=== PATIENT | female | born 1940 | race Caucasian/White ===

== ENCOUNTER → 2019-07-26 11:15 | Outpatient (BNVA) | payer MEDICARE, MEDICAID, SELFPAY | PROVIDERS: Family Provider Family Medicine; PCP Family Medicine; Visit Provider Nurse Practitioner Family | DX: N30.00 Acute cystitis without hematuria (principal); R39.9 Unspecified symptoms and signs involving the genitourinary system; R82.998 Other abnormal findings in urine; N81.4 Uterovaginal prolapse, unspecified | CPT/HCPCS: 81003; 87077; 87086; 87186 ==

== ENCOUNTER → 2019-08-07 14:39 | Outpatient (BNVA) | payer MEDICARE, MEDICAID, SELFPAY | PROVIDERS: Family Provider Family Medicine; PCP Family Medicine; Visit Provider Nurse Practitioner Family | DX: N30.00 Acute cystitis without hematuria | CPT/HCPCS: 81003 ==

== ENCOUNTER 2019-11-14 10:43 | Outpatient (CLI) | payer MEDICARE, SELFPAY ==
--- NOTE | 2019-11-14 11:00 | USCV_ITS ---
Wendy Covarrubias Age: 79 Gender: F : 1940 Exam Date: 11/14/2019 11:00 Ordering Phys: Mic Meeks MD (Andy) ([email or web address] [place]) Technologist: Staci Jones Exam [place] [facility] [place]ication: STENOSIS Risk Factors: Previous Vascular Surgery: Right Brachial BP: / Left Brachial BP: / Right Left Velocity (cm/s) Spectral Plaque Velocity (cm/s) Spectral Plaque Syst/Diast Broadening Syst/Diast Broadening 62.80/ 13.20 Prox CCA 36.90 / 8.60 57.30/ 11.00 Mid CCA 53.50 / 13.90 40.40/ 10.10 Distal CCA 33.00 / 8.80 61.60/ 20.50 Prox ICA 77.00 / 16.60 61.80/ 11.10 Mid ICA 89.50 / 21.80 55.70/ 14.60 Distal ICA 82.20 / 21.80 105.10 ECA 122.80 1.08 ICA/CCA 1.67 Antegrade Vertebral Antegrade 61.80/ 12.90 cm/s 36.90/ 7.10 cm/s Bi Subclavian Bi 94.30 121.9 0 FINDINGS Moderate heterogeneous irregular plaque to the left bifurcation and internal carotid artery Mild to moderate heterogeneous plaques of the right bifurcation and internal carotid artery Intimal thickening and minimal plaques in the common carotid arteries bilaterally Antegrade flow in the vertebral arteries bilaterally Normal Doppler flow velocities in the subclavian arteries bilaterally CONCLUSIONS Moderate heterogeneous irregular plaque at the left bifurcation and internal carotid artery with velocity elevation consistent with 16-49% stenosis. Mild to moderate heterogeneous plaques of the right bifurcation and internal carotid artery Intimal thickening and minimal plaques in the common carotid arteries bilaterally Compared to the study from 11/23/2017, there may not be a significant change . Dr Mo Cortez MD [facility] (Electronically Signed) Final Date: 15 November 2019 17:18 S
== END 2019-11-14 10:44 | disposition home or self-care (01) ==
LOC: RAD 10:48
PROVIDERS: Family Provider Family Medicine; PCP Family Medicine; Visit Provider Thoracic Surgery (Cardiothoracic Vascular Surgery)
DX: I65.23 Occlusion and stenosis of bilateral carotid arteries (principal)
CPT/HCPCS: 93880

== ENCOUNTER → 2019-12-17 15:20 | Outpatient (BNVA) | payer MEDICARE, SELFPAY | PROVIDERS: Family Provider Family Medicine; PCP Family Medicine; Visit Provider Specialist | DX: G40.909 Epilepsy, unspecified, not intractable, without status epilepticus (principal); G40.219 Localization-related (focal) (partial) symptomatic epilepsy and epileptic syndromes with complex partial seizures, intractable, without status epilepticus | CPT/HCPCS: 99214 ==

== ENCOUNTER 2020-05-13 09:58 | Outpatient (CLI) | payer MEDICARE, SELFPAY ==
--- NOTE | 2020-05-13 10:15 | USCV_ITS ---
CovarrubiasWendy lundberg Age: 80 Gender: F : 1940 Exam Date: 05/13/2020 10:07 Ordering Phys: Mic Meeks MD (Andy) [email or web address] [place] Technologist: Nneka Peres Exam Location: [facility] [place] Indication: h/o bilat CEA Risk Factors: Previous Vascular Surgery: Right Brachial BP: / Left Brachial BP: / Right Left Velocity (cm/s) Spectral Plaque Velocity (cm/s) Spectral Plaque Syst/Diast Broadening Syst/Diast Broadening 90.40/ 7.70 Prox CCA 90.40 / 7.70 66.70/ 7.70 Mid CCA 62.80 / 11.00 63.30/ 8.90 Distal CCA 61.80 / 13.40 47.70/ 6.70 Prox ICA 81.60 / 11.00 82.50/ 12.20 Mid ICA 82.20 / 13.65 63.90/ 11.70 Distal ICA 85.70 / 14.30 118.10 ECA 93.70 1.24 ICA/CCA 1.61 Antegrade Vertebral Antegrade 66.20/ 13.20 cm/s 27.70/ 9.20 cm/s Tri Subclavian Bi 107.4 210.1 0 0 FINDINGS Comparison:. 11/14/19. No significant elevation of systolic or diastolic velocities. Diffuse bilateral scattered calcified plaque and intimal thickening throughout the common carotid arteries and extending through the bifurcation. Surface of the plaque is irregular in the left CCA. Bilateral antegrade vertebral arteries. CONCLUSIONS Bilateral ICA stenosis less than 50%. No interval change in stenosis since prior exam. Bilateral diffuse atherosclerotic plaque. Dr. Candy Gomes DO (Electronically Signed) Final Date: 13 May 2020 12:17 S
== END 2020-05-13 09:59 | disposition home or self-care (01) ==
PROVIDERS: PCP Family Medicine; Visit Provider Thoracic Surgery (Cardiothoracic Vascular Surgery)
DX: I65.23 Occlusion and stenosis of bilateral carotid arteries (principal)
CPT/HCPCS: 93880

== ENCOUNTER → 2020-11-02 14:54 | Outpatient (BNVA) | payer MEDICARE, SELFPAY | PROVIDERS: PCP Family Medicine; Visit Provider Nurse Practitioner Family | DX: N39.0 Urinary tract infection, site not specified (principal) | CPT/HCPCS: 81000 ==

== ENCOUNTER 2020-11-19 13:59 | Inpatient (IN) | payer MEDICARE, SELFPAY ==
[2020-11-19 14:09] VITALS: BP 185/72; PULSE 91; RESP 18; TEMP 37; O2SAT 97; BMI 26.4
--- NOTE | 2020-11-19 14:11 | ECG_ITS ---
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 Measurements Intervals [place] Rate: 94 P: 54 WA: 160 QRS: -28 QRSD: 88 T: 71 QT: 336 QTc: 422 Interpretive Statements SINUS RHYTHM BORDERLINE LEFT AXIS DEVIATION [QRS AXIS < -20] LOW QRS VOLTAGE IN PRECORDIAL LEADS [QRS DEFLECTION < 1.0 mV IN CHEST LEADS] LEFT VENTRICULAR HYPERTROPHY AND ST-T CHANGE [VOLTAGE CRITERIA PLUS ST/T ABNORMALITY] Compared to ECG 04/01/2017 01:34:33 Low QRS voltage now present Left ventricular hypertrophy now present ST (T wave) deviation now present T-wave abnormality no longer present Electronically Signed On 11-19-2020 18:22:08 CDT by Pawan Tse M.D. [id number]
--- NOTE | 2020-11-19 14:25 | XR_ITS ---
WS: [id number] Exam: XR chest 1V portable [id number] Date/Time of Exam: 11/19/2020 2:25 PM Reason For Exam: dyspnea/cough Comparison 03/31/2017. The lungs are fully expanded and clear. Unremarkable cardiomediastinal structures. Old bilateral prox imal humeral fractures are noted. Surgical clips in the right and left neck. Bilateral apical pleural thickening and calcification. XR/XR chest 1V portable [id number] IMPRESSION: 1. No acute cardiopulmonary finding. No change.
--- NOTE | 2020-11-19 14:26 | ED_ITS ---
HPI - Weakness General: Chief complaint: Weakness Stated complaint: GENERALIZED WEAKNESS Time Seen by Provider: 11/19/20 14:00 History of Present Illness: HPI Narrative: 80 yo female presents to the emergency room with complaints of weakness and cough for the last 3 days. Her son-in-law who lives with her tested positive for Covid 3 days ago. She has had some loose stools but no diarrhea denies anosmia. On arrival here she is mildly hypoxic which cc corrected by 2 L nasal cannula on room air she was in the mid to upper 80s. MD Complaint: generalized weakness Onset (ago): day(s) Duration: constant Location: generalized Relieving factors: none Exacerbating factors: none Associated symptoms: Denies chest pain, chills, confusion, melena, decreased appetite, diaphoresis, dysuria, easy bruising, fever(s), headache(s), myalgias, nausea, rash, short of breath, syncope or vomiting Review of Systems Const: Denies: fever(s), chills or diaphoresis ENMT: Denies: throat pain, ear or mastoid pain, nasal discharge or nasal congestion Card: Denies: chest pain or syncope Resp: Reports: dyspnea; Denies: productive cough GI: Denies: nausea, vomiting or melena : Denies: dysuria Skin/Breast: Denies: rash or pruritus Neuro: Denies: headache(s) or confusion Kash/Lymph: Denies: easy bruising [facility] ED PFSH: Medical History (Updated 11/20/20 @ 06:34 by Lee Trent DO) Arteriosclerotic heart disease Carotid disease, bilateral CKD (chronic kidney disease) stage 2, GFR 60-89 ml/min Cystocele with small rectocele and uterine descent Dementia in Alzheimer's disease Dyslipidemia Essential hypertension GERD (gastroesophageal reflux disease) Surgical History H/O removal of cyst History of cholecystectomy Status post carotid surgery Family History Mother CAD (coronary artery disease) Hypertension Social History Smoking and tobacco status: former smoker Second hand smoke exposure: No Alcohol intake: never Desire information about alcohol rehabilitation?: No Desire information about substance/drug rehabilitation?: No Adopted: No Lives independently: Yes Household members: family Housing: House Marital status: / History of recent travel: No Physical Exam Const: COMMON NORMALS: no acute distress GENERAL APPEARANCE: cooperative and comfortable ORIENTATION/CONSCIOUSNESS: Yes awake HENMT: COMMON NORMALS: normocephalic, atraumatic, hearing grossly normal bilaterally and external ears normal HEAD & SCALP: normocephalic and atraumatic EXTERNAL EAR: Yes external ears normal Neck/C-Spine: COMMON NORMALS: no JVD Resp: AUSCULTATION: rhonchi and wheezes Cardio: COMMON NORMALS: no JVD, regular rate, regular rhythm and No murmurs present (Cardio) RATE: regular rate RHYTHM: regular rhythm GI: COMMON NORMALS: Soft to palpation and No hepatosplenomegaly present AUSCULTATION: Yes normoactive bowel sounds PALPATION: Yes Soft to palpation, No Tenderness to palpation present (GI), No Guarding due to palpation present (GI) and Yes No hepatosplenomegaly present Extremity: COMMON NORMALS: normal to inspection, capillary refill normal, no clubbing, cyanosis or edema, no calf tenderness and no pedal edema Skin: COMMON NORMALS: no rashes or lesions noted GENERAL SKIN EXAM: no rashes or lesions noted Course Vital Signs: Vital signs: Vital Signs Temperature 100.1 F H 11/20/20 04:46 Pulse Rate 76 11/20/20 04:46 Respiratory Rate 19 H 11/20/20 04:46 Blood Pressure 115/62 11/20/20 04:46 Pulse Oximetry 93 11/20/20 04:46 MDM - Weakness MDM Narrative: Medical decision making narrative: Positive Covid with hypoxia. We will go ahead and admit she is only on day 3 of symptoms concerned she may progressively worsen started on remdesivir and dexamethasone IL-6 ordered. Lab Data: Labs: Lab Results 11/19/20 11/19/20 11/19/20 Range/Units 15:00 15:15 15:15 WBC 4.8 (4.0-10.0) 10^3/ uL RBC 5.24 (4.1-5.3) 10^6/u L Hgb 16.4 H (11.5-15.3) g/dL Hct 49.3 H (37.0-47.0) % MCV 94.1 (81-99) fL MCH 31.3 (28.0-34.0) pg MCHC 33.3 (30.0-36.0) g/dL RDW 12.5 (12.1-15.1) % Plt Count 173 (130-400) 10^3/c mm MPV 10.8 H (7.4-10.4) fL Neut % (Auto) 71.6 % Lymph % (Auto) 14.0 % [place] % (Auto) 14.2 % Eos % (Auto) 0.0 % Baso % (Auto) 0.0 % Neut # (Auto) 3.42 (1.8-7.7) 10^3/u L Lymph # (Auto) 0.7 L (0.8-4.8) 10^3/u L [place] # (Auto) 0.7 (0.2-0.9) 10^3/u L Eos # (Auto) 0.0 (0.0-0.8) 10^3/u L Baso # (Auto) 0.0 (0.0-0.1) 10^3/u L Nucleated RBC % (a uto) 0 % Nucleated RBCs # 0.0 /100WBC D-Dimer (0-0.59) ug/mIFE U Sodium 132 L (136-145) mmol/L Potassium 4.1 (3.5-5.1) mmol/L Chloride 94 L (98-107) mmol/L Carbon Dioxide 22 (22-29) mmol/L Anion Gap 20.1 H (5-19) BUN 23 (8-23) mg/dL Creatinine 0.9 (0.5-0.9) mg/dL GFR Calculation Not Reportable Glucose 76 (65-115) mg/dL Calculated Osmolal ity 276 L (285-295) mOsm/k g Calcium 8.7 (8.5-10.5) mg/dL Total Bilirubin 0.4 (0.15-1.2) mg/dL AST 37 H (0-32) U/L ALT 34 H (0-33) U/L Alkaline Phosphata se 107 H (35-105) IU/L Creatine Kinase 34 (26-192) U/L Total Protein 6.7 (6.6-8.7) g/dL Albumin 4.0 (3.5-5.2) g/dL Globulin 2.7 (1.3-4.6) g/dL Lipase 61 H (13-60) U/L SARS-CoV-2 Ag (Rap id) Positive H (Negative) 11/19/20 Range/Units 15:15 WBC (4.0-10.0) 10^3/ uL RBC (4.1-5.3) 10^6/u L Hgb (11.5-15.3) g/dL Hct (37.0-47.0) % MCV (81-99) fL MCH (28.0-34.0) pg MCHC (30.0-36.0) g/dL RDW (12.1-15.1) % Plt Count (130-400) 10^3/c mm MPV (7.4-10.4) fL Neut % (Auto) % Lymph % (Auto) % [place] % (Auto) % Eos % (Auto) % Baso % (Auto) % Neut # (Auto) (1.8-7.7) 10^3/u L Lymph # (Auto) (0.8-4.8) 10^3/u L [place] # (Auto) (0.2-0.9) 10^3/u L Eos # (Auto) (0.0-0.8) 10^3/u L Baso # (Auto) (0.0-0.1) 10^3/u L Nucleated RBC % (a uto) % Nucleated RBCs # /100WBC D-Dimer 1.16 H (0-0.59) ug/mIFE U Sodium (136-145) mmol/L Potassium (3.5-5.1) mmol/L Chloride (98-107) mmol/L Carbon Dioxide (22-29) mmol/L Anion Gap (5-19) BUN (8-23) mg/dL Creatinine (0.5-0.9) mg/dL GFR Calculation Glucose (65-115) mg/dL Calculated Osmolal ity (285-295) mOsm/k g Calcium (8.5-10.5) mg/dL Total Bilirubin (0.15-1.2) mg/dL AST (0-32) U/L ALT (0-33) U/L Alkaline Phosphata se (35-105) IU/L Creatine Kinase (26-192) U/L Total Protein (6.6-8.7) g/dL Albumin (3.5-5.2) g/dL Globulin (1.3-4.6) g/dL Lipase (13-60) U/L SARS-CoV-2 Ag (Rap id) (Negative) Discharge Plan Discharge Patient Disposition: Admitted As Inpatient Admit Provider: Alexi Hilario Clinical Impression: COVID-19, Hypertension, CKD (chronic kidney disease) stage 2, GFR 60-89 ml/min, Arteriosclerotic heart disease Condition: Stable Coding Level of Care Code ED Machine Load Clerk for g Fwd Exam Comprehensive
[2020-11-19 15:07] VITALS: RESP 17; O2SAT 98
[2020-11-19 15:45] LABS: Hematocrit 49.3 % (37.0-47.0); Hemoglobin 16.4 g/dL (11.5-15.3); Lymphocytes # 0.7 10^3/uL (0.8-4.8); Mean Corpuscular HGB Conc 33.3 g/dL (30.0-36.0); Mean Corpuscular Hemoglobin 31.3 pg (28.0-34.0); Mean Corpuscular Volume 94.1 fL (81-99); Mean Platelet Volume 10.8 fL (7.4-10.4); Monocytes # 0.7 10^3/uL (0.2-0.9); Monocytes % 14.2 %; Neutrophils # 3.42 10^3/uL (1.8-7.7); Neutrophils % 71.6 %; Nucleated Red Blood Cells % 0 %; Platelet Count 173 10^3/cmm (130-400); Red Blood Count 5.24 10^6/uL (4.1-5.3); Red Cell Distribution Width 12.5 % (12.1-15.1); White Blood Count 4.8 10^3/uL (4.0-10.0)
[2020-11-19 15:50] LABS: SARS Covid-2 Antigen Positive (Negative)
[2020-11-19 15:52] LABS: D Dimer 1.16 ug/mIFEU (0-0.59)
[2020-11-19 16:03] LABS: Alanine Aminotransferase 34 U/L (0-33); Alkaline Phosphatase 107 IU/L (35-105); Anion Gap 20.1 (5-19); Aspartate Amino Transferase 37 U/L (0-32); Blood Urea Nitrogen 23 mg/dL (8-23); Calcium 8.7 mg/dL (8.5-10.5); Carbon Dioxide 22 mmol/L (22-29); Chloride 94 mmol/L (98-107); Creatine Phosphokinase 34 U/L (26-192); Globulin 2.7 g/dL (1.3-4.6); Glucose 76 mg/dL (65-115); Lipase 61 U/L (13-60); Osmolality Calculated 276 mOsm/kg (285-295); Potassium 4.1 mmol/L (3.5-5.1); Sodium 132 mmol/L (136-145); Total Bilirubin 0.4 mg/dL (0.15-1.2); Total Protein 6.7 g/dL (6.6-8.7)
[2020-11-19] MEDS: remdesivir 200 MG in sodium chloride 0.9% (100 ml) 100 ML 100 MG IV (17:48)
[2020-11-19 17:49] VITALS: BP 211/86; PULSE 114; RESP 17; O2SAT 98
[2020-11-19 18:40] VITALS: BP 175/83; PULSE 109; RESP 20; TEMP 37.3; O2SAT 95
--- NOTE | 2020-11-19 19:00 | PC.NURSE ---
Dr. Hilario at bedside talking with patient. Dr. Hilario asked patient about her resuscitation wishes Patient states, If it is my time to go let me go. I am ready for GOD to take me home. Patient is A&Ox3. Respirations even and non-labored on 2 liters of oxygen.
--- NOTE | 2020-11-19 19:08 | P.HP_ITS ---
Providers/Chief Complaint Admitting Physician: Alexi Hilario DO Primary Care Provider: Honorio Ren Chief Complaint: GENERALIZED WEAKNESS History of Present Illness Wendy Covarrubias is a 80 year old female with past medical history of seizure disorder hypertension Presents with 3 days of symptoms that she calls like a flu. She did not have a cough or shortness of breath or chest pain she just felt weak. She said her daughter called the ambulance for her and her son-in-law. Review of Systems Const: Denies: fever(s) or chills Eyes: Denies: change in vision ENMT: Denies: throat pain or nasal congestion Card: Denies: chest pain or palpitations Resp: Denies: dyspnea or productive cough GI: Denies: abdominal pain, nausea, vomiting or change in stool character : Denies: dysuria Musc: Denies: back pain or extremity pain Skin/Breast: Denies: rash or lesions Neuro: Denies: headache(s) or dizziness Psych: Denies: anxiety or depression Kash/Lymph: Denies: easy bruising or easy bleeding Medications/Allergies Home Medications Medication Instructions Recorded Confirmed Last Taken Type alendronate 70 mg tablet 70 mg PO Q7D tab 07/26/19 11/19/20 11/12/20 History aspirin 81 mg tablet,delayed 81 mg PO DAILY 07/26/19 11/19/20 11/18/20 History release atorvastatin 80 mg tablet 80 mg PO DAILY 07/26/19 11/19/20 11/18/20 History dexlansoprazole 60 mg 60 mg PO DAILY 07/26/19 11/19/20 11/18/20 History capsule,biphase delayed release metoprolol tartrate 25 mg tablet 12.5 mg PO BID 07/26/19 11/19/20 11/18/20 History multivitamin-iron (hematinic) 1 tab PO DAILY 07/26/19 11/19/20 11/18/20 History nifedipine 90 mg tablet,extended 90 mg PO DAILY 07/26/19 11/19/20 11/18/20 Histo ry release spironolactone 25 mg tablet 25 mg PO DAILY 07/26/19 11/19/20 11/18/20 History vitamin d 1 tab PO DAILY 07/26/19 11/19/20 11/18/20 History levetiracetam 750 mg tablet 750 mg PO BID #60 tab 12/18/19 11/19/20 11/18/20 Rx Allergies Allergy/AdvReac Type Severity Reaction Status Date / Time morphine Allergy ADR-Vomitin Verified 11/17/20 08:26 g Penicillins Allergy ALGY-Hives Verified 11/17/20 08:26 PFSH Acute PFSH: Medical History (Updated 11/19/20 @ 19:16 by Alexi Hilario DO) Arteriosclerotic heart disease Carotid disease, bilateral CKD (chronic kidney disease) stage 2, GFR 60-89 ml/min Cystocele with small rectocele and uterine descent Dementia in Alzheimer's disease Dyslipidemia Essential hypertension GERD (gastroesophageal reflux disease) Surgical History H/O removal of cyst History of cholecystectomy Status post carotid surgery Family History Mother CAD (coronary artery disease) Hypertension Social History Smoking and tobacco status: former smoker Second hand smoke exposure: No Alcohol intake: never Desire information about alcohol rehabilitation?: No Desire information about substance/drug rehabilitation?: No Adopted: No Lives independently: Yes Household members: family Housing: House Marital status: / History of recent travel: No Vitals/I&O/Wt Last Vital Signs Temp 98.6 F 11/19/20 14:09 Pulse 114 H 11/19/20 17:49 Resp 17 11/19/20 17:49 BP 211/86 11/19/20 17:49 Pulse Ox 98 11/19/20 17:49 Weight last 48 hrs Weight 61.235 kg Physical Exam Narrative: EXAM NARRATIVE: General: Patient appears her stated age of 80. She is in mild distress while talking. I am unclear if she is feeling a little dips neck or anxiety. Her pulse ox was checked while I was in the room and it was 94% on 2 L. Head normocephalic atraumatic pupils equal reactive to light and accommodation extraocular muscles are intact there is no scleral icterus neck is supple no JVD carotid bruits or lymphadenopathy thyroid is not palpable heart regular normal S1-S2 without murmurs clips gallops or rubs lungs good aeration 1 or 2 scattered wheezes auscultated but clears with cough. Abdomen soft nontender nondistended positive bowel sounds no hepatosplenomegaly extremities no clubbing clubbing cyanosis or edema skin warm and dry scattered moles versus seboric keratosis Neuro patient is alert and oriented to person place time and situation psychiatric mood and affect appropriate for condition Data : 11/19/20 15:15 11/19/20 15:15 A&P Assessment and plan (1) COVID-19: Admit patient to floor no need for treatment telemetry. 2 L nasal cannula RT to evaluate and treat and titrate oxygen as needed Remdesivir and Decadron as per protocol Discussed CODE STATUS with patient she says her daughter knows what she wants. And she wants to go to the [facility] when her time is ready. Thus she will be ordered a DO NOT RESUSCITATE status. Status: Acute (2) Hypertension: Continue home medications Status: Acute (3) Epilepsy: Continue home dose of Keppra 750 mg twice daily Status: Acute (4) CKD (chronic kidney disease) stage 2, GFR 60-89 ml/min: Will monitor. Status: Acute (5) Arteriosclerotic heart disease: Continue aspirin Status: Acute (6) Dyslipidemia: For 80 mg at night Status: Acute (7) GERD (gastroesophageal reflux disease): Continue home medication. Status: Acute Attestations Medical Necessity Statement*: Pt has COVID and high risk for deterioation. Keep hospitalized for a few MN and treat aggressively Coding Level of Care Code Acute Case Manager Specialist for Chg Fwd Diagnoses COVID-19 U07.1 Hypertension I10 Epilepsy G40.909 CKD (chronic kidney disease) stage 2, GFR 60-89 ml/min N18.2 Arteriosclerotic heart disease I25.10 Dyslipidemia E78.5 GERD (gastroesophageal reflux disease) K21.9
[2020-11-19] MEDS: D5-NS 0.45% + KCL 20 mEq 20 MEQ/1,000 ML BAG 75 MEQ IV (19:09)
[2020-11-19] MEDS: metoprolol tartrate 25 mg Tablet 12.5 MG PO (19:09)
[2020-11-19] MEDS: docusate sodium 100 mg Capsule PO (19:09)
[2020-11-19] MEDS: enoxaparin 40 mg/0.4 mL Syringe SUBCUT (19:10)
[2020-11-19 20:00] VITALS: BP 178/80; PULSE 85; RESP 20; TEMP 37.6; O2SAT 98
[2020-11-19] MEDS: atorvastatin 40 mg Tablet 80 MG PO (21:23)
[2020-11-19 21:36] VITALS: O2SAT 98
[2020-11-20] VITALS (7 sets, daily range): BP systolic 95–126; BP diastolic 53–73; PULSE 62–77; RESP 16–19; TEMP 36.3–38.1; O2SAT 93–98
[2020-11-20 05:35] LABS: Basophils % 0.2 %; Hematocrit 43.3 % (37.0-47.0); Hemoglobin 14.4 g/dL (11.5-15.3); Lymphocytes # 0.7 10^3/uL (0.8-4.8); Lymphocytes % 14.9 %; Mean Corpuscular HGB Conc 33.3 g/dL (30.0-36.0); Mean Corpuscular Volume 93.1 fL (81-99); Mean Platelet Volume 10.9 fL (7.4-10.4); Monocytes # 0.8 10^3/uL (0.2-0.9); Monocytes % 16.1 %; Neutrophils # 3.28 10^3/uL (1.8-7.7); Neutrophils % 68.6 %; Nucleated Red Blood Cells % 0 %; Platelet Count 149 10^3/cmm (130-400); Red Blood Count 4.65 10^6/uL (4.1-5.3); Red Cell Distribution Width 12.3 % (12.1-15.1); White Blood Count 4.8 10^3/uL (4.0-10.0)
[2020-11-20 05:53] LABS: Alanine Aminotransferase 30 U/L (0-33); Albumin Level 3.3 g/dL (3.5-5.2); Alkaline Phosphatase 84 IU/L (35-105); Aspartate Amino Transferase 42 U/L (0-32); Blood Urea Nitrogen 21 mg/dL (8-23); Calcium 7.7 mg/dL (8.5-10.5); Carbon Dioxide 24 mmol/L (22-29); Chloride 98 mmol/L (98-107); Globulin 2.4 g/dL (1.3-4.6); Glucose 121 mg/dL (65-115); Osmolality Calculated 276 mOsm/kg (285-295); Sodium 131 mmol/L (136-145); Total Bilirubin 0.3 mg/dL (0.15-1.2); Total Protein 5.7 g/dL (6.6-8.7)
[2020-11-20 05:57] LABS: Anion Gap 13.6 (5-19); Potassium 4.6 mmol/L (3.5-5.1)
--- NOTE | 2020-11-20 06:05 | PM.PN ---
Subjective Subjective: Interval history: hypoxia overnight Vitals/I&O/Wt Last Vital Signs Temp 100.1 F H 11/20/20 04:46 Pulse 76 11/20/20 04:46 Resp 19 H 11/20/20 04:46 BP 115/62 11/20/20 04:46 Pulse Ox 93 11/20/20 04:46 11/19/20 11/19/20 11/20/20 14:59 22:59 06:59 Intake Total 100 / 100 240 / 340 Output Total 300 / 300 Balance -200 / -200 240 / 40 Weight last 48 hrs Weight 61.235 kg Physical Exam Narrative: EXAM NARRATIVE: General: Patient appears her stated age of 80. She is in mild distress while talking. I am unclear if she is feeling a little dips neck or anxiety. Her pulse ox was checked while I was in the room and it was 94% on 2 L. Head normocephalic atraumatic pupils equal reactive to light and accommodation extraocular muscles are intact there is no scleral icterus neck is supple no JVD carotid bruits or lymphadenopathy thyroid is not palpable heart regular normal S1-S2 without murmurs clips gallops or rubs lungs good aeration 1 or 2 scattered wheezes auscultated but clears with cough. Abdomen soft nontender nondistended positive bowel sounds no hepatosplenomegaly extremities no clubbing clubbing cyanosis or edema skin warm and dry scattered moles versus seboric keratosis Neuro patient is alert and oriented to person place time and situation psychiatric mood and affect appropriate for condition Data : 11/20/20 05:17 11/20/20 05:17 A&P Assessment and plan (1) COVID-19: Admit patient to floor no need for treatment telemetry. 2 L nasal cannula RT to evaluate and treat and titrate oxygen as needed Remdesivir and Decadron as per protocol elevated d-dimer - cta chest Discussed CODE STATUS with patient she says her daughter knows what she wants. And [facility]. Thus she will be ordered a DO NOT RESUSCITATE status. Status: Acute (2) Hypertension: Continue home medications Status: Acute (3) Epilepsy: Continue home dose of Keppra 750 mg twice daily Status: Acute (4) CKD (chronic kidney disease) stage 2, GFR 60-89 ml/min: Will monitor. d/c ivf Status: Acute (5) Arteriosclerotic heart disease: Continue aspirin Status: Acute (6) Dyslipidemia: For 80 mg at night Status: Acute (7) GERD (gastroesophageal reflux disease): Continue home medication. Status: Acute Attestations Medical Necessity Statement*: continue hosptalization for management of hypxic resp failure Time Spent in Patient Care: Greater than 35 minutes (>than 50% of time spent in counselling and/or direct pt care on unit). Coding Level of Care Code Acute Supervisor Reclamation for Chg Fwd Diagnoses COVID-19 U07.1 Hypertension I10 Epilepsy G40.909 CKD (chronic kidney disease) stage 2, GFR 60-89 ml/min N18.2 Arteriosclerotic heart disease I25.10 Dyslipidemia E78.5 GERD (gastroesophageal reflux disease) K21.9
--- NOTE | 2020-11-20 07:54 | CTR_ITS ---
PROCEDURE INFORMATION: Exam: CTA Chest Without And With Contrast Exam date and time: 11/20/2020 7:54 AM Age: 80 years old Clinical indication: Dyspnea; Additional info: Hypoxia, covid-19 infection TECHNIQUE: Imaging protocol: Computed tomographic angiography of the chest without and with contrast. 3D rendering (Not supervised by radiologist): MIP and/or 3D reconstructed images were created by the technologist. Radiation optimization: All CT scans at this facility use at least one of these dose optimization techniques: automated exposure control; mA and/or kV adjustment per patient size (includes targeted exams where dose is matched to clinical indication); or iterative reconstruction. Contrast material: VISI; Contrast volume: 66 ml; Contrast route: INTRAVENOUS (IV); COMPARISON: 1. CR XR chest 1V portable [id number] 11/19/2020 2:27 PM 2. CR Shoulder 2+ views RIGHT* [id number] 07/17/2017 11:10:31 AM 3. CR Chest 1 [place] [id number] 03/31/2017 5:37:58 PM RADIATION DOSE METRICS: Total DLP (mGy-cm): 495.04 FINDINGS: Pulmonary arteries: No filling defects in the pulmonary arteries to suggest pulmonary embolism. Aorta: Moderate atherosclerotic changes in the visualized arteries. No evidence for aortic aneurysm. Evaluation for aortic dissection is limited due to the phase of contrast-enhancement. Lungs: Tracheobronchial structures are patent. Dependent atelectasis in the lungs bilaterally. No pulmonary parenchymal nodules or masses. Focal ground-glass opacification in the anterior left upper lobe. Pleural spaces: No pneumothorax. No pleural effusion. Heart: Stable moderate enlargement of the heart. Calcification of the aortic valve. Moderate atherosclerotic calcification in the coronary arteries. Mediastinal space: The esophagus is unremarkable. No mediastinal hematoma. No pneumomediastinum. Lymph nodes: No lymphadenopathy. Liver: The visualized liver is unremarkable. Gallbladder and bile ducts: Patient has had a previous cholecystectomy. No dilatation of the visualized bile ducts. Pancreas: The visualized pancreas is unremarkable. No pancreatic ductal dilatation. Spleen: The spleen is unremarkable. Adrenal glands: The right and left adrenal glands are unremarkable. Kidneys and ureters: The visualized right kidney is unremarkable. Mild atrophy of the visualized left kidney. Multiple cysts in the visualized left kidney. Bones/joints: Mild degenerative changes in the visualized spine. Old, moderate compression deformity of T8. Stable deformities of the proximal right and left humeri consistent with old, healed fractures. Soft tissues: No acute abnormality in the extrathoracic soft tissues. CT/CT angio chest PE protcl [id number] IMPRESSION: 1. Focal ground-glass opacification in the anterior left upper lobe. Findings are nonspecific, but can be seen with COVID-19 pneumonia. Recommend clinical correlation. Recommend followup chest imaging to insure resolution of these findings. 2. No evidence for pulmonary embolism. 3. Dependent atelectasis in the lungs bilaterally. 4. Incidental/nonacute findings are listed in the report. COMMENTS: Consistent with the [employer]'s Incidental Findings Committee white paper (J Am Sidney Radiol 2018): Any incidental renal lesion less than 1 cm or classified as too small to characterize, or any incidental cystic renal lesion characterized as simple-appearing, is likely benign. No follow-up imaging is recommended for these lesions per consensus recommendations based on imaging criteria. Radiation Dose CTDIVOL = (mGy): DLP = 495.04 (mGy-cm)
[2020-11-20] MEDS: dexamethasone 4 mg/mL INJ 6 MG IVP (08:41)
[2020-11-20] MEDS: pantoprazole DR 40 mg Tablet PO (08:41)
[2020-11-20] MEDS: levETIRAcetam 500 mg Tablet 750 MG PO ×2 (08:41→17:20)
[2020-11-20] MEDS: docusate sodium 100 mg Capsule PO ×2 (08:41→17:20)
[2020-11-20] MEDS: aspirin 81 mg EC Tablet PO (08:41)
--- NOTE | 2020-11-20 10:40 | PC.NURSE ---
Attempted x2 to establish a 20 gauge IV for patent's CT scan. This nurse was unsuccessful. Charge nurse Robyn CANALES notified.
[2020-11-20 14:19] LABS: Urine Appearance Cloudy (CLEAR); Urine Color Yellow (Yellow)
[2020-11-20 14:20] LABS: Add Urine Culture? No; Add Urine Microscopic? YES; Bacteria Urine 4+ /hpf; Bilirubin Urine Neg (Negative); Blood Urine Neg (Negative); Glucose Urine UA Norm (Normal); Ketones Urine 1+ (Negative); Leukocyte Esterase Urine Negative (Negative); Mucus Urine TRACE /hpf; Nitrate Urine Negative (Negative); Protein Urine 3+ (Negative); RBC Urine 0-4 /hpf (0-2); Squamous Epithelial Cell Urine 15-25 /hpf (0-5); Urobilinogen Urine Norm (Negative); WBC Urine 0-4 /hpf (0-5); pH Urine 5 (5-7)
--- NOTE | 2020-11-20 17:05 | PC.NURSE ---
Patient to CT at this time.
[2020-11-20] MEDS: iodixanol 320 mg/mL 100mL Btl IV (17:17)
[2020-11-20] MEDS: metoprolol tartrate 25 mg Tablet 12.5 MG PO (17:20)
[2020-11-20] MEDS: enoxaparin 40 mg/0.4 mL Syringe SUBCUT (17:20)
[2020-11-20] MEDS: remdesivir 100 MG in sodium chloride 0.9% (100 ml) 100 ML IV (17:22)
[2020-11-20] MEDS: atorvastatin 40 mg Tablet 80 MG PO (21:49)
[2020-11-21] VITALS: BP 120/74; PULSE 71; RESP 16; TEMP 36.7; O2SAT 97
[2020-11-21 04:00] VITALS: BP 126/74; PULSE 60; RESP 16; TEMP 36.7; O2SAT 95
[2020-11-21 05:45] LABS: Hematocrit 44.8 % (37.0-47.0); Hemoglobin 14.6 g/dL (11.5-15.3); Lymphocytes # 0.8 10^3/uL (0.8-4.8); Lymphocytes % 30.7 %; Mean Corpuscular HGB Conc 32.6 g/dL (30.0-36.0); Mean Corpuscular Hemoglobin 30.9 pg (28.0-34.0); Mean Corpuscular Volume 94.9 fL (81-99); Monocytes # 0.5 10^3/uL (0.2-0.9); Monocytes % 21.5 %; Neutrophils # 1.19 10^3/uL (1.8-7.7); Neutrophils % 47.4 %; Nucleated Red Blood Cells % 0 %; Platelet Count 147 10^3/cmm (130-400); Red Blood Count 4.72 10^6/uL (4.1-5.3); White Blood Count 2.5 10^3/uL (4.0-10.0)
[2020-11-21 05:59] LABS: D Dimer 1.26 ug/mIFEU (0-0.59)
[2020-11-21 06:02] LABS: Lactate (Lactic Acid level) 1.4 mmol/L (0.5-2.2)
[2020-11-21 06:12] LABS: Procalcitonin 0.12 ng/mL (0-0.5)
[2020-11-21 06:24] LABS: Alanine Aminotransferase 31 U/L (0-33); Albumin Level 3.1 g/dL (3.5-5.2); Alkaline Phosphatase 85 IU/L (35-105); Blood Urea Nitrogen 25 mg/dL (8-23); Calcium 7.6 mg/dL (8.5-10.5); Carbon Dioxide 22 mmol/L (22-29); Chloride 100 mmol/L (98-107); Globulin 2.5 g/dL (1.3-4.6); Glucose 95 mg/dL (65-115); Magnesium 2.1 mg/dL (1.7-2.3); Osmolality Calculated 282 mOsm/kg (285-295); Sodium 134 mmol/L (136-145); Total Bilirubin 0.4 mg/dL (0.15-1.2); Total Protein 5.6 g/dL (6.6-8.7)
[2020-11-21 06:37] LABS: Anion Gap 16.4 (5-19)
[2020-11-21 06:38] LABS: Aspartate Amino Transferase 43 U/L (0-32); Potassium 4.4 mmol/L (3.5-5.1)
[2020-11-21 07:22] LABS: Ferritin 775 ng/mL (15-150)
[2020-11-21 08:00] VITALS: BP 150/69; PULSE 65; RESP 17; TEMP 36.8; O2SAT 96
[2020-11-21 08:30] VITALS: PULSE 72; O2SAT 95
[2020-11-21] MEDS: metoprolol tartrate 25 mg Tablet 12.5 MG PO ×2 (09:27→17:24)
[2020-11-21] MEDS: aspirin 81 mg EC Tablet PO (09:27)
[2020-11-21] MEDS: levETIRAcetam 500 mg Tablet 750 MG PO ×2 (09:27→17:25)
[2020-11-21] MEDS: dexamethasone 4 mg/mL INJ 6 MG IVP (09:28)
[2020-11-21] MEDS: docusate sodium 100 mg Capsule PO ×2 (09:28→17:25)
[2020-11-21] MEDS: NIFEdipine ER (24 hr) 30 mg Tablet 90 MG PO (09:28)
[2020-11-21] MEDS: pantoprazole DR 40 mg Tablet PO (09:28)
[2020-11-21 11:55] VITALS: BP 132/73; PULSE 61; RESP 17; TEMP 36.6; O2SAT 95
[2020-11-21 15:10] VITALS: BP 117/65; PULSE 63; RESP 17; TEMP 36.7; O2SAT 93
--- NOTE | 2020-11-21 15:14 | P.PN_ITS ---
Subjective Subjective: Interval history: Continues to feel short of breat. Medications: Reviewed: Yes Vitals/I&O/Wt Last Vital Signs Temp 98.1 F 11/21/20 15:10 Pulse 63 11/21/20 15:10 Resp 17 11/21/20 15:10 BP 117/65 11/21/20 15:10 Pulse Ox 93 11/21/20 15:10 11/21/20 11/21/20 11/22/20 14:59 22:59 06:59 Intake Total 960 / 960 100 / 1060 Output Total 400 / 400 300 / 700 Balance 560 / 560 -200 / 360 Physical Exam Narrative: EXAM NARRATIVE: General _ impring. Head normocephalic atraumatic pupils equal reactive to light and accommodation extraocular muscles are intact there is no scleral icterus neck is supple no JVD carotid bruits or lymphadenopathy thyroid is not palpable heart regular normal S1-S2 without murmurs clips gallops or rubs lungs good aeration 1 or 2 scattered wheezes auscultated but clears with cough. Abdomen soft nontender nondistended positive bowel sounds no hepatosplenomegaly extremities no clubbing clubbing cyanosis or edema skin warm and dry scattered moles versus seboric keratosis Neuro patient is alert and oriented to person place time and situation psychiatric mood and affect appropriate for condition Data : 11/21/20 05:28 11/21/20 05:28 A&P Assessment and plan (1) COVID-19: Admit patient to floor no need for treatment telemetry. 2 L nasal cannula RT to evaluate and treat and titrate oxygen as needed Remdesivir and Decadron as per protocol elevated d-dimer - cta chest - ground glass opacities Home o2 eval prior to dc Discussed CODE STATUS with patient she says her daughter knows what she wants. And she wants to go to the [facility] when her time is ready. Thus she will be ordered a DO NOT RESUSCITATE status. Status: Acute (2) Hypertension: Continue home medications Status: Acute (3) Epilepsy: Continue home dose of Keppra 750 mg twice daily Status: Acute (4) CKD (chronic kidney disease) stage 2, GFR 60-89 ml/min: Will monitor. d/c ivf Status: Acute (5) Arteriosclerotic heart disease: Continue aspirin Status: Acute (6) Dyslipidemia: For 80 mg at night Status: Acute (7) GERD (gastroesophageal reflux disease): Continue home medication. Status: Acute Attestations Medical Necessity Statement*: Will require further hospitaliztion for management of covid-19 pneumonia Time Spent in Patient Care: Greater than 35 minutes (>than 50% of time spent in counselling and/or direct pt care on unit) . Coding Level of Care Code Acute Public Relations Professional for Chg Fwd Diagnoses COVID-19 U07.1 Hypertension I10 Epilepsy G40.909 CKD (chronic kidney disease) stage 2, GFR 60-89 ml/min N18.2 Arteriosclerotic heart disease I25.10 Dyslipidemia E78.5 GERD (gastroesophageal reflux disease) K21.9
[2020-11-21] MEDS: remdesivir 100 MG in sodium chloride 0.9% (100 ml) 100 ML IV (17:25)
[2020-11-21] MEDS: enoxaparin 40 mg/0.4 mL Syringe SUBCUT (17:25)
[2020-11-21] MEDS: atorvastatin 40 mg Tablet 80 MG PO (20:01)
[2020-11-22] VITALS (8 sets, daily range): BP systolic 117–178; BP diastolic 61–66; PULSE 60–76; RESP 18–20; TEMP 36.6–37.1; O2SAT 91–97
--- NOTE | 2020-11-22 02:27 | PC.NURSE ---
INCREASE CONFUSION IN THE PATIENT: THE PATIENT MADE A PHONE CALL TO THE SWITCH BOARD STATING SHE WAS IN A SMALL HOSPITAL [place]HIND THE HOSPITAL IN A SMALL HOUSE AND SHE WAS TRYING TO CALL HER DAUGHTER TO TAKE HER HOME. THIS NURSE WENT TO SPEAK WITH THE PATIENT AND EXPLAINED TO HER SHE IS IN THE HOSPITAL, JUST IN A DIFFERENT ROOM BECAUSE SHE IS COVID POSITIVE. AFTER ANSWERING A FEW QUESTIONS THE PATIENT SEEMED TO UNDERSTAND. THIS NURSE LEFT THE ROOM TO RETURN TO THE NURSE'S STATION. WHILE SITTING AT THE DESK THE PATIENT CAME OUT OF HER ROOM AND WAS ASKING WHERE SHE WAS AGAIN. THIS NURSE ASSISTED THE PATIENT BACK TO HER BED, APPLIED HER OXYGEN BACK TO HER NOSE AND APPLIED THE PULSE OX BACK TO HER FINGER. THE PATIENT ADMITTED SHE KNEW SHE WAS CONFUSED, BUT DIDN'T UNDERSTAND WHY. SHE STATED SHE FEELS LIKE SHE HAS BEEN SLEEPING TOO MUCH. IT WAS EXPLAINED TO HER THAT SHE WAS MUCH MORE ILL THAN SHE IS NOW AND SHE STATED SHE UNDERSTOOD.
[2020-11-22] MEDS: dexamethasone 4 mg/mL INJ 6 MG IVP (09:51)
[2020-11-22] MEDS: aspirin 81 mg EC Tablet PO (10:37)
[2020-11-22] MEDS: metoprolol tartrate 25 mg Tablet 12.5 MG PO ×2 (10:37→18:02)
[2020-11-22] MEDS: levETIRAcetam 500 mg Tablet 750 MG PO ×2 (10:38→18:04)
[2020-11-22] MEDS: NIFEdipine ER (24 hr) 30 mg Tablet 90 MG PO (10:38)
[2020-11-22] MEDS: docusate sodium 100 mg Capsule PO ×2 (10:38→18:03)
[2020-11-22] MEDS: pantoprazole DR 40 mg Tablet PO (10:38)
--- NOTE | 2020-11-22 14:11 | PC.SOCIAL ---
*IMM UPDATE* Gave verbal IMM update to pt's daughter. Verbalized understanding. 11/22/20 @ 0952 Initialed, dated, timed and placed in chart.
--- NOTE | 2020-11-22 17:03 | PM.PN ---
Subjective Subjective: Interval history: Noting improvement in respiratory status. was off o2 in room whoever this was replaced. no fever or chills, no nausea or vomiting Medications: Reviewed: Yes Vitals/I&O/Wt Last Vital Signs Temp 97.8 F 11/22/20 15:50 Pulse 60 11/22/20 15:50 Resp 18 11/22/20 15:50 BP 137/63 11/22/20 15:50 Pulse Ox 96 11/22/20 15:50 11/22/20 11/22/20 11/22/20 06:59 14:59 22:59 Intake Total 360 / 1420 Output Total 500 / 1200 Balance -140 / 220 Physical Exam Narrative: EXAM NARRATIVE: General : Alert, awake, oriented x 3 HEENT: Eomi CVS; RRR Chest : non-labored respiration Abd: soft NT,ND Ext : NO edema Data : 11/21/20 05:28 11/21/20 05:28 A&P Assessment and plan (1) COVID-19: Admit patient to floor no need for treatment telemetry. 2 L nasal cannula RT to evaluate and treat and titrate oxygen as needed Remdesivir and Decadron as per protocol To complete remdesivir on . elevated d-dimer - cta chest - ground glass opacities Home o2 eval in am Status: Acute (2) Hypertension: Continue home medications Status: Acute (3) Epilepsy: Continue home dose of Keppra 750 mg twice daily Status: Acute (4) CKD (chronic kidney disease) stage 2, GFR 60-89 ml/min: Will monitor. d/c ivf Status: Acute (5) Arteriosclerotic heart disease: Continue aspirin Status: Acute (6) Dyslipidemia: For 80 mg at night Status: Acute (7) GERD (gastroesophageal reflux disease): Continue home medication. Status: Acute Attestations Medical Necessity Statement*: Will require further hospitalization to complete full course of remdesivir. Time Spent in Patient Care: Greater than 35 minutes (>than 50% of time spent in counselling and/or direct pt care on unit). Coding Level of Care Code Acute Adhesive Bandage Making Operator for Chg Fwd Diagnoses COVID-19 U07.1 Hypertension I10 Epilepsy G40.909 CKD (chronic kidney disease) stage 2, GFR 60-89 ml/min N18.2 Arteriosclerotic heart disease I25.10 Dyslipidemia E78.5 GERD (gastroesophageal reflux disease) K21.9
[2020-11-22] MEDS: enoxaparin 40 mg/0.4 mL Syringe SUBCUT (18:01)
[2020-11-22] MEDS: remdesivir 100 MG in sodium chloride 0.9% (100 ml) 100 ML IV (18:05)
[2020-11-22 18:55] LABS: Alanine Aminotransferase 28 U/L (0-33); Albumin Level 2.9 g/dL (3.5-5.2); Alkaline Phosphatase 78 IU/L (35-105); Anion Gap 14.1 (5-19); Aspartate Amino Transferase 41 U/L (0-32); Blood Urea Nitrogen 23 mg/dL (8-23); Calcium 7.5 mg/dL (8.5-10.5); Carbon Dioxide 21 mmol/L (22-29); Chloride 103 mmol/L (98-107); Globulin 2.2 g/dL (1.3-4.6); Glucose 131 mg/dL (65-115); Osmolality Calculated 283 mOsm/kg (285-295); Potassium 4.1 mmol/L (3.5-5.1); Sodium 134 mmol/L (136-145); Total Bilirubin 0.3 mg/dL (0.15-1.2); Total Protein 5.1 g/dL (6.6-8.7)
[2020-11-22] MEDS: atorvastatin 40 mg Tablet 80 MG PO (20:57)
[2020-11-23] VITALS (9 sets, daily range): BP systolic 121–147; BP diastolic 67–73; PULSE 53–69; RESP 16–24; TEMP 36.6–37.7; O2SAT 92–97
[2020-11-23] MEDS: ondansetron 2 mg/ML SDV 2 mL 4 MG IVP (00:41)
[2020-11-23] MEDS: dexamethasone 4 mg/mL INJ 6 MG IVP (09:26)
[2020-11-23] MEDS: FUROsemide 10 mg/mL SDV 2mL 20 MG IVP (10:49)
[2020-11-23] MEDS: NIFEdipine ER (24 hr) 30 mg Tablet 90 MG PO (11:13)
[2020-11-23] MEDS: levETIRAcetam 500 mg Tablet 750 MG PO ×2 (11:13→18:52)
[2020-11-23] MEDS: metoprolol tartrate 25 mg Tablet 12.5 MG PO ×2 (11:14→18:52)
[2020-11-23] MEDS: docusate sodium 100 mg Capsule PO ×2 (11:14→18:52)
[2020-11-23] MEDS: aspirin 81 mg EC Tablet PO (11:15)
[2020-11-23] MEDS: pantoprazole DR 40 mg Tablet PO (11:15)
[2020-11-23] MEDS: enoxaparin 40 mg/0.4 mL Syringe SUBCUT (18:53)
[2020-11-23] MEDS: remdesivir 100 MG in sodium chloride 0.9% (100 ml) 100 ML IV (18:53)
--- NOTE | 2020-11-23 20:29 | PM.PN ---
Subjective Subjective: Interval history: Patient was slightly short of breath today. no fever, chills, nausea or vomiting. Medications: Reviewed: Yes Vitals/I&O/Wt Last Vital Signs Temp 98.1 F 11/23/20 20:00 Pulse 60 11/23/20 20:00 Resp 20 H 11/23/20 20:00 BP 147/70 11/23/20 20:00 Pulse Ox 93 11/23/20 20:00 11/23/20 11/23/20 11/23/20 06:59 14:59 22:59 Intake Total 240 / 240 100 / 340 Output Total 300 / 300 1000 / 1000 Balance -300 / -80 -760 / -760 100 / -660 Physical Exam Narrative: EXAM NARRATIVE: General : Alert, awake, oriented x 3 HEENT: Eomi CVS; RRR Chest : non-labored respiration Abd: soft NT,ND Ext : NO edema Data : 11/21/20 05:28 11/22/20 18:30 A&P Assessment and plan (1) COVID-19: Admit patient to floor no need for treatment telemetry. 2 L nasal cannula RT to evaluate and treat and titrate oxygen as needed Remdesivir and Decadron as per protocol Completed remdesivir today elevated d-dimer - cta chest - ground glass opacities Home o2 eval ordered Lasix 20 mg IV x 1 today Status: Acute (2) Hypertension: Continue home medications Status: Acute (3) Epilepsy: Continue home dose of Keppra 750 mg twice daily Status: Acute (4) CKD (chronic kidney disease) stage 2, GFR 60-89 ml/min: Will monitor. d/c ivf Status: Acute (5) Arteriosclerotic heart disease: Continue aspirin Status: Acute (6) Dyslipidemia: For 80 mg at night Status: Acute (7) GERD (gastroesophageal reflux disease): Continue home medication. Status: Acute Attestations Medical Necessity Statement*: Will require further hospitalization for management of respiratory failure Time Spent in Patient Care: Greater than 35 minutes (>than 50% of time spent in counselling and/or direct pt care on unit). Coding Level of Care Code Acute Sterile Processing Technologist for Chg Fwd Diagnoses COVID-19 U07.1 Hypertension I10 Epilepsy G40.909 CKD (chronic kidney disease) stage 2, GFR 60-89 ml/min N18.2 Arteriosclerotic heart disease I25.10 Dyslipidemia E78.5 GERD (gastroesophageal reflux disease) K21.9
[2020-11-23] MEDS: atorvastatin 40 mg Tablet 80 MG PO (21:12)
[2020-11-24] VITALS (10 sets, daily range): BP systolic 126–156; BP diastolic 62–71; PULSE 56–65; RESP 16–96; TEMP 36.5–37.1; O2SAT 88–96
[2020-11-24] MEDS: ondansetron 2 mg/ML SDV 2 mL 4 MG IVP (01:50)
[2020-11-24] MEDS: alum-mag-hydroxide-sime 30 mL UDC 15 ML PO (01:50)
[2020-11-24 06:10] LABS: Basophils % 0.2 %; Hematocrit 42.4 % (37.0-47.0); Hemoglobin 14.4 g/dL (11.5-15.3); Lymphocytes % 22.8 %; Mean Corpuscular Hemoglobin 30.8 pg (28.0-34.0); Mean Corpuscular Volume 90.8 fL (81-99); Mean Platelet Volume 11.1 fL (7.4-10.4); Monocytes # 0.7 10^3/uL (0.2-0.9); Monocytes % 15.4 %; Neutrophils # 2.67 10^3/uL (1.8-7.7); Neutrophils % 61.4 %; Nucleated Red Blood Cells % 0 %; Platelet Count 190 10^3/cmm (130-400); Red Blood Count 4.67 10^6/uL (4.1-5.3); Red Cell Distribution Width 12.3 % (12.1-15.1); White Blood Count 4.4 10^3/uL (4.0-10.0)
[2020-11-24 06:29] LABS: Anion Gap 11.4 (5-19); Blood Urea Nitrogen 27 mg/dL (8-23); Calcium 7.7 mg/dL (8.5-10.5); Carbon Dioxide 28 mmol/L (22-29); Chloride 102 mmol/L (98-107); Glucose 83 mg/dL (65-115); Osmolality Calculated 290 mOsm/kg (285-295); Potassium 3.4 mmol/L (3.5-5.1); Sodium 138 mmol/L (136-145)
[2020-11-24 06:41] LABS: Ferritin 1772 ng/mL (15-150)
--- NOTE | 2020-11-24 07:00 | XRR_ITS ---
PROCEDURE INFORMATION: Exam: XR Chest Exam date and time: 11/24/2020 7:00 AM Age: 80 years old Clinical indication: Condition or disease; Lung condition and disease; Respiratory failure; Status not specified TECHNIQUE: Imaging protocol: XR of the chest. Views: 1 view. COMPARISON: CR XR chest 1V portable [id number] 11/19/2020 2:27 PM FINDINGS: Lungs: The lungs are somewhat hyperinflated with increased interstitial markings, likely representing COPD. There is new hazy bilateral airspace opacities, most prominently in the lateral upper lungs, concerning for superimposed pneumonia. Pleural spaces: Unremarkable. No pleural effusion. No pneumothorax. Heart/Mediastinum: Stable cardiomediastinal silhouette. Vasculature: Aortic arch atherosclerotic calcifications seen. Bones/joints: Loss of height in a midthoracic vertebral bodies is re-identified.. Degenerative changes of the spine and shoulder joints noted. XR/XR chest 1V portable [id number] IMPRESSION: 1. Hazy bilateral airspace opacities, concerning for pneumonia. 2. COPD changes.
[2020-11-24] MEDS: aspirin 81 mg EC Tablet PO (09:09)
[2020-11-24] MEDS: NIFEdipine ER (24 hr) 30 mg Tablet 90 MG PO (09:09)
[2020-11-24] MEDS: docusate sodium 100 mg Capsule PO ×2 (09:09→17:35)
[2020-11-24] MEDS: metoprolol tartrate 25 mg Tablet 12.5 MG PO ×2 (09:09→17:35)
[2020-11-24] MEDS: levETIRAcetam 500 mg Tablet 750 MG PO ×2 (09:09→17:35)
[2020-11-24] MEDS: pantoprazole DR 40 mg Tablet PO (09:10)
[2020-11-24] MEDS: dexamethasone 4 mg/mL INJ 6 MG IVP (09:10)
--- NOTE | 2020-11-24 11:34 | PC.NUTR ---
Nutrition assessment: Assessed for LOS, noted poor po intakes, averaging 18% X 10 recorded meals. Recommend vanilla Ensure TID, Ensure Plus when available (Plus currently not available in vanilla flavor, which pt prefers.) Recommend to provide supplement TID between meals, rather than with meals, in order to promote higher overall daily calorie intake. Spoke with pt's nurse Malia, who states will inform nursing staff of this. See RD assessment for further details.
--- NOTE | 2020-11-24 13:47 | PM.PN ---
Subjective Subjective: Interval history: No new clinical events overnight. Patient was requiring 2 L O2 via nasal cannula. No fever chills. No nausea vomiting. Medications: Reviewed: Yes Vitals/I&O/Wt Last Vital Signs Temp 98.5 F 11/25/20 12:00 Pulse 69 11/25/20 12:00 Resp 18 11/25/20 12:00 BP 162/72 11/25/20 12:00 Pulse Ox 96 11/25/20 12:00 11/24/20 11/25/20 11/25/20 22:59 06:59 14:59 Intake Total 460 / 580 240 / 820 1360 / 1360 Output Total 300 / 300 200 / 500 Balance 160 / 280 40 / 320 1360 / 1360 Physical Exam Narrative: EXAM NARRATIVE: General : Alert, awake, oriented x 3 HEENT: Eomi CVS; RRR Chest : non-labored respiration , 2 L of O2 via nasal cannula Abd: soft NT,ND Ext : NO edema Data : 11/24/20 05:51 11/25/20 05:10 A&P Assessment and plan (1) COVID-19: Admit patient to floor no need for treatment telemetry. 2 L nasal cannula RT to evaluate and treat and titrate oxygen as needed Remdesivir and Decadron as per protocol Completed remdesivir course Plan for 10 day total of decadron elevated d-dimer - cta chest - ground glass opacities Home o2 eval noted Status: Acute (2) Hypertension: Continue home medications Status: Acute (3) Epilepsy: Continue home dose of Keppra 750 mg twice daily Status: Acute (4) CKD (chronic kidney disease) stage 2, GFR 60-89 ml/min: Will monitor. d/c ivf Status: Acute (5) Arteriosclerotic heart disease: Continue aspirin Status: Acute (6) Dyslipidemia: For 80 mg at night Status: Acute (7) GERD (gastroesophageal reflux disease): Continue home medication. Status: Acute Attestations Medical Necessity Statement*: will require further hospitalization for discharge planning Time Spent in Patient Care: Greater than 35 minutes (>than 50% of time spent in counselling and/or direct pt care on unit). Coding Level of Care Code Acute High School Art Teacher for [facility] Fwd Diagnoses COVID-19 U07.1 Hypertension I10 Epilepsy G40.909 CKD (chronic kidney disease) stage 2, GFR 60-89 ml/min N18.2 Arteriosclerotic heart disease I25.10 Dyslipidemia E78.5 GERD (gastroesophageal reflux disease) K21.9
--- NOTE | 2020-11-24 16:05 | PC.OT ---
OT tx attempted. Pt reports too tired to participate in OT tx at this time. Will attempt to resume services tomorrow.
--- NOTE | 2020-11-24 16:53 | PC.SOCIAL ---
*IMM UPDATE* Gave verbal IMM update to patient. Verbalized understanding. 11/24/20 @ 0959 Initialed, dated, timed and placed in chart.
[2020-11-24] MEDS: enoxaparin 40 mg/0.4 mL Syringe SUBCUT (17:36)
[2020-11-24] MEDS: atorvastatin 40 mg Tablet 80 MG PO (20:09)
[2020-11-25] VITALS (8 sets, daily range): BP systolic 122–174; BP diastolic 63–77; PULSE 55–72; RESP 16–18; TEMP 36.7–36.9; O2SAT 93–96
[2020-11-25 06:13] LABS: Anion Gap 12.4 (5-19); Blood Urea Nitrogen 27 mg/dL (8-23); Calcium 8.1 mg/dL (8.5-10.5); Carbon Dioxide 27 mmol/L (22-29); Chloride 102 mmol/L (98-107); Glucose 106 mg/dL (65-115); Osmolality Calculated 292 mOsm/kg (285-295); Potassium 3.4 mmol/L (3.5-5.1); Sodium 138 mmol/L (136-145)
[2020-11-25] MEDS: metoprolol tartrate 25 mg Tablet 12.5 MG PO (08:24)
[2020-11-25] MEDS: docusate sodium 100 mg Capsule PO (08:24)
[2020-11-25] MEDS: levETIRAcetam 500 mg Tablet 750 MG PO (08:24)
[2020-11-25] MEDS: aspirin 81 mg EC Tablet PO (08:24)
[2020-11-25] MEDS: NIFEdipine ER (24 hr) 30 mg Tablet 90 MG PO (08:25)
[2020-11-25] MEDS: pantoprazole DR 40 mg Tablet PO (08:25)
[2020-11-25] MEDS: dexamethasone 4 mg/mL INJ 6 MG IVP (08:29)
--- NOTE | 2020-11-25 13:49 | PM.DCS ---
Discharge Providers Date of Admission: 11/19/20 17:06 Date of Discharge: November 25, 2020 Attending Provider at Admission: Alexi Hilario DO Attending Provider at Discharge: Ovidio Savage Primary Care Provider: Honorio Ren Diagnoses at Discharge Discharge Diagnosis (1) COVID-19: Status: Acute (2) Hypertension: Status: Acute (3) Epilepsy: Status: Acute (4) CKD (chronic kidney disease) stage 2, GFR 60-89 ml/min: Status: Acute (5) Arteriosclerotic heart disease: Status: Acute (6) Dyslipidemia: Status: Acute (7) GERD (gastroesophageal reflux disease): Status: Acute Reason for Visit Reason for Visit: GENERALIZED WEAKNESS Hospital Course Hospital Course 80-year-old female with past medical history significant for hypertension, dyslipidemia, vitamin-D deficiency, and seizure disorder who presented to the hospital with respiratory distress.Patient was started on supplemental oxygen. Was requiring 2 L of O2 on arrival.Initial laboratory workup but showed a WBC of 4.8, hemoglobin 16.4, hematocrit of 49.3 and platelet count of 173. Sodium 132, potassium 4.1, chloride 94, bicarb 22, BUN 23 and creatinine of 0.9. Glucose of 76. D-dimer was also elevated. Patient was started on remdesivir and decadron. Initial chest x-ray had not shown any evidence of acute cardiopulmonary abnormality. A repeat CT angio chestShowed focal ground-glass opacifications in the anterior left upper lobe without any evidence of acute pulmonary embolism. Dependent atelectasis was seen in lungs bilaterally. Patient did complete course of remdesivir which she tolerated. Home O2 eval was obtained.Patient was stable discharge on 11/25/2020.Of note patient was prescribed an additional 3 days of Decadron to completed total 10 day course. Physical Exam Narrative: EXAM NARRATIVE: General : Alert, awake, oriented x 3 HEENT: Eomi CVS; RRR Chest : non-labored respiration , 2 L of O2 via nasal cannula Abd: soft NT,ND Ext : NO edema Discharge Data Data Completed and Pending: Completed Studies During Hospitalization Category Date Time Status CT angio chest PE protcl [id number] Rout ine Cat Scan 11/20/20 07:54 Completed XR chest 1V miguel ble [id number] Routine Exams 11/24/20 07:00 Completed XR chest 1V miguel ble [id number] Stat Exams 11/19/20 14:25 Completed Pending at discharge Category Date Time Status Basic Metabolic P estrada AM LABS Lab 11/26/20 04:00 Ordered Labs from last 24 hours 11/25/20 11/19/20 05:10 17:18 Sodium 138 Potassium 3.4 L Chloride 102 Carbon Dioxide 27 Anion Gap 12.4 BUN 27 H Creatinine 0.6 GFR Calculation Not Reportable Glucose 106 Calculated Osmolal ity 292 Calcium 8.1 L Interleukin 6 61.80 H Vitals: Last Vital Signs Temp 98.5 F 11/25/20 12:00 Pulse 69 11/25/20 12:00 Resp 18 11/25/20 12:00 BP 162/72 11/25/20 12:00 Pulse Ox 96 11/25/20 12:00 Discharge Plan Discharge Patient Disposition: Home Condition: Stable Prescriptions: New Decadron 6 mg tablet 6 mg PO Q24H Qty: 3 RF: 0 Continued nifedipine 90 mg tablet extended release 90 mg PO DAILY RF: 0 atorvastatin 80 mg tablet 80 mg PO DAILY RF: 0 spironolactone 25 mg tablet 25 mg PO DAILY RF: 0 metoprolol tartrate 25 mg tablet 12.5 mg PO BID RF: 0 Dexilant 60 mg capsule,biphase delayed releas 60 mg PO DAILY RF: 0 alendronate 70 mg tablet 70 mg PO Q7D RF: 0 aspirin [Adult Low Dose Aspirin] 81 mg tablet,delayed release (DR/EC) 81 mg PO DAILY RF: 0 vitamin d 1 tab PO DAILY RF: 0 multivitamin-iron (hematinic) 1 tab PO DAILY RF: 0 levetiracetam [Keppra] 750 mg tablet 750 mg PO BID Qty: 60 RF: 11 Discharge Orders: Discharge Order (Routine); Ordered 11/25/20 Ordered By: Ovidio Savage Other Ambulatory Orders: DME: Oxygen (Order) Location: None Selected Ordered By: Ovidio Savage Referrals: [facility] [Outside] Honorio Ren [Primary Care Provider] - 11/26/20 9:40 am Discharge Diet: Advance as tolerated Discharge Activity: Increase activity as tolerated Patient Instructions: Using Oxygen at Home (GEN), Hypertension (GEN), Opioid Safety Discharge Attestations Time Spent in Discharge Care*: greater than 30 min Specific Discharge Activities: educating patient, discussing with case packer and sealer/social workers/dc planners, documenting/other paperwork and evaluating patient/reviewing data Status at Discharge: Cognitive status at discharge: cognitively intact, Behavioral status at discharge: cooperative, Functional status at discharge: other assisted ambulation Overall status at discharge: patient is progressing back to baseline Quality Metrics Clinical Quality Measures During this hospital stay, did patient experience: None Coding Level of Care Code Acute Chg FW DC note Diagnoses COVID-19 U07.1 Hypertension I10 Epilepsy G40.909 CKD (chronic kidney disease) stage 2, GFR 60-89 ml/min N18.2 Arteriosclerotic heart disease I25.10 Dyslipidemia E78.5 GERD (gastroesophageal reflux disease) K21.9
== END 2020-11-25 15:14 | disposition home health service (06) | DRG 177 ==
LOC: ER 16:48 → MEDSURG 17:40
PROVIDERS: Admitting Provider Internal Medicine; Emergency Provider Family Medicine; PCP Family Medicine; Visit Provider Hospitalist
DX: U07.1 COVID-19 (principal); J12.82 Pneumonia due to coronavirus disease 2019; J96.91 Respiratory failure, unspecified with hypoxia; I12.9 Hypertensive chronic kidney disease with stage 1 through stage 4 chronic kidney disease, or unspecified chronic kidney disease; N18.2 Chronic kidney disease, stage 2 (mild); I25.10 Atherosclerotic heart disease of native coronary artery without angina pectoris; G40.909 Epilepsy, unspecified, not intractable, without status epilepticus; G30.9 Alzheimer's disease, unspecified; F02.80 Dementia in other diseases classified elsewhere, unspecified severity, without behavioral disturbance, psychotic disturbance, mood disturbance, and anxiety; K21.9 Gastro-esophageal reflux disease without esophagitis; E78.5 Hyperlipidemia, unspecified; Z66 Do not resuscitate; Z79.82 Long term (current) use of aspirin; Z87.891 Personal history of nicotine dependence
CPT/HCPCS: 36415; 71045; 71275; 80048; 80053; 81001; 82550; 82728; 83520; 83605; 83690; 83735; 84145; 85025; 85378; 87426; 93005; 94664; 94760; 94762; 96365; 96372; 97110; 97116; 97162; 97166; 97530; 97535; 99285; J1100; J1650; J1940; J2405; Q9967

== ENCOUNTER 2020-11-27 01:56 | Inpatient (IN) | payer MEDICARE, SELFPAY ==
[2020-11-27] VITALS (15 sets, daily range): BP systolic 111–149; BP diastolic 51–74; PULSE 72–103; RESP 16–32; TEMP 36.5–37.9; O2SAT 91–96; BMI 28.3
--- NOTE | 2020-11-27 02:03 | XRR_ITS ---
PROCEDURE INFORMATION: Exam: XR Chest Exam date and time: 11/27/2020 2:03 AM Age: 80 years old Clinical indication: Fever and shortness of breath; Patient HX: Worsening SOB and fever. Covid + TECHNIQUE: Imaging protocol: XR of the chest. Views: 1 view. COMPARISON: CR XR chest 1V portable [id number] 11/24/2020 6:38 AM FINDINGS: Lungs: There is a background of centrilobular emphysema and pulmonary fibrosis. Stable hazy opacities are seen in the upper hemithoraces bilaterally compared with 11/24/2020. There are new strandy opacities seen in the left lung base compatible with atelectasis although left basilar pneumonia cannot be excluded. Pleural spaces: Unremarkable. No pleural effusion. No pneumothorax. Heart/Mediastinum: Unremarkable. No cardiomegaly. Bones/joints: There is evidence of healed fractures of the proximal humerus bilaterally. XR/XR chest 1V portable [id number] IMPRESSION: There are hazy opacity seen in the upper hemithoraces bilaterally similar to those present on 11/24/2020. New strandy opacities are seen in the left lung base. These findings are compatible with worsening bilateral COVID-19 pneumonia.
[2020-11-27] MEDS: acetaminophen 325 mg Tablet 650 MG PO (02:24)
--- NOTE | 2020-11-27 03:00 | P.HP_ITS ---
Providers/Chief Complaint Primary Care Provider: Honorio Ren Chief Complaint: RESP. DESTRESS/ ABD PAIN History of Present Illness Wendy Covarrubias is a 80 year old female who was discharged on 11/25 after management of COVID-19 pneumonia with remdesivir, she was prescribed Decadron 3- day supply at the time of discharge presenting today with chief complaint of fever and lethargy. Patient is stating that at home she has been feeling e xtremely tired and lethargic. She was not able to do any kind of activity without assistance. She was spiking temperature as well. She is denying chest pain, diarrhea, dysuria. Because of worsening of her symptoms her daughter sent her to the hospital. Diagnostics in the ER revealed normal CBC however she was febrile 100.2, D-dimer 1.7, ABG revealed hypoxia, will request CTA chest, worsening transaminases noted BNP 3700 There are hazy opacity seen in the upper hemithoraces bilaterally similar to those present on 11/24/2020. New strandy opacities are seen in the left lung base. These findings are compatible with worsening bilateral COVID-19 pneumonia. Requested procalcitonin level She has finished remdesivir regimen, I will continue her Decadron for now Review of Systems Const: Reports: fever(s), chills, body aches, change in weight and fatigue Eyes: Denies: change in vision ENMT: Denies: throat pain Card: Denies: chest pain Resp: Reports: dyspnea and non-productive cough GI: Denies: abdominal pain : Denies: flank pain Musc: Reports: muscle cramps Skin/Breast: Denies: rash Neuro: Denies: headache(s) Psych: Reports: depression, change in appetite and memory loss Endo: Denies: polyuria Kash/Lymph: Denies: easy bruising All/Imm: Denies: urticaria Medications/Allergies Home Medications Medication Instructions Recorded Confirmed Last Taken Type alendronate 70 mg tablet 70 mg PO Q7D tab 07/26/19 11/19/20 11/12/20 History aspirin 81 mg tablet,delayed 81 mg PO DAILY 07/26/19 11/19/20 11/18/20 History release atorvastatin 80 mg tablet 80 mg PO DAILY 07/26/19 11/19/20 11/18/20 History dexlansoprazole 60 mg 60 mg PO DAILY 07/26/19 11/19/20 11/18/20 History capsule,biphase delayed release metoprolol tartrate 25 mg tablet 12.5 mg PO BID 07/26/19 11/19/20 11/18/20 History multivitamin-iron (hematinic) 1 tab PO DAILY 07/26/19 11/19/20 11/18/20 History nifedipine 90 mg tablet,extended 90 mg PO DAILY 07/26/19 11/19/20 11/18/20 History release spironolactone 25 mg tablet 25 mg PO DAILY 07/26/19 11/19/20 11/18/20 History vitamin d 1 tab PO DAILY 07/26/19 11/19/20 11/18/20 History levetiracetam 750 mg tablet 750 mg PO BID #60 tab 12/18/19 11/19/20 11/18/20 Rx dexamethasone [Decadron] 6 mg PO Q24H #3 tab 11/25/20 Unknown Rx Allergies Allergy/AdvReac Type Severity Reaction Status Date / Time morphine Allergy ADR-Vomitin Verified 11/17/20 08:26 g Penicillins Allergy ALGY-Hives Verified 11/17/20 08:26 PFSH Acute PFSH: Medical History Arteriosclerotic heart disease Carotid disease, bilateral CKD (chronic kidney disease) stage 2, GFR 60-89 ml/min Cystocele with small rectocele and uterine descent Dementia in Alzheimer's disease Dyslipidemia Essential hypertension GERD (gastroesophageal reflux disease) Surgical History H/O removal of cyst History of cholecystectomy Status post carotid surgery Family History Mother CAD (coronary artery disease) Hypertension Social History Smoking and tobacco status: former smoker Second hand smoke exposure: No Alcohol intake: never Desire information about alcohol rehabilitation?: No Desire information about substance/drug rehabilitation?: No Adopted: No Lives independently: Yes Household members: family Housing: House Marital status: / History of recent travel: No Vitals/I&O/Wt Last Vital Signs Temp 100.2 F H 11/27/20 02:05 Pulse 103 H 11/27/20 02:05 Resp 32 H 11/27/20 02:05 BP 149/74 11/27/20 02:05 Pulse Ox 93 11/27/20 02:05 Weight last 48 hrs Weight 70.307 kg Physical Exam Narrative: EXAM NARRATIVE: Very pleasant and cooperative elderly female She was saturating well on 5 L nasal cannula No active chest pain or abdominal pain S1, S2 sinus rhythm no signs of heart failure Abdomen soft nontender bowel sound present Low symmetry no edema gangrene ulcer EOMI, PERRLA no neurological deficit Very pleasant and cooperative during my evaluation No cellulitis or joint swelling Bilateral breath sounds, diminished, she has inspiratory crackles Data : 11/27/20 02:35 11/27/20 02:35 A&P Assessment and plan (1) COVID-19: Status: Acute (2) Weakness: Status: Acute (3) Acute and chronic respiratory failure with hypoxia: Status: Acute Additional A&P Information Acute on chronic hypoxia with worsening COVID-19 infection Chest x-ray consistent with worsening viral pneumonia, worsening CRP, transaminases, patient is extremely lethargic and fatigued not able to carry daily activities without assistance, Her O2 requirement has increased to 5 L Continue high D-dimer I would like to rule out PE requested CTA chest If her procalcitonin is high would add antibiotics Admit to [facility], Patient is stating that she would like to go to fdc as she is too weak and does not want to burden her daughter We will get PT evaluation and social service consult Ventolin every 4 as needed Continue Decadron Normotensive, hold nifedipine and spironolactone, continue metoprolol for now Cardiac diet DNR/DNI DVT prophylaxis Lovenox Attestations Medical Necessity Statement*: Anticipating stay in the hospital greater than 2 midnights, will need PT evaluation and probably fdc placement, her clinical course is dependent on her daily progress however showing worsening COVID-19 infection Time Spent in Patient Care: (>than 50% of time spent in counselling and/or direct pt care on unit) . 30mins Coding Level of Care Code Acute [employer] Supervisor for [facility] Diagnoses COVID-19 U07.1 Weakness R53.1 Acute and chronic respiratory failure with hypoxia J96.21
--- NOTE | 2020-11-27 03:01 | ED_ITS ---
HPI - Weakness General: Chief complaint: Weakness Stated complaint: RESP. DESTRESS/ ABD PAIN Time Seen by Provider: 11/27/20 02:02 Source: patient and EMS Mode of arrival: EMS Limitations: no limitations History of Present Illness: HPI Narrative: 80-year-old female who was recently discharged here yesterday with Covid. Called ambulance tonight she is having increasing dyspnea along with increasing weakness with a fever of 101. Patient is quite weak urine does not able to transfer from bed to bed. She was discharged home on 3 L and is requiring 4 L here. She had a slight cough. Denies any vomiting or diarrhea. Has had some slight abdominal cramping Associated symptoms: Reports fever(s); Denies chest pain, dysuria, easy bruising, nausea or vomiting Review of Systems Const: Reports: fever(s) Eyes: Denies: blurry vision or eye discomfort ENMT: Denies: throat pain or dental pain Card: Denies: chest pain Resp: Reports: dyspnea and non-productive cough GI: Denies: abdominal pain, nausea, vomiting or diarrhea : Denies: dysuria Musc: Denies: neck pain or back pain Skin/Breast: Denies: rash Neuro: Reports: weakness in extremities Psych: Denies: depression Kash/Lymph: Denies: easy bruising All/Imm: Denies: urticaria PFSH ED PFSH: Medical History Arteriosclerotic heart disease Carotid disease, bilateral CKD (chronic kidney disease) stage 2, GFR 60-89 ml/min Cystocele with small rectocele and uterine descent Dementia in Alzheimer's disease Dyslipidemia Essential hypertension GERD (gastroesophageal reflux disease) Surgical History H/O removal of cyst History of cholecystectomy Status post carotid surgery Family History Mother CAD (coronary artery disease) Hypertension Social History Smoking and tobacco status: former smoker Second hand smoke exposure: No Alcohol intake: never Desire information about alcohol rehabilitation?: No Desire information about substance/drug rehabilitation?: No Adopted: No Lives independently: Yes Household members: family Housing: House Marital status: / History of recent travel: No Course Vital Signs: Vital signs: Vital Signs Temperature 98.4 F 11/27/20 03:12 Pulse Rate 89 11/27/20 03:12 Respiratory Rate 21 H 11/27/20 03:12 Blood Pressure 128/53 11/27/20 03:12 Pulse Oximetry 93 11/27/20 03:12 MDM - Weakness 2 MDM Narrative: Medical decision making narrative: Wendy presents for generalized weakness and fever. She has Covid and recently discharged. Spoke to hospitalist and will readmit his she is very weak. Her fever is improved here. Lab Data: Labs: Lab Results 11/27/20 11/27/20 11/27/20 Range/Units 02:35 02:35 02:35 WBC 6.7 (4.0-10.0) 10^3/ uL RBC 4.65 (4.1-5.3) 10^6/u L Hgb 14.2 (11.5-15.3) g/dL Hct 41.4 (37.0-47.0) % MCV 89.0 (81-99) fL MCH 30.5 (28.0-34.0) pg MCHC 34.3 (30.0-36.0) g/dL RDW 12.3 (12.1-15.1) % Plt Count 259 (130-400) 10^3/c mm MPV 11.3 H (7.4-10.4) fL Neut % (Auto) 80.3 % Lymph % (Auto) 7.4 % [place] % (Auto) 11.0 % Eos % (Auto) 0.0 % Baso % (Auto) 0.2 % Neut # (Auto) 5.35 (1.8-7.7) 10^3/u L Lymph # (Auto) 0.5 L (0.8-4.8) 10^3/u L [place] # (Auto) 0.7 (0.2-0.9) 10^3/u L Eos # (Auto) 0.0 (0.0-0.8) 10^3/u L Baso # (Auto) 0.0 (0.0-0.1) 10^3/u L Nucleated RBC % (a uto) 0 % Nucleated RBCs # 0.0 /100WBC Sodium 136 (136-145) mmol/L Potassium 3.5 (3.5-5.1) mmol/L Chloride 96 L (98-107) mmol/L Carbon Dioxide 25 (22-29) mmol/L Anion Gap 18.5 (5-19) BUN 17 (8-23) mg/dL Creatinine 0.7 (0.5-0.9) mg/dL GFR Calculation Not Reportable Glucose 105 (65-115) mg/dL Calculated Osmolal ity 284 L (285-295) mOsm/k g Lactate 1.4 (0.5-2.2) mmol/L Calcium 8.7 (8.5-10.5) mg/dL Total Bilirubin 0.7 (0.15-1.2) mg/dL AST 114 H (0-32) U/L ALT 83 H (0-33) U/L Alkaline Phosphata se 112 H (35-105) IU/L C-Reactive Protein (0.0-4.9) mg/L NT-Pro-B Natriuret Pep 3703 H (0-450) pg/mL Total Protein 5.6 L (6.6-8.7) g/dL Albumin 3.0 L (3.5-5.2) g/dL Globulin 2.6 (1.3-4.6) g/dL 11/27/20 Range/Units 02:35 WBC (4.0-10.0) 10^3/ uL RBC (4.1-5.3) 10^6/u L Hgb (11.5-15.3) g/dL Hct (37.0-47.0) % MCV (81-99) fL MCH (28.0-34.0) pg MCHC (30.0-36.0) g/dL RDW (12.1-15.1) % Plt Count (130-400) 10^3/c mm MPV (7.4-10.4) fL Neut % (Auto) % Lymph % (Auto) % [place] % (Auto) % Eos % (Auto) % Baso % (Auto) % Neut # (Auto) (1.8-7.7) 10^3/u L Lymph # (Auto) (0.8-4.8) 10^3/u L [place] # (Auto) (0.2-0.9) 10^3/u L Eos # (Auto) (0.0-0.8) 10^3/u L Baso # (Auto) (0.0-0.1) 10^3/u L Nucleated RBC % (a uto) % Nucleated RBCs # /100WBC Sodium (136-145) mmol/L Potassium (3.5-5.1) mmol/L Chloride (98-107) mmol/L Carbon Dioxide (22-29) mmol/L Anion Gap (5-19) BUN (8-23) mg/dL Creatinine (0.5-0.9) mg/dL GFR Calculation Glucose (65-115) mg/dL Calculated Osmolal ity (285-295) mOsm/k g Lactate (0.5-2.2) mmol/L Calcium (8.5-10.5) mg/dL Total Bilirubin (0.15-1.2) mg/dL AST (0-32) U/L ALT (0-33) U/L Alkaline Phosphata se (35-105) IU/L C-Reactive Protein 140.0 H (0.0-4.9) mg/L NT-Pro-B Natriuret Pep (0-450) pg/mL Total Protein (6.6-8.7) g/dL Albumin (3.5-5.2) g/dL Globulin (1.3-4.6) g/dL Imaging Data^: CXR: Attestation: I personally reviewed and interpreted this imaging study as follows: Radiologist's impression: [address] [address] XRay Report Signed Patient: Wendy Covarrubias Unit #: [id number] : 1940 Age/Sex: 80 / F ADM Date: 11/27/20 Loc: [facility] Room/Bed: [facility] Attending Dr: Oliver Bro MD Ordering Provider/Ordering MD: Aris Ruelas MD Date of Service: 11/27/20 Procedure(s): XR chest 1V portable [id number] Accession Number(s): [id number] Report Number: [id number] PROCEDURE INFORMATION: Exam: XR Chest Exam date and time: 11/27/2020 2:03 AM Age: 80 years old Clinical indication: Fever and shortness of breath; Patient HX: Worsening SOB and fever. Covid + TECHNIQUE: Imaging protocol: XR of the chest. Views: 1 view. COMPARISON: CR XR chest 1V portable [id number] 11/24/2020 6:38 AM FINDINGS: Lungs: There is a background of centrilobular emphysema and pulmonary fibrosis. Stable hazy opacities are seen in the upper hemithoraces bilaterally compared with 11/24/2020. There are new strandy opacities seen in the left lung base compatible with atelectasis although left basilar pneumonia cannot be excluded. Pleural spaces: Unremarkable. No pleural effusion. No pneumothorax. Heart/Mediastinum: Unremarkable. No cardiomegaly. Bones/joints: There is evidence of healed fractures of the proximal humerus bilaterally. XR/XR chest 1V portable [id number] IMPRESSION: There are hazy opacity seen in the upper hemithoraces bilaterally similar to those present on 11/24/2020. New strandy opacities are seen in the left lung base. These findings are compatible with worsening bilateral COVID-19 pneumonia. EKG Data^: EKG 1: Attestation: I personally reviewed and interpreted this EKG as follows: EKG interpretation date: 11/27/20 EKG interpretation time: 02:58 Interpretation: nsr hr [address] or t wave abonrmalities qrs 98 qtc 401 Discharge Plan Discharge Patient Disposition: Admitted As Inpatient Admit Provider: Oliver Bro Clinical Impression: COVID-19, Weakness Condition: Stable Coding Level of Care Code ED [employer] for [facility]
[2020-11-27 03:07] LABS: Basophils % 0.2 %; Hematocrit 41.4 % (37.0-47.0); Hemoglobin 14.2 g/dL (11.5-15.3); Lymphocytes # 0.5 10^3/uL (0.8-4.8); Lymphocytes % 7.4 %; Mean Corpuscular HGB Conc 34.3 g/dL (30.0-36.0); Mean Corpuscular Hemoglobin 30.5 pg (28.0-34.0); Mean Platelet Volume 11.3 fL (7.4-10.4); Monocytes # 0.7 10^3/uL (0.2-0.9); Neutrophils # 5.35 10^3/uL (1.8-7.7); Neutrophils % 80.3 %; Nucleated Red Blood Cells % 0 %; Platelet Count 259 10^3/cmm (130-400); Red Blood Count 4.65 10^6/uL (4.1-5.3); Red Cell Distribution Width 12.3 % (12.1-15.1); White Blood Count 6.7 10^3/uL (4.0-10.0)
[2020-11-27 03:23] LABS: Lactate (Lactic Acid level) 1.4 mmol/L (0.5-2.2)
[2020-11-27 03:33] LABS: Alanine Aminotransferase 83 U/L (0-33); Alkaline Phosphatase 112 IU/L (35-105); Blood Urea Nitrogen 17 mg/dL (8-23); Calcium 8.7 mg/dL (8.5-10.5); Carbon Dioxide 25 mmol/L (22-29); Chloride 96 mmol/L (98-107); Globulin 2.6 g/dL (1.3-4.6); Glucose 105 mg/dL (65-115); NT Pro B Type Natriuretic Pept 3703 pg/mL (0-450); Osmolality Calculated 284 mOsm/kg (285-295); Sodium 136 mmol/L (136-145); Total Bilirubin 0.7 mg/dL (0.15-1.2); Total Protein 5.6 g/dL (6.6-8.7)
[2020-11-27 03:34] LABS: Anion Gap 18.5 (5-19); Aspartate Amino Transferase 114 U/L (0-32); Potassium 3.5 mmol/L (3.5-5.1)
[2020-11-27 03:39] LABS: ABG PCO2 27.2 mmHg (35-45); Base Excess ABG 7.5 mmol/L (-2.0-2.0); Blood Gas Allen Test Pos; Blood Gas Operator Identificat HARKR; Blood Gas Sample Site Radial, right; Blood Gas Sample Type Arterial; Oxygen Device NC; PO2 ABG 50.4 mmHg (80.0-100.0)
[2020-11-27 03:40] LABS: ABG PH Result 7.62 (7.35-7.45)
[2020-11-27 04:20] LABS: D Dimer 1.75 ug/mIFEU (0-0.59)
--- NOTE | 2020-11-27 04:44 | CTR_ITS ---
PROCEDURE INFORMATION: Exam: CTA Chest With Contrast Exam date and time: 11/27/2020 4:44 AM Age: 80 years old Clinical indication: Fever and shortness of breath; Prior surgery; Surgery type: Cardiac stents. ; Patient HX: Worsening SOB. Fever. Elevated d dimer. Covid +. ; Additional info: Hypoxia worsening covid TECHNIQUE: Imaging protocol: Computed tomographic angiography of the chest with contrast. 3D rendering (Not supervised by radiologist): MIP and/or 3D reconstructed images were created by the technologist. Radiation optimization: All CT scans at this facility use at least one of these dose optimization techniques: automated exposure control; mA and/or kV adjustment per patient size (includes targeted exams where dose is matched to clinical indication); or iterative reconstruction. Contrast material: OMNI 350; Contrast volume: 52 ml; Contrast route: INTRAVENOUS (IV); COMPARISON: CT angio chest PE protcl [id number] 11/20/2020 5:03 PM RADIATION DOSE METRICS: Total DLP (mGy-cm): 528.51 FINDINGS: Pulmonary arteries: Normal. No pulmonary emboli. Aorta: Unremarkable. No aortic aneurysm. No aortic dissection. Great vessels off aortic arch: Calcifications are seen within the great vessels and thoracic aorta. Other arteries: Calcifications are seen in branches of the celiac trunk. Lungs: There is a background of centrilobular emphysema and parenchymal scarring. There are patchy peripheral opacities present, both ground-glass and honeycombing compatible with COVID-19 pneumonia and associated fibrosis. Consolidation is also seen within the left lower lobe. Pleural spaces: Unremarkable. No pneumothorax. No pleural effusion. Heart: Unremarkable. No cardiomegaly. No pericardial effusion. Lymph nodes: Unremarkable. No enlarged lymph nodes. Bones/joints: There is moderate compression of the superior endplate T8 vertebral body. Soft tissues: Unremarkable. CT/CT angio chest PE protcl [id number] IMPRESSION: There are increasing patchy peripheral opacities seen within the hemithoraces, some ground-glass and somewhat honeycombing compatible with COVID-19 pneumonia and associated fibrosis. Additionally, there is consolidation of seen in the left lower lobe. Radiation Dose CTDIVOL = (mGy): DLP = 528.51 (mGy-cm)
[2020-11-27 05:12] LABS: Procalcitonin 0.21 ng/mL (0-0.5)
[2020-11-27] MEDS: iohexol 350 mg/mL 100 mL Btl IV (05:26)
[2020-11-27] MEDS: enoxaparin 40 mg/0.4 mL Syringe SUBCUT (05:26)
[2020-11-27] MEDS: dexamethasone 4 mg Tablet 6 MG PO (05:26)
[2020-11-27 06:19] LABS: Glucose Point of Care 103 mg/dL (70-110)
[2020-11-27] MEDS: albuterol 8 gm MDI 2 PUFF INHALATION ×4 (06:31→20:30)
[2020-11-27] MEDS: levofloxacin-dextrose 5 % 750 MG/150 ML PREMIX 100 MG IV (08:42)
[2020-11-27] MEDS: levETIRAcetam 500 mg Tablet 750 MG PO ×2 (08:42→17:40)
[2020-11-27] MEDS: pantoprazole DR 40 mg Tablet PO (08:42)
[2020-11-27] MEDS: metoprolol tartrate 25 mg Tablet 12.5 MG PO ×2 (08:42→17:40)
[2020-11-27] MEDS: vancomycin 1,000 MG in sodium chloride 0.9% 250 ML 250 MG IV (10:26)
[2020-11-27 10:36] LABS: Glucose Point of Care 160 mg/dL (70-110)
--- NOTE | 2020-11-27 12:52 | PM.PN ---
Subjective Subjective: Interval history: She is feeling weak/tired, lack of energy, asks do have any you could give me ? Denies headache, no chest pain. No nausea vomiting or diarrhea. Says she still coughing somewhat, but not as badly as she was previously. Asks if she can use the bedpan instead of the commode. I just hope it's not the metal kind . Vitals/I&O/Wt Last Vital Signs Temp 98.2 F 11/27/20 11:00 Pulse 73 11/27/20 11:00 Resp 18 11/27/20 11:00 BP 111/52 11/27/20 11:00 Pulse Ox 96 11/27/20 11:00 11/26/20 11/27/20 11/27/20 22:59 06:59 14:59 Intake Total 100 / 100 630 / 630 Balance 100 / 100 630 / 630 Weight last 48 hrs Weight 70.307 kg Physical Exam Const: COMMON NORMALS: no acute distress and patient oriented x3 GENERAL APPEARANCE: frail appearing OTHER: Generally weak HENMT: COMMON NORMALS: oropharynx normal Neck/C-Spine: COMMON NORMALS: no JVD Resp: COMMON NORMALS: normal respiratory effort AUSCULTATION: rhonchi, wheezes and diminished lung sounds Cardio: COMMON NORMALS: no JVD, regular rhythm, S1 normal heart sound present, S2 normal heart sound present and No murmurs present (Cardio) RHYTHM: regular rhythm HEART SOUNDS: S1 normal heart sound present and S2 normal heart sound present GI: COMMON NORMALS: Normal to inspection, nondistended, normoactive bowel sounds present, Soft to palpation and non-tender PALPATION: Yes Soft to palpation Extremity: COMMON NORMALS: no joint enlargement and no pedal edema Neuro: COMMON NORMALS: patient oriented x3 and moves all extremities Skin: COMMON NORMALS: no rashes or lesions noted GENERAL SKIN EXAM: no rashes or lesions noted Data : 11/27/20 02:35 11/27/20 02:35 Micro: Microbiology 11/27/20 02:56 Blood Culture - Preliminary Blood SPECIMEN COLLECTED 11/27/20 02:35 Blood Culture - Preliminary Blood SPECIMEN COLLECTED A&P Assessment and plan (1) COVID-19: Worsened hypoxia/oxygen requirement, up to 5 L, discharged on 2 L last admission. She is feeling very weak, lacking energy. Cough is better than before. No chest pain or pressure. CT chest without PE. Consolidation noted in left lower lobe. Discussed with her regarding superimposed bacterial pneumonia on top of her recent viral pneumonia. Discussed with her also some worsening of patchy opacifications bilaterally, with appearance of scarring/fibrotic disease, likely related to the recent COVID-19 infection. Her symptoms started it appears 3 days prior to previous hospitalization, so probably around 11/16. At this time started on antibiotics with Levaquin, vancomycin, sputum culture requested, MRSA PCR for superimposed bacterial pneumonia. Suspect this is with her generalized weakness, lethargy is related to. Continue Decadron for viral pneumonia/severe pneumonia. Oxygen support as tolerating, nasal cannula 5 L currently. In case of progressive worsening of oxygenation to high flow oxygen, worsening inflammatory markers, consider addition of Tocilizumab. Lovenox VTE prophylaxis. Reassess CRP, D-dimer. Status: Acute (2) Weakness: Treat bacterial pneumonia as above. Check UA. Status: Acute (3) Acute and chronic respiratory failure with hypoxia: Status: Acute Additional A&P Information PT evaluation and social service consult Ventolin every 4 as needed Normotensive, hold nifedipine and spironolactone, continue metoprolol for now Cardiac diet DNR/DNI DVT prophylaxis Lovenox Attestations Medical Necessity Statement*: Continue admission for management of worsened respiratory failure, pneumonia with COVID19. Coding Level of Care Code Acute Departmental Shipping Clerk for [facility] Fwd Diagnoses COVID-19 U07.1 Weakness R53.1 Acute and chronic respiratory failure with hypoxia J96.21
[2020-11-27 13:05] LABS: Add Urine Microscopic? YES; Bilirubin Urine Neg (Negative); Blood Urine Neg (Negative); Glucose Urine UA Norm (Normal); Ketones Urine 1+ (Negative); Leukocyte Esterase Urine Negative (Negative); Nitrate Urine Negative (Negative); Protein Urine 1+ (Negative); Urine Appearance Clear (CLEAR); Urine Color Yellow (Yellow); Urobilinogen Urine Norm (Negative); pH Urine 5 (5-7)
[2020-11-27 13:06] LABS: Add Urine Culture? No; Bacteria Urine TRACE /hpf; Squamous Epithelial Cell Urine 0-4 /hpf (0-5)
[2020-11-27 14:48] LABS: Creatine Phosphokinase 64 U/L (26-192)
[2020-11-27 16:35] LABS: Glucose Point of Care 137 mg/dL (70-110)
--- NOTE | 2020-11-27 16:36 | PC.NURSE ---
Patient is up to chair at this time.
--- NOTE | 2020-11-27 19:29 | PC.NURSE ---
Report to Diane ALBERTO at bedside at this time.
[2020-11-27 20:30] LABS: Glucose Point of Care 175 mg/dL (70-110)
[2020-11-28] VITALS (16 sets, daily range): BP systolic 116–159; BP diastolic 66–82; PULSE 66–107; RESP 14–24; TEMP 36.4–38.7; O2SAT 90–94
[2020-11-28] MEDS: albuterol 8 gm MDI 2 PUFF INHALATION ×3 (00:10→08:27)
[2020-11-28] MEDS: dexamethasone 4 mg Tablet 6 MG PO (05:45)
[2020-11-28] MEDS: enoxaparin 40 mg/0.4 mL Syringe SUBCUT (05:45)
[2020-11-28] MEDS: acetaminophen 500 mg Tablet PO (05:56)
[2020-11-28 06:03] LABS: Glucose Point of Care 101 mg/dL (70-110)
[2020-11-28 06:35] LABS: Basophils % 0.1 %; Hematocrit 38.7 % (37.0-47.0); Lymphocytes # 0.4 10^3/uL (0.8-4.8); Mean Corpuscular HGB Conc 33.6 g/dL (30.0-36.0); Mean Corpuscular Volume 92.1 fL (81-99); Mean Platelet Volume 10.6 fL (7.4-10.4); Monocytes # 0.6 10^3/uL (0.2-0.9); Monocytes % 7.4 %; Neutrophils # 7.44 10^3/uL (1.8-7.7); Neutrophils % 86.6 %; Nucleated Red Blood Cells % 0 %; Platelet Count 223 10^3/cmm (130-400); Red Cell Distribution Width 12.3 % (12.1-15.1); White Blood Count 8.6 10^3/uL (4.0-10.0)
[2020-11-28 07:05] LABS: Alanine Aminotransferase 58 U/L (0-33); Albumin Level 2.4 g/dL (3.5-5.2); Alkaline Phosphatase 95 IU/L (35-105); Anion Gap 16.3 (5-19); Aspartate Amino Transferase 64 U/L (0-32); Blood Urea Nitrogen 14 mg/dL (8-23); C Reactive Protein 115.6 mg/L (0.0-4.9); Calcium 8.3 mg/dL (8.5-10.5); Carbon Dioxide 22 mmol/L (22-29); Chloride 98 mmol/L (98-107); Globulin 2.8 g/dL (1.3-4.6); Glucose 88 mg/dL (65-115); Osmolality Calculated 276 mOsm/kg (285-295); Potassium 3.3 mmol/L (3.5-5.1); Sodium 133 mmol/L (136-145); Total Bilirubin 0.5 mg/dL (0.15-1.2); Total Protein 5.2 g/dL (6.6-8.7)
[2020-11-28] MEDS: metoprolol tartrate 25 mg Tablet 12.5 MG PO ×2 (08:45→17:21)
[2020-11-28] MEDS: levETIRAcetam 500 mg Tablet 750 MG PO ×2 (08:45→17:20)
[2020-11-28] MEDS: pantoprazole DR 40 mg Tablet PO (08:46)
[2020-11-28] MEDS: levofloxacin-dextrose 5 % 750 MG/150 ML PREMIX 100 MG IV (08:46)
[2020-11-28] MEDS: vancomycin 1,000 MG in sodium chloride 0.9% 250 ML 250 MG IV (10:56)
[2020-11-28 11:01] LABS: Glucose Point of Care 166 mg/dL (70-110)
[2020-11-28] MEDS: potassium chloride ER 20 mEq Tablet PO (12:47)
[2020-11-28] MEDS: remdesivir 100 MG in sodium chloride 0.9% (100 ml) 100 ML IV (12:47)
--- NOTE | 2020-11-28 13:21 | P.PN_ITS ---
Subjective Subjective: Interval history: She is feeling weak. Oxygenation has worsened overnight/this morning. States feeling quite miserable. States cure me or kill me . She denies headache, no nausea, vomiting, diarrhea. No chest pain. Coughing. Discussed with her worsening hypoxia. Discussed resumption of redness or, continuation of steroids. Discussed tocilizumab risks and benefits. She is agreeable to proceed. Vitals/I&O/Wt Last Vital Signs Temp 97.8 F 11/28/20 11:58 Pulse 70 11/28/20 11:58 Resp 14 11/28/20 11:58 BP 116/75 11/28/20 11:58 Pulse Ox 92 11/28/20 11:58 11/27/20 11/28/20 11/28/20 22:59 06:59 14:59 Intake Total 240 / 1120 400 / 400 Output Total 200 / 500 Balance 240 / 820 -200 / 620 400 / 400 Weight last 48 hrs Weight 70.307 kg Physical Exam Const: COMMON NORMALS: no acute distress and patient oriented x3 GENERAL APPEARANCE: frail appearing OTHER: Generally weak HENMT: COMMON NORMALS: oropharynx normal Neck/C-Spine: COMMON NORMALS: no JVD Resp: COMMON NORMALS: normal respiratory effort AUSCULTATION: no rhonchi, wheezes (Mild) and diminished lung sounds Cardio: COMMON NORMALS: no JVD, regular rhythm, S1 normal heart sound present, S2 normal heart sound present and No murmurs present (Cardio) RHYTHM: regular rhythm HEART SOUNDS: S1 normal heart sound present and S2 normal heart sound present GI: COMMON NORMALS: Normal to inspection, nondistended, normoactive bowel sounds present, Soft to palpation and non-tender PALPATION: Yes Soft to p alpation Extremity: COMMON NORMALS: no joint enlargement and no pedal edema Neuro: COMMON NORMALS: patient oriented x3 and moves all extremities Skin: COMMON NORMALS: no rashes or lesions noted GENERAL SKIN EXAM: no rashes or lesions noted Data : 11/28/20 06:17 11/28/20 06:17 Micro: Microbiology 11/28/20 01:55 Gram Stain - Final Sputum - Expectorated Sputum 11/27/20 02:56 Blood Culture - Preliminary Blood NEGATIVE TO DATE 11/27/20 02:35 Blood Culture - Preliminary Blood NEGATIVE TO DATE A&P Assessment and plan (1) COVID-19: Worsening hypoxia, quite high inflammatory markers. Currently requiring high flow oxygen, 8 L. Weak/very fatigued. Discussed with her resuming remdesivir. Discussed also risks and benefits of tocilizumab. She is agreeable to proceed. Requested. Continue Decadron. Continue albuterol inhaler. Continue antibiotics for superimposed bacterial infection. Continue Lovenox for VT prophylaxis. Recheck D-dimer. Recheck CRP. Discussed w daughter Ileana. Status: Acute (2) Weakness: Severe COVID-19, worsening hypoxia, superimposed bacterial pneumonia also as above. Treat bacterial pneumonia as above. Unremarkable UA. Keppra level pending. Status: Acute (3) Acute and chronic respiratory failure with hypoxia: Status: Acute Additional A&P Information Mild hypokalemia: Replace. Check magnesium. PT evaluation and social service consult Ventolin every 4 as needed Normotensive, hold nifedipine and spironolactone, continue metoprolol for now Attestations Medical Necessity Statement*: Continue admission for assessment of management of severe COVID-19, superimposed bacterial pneumonia, progressive hypoxic respiratory failure. Coding Level of Care Code Acute Clay Machine Operator for [facility] Fwd Diagnoses COVID-19 U07.1 Weakness R53.1 Acute and chronic respiratory failure with hypoxia J96.21
[2020-11-28 16:54] LABS: Glucose Point of Care 121 mg/dL (70-110)
[2020-11-28 21:02] LABS: Glucose Point of Care 121 mg/dL (70-110)
[2020-11-29] VITALS (10 sets, daily range): BP systolic 118–136; BP diastolic 60–68; PULSE 62–93; RESP 14–21; TEMP 36.4–37; O2SAT 90–94
[2020-11-29] MEDS: dexamethasone 4 mg Tablet 6 MG PO (05:47)
[2020-11-29] MEDS: enoxaparin 40 mg/0.4 mL Syringe SUBCUT (05:47)
[2020-11-29 06:13] LABS: Hematocrit 37.2 % (37.0-47.0); Hemoglobin 12.2 g/dL (11.5-15.3); Lymphocytes # 0.4 10^3/uL (0.8-4.8); Lymphocytes % 9.2 %; Mean Corpuscular HGB Conc 32.8 g/dL (30.0-36.0); Mean Corpuscular Hemoglobin 30.7 pg (28.0-34.0); Mean Corpuscular Volume 93.7 fL (81-99); Mean Platelet Volume 10.9 fL (7.4-10.4); Monocytes # 0.3 10^3/uL (0.2-0.9); Monocytes % 6.5 %; Neutrophils # 4.01 10^3/uL (1.8-7.7); Neutrophils % 83.7 %; Nucleated Red Blood Cells % 0 %; Platelet Count 207 10^3/cmm (130-400); Red Blood Count 3.97 10^6/uL (4.1-5.3); Red Cell Distribution Width 12.4 % (12.1-15.1); White Blood Count 4.8 10^3/uL (4.0-10.0)
[2020-11-29 06:30] LABS: D Dimer 1.02 ug/mIFEU (0-0.59)
[2020-11-29 06:46] LABS: Glucose Point of Care 99 mg/dL (70-110)
[2020-11-29 06:52] LABS: Alanine Aminotransferase 46 U/L (0-33); Albumin Level 2.2 g/dL (3.5-5.2); Alkaline Phosphatase 77 IU/L (35-105); Anion Gap 17.7 (5-19); Aspartate Amino Transferase 49 U/L (0-32); Blood Urea Nitrogen 17 mg/dL (8-23); Calcium 8.2 mg/dL (8.5-10.5); Carbon Dioxide 22 mmol/L (22-29); Chloride 103 mmol/L (98-107); Globulin 2.8 g/dL (1.3-4.6); Glucose 79 mg/dL (65-115); Magnesium 1.8 mg/dL (1.7-2.3); Osmolality Calculated 288 mOsm/kg (285-295); Potassium 3.7 mmol/L (3.5-5.1); Sodium 139 mmol/L (136-145); Total Bilirubin 0.4 mg/dL (0.15-1.2)
[2020-11-29] MEDS: albuterol 8 gm MDI 2 PUFF INHALATION (08:09)
[2020-11-29] MEDS: levofloxacin-dextrose 5 % 750 MG/150 ML PREMIX 100 MG IV (08:53)
[2020-11-29] MEDS: pantoprazole DR 40 mg Tablet PO (08:54)
[2020-11-29] MEDS: metoprolol tartrate 25 mg Tablet 12.5 MG PO ×2 (08:54→17:38)
[2020-11-29] MEDS: levETIRAcetam 500 mg Tablet 750 MG PO ×2 (08:54→17:38)
--- NOTE | 2020-11-29 10:48 | PC.NURSE ---
Returned call to patient's family Ileana [phone], gave update.
[2020-11-29] MEDS: vancomycin 1,000 MG in sodium chloride 0.9% 250 ML 250 MG IV (10:54)
[2020-11-29 11:11] LABS: Glucose Point of Care 146 mg/dL (70-110)
[2020-11-29] MEDS: remdesivir 100 MG in sodium chloride 0.9% (100 ml) 100 ML IV (12:59)
--- NOTE | 2020-11-29 16:17 | P.PN_ITS ---
Subjective Subjective: Interval history: She is doing tiny bit better today. Denies headache, no nausea vomiting or diarrhea. No chest pain or pressure. Gets winded/more hypoxic with exertion. Vitals/I&O/Wt Last Vital Signs Temp 97.7 F 11/29/20 12:00 Pulse 70 11/29/20 15:28 Resp 18 11/29/20 15:28 BP 127/65 11/29/20 12:00 Pulse Ox 94 11/29/20 15:28 11/29/20 11/29/20 11/29/20 06:59 14:59 22:59 Intake Total 620 / 620 Output Total 700 / 900 350 / 350 Balance -700 / -180 620 / 620 -350 / 270 Physical Exam Const: COMMON NORMALS: no acute distress and patient oriented x3 GENERAL APPEARANCE: frail appearing OTHER: Generally weak HENMT: COMMON NORMALS: oropharynx normal Neck/C-Spine: COMMON NORMALS: no JVD Resp: COMMON NORMALS: normal respiratory effort AUSCULTATION: no rhonchi, wheezes (Minimal congestion/wheeze with cough) and diminished lung sounds Cardio: COMMON NORMALS: no JVD, regular rhythm, S1 normal heart sound present, S2 normal heart sound present and No murmurs present (Cardio) RHYTHM: regular rhythm HEART SOUNDS: S1 normal heart sound present and S2 normal heart sound present GI: COMMON NORMALS: Normal to inspection, nondistended, normoactive bowel sounds present, Soft to palpation and non-tender PALPATION: Yes Soft to palpation Extremity: COMMON NORMALS: no joint enlargement and no pedal edema Neuro: COMMON NORMALS: patient oriented x3 and moves all extremities Skin: COMMON NORMALS: no rashes or lesions noted GENERAL SKIN EXAM: no rashes or lesions noted Data : 11/29/20 05:23 11/29/20 05:23 Micro: Microbiology 11/28/20 01:55 Gram Stain - Final Sputum - Expectorated Sputum Sputum Culture - Preliminary A&P Assessment and plan (1) COVID-19: Continue Decadron. Restarted on remdesivir yesterday, received tocilizumab. Today in the morning appears to have plateaued around 9-10 l of oxygen, but this afternoon appears to actually show some improvement down to 5 L high flow cannula. Subjectively perhaps tiny bit better. Discussed with her D- dimer improvement today. CRP still elevated, 137. AST, ALT actually better 49, 46 respectively. Continue Decadron, remdesivir, oxygen support, wean off as tolerating. Lovenox prophylaxis. Continue albuterol inhaler. Continue antibiotics for superimposed bacterial infection. Recheck CRP, D-dimer, follow liver parameters. Status: Acute (2) Weakness: Severe COVID-19, worsening hypoxia, superimposed bacterial pneumonia also as above. Treat bacterial pneumonia as above. Unremarkable UA. Keppra level pending. Status: Acute (3) Acute and chronic respiratory failure with hypoxia: Status: Acute Additional A&P Information Mild hypokalemia: Replace. Borderline magnesium, recheck tomorrow. PT evaluation and social service consult Normotensive, hold nifedipine and spironolactone, continue metoprolol for now Attestations Medical Necessity Statement*: Continue admission for cyst management of hypoxic respiratory failure, severe COVID-19 with superimposed bacterial pulmonary infection/focal pneumonia. Coding Level of Care Code Acute Flanging Operator for [facility] Diagnoses COVID-19 U07.1 Weakness R53.1 Acute and chronic respiratory failure with hypoxia J96.21
[2020-11-29 17:33] LABS: Glucose Point of Care 127 mg/dL (70-110)
[2020-11-29 21:34] LABS: Glucose Point of Care 141 mg/dL (70-110)
[2020-11-30] VITALS (12 sets, daily range): BP systolic 126–177; BP diastolic 54–79; PULSE 54–79; RESP 14–22; TEMP 36.4–36.7; O2SAT 89–95
[2020-11-30] MEDS: dexamethasone 4 mg Tablet 6 MG PO (04:23)
[2020-11-30] MEDS: enoxaparin 40 mg/0.4 mL Syringe SUBCUT (04:23)
[2020-11-30 07:21] LABS: Glucose Point of Care 89 mg/dL (70-110)
[2020-11-30] MEDS: levofloxacin-dextrose 5 % 750 MG/150 ML PREMIX 100 MG IV (08:41)
[2020-11-30] MEDS: metoprolol tartrate 25 mg Tablet 12.5 MG PO ×2 (08:42→17:08)
[2020-11-30] MEDS: levETIRAcetam 500 mg Tablet 750 MG PO ×2 (08:42→17:08)
[2020-11-30] MEDS: pantoprazole DR 40 mg Tablet PO (08:42)
[2020-11-30] MEDS: vancomycin 1,000 MG in sodium chloride 0.9% 250 ML 250 MG IV (10:28)
[2020-11-30 10:51] LABS: Glucose Point of Care 124 mg/dL (70-110)
--- NOTE | 2020-11-30 10:53 | PC.SOCIAL ---
IMM update Verbalized IMM up date with patient over the phone. Patient verbalized understanding. Placed in chart. Initialed, dated and timed.
--- NOTE | 2020-11-30 12:57 | PC.SOCIAL ---
IMM Update Pg. 2 of IMM updated and reviewed with patient. Verbalized understanding. Copy provided. Initialed, dated, and timed in chart.
[2020-11-30] MEDS: remdesivir 100 MG in sodium chloride 0.9% (100 ml) 100 ML IV (12:59)
--- NOTE | 2020-11-30 13:16 | PC.NUTR ---
Nutrition assessment completed for MST score of 2, d/t wt loss and decreased appetite. Recommend vanilla Ensure TID between meals, rather than with meals, to encourage increased po intake throughout the day. Recommend obtaining current weight when possible, as pt triggered for wt loss, but current wt appears 20 lbs higher than 11/19/20. Question accuracy. Also requesting clarification regarding rationale for GI soft diet, as this is not clear per chart review. Notified nursing of recommendations for reweight and diet clarification. See RD assessment for further details.
--- NOTE | 2020-11-30 14:40 | PM.PN ---
Subjective Subjective: Interval history: 02 requirements appear to be improving today Vitals/I&O/Wt Last Vital Signs Temp 97.3 F L 12/01/20 04:00 Pulse 60 12/01/20 04:00 Resp 16 12/01/20 04:00 BP 165/73 12/01/20 04:00 Pulse Ox 90 12/01/20 04:00 11/30/20 11/30/20 12/01/20 14:59 22:59 06:59 Intake Total 620 / 620 240 / 860 Output Total Balance 620 / 620 239 / 859 Weight last 48 hrs Weight 56.019 kg Data : 11/29/20 05:23 11/29/20 05:23 Micro: Microbiology 11/28/20 01:55 Gram Stain - Final Sputum - Expectorated Sputum Sputum Culture - Final A&P Assessment and plan (1) COVID-19: Continue Decadron, remdesivir, tocilizumab x1. 02 requirement improvig to 5-6L nasal canula. Subjectively perhaps tiny bit better. Recheck CRP, D-dimer, follow liver parameters with am labs CTA without PE . Status: Acute (2) Weakness: Severe COVID-19, worsening hypoxia, superimposed bacterial pneumonia also as above. Treat bacterial pneumonia as above. Unremarkable UA. Status: Acute (3) Acute and chronic respiratory failure with hypoxia: Status: Acute Additional A&P Information Mild hypokalemia: Replace. PT evaluation and social service consult Normotensive, hold nifedipine and spironolactone, continue metoprolol for now Attestations Medical Necessity Statement*: Covid 19 pneumonia on treatment Coding Level of Care Code Acute Database Development Project Manager for [facility] Fwd Diagnoses COVID-19 U07.1 Weakness R53.1 Acute and chronic respiratory failure with hypoxia J96.21
[2020-11-30 17:05] LABS: Glucose Point of Care 104 mg/dL (70-110)
[2020-11-30] MEDS: albuterol 8 gm MDI 2 PUFF INHALATION (20:10)
[2020-11-30 21:08] LABS: Glucose Point of Care 108 mg/dL (70-110)
[2020-12-01] VITALS (12 sets, daily range): BP systolic 125–165; BP diastolic 69–75; PULSE 60–111; RESP 14–26; TEMP 36.3–36.9; O2SAT 89–97
--- NOTE | 2020-12-01 03:54 | PC.NURSE ---
Patient got up to use the restroom and her O2 dropped to 84% on 7L high flow. This nurse slowly raised her O2 till she reached 90% Patient is now on 12L high flow. Respiratory, Brenden, was notified. He said to just monitor patient till O2 raises to 96-97% and then can change her oxygen back to 7L.
[2020-12-01] MEDS: enoxaparin 40 mg/0.4 mL Syringe SUBCUT (04:12)
[2020-12-01] MEDS: dexamethasone 4 mg Tablet 6 MG PO (04:12)
--- NOTE | 2020-12-01 06:11 | PC.NURSE ---
Patient is now requiring 13L of high flow canula. Her 02 is at 91-93%
[2020-12-01 06:14] LABS: Eosinophils % 0.7 %; Hemoglobin 13.6 g/dL (11.5-15.3); Lymphocytes # 0.8 10^3/uL (0.8-4.8); Lymphocytes % 27.8 %; Mean Corpuscular HGB Conc 32.4 g/dL (30.0-36.0); Mean Corpuscular Hemoglobin 30.8 pg (28.0-34.0); Mean Corpuscular Volume 95.2 fL (81-99); Monocytes # 0.3 10^3/uL (0.2-0.9); Monocytes % 10.8 %; Neutrophils # 1.75 10^3/uL (1.8-7.7); Neutrophils % 59.3 %; Nucleated Red Blood Cells % 0 %; Platelet Count 205 10^3/cmm (130-400); Red Blood Count 4.41 10^6/uL (4.1-5.3); Red Cell Distribution Width 12.5 % (12.1-15.1)
[2020-12-01 06:21] LABS: D Dimer 2.35 ug/mIFEU (0-0.59)
[2020-12-01 06:27] LABS: Slide Review Slide Review Perform
[2020-12-01 06:29] LABS: Alanine Aminotransferase 53 U/L (0-33); Albumin Level 2.2 g/dL (3.5-5.2); Alkaline Phosphatase 70 IU/L (35-105); Blood Urea Nitrogen 25 mg/dL (8-23); C Reactive Protein 31.9 mg/L (0.0-4.9); Calcium 8.2 mg/dL (8.5-10.5); Carbon Dioxide 22 mmol/L (22-29); Chloride 105 mmol/L (98-107); Globulin 2.4 g/dL (1.3-4.6); Glucose 66 mg/dL (65-115); Osmolality Calculated 285 mOsm/kg (285-295); Sodium 136 mmol/L (136-145); Total Bilirubin 0.3 mg/dL (0.15-1.2); Total Protein 4.6 g/dL (6.6-8.7)
[2020-12-01 06:32] LABS: Anion Gap 12.9 (5-19); Aspartate Amino Transferase 56 U/L (0-32); Potassium 3.9 mmol/L (3.5-5.1)
[2020-12-01 06:42] LABS: Ferritin 1410 ng/mL (15-150)
[2020-12-01 06:54] LABS: Glucose Point of Care 80 mg/dL (70-110)
[2020-12-01] MEDS: levETIRAcetam 500 mg Tablet 750 MG PO ×2 (08:34→18:09)
[2020-12-01] MEDS: pantoprazole DR 40 mg Tablet PO (08:34)
[2020-12-01] MEDS: metoprolol tartrate 25 mg Tablet 12.5 MG PO ×2 (08:34→18:09)
[2020-12-01] MEDS: levofloxacin-dextrose 5 % 750 MG/150 ML PREMIX 100 MG IV (08:35)
[2020-12-01] MEDS: albuterol 8 gm MDI 2 PUFF INHALATION ×2 (09:03→20:51)
[2020-12-01 09:32] LABS: Levetiracetam Keppra 22.3 mcg/mL
[2020-12-01 09:38] LABS: Vancomycin Trough 12.2 ug/mL (10-15)
[2020-12-01] MEDS: vancomycin 1,000 MG in sodium chloride 0.9% 250 ML 250 MG IV (11:33)
[2020-12-01 11:36] LABS: Glucose Point of Care 229 mg/dL (70-110)
[2020-12-01] MEDS: remdesivir 100 MG in sodium chloride 0.9% (100 ml) 100 ML IV (15:02)
[2020-12-01 17:17] LABS: Glucose Point of Care 158 mg/dL (70-110)
[2020-12-01 20:50] LABS: Glucose Point of Care 78 mg/dL (70-110)
[2020-12-01 21:19] LABS: Glucose Point of Care 102 mg/dL (70-110)
--- NOTE | 2020-12-01 22:46 | PM.PN ---
Subjective Subjective: Interval history: stable 02 requirements, CRP trending down to 38 today, feels improved Vitals/I&O/Wt Last Vital Signs Temp 98.5 F 12/01/20 20:00 Pulse 66 12/01/20 20:52 Resp 18 12/01/20 20:52 BP 151/70 12/01/20 16:00 Pulse Ox 93 12/01/20 20:52 12/01/20 12/01/20 12/01/20 06:59 14:59 22:59 Intake Total 1120 / 1120 340 / 1460 Balance 1120 / 1120 340 / 1460 Weight last 48 hrs Weight 56.019 kg Data : 12/01/20 05:20 12/01/20 05:20 A&P Assessment and plan (1) COVID-19: Continue Decadron, remdesivir, tocilizumab x1. 02 requirement improvig to 5-6L nasal canula. Subjectively perhaps tiny bit better. Recheck CRP, D-dimer, follow liver parameters with am labs CTA without PE . Status: Acute (2) Weakness: Severe COVID-19, worsening hypoxia, superimposed bacterial pneumonia also as above. Treat bacterial pneumonia as above. Unremarkable UA. Status: Acute (3) Acute and chronic respiratory failure with hypoxia: Status: Acute Additional A&P Information Mild hypokalemia: Replace. PT evaluation and social service consult Normotensive, hold nifedipine and spironolactone, continue metoprolol for now Attestations Medical Necessity Statement*: trend inflammatory markers, rpt imaging in am Coding Level of Care Code Acute Strategic Planning Consultant for [facility] Fwd Diagnoses COVID-19 U07.1 Weakness R53.1 Acute and chronic respiratory failure with hypoxia J96.21
[2020-12-02] VITALS (7 sets, daily range): BP systolic 126–154; BP diastolic 59–73; PULSE 71–78; RESP 17–22; TEMP 35.8–36.9; O2SAT 82–92
[2020-12-02] MEDS: enoxaparin 40 mg/0.4 mL Syringe SUBCUT (04:57)
[2020-12-02] MEDS: dexamethasone 4 mg Tablet 6 MG PO (04:58)
--- NOTE | 2020-12-02 06:00 | XR_ITS ---
WS: [id number] Portable AP upright chest, 12/02/2020 Clinical Data: follow up PNeumonia Comparison: Portable chest, 11/27/2020. Findings: The bilateral patchy opacities have not changed. There is diffuse interstitial fibrosis. Th e patchy opacities are best seen in the right upper lobe, left upper lobe and left lower lobe. There is a small left pleural effusion and right pleural reaction. The heart is normal. The aortic arch and descending aorta show calcification and tortuosity. There are old fractures of both humeral necks. XR/XR chest 1V portable 22415 Impression: 1. No change in bilateral patchy opacities and interstitial fibrosis. 2. Left pleural effusion. 3. Atherosclerosis.
[2020-12-02 06:32] LABS: Basophils % 0.3 %; Eosinophils # 0.1 10^3/uL (0.0-0.8); Eosinophils % 1.4 %; Hematocrit 40.4 % (37.0-47.0); Hemoglobin 13.5 g/dL (11.5-15.3); Lymphocytes # 1.1 10^3/uL (0.8-4.8); Mean Corpuscular HGB Conc 33.4 g/dL (30.0-36.0); Mean Corpuscular Hemoglobin 30.9 pg (28.0-34.0); Mean Corpuscular Volume 92.4 fL (81-99); Monocytes # 0.3 10^3/uL (0.2-0.9); Monocytes % 9.2 %; Neutrophils # 2.15 10^3/uL (1.8-7.7); Nucleated Red Blood Cells % 0 %; Platelet Count 209 10^3/cmm (130-400); Red Blood Count 4.37 10^6/uL (4.1-5.3); Red Cell Distribution Width 12.5 % (12.1-15.1); White Blood Count 3.7 10^3/uL (4.0-10.0)
[2020-12-02 06:48] LABS: Alanine Aminotransferase 63 U/L (0-33); Albumin Level 2.4 g/dL (3.5-5.2); Alkaline Phosphatase 77 IU/L (35-105); Aspartate Amino Transferase 59 U/L (0-32); Blood Urea Nitrogen 24 mg/dL (8-23); C Reactive Protein 18.1 mg/L (0.0-4.9); Calcium 8.2 mg/dL (8.5-10.5); Carbon Dioxide 24 mmol/L (22-29); Chloride 104 mmol/L (98-107); Globulin 2.2 g/dL (1.3-4.6); Glucose 72 mg/dL (65-115); Osmolality Calculated 289 mOsm/kg (285-295); Sodium 138 mmol/L (136-145); Total Bilirubin 0.3 mg/dL (0.15-1.2); Total Protein 4.6 g/dL (6.6-8.7)
[2020-12-02 06:49] LABS: Anion Gap 13.4 (5-19); Potassium 3.4 mmol/L (3.5-5.1)
[2020-12-02 07:07] LABS: Glucose Point of Care 77 mg/dL (70-110)
[2020-12-02 07:07] LABS: Slide Review Slide Review Perform
[2020-12-02] MEDS: albuterol 8 gm MDI 2 PUFF INHALATION (08:21)
[2020-12-02] MEDS: metoprolol tartrate 25 mg Tablet 12.5 MG PO (08:48)
[2020-12-02] MEDS: levETIRAcetam 500 mg Tablet 750 MG PO (08:48)
[2020-12-02] MEDS: levofloxacin-dextrose 5 % 750 MG/150 ML PREMIX 100 MG IV (08:48)
[2020-12-02] MEDS: pantoprazole DR 40 mg Tablet PO (08:49)
[2020-12-02] MEDS: vancomycin 1,000 MG in sodium chloride 0.9% 250 ML 250 MG IV (10:49)
[2020-12-02] MEDS: potassium chloride ER 20 mEq Tablet 40 MEQ PO (10:50)
--- NOTE | 2020-12-02 10:57 | PC.NURSE ---
Assisted patient with talking to daughter Ileana on phone. Patient able to talk easily without coughing but does get short of breath, oxygen saturation 91% while talking on the phone at 4L NC.
[2020-12-02] MEDS: remdesivir 100 MG in sodium chloride 0.9% (100 ml) 100 ML IV (13:05)
[2020-12-02 13:12] LABS: Glucose Point of Care 152 mg/dL (70-110)
--- NOTE | 2020-12-02 14:04 | PC.SOCIAL ---
IMM UPDATE Gave patient IMM update. She verbalized understanding 12/02/20 @ 6117 Initialed, dated, timed and placed in chart.
--- NOTE | 2020-12-02 14:37 | PC.NURSE ---
Patient discharge instructions provided to patient and patients daughter, verbalized understanding denies further questions or concerns, portable oxygen with patient on discharge via wheelchair.
--- NOTE | 2020-12-02 22:35 | PM.DCS ---
Discharge Providers Date of Admission: 11/27/20 03:12 Date of Discharge: 12/02/20 Attending Provider at Admission: Oliver Bro MD Attending Provider at Discharge: Isa Andersen MD Primary Care Provider: Honorio Ren Diagnoses at Discharge Discharge Diagnosis (1) COVID-19: Status: Resolved (2) Weakness: Status: Resolved (3) Acute and chronic respiratory failure with hypoxia: Status: Acute Reason for Visit Reason for Visit: RESP. DESTRESS/ ABD PAIN Hospital Course Hospital Course Wendy Covarrubias is a 80 year old female who was discharged on 11/25 after management of COVID-19 pneumonia with remdesivir, she was prescribed Decadron 3-day supply at the time of discharge presented again with chief complaint of fever and lethargy. Diagnostics in the ER revealed normal CBC however she was febrile 100.2, D-dimer 1.7, ABG revealed hypoxia, CTA was without PE, worsening transaminases noted BNP 3700 , CXR showed worsening bilateral COVID-19 pneumonia. She was admitted and received another 5 day course of remdisivir, continued on decadron and receievd tocilizumab x 1. This improved her symptoms. She was gradually weaned down to 5-6lpm on NC. Additionally she received abx for possibility of superimposed bacterial pneumonia. Patient was in improving condition at discharge. CRP trended down to 38. She was discharged with home health services. Inhalers were added. Physical Exam Narrative: EXAM NARRATIVE: GEN: Awake, alert and oriented, no acute distress CVS: S1S2 N RS: CTA B/L Abd: Soft, nt/nd , bs+ VP SALES: no focal neuro deficits Discharge Data Data Completed and Pending: Completed Studies During Hospitalization Category Date Time Status CT angio chest PE protcl 29892 Stat Cat Scan 11/27/20 04:44 Completed XR chest 1V miguel ble 85195 AM LABS Exams 12/02/20 06:00 Completed XR chest 1V miguel ble 15048 Urgent Exams 11/27/20 02:03 Completed Vitals: Last Vital Signs Temp 96.5 F L 12/02/20 14:38 Pulse 75 12/02/20 14:38 Resp 17 12/02/20 14:38 BP 126/59 12/02/20 14:38 Pulse Ox 92 12/02/20 14:38 Discharge Plan Discharge Patient Disposition: Home Health Service Condition: Stable Prescriptions: New Advair Diskus 250-50 mcg/dose Blister With Device 1 puff inhalation BID.RESPIRATORY 30 Days Qty: 1 RF: 0 Ventolin HFA 90 mcg/actuation Hfa Aerosol Inhaler 2 puff inhalation Q4H.RESPIRATORY PRN (Reason: Shortness Of Breath) 30 Days Qty: 1 RF: 0 Spiriva with HandiHaler 18 mcg Capsule, W/Inhalation Device 18 mcg inhalation DAILY.RESPIRATORY 30 Days Qty: 1 RF: 0 Continued nifedipine 90 mg tablet extended release 90 mg PO DAILY RF: 0 atorvastatin 80 mg tablet 80 mg PO DAILY RF: 0 metoprolol tartrate 25 mg tablet 12.5 mg PO BID RF: 0 Dexilant 60 mg capsule,biphase delayed releas 60 mg PO DAILY RF: 0 alendronate 70 mg tablet 70 mg PO Q7D RF: 0 aspirin [Adult Low Dose Aspirin] 81 mg tablet,delayed release (DR/EC) 81 mg PO DAILY RF: 0 vitamin d 1 tab PO DAILY RF: 0 multivitamin-iron (hematinic) 1 tab PO DAILY RF: 0 dexamethasone [Decadron] 6 mg tablet 6 mg PO Q24H Qty: 3 RF: 0 Held spironolactone 25 mg tablet 25 mg PO DAILY RF: 0 Hold Instructions: Resume on 12/08/20. No Action levetiracetam 750 mg tablet See Rx Instructions .ROUTE .COMPLEX Qty: 60 RF: 0 Discharge Orders: Discharge Order (Routine); Ordered 12/02/20 Ordered By: Isa Andersen Other Ambulatory Orders: DME: Oxygen (Order) Location: None Selected Ordered By: Isa Andersen Referrals: [facility] [Outside] Honorio Ren [Primary Care Provider] - 12/09/20 10:00 am (follow up hospital discharge for COVID pneumonia, spirinolactone on hold, recheck LFT) Discharge Diet: Usual diet Discharge Activity: As per PT/OT instructions Patient Instructions: Albuterol (By breathing), Fluticasone/Salmeterol (By breathing), Tiotropium (By breathing), Pneumonia (GEN), Opioid Safety, Pneumonia - Viral, Using Oxygen at Home Discharge Attestations Time Spent in Discharge Care*: greater than 30 min Status at Discharge: Cognitive status at discharge: cognitively intact, Behavioral status at discharge: cooperative, Quality Metrics Clinical Quality Measures During this hospital stay, did patient experience: None Coding Level of Care Code Acute Chg FW DC note Diagnoses COVID-19 U07.1 Weakness R53.1 Acute and chronic respiratory failure with hypoxia J96.21
== END 2020-12-02 14:39 | disposition home health service (06) | DRG 177 ==
LOC: ER 02:06 → MEDSURG 04:04
PROVIDERS: Internal Medicine; Admitting Provider Internal Medicine; Emergency Provider Emergency Medicine; PCP Family Medicine; Visit Provider Student in an Organized Health Care Education/Training Program
DX: U07.1 COVID-19 (principal); J12.82 Pneumonia due to coronavirus disease 2019; J15.9 Unspecified bacterial pneumonia; J96.21 Acute and chronic respiratory failure with hypoxia; I25.10 Atherosclerotic heart disease of native coronary artery without angina pectoris; N18.2 Chronic kidney disease, stage 2 (mild); I12.9 Hypertensive chronic kidney disease with stage 1 through stage 4 chronic kidney disease, or unspecified chronic kidney disease; N81.10 Cystocele, unspecified; G30.9 Alzheimer's disease, unspecified; F02.80 Dementia in other diseases classified elsewhere, unspecified severity, without behavioral disturbance, psychotic disturbance, mood disturbance, and anxiety; E78.5 Hyperlipidemia, unspecified; K21.9 Gastro-esophageal reflux disease without esophagitis; Z87.891 Personal history of nicotine dependence; Z79.82 Long term (current) use of aspirin
CPT/HCPCS: 36415; 36416; 36600; 71045; 71275; 80053; 80177; 80202; 81001; 82550; 82728; 82803; 82962; 83605; 83735; 83880; 84145; 85025; 85378; 86140; 87040; 87070; 87205; 94640; 94762; 96372; 97110; 97116; 97162; 97166; 97530; 97535; 99285; J1650; J1815; J1956; J3262; J3370; J3535; J7050; J8540; Q9967

== ENCOUNTER → 2021-01-11 09:48 | Outpatient (BNVA) | payer MEDICARE, SELFPAY | PROVIDERS: PCP Family Medicine; Visit Provider Nurse Practitioner Family | DX: R30.0 Dysuria (principal); N39.0 Urinary tract infection, site not specified | CPT/HCPCS: 81000; 87077; 87086; 87184 ==

== ENCOUNTER → 2021-01-21 12:14 | Outpatient (BNVA) | payer MEDICARE, SELFPAY | PROVIDERS: PCP Family Medicine; Visit Provider Nurse Practitioner Family | DX: N39.0 Urinary tract infection, site not specified (principal) | CPT/HCPCS: 81000 ==

== ENCOUNTER 2021-02-22 23:42 | Emergency (ER) | payer MEDICARE, SELFPAY ==
[2021-02-22 23:51] VITALS: TEMP 36.1; BMI 29.2
[2021-02-22 23:56] VITALS: BP 155/98; PULSE 92; RESP 18; O2SAT 100
--- NOTE | 2021-02-23 00:04 | ECG_ITS ---
[facility] Test Date: 2021-02-23 Pat Name: Wendy Covarrubias Department: Room: Gender: Female Racing Manager: : 1940 Requested By: Aris Ruelas Order Number: [id number] Reading MD: Measurements Intervals [place] Rate: 81 P: 41 [place]: 166 QRS: -17 QRSD: 95 T: 33 QT: 366 QTc: 427 Interpretive Statements SINUS RHYTHM LEFT VENTRICULAR HYPERTROPHY AND ST-T CHANGE [VOLTAGE CRITERIA PLUS ST/T ABNORMALITY] No previous ECG available for comparison [id number] f
--- NOTE | 2021-02-23 00:16 | W.ED.ANXIETY ---
HPI - Anxiety General: Chief Complaint: Anxiety Stated Complaint: TREMERS Time Seen by Provider: 02/22/21 23:49 Source: patient Mode of arrival: ambulatory Limitations: no limitations History of Present Illness: HPI narrative: 80-year-old female states that starting earlier tonight she started having a tremor. She states that she was just started having shaking her arms and legs and was feeling anxious and could not stop. She denies any pain anywhere. Denies any fever. Denies any vomiting or diarrhea. Denies any worsening improving factors. She states she has had this happen in the past. Associated symptoms: Deny chest pain, chills, fever(s), nausea or vomiting Review of Systems Const: Denies: fever(s), chills, body aches or change in appetite Eyes: Denies: blurry vision or eye discomfort ENMT: Denies: throat pain or dental pain Card: Denies: chest pain Resp: Denies: dyspnea GI: Denies: abdominal pain, nausea, vomiting or diarrhea : Denies: dysuria Musc: Denies: neck pain or back pain Skin/Breast: Denies: rash Neuro: Reports: restless legs Psych: Denies: depression Kash/Lymph: Denies: easy bruising All/Imm: Denies: urticaria PFSH ED PFSH: Medical History Arteriosclerotic heart disease Carotid disease, bilateral CKD (chronic kidney disease) stage 2, GFR 60-89 ml/min Cystocele with small rectocele and uterine descent Dementia in Alzheimer's disease Dyslipidemia Essential hypertension GERD (gastroesophageal reflux disease) Surgical History H/O removal of cyst History of cholecystectomy Status post carotid surgery Family History Mother CAD (coronary artery disease) Hypertension Social History Smoking and tobacco status: former smoker Second hand smoke exposure: No Alcohol intake: never Desire information about alcohol rehabilitation?: No Desire information about substance/drug rehabilitation?: No Adopted: No Lives independently: Yes Household members: family Housing: House Marital status: / History of recent travel: No Physical Exam Const: COMMON NORMALS: no acute distress, patient oriented x3 and healthy appearing HENMT: COMMON NORMALS: normocephalic and atraumatic HEAD & SCALP: normocephalic and atraumatic Eye: COMMON NORMALS: Equal, round and reactive pupils present and EOMs intact bilaterally PUPIL: Yes Equal, round and reactive pupils present Neck/C-Spine: COMMON NORMALS: full ROM and supple Chest: COMMONS NORMALS: normal inspection of the chest and normal palpation of entire chest wall Resp: COMMON NORMALS: normal respiratory effort, No retractions, No use of accessory muscles and clear to auscultation bilaterally AUSCULTATION: clear to auscultation bilaterally Cardio: COMMON NORMALS: regular rate, regular rhythm and No murmurs present (Cardio) RATE: regular rate RHYTHM: regular rhythm GI: COMMON NORMALS: Normal to inspection, nondistended, normoactive bowel sounds present, Soft to palpation, non-tender and no masses PALPATION: Yes Soft to palpation Extremity: COMMON NORMALS: normal to inspection and full ROM Neuro: COMMON NORMALS: patient oriented x3, moves all extremities and no focal motor deficits Psych: COMMON NORMALS: mental status grossly normal, Normal thought process present and cooperative THOUGHT PROCESS: Normal thought process present OTHER: anxious Skin: COMMON NORMALS: no rashes or lesions noted and no wounds GENERAL SKIN EXAM: no rashes or lesions noted Course Vital Signs: Vital signs: Vital Signs Temperature 96.9 F L 02/22/21 23:51 Pulse Rate 92 02/22/21 23:56 Respiratory Rate 18 02/22/21 23:56 Blood Pressure 155/98 02/22/21 23:56 Pulse Oximetry 100 02/22/21 23:56 MDM - Anxiety MDM Narrative: Medical decision making narrative: Patient presents here with a tremor likely an anxiety reaction. She is well-appearing here much improved currently. Blood work is normal. KG is normal as well. She feels improved after Ativan is stable for discharge. She is to follow-up with PCP in 2 to 4 days return if worsening. EKG Data^: EKG 1: Attestation: I personally reviewed and interpreted this EKG as follows: EKG interpretation date: 02/23/21 EKG interpretation time: 00:53 Interpretation: nsr hr [address] or t wave abonrmalities qrs 95 qtc 404 Lab Data: Labs: Lab Results 02/23/21 02/23/21 00:23 00:23 WBC 9.0 10^3/uL 10^3/ uL (4.0-10.0) RBC 4.31 10^6/uL 10^6 /uL (4.1-5.3) Hgb 13.6 g/dL g/dL (11.5-15.3) Hct 41.1 % % (37.0-47.0) MCV 95.4 fl fl (81-99) MCH 31.6 pg pg (28.0-34.0) MCHC 33.1 g/dL g/dL (30.0-36.0) RDW 12.2 % % (12.1-15.1) Plt Count 290 10^3/cmm 10^3 /cmm (130-400) MPV 10.5 fL H fL (7.4-10.4) Neut % (Auto) 76.6 % % Lymph % (Auto) 14.4 % % [place] % (Auto) 7.3 % % Eos % (Auto) 1.0 % % Baso % (Auto) 0.4 % % Neut # (Auto) 6.89 10^3/uL 10^3 /uL (1.8-7.7) Lymph # (Auto) 1.3 10^3/uL 10^3/ uL (0.8-4.8) [place] # (Auto) 0.7 10^3/uL 10^3/ uL (0.2-0.9) Eos # (Auto) 0.1 10^3/uL 10^3/ uL (0.0-0.8) Baso # (Auto) 0.0 10^3/uL 10^3/ uL (0.0-0.1) Nucleated RBC % (a uto) 0 % % Nucleated RBCs # 0.0 /100WBC /100W BC Sodium 142 mmol/L mmol/L (136-145) Potassium 3.7 mmol/L mmol/L (3.5-5.1) Chloride 109 mmol/L H mmol /L (98-107) Carbon Dioxide 16 mmol/L L mmol/ L (22-29) Anion Gap 20.7 H (5-19) BUN 8 mg/dL mg/dL (8-23) Creatinine 0.7 mg/dL mg/dL (0.5-0.9) GFR Calculation Not Reportable Glucose 117 mg/dL H mg/dL (65-115) Calculated Osmolal ity 293 mOsm/kg mOsm/ kg (285-295) Calcium 9.2 mg/dL mg/dL (8.5-10.5) Total Bilirubin 0.3 mg/dL mg/dL (0.15-1.2) AST 19 U/L U/L (0-32) ALT 16 U/L U/L (0-33) Alkaline Phosphata se 124 IU/L H IU/L (35-105) Total Protein 6.4 g/dL L g/dL (6.6-8.7) Albumin 3.9 g/dL g/dL (3.5-5.2) Globulin 2.5 g/dL g/dL (1.3-4.6) Discharge Plan Discharge Patient Disposition: Home Clinical Impression: Tremor Condition: Stable Prescriptions: No Action nifedipine 90 mg tablet extended release 90 mg PO DAILY RF: 0 atorvastatin 80 mg tablet 80 mg PO DAILY RF: 0 spironolactone 25 mg tablet 25 mg PO DAILY RF: 0 Hold Instructions: Resume on 12/08/20. metoprolol tartrate 25 mg tablet 12.5 mg PO BID RF: 0 Dexilant 60 mg capsule,biphase delayed releas 60 mg PO DAILY RF: 0 alendronate 70 mg tablet 70 mg PO Q7D RF: 0 aspirin [Adult Low Dose Aspirin] 81 mg tablet,delayed release (DR/EC) 81 mg PO DAILY RF: 0 vitamin d 1 tab PO DAILY RF: 0 multivitamin-iron (hematinic) 1 tab PO DAILY RF: 0 ciprofloxacin HCl [Cipro] 500 mg tablet 500 mg PO BID 10 Days Qty: 20 RF: 0 levetiracetam 750 mg tablet See Rx Instructions .ROUTE .COMPLEX Qty: 60 RF: 0 dexamethasone [Decadron] 6 mg tablet 6 mg PO Q24H Qty: 3 RF: 0 Discharge Orders: Discharge ED (Routine); Ordered 02/23/21 Ordered By: Aris Ruelas Referrals: Honorio Ren [Primary Care Provider] - 1-3 days Discharge Diet: Advance as tolerated Discharge Activity: Resume usual activity Patient Instructions: Anxiety (ED) Coding Level of Care Code ED Medical Records Clerk for Chg Fwd Exam Comprehensive
[2021-02-23] MEDS: LORazepam 2 mg/mL INJ 1 mL 0.5 MG IVP (00:27)
[2021-02-23 00:32] LABS: Basophils % 0.4 %; Eosinophils # 0.1 10^3/uL (0.0-0.8); Hematocrit 41.1 % (37.0-47.0); Hemoglobin 13.6 g/dL (11.5-15.3); Lymphocytes # 1.3 10^3/uL (0.8-4.8); Lymphocytes % 14.4 %; Mean Corpuscular HGB Conc 33.1 g/dL (30.0-36.0); Mean Corpuscular Hemoglobin 31.6 pg (28.0-34.0); Mean Corpuscular Volume 95.4 fl (81-99); Mean Platelet Volume 10.5 fL (7.4-10.4); Monocytes # 0.7 10^3/uL (0.2-0.9); Monocytes % 7.3 %; Neutrophils # 6.89 10^3/uL (1.8-7.7); Neutrophils % 76.6 %; Nucleated Red Blood Cells % 0 %; Platelet Count 290 10^3/cmm (130-400); Red Blood Count 4.31 10^6/uL (4.1-5.3); Red Cell Distribution Width 12.2 % (12.1-15.1)
[2021-02-23 00:49] LABS: Alanine Aminotransferase 16 U/L (0-33); Albumin Level 3.9 g/dL (3.5-5.2); Alkaline Phosphatase 124 IU/L (35-105); Anion Gap 20.7 (5-19); Aspartate Amino Transferase 19 U/L (0-32); Blood Urea Nitrogen 8 mg/dL (8-23); Calcium 9.2 mg/dL (8.5-10.5); Carbon Dioxide 16 mmol/L (22-29); Chloride 109 mmol/L (98-107); Globulin 2.5 g/dL (1.3-4.6); Glucose 117 mg/dL (65-115); Osmolality Calculated 293 mOsm/kg (285-295); Potassium 3.7 mmol/L (3.5-5.1); Sodium 142 mmol/L (136-145); Total Bilirubin 0.3 mg/dL (0.15-1.2); Total Protein 6.4 g/dL (6.6-8.7)
[2021-02-23 00:55] VITALS: BP 155/98; PULSE 88; RESP 20; O2SAT 99
[2021-02-23] MEDS: sodium chloride 0.9% 1,000 ML 999 ML IV (01:01)
[2021-02-23 02:01] VITALS: BP 162/72; PULSE 88; RESP 18; O2SAT 97
== END 2021-02-23 02:13 | disposition home or self-care (01) ==
PROVIDERS: Emergency Provider Emergency Medicine; PCP Family Medicine
DX: R25.1 Tremor, unspecified (principal); Z79.82 Long term (current) use of aspirin; I12.9 Hypertensive chronic kidney disease with stage 1 through stage 4 chronic kidney disease, or unspecified chronic kidney disease; N18.2 Chronic kidney disease, stage 2 (mild); G30.9 Alzheimer's disease, unspecified; F02.80 Dementia in other diseases classified elsewhere, unspecified severity, without behavioral disturbance, psychotic disturbance, mood disturbance, and anxiety; E78.5 Hyperlipidemia, unspecified; Z87.891 Personal history of nicotine dependence
CPT/HCPCS: 80053; 85025; 93005; 96361; 96374; 99283; J2060; J7030

== ENCOUNTER 2021-06-08 16:37 | Emergency (ER) | payer MEDICARE, SELFPAY ==
[2021-06-08 17:00] VITALS: BP 115/73; PULSE 72; RESP 18; TEMP 36.4; O2SAT 97; BMI 23.6
[2021-06-08 17:07] VITALS: BP 115/73; PULSE 72; RESP 18; TEMP 36.4; O2SAT 97
--- NOTE | 2021-06-08 17:17 | ECG_ITS ---
[facility] Test Date: 2021-06-08 Pat Name: Wendy Covarrubias Department: Room: Gender: Female Telecommunication Operator: : 1940 Requested By: Lee Wolfe Order Number: [id number] Wily MD: Evy Marshall M.D. Measurements Intervals [place] Rate: 69 P: 51 [place]: 172 QRS: 19 QRSD: 106 T: 8 QT: 401 QTc: 430 Interpretive Statements SINUS RHYTHM LEFT VENTRICULAR HYPERTROPHY AND ST-T CHANGE [VOLTAGE CRITERIA PLUS ST/T ABNORMALITY] Compared to ECG 02/23/2021 00:53:43 No significant changes Electronically Signed On 06-09-2021 5:29:24 ADOBE BALL MIXER by Evy Marshall M.D. [id number]
--- NOTE | 2021-06-08 17:17 | XRR_ITS ---
PROCEDURE INFORMATION: Exam: XR Chest Exam date and time: 06/08/2021 5:17 PM Age: 81 years old Clinical indication: Cough; Additional info: Dyspnea/cough TECHNIQUE: Imaging protocol: XR of the chest. Views: 1 view. COMPARISON: CR XR chest 1V portable [id number] 12/02/2020 6:16 AM FINDINGS: Lungs: Hyperinflated lungs. Scattered linear scarring. Prior linear opacities within both lungs have intervally resolved. No consolidation. Pleural spaces: Unremarkable. No pleural effusion. No pneumothorax. Heart/Mediastinum: Top-normal heart size for AP technique. Bones/joints: Chronic fracture deformities of the proximal humeri. Visualized osseous structures are intact. XR/XR chest 1V portable [id number] IMPRESSION: No acute findings.
--- NOTE | 2021-06-08 17:17 | ED_ITS ---
HPI - SOB/Dyspnea General: Chief Complaint: Shortness of Breath/Dyspnea Stated Complaint: SOB Time Seen by Provider: 06/08/21 16:51 History of Present Illness: HPI Narrative: 81-year-old female who presents to the emergency room with complaints of shortness of breath. She is brought in by EMS. She is not having any symptoms upon arrival here she is describes having symptoms earlier today. She usually uses oxygen at night she became short of breath while she was getting her hair done and not resolved. She relates it to using 2 different inhaler medications. Sounds like one of them is a ProAir. She had COVID in November 2020. Is not having any fever sweats chills she denies any chest pain she does relate at times she will get short of breath with activities. She has a known history of heart disease and previously had bilateral carotid endarterectomies. She repeatedly refers to the most limiting symptom with activity being cramping in her legs which resolves when she rests. She takes aspirin daily but no other anticoagulants no history of DVT. Denies a ny recent episodes of angina or chest pain. MD elicited complaint: shortness of breath and cough Pertinent past history: COPD and other (Coronary artery disease) Onset (ago): minute(s) Timing: intermittent Severity: mild Exacerbating factors: nothing Relieving factors: nothing Known history of: COPD and other (Coronary disease) Associated symptoms: Deny abdominal pain, chest congestion, chest pain, cough, diaphoresis, dizziness, extremity pain, fever(s), hemoptysis, lightheadedness, myalgias, nausea, orthopnea, palpitations, paresthesias, polydipsia, polyuria, rash, sense of impending doom, syncope or vomiting Treatment prior to arrival: bronchodilator Review of Systems Const: Denies: fever(s) or diaphoresis ENMT: Denies: throat pain, ear or mastoid pain, nasal discharge or nasal congestion Card: Denies: chest pain, palpitations, lightheadedness, syncope or orthopnea Resp: Denies: hemoptysis or chest congestion GI: Denies: abdominal pain, nausea or vomiting : Denies: flank pain, difficulty voiding, dysuria, urinary frequency or urinary urgency Musc: Denies: extremity pain Skin/Breast: Denies: rash or pruritus Neuro: Denies: dizziness Endo: Denies: polyuria or polydipsia PFSH ED PFSH: Medical History Arteriosclerotic heart disease Carotid disease, bilateral CKD (chronic kidney disease) stage 2, GFR 60-89 ml/min Cystocele with small rectocele and uterine descent Dementia in Alzheimer's disease Dyslipidemia Essential hypertension GERD (gastroesophageal reflux disease) Surgical History H/O removal of cyst History of cholecystectomy Status post carotid surgery Family History Mother CAD (coronary artery disease) Hypertension Social History Smoking and tobacco status: former smoker Second hand smoke exposure: No Alcohol intake: never Desire information about alcohol rehabilitation?: No Desire information about substance/drug rehabilitation?: No Adopted: No Lives independently: Yes Household members: family Housing: House Marital status: / History of recent travel: No Physical Exam Const: COMMON NORMALS: no acute distress GENERAL APPEARANCE: cooperative and comfortable ORIENTATION/CONSCIOUSNESS: Yes awake, Yes oriented to person, Yes oriented to place and Yes oriented to time HENMT: COMMON NORMALS: normocephalic, atraumatic and hearing grossly normal bilaterally HEAD & SCALP: normocephalic and atraumatic Neck/C-Spine: COMMON NORMALS: no JVD Resp: COMMON NORMALS: normal respiratory effort, No retractions, No use of accessory muscles and clear to auscultation bilaterally AUSCULTATION: clear to auscultation bilaterally Cardio: COMMON NORMALS: no JVD, regular rate, regular rhythm and No murmurs present (Cardio) RATE: regular rate RHYTHM: regular rhythm GI: COMMON NORMALS: Soft to palpation and No hepatosplenomegaly present AUSCULTATION: Yes normoactive bowel sounds PALPATION: Yes Soft to palpation, No Tenderness to palpation present (GI), No Guarding due to palpation present (GI) and Yes No hepatosplenomegaly present Extremity: COMMON NORMALS: normal to inspection, capillary refill normal, no clubbing, cyanosis or edema, no calf tenderness and no pedal edema Neuro: SENSORIUM/ORIENTATION: Yes oriented to person, Yes oriented to place and Yes oriented to time Skin: COMMON NORMALS: no rashes or lesions noted GENERAL SKIN EXAM: no rashes or lesions noted Course Vital Signs: Vital signs: Vital Signs Temperature 97.6 F 06/08/21 17:07 Pulse Rate 75 06/08/21 20:40 Respiratory Rate 18 06/08/21 20:40 Blood Pressure 168/58 06/08/21 20:40 Pulse Oximetry 98 06/08/21 20:40 MDM - SOB/Dyspnea MDM Narrative: Medical decision making narrative: Labs imaging and EKG reviewed. Patient is feeling much better sats are maintaining normally on room air. Not changing any medications at this point we will discharge her home continue her current medications and recheck if she is not improving.Note patient did have COVID tested positive in November of this year. Lab Data: Labs: Lab Results 06/08/21 06/08/21 17:50 17:50 WBC 8.0 10^3/uL 10^3/ uL (4.0-10.0) RBC 4.89 10^6/uL 10^6 /uL (4.1-5.3) Hgb 14.7 g/dL g/dL (11.5-15.3) Hct 44.6 % % (37.0-47.0) MCV 91.2 fl fl (81-99) MCH 30.1 pg pg (28.0-34.0) MCHC 33.0 g/dL g/dL (30.0-36.0) RDW 12.1 % % (12.1-15.1) Plt Count 219 10^3/cmm 10^3 /cmm (130-400) MPV 11.0 fL H fL (7.4-10.4) Neut % (Auto) 69.6 % % Lymph % (Auto) 21.1 % % [place] % (Auto) 6.8 % % Eos % (Auto) 1.6 % % Baso % (Auto) 0.8 % % Neut # (Auto) 5.54 10^3/uL 10^3 /uL (1.8-7.7) Lymph # (Auto) 1.7 10^3/uL 10^3/ uL (0.8-4.8) [place] # (Auto) 0.5 10^3/uL 10^3/ uL (0.2-0.9) Eos # (Auto) 0.1 10^3/uL 10^3/ uL (0.0-0.8) Baso # (Auto) 0.1 10^3/uL 10^3/ uL (0.0-0.1) Nucleated RBC % (a uto) 0 % % Nucleated RBCs # 0.0 /100WBC /100W BC Sodium 143 mmol/L mmol/L (136-145) Potassium 4.2 mmol/L mmol/L (3.5-5.1) Chloride 108 mmol/L H mmol /L (98-107) Carbon Dioxide 20 mmol/L L mmol/ L (22-29) Anion Gap 19.2 H (5-19) BUN 14 mg/dL mg/dL (8-23) Creatinine 0.7 mg/dL mg/dL (0.5-0.9) GFR Calculation Not Reportable Glucose 80 mg/dL mg/dL (65-115) Calculated Osmolal ity 295 mOsm/kg mOsm/ kg (285-295) Calcium 9.8 mg/dL mg/dL (8.5-10.5) Total Bilirubin 0.6 mg/dL mg/dL (0.15-1.2) AST 25 U/L U/L (0-32) ALT 21 U/L U/L (0-33) Alkaline Phosphata se 109 IU/L H IU/L (35-105) Total Protein 6.6 g/dL g/dL (6.6-8.7) Albumin 4.0 g/dL g/dL (3.5-5.2) Globulin 2.6 g/dL g/dL (1.3-4.6) Discharge Plan Discharge Patient Disposition: Home Clinical Impression: Hypertension, Dyspnea Condition: Stable Prescriptions: No Action nifedipine 90 mg tablet extended release 90 mg PO DAILY RF: 0 atorvastatin 80 mg tablet 80 mg PO DAILY RF: 0 spironolactone 25 mg tablet 25 mg PO DAILY RF: 0 Hold Instructions: Resume on 12/08/20. metoprolol tartrate 25 mg tablet 12.5 mg PO BID RF: 0 Dexilant 60 mg capsule,biphase delayed releas 60 mg PO DAILY RF: 0 alendronate 70 mg tablet 70 mg PO Q7D RF: 0 aspirin [Adult Low Dose Aspirin] 81 mg tablet,delayed release (DR/EC) 81 mg PO DAILY RF: 0 vitamin d 1 tab PO DAILY RF: 0 multivitamin-iron (hematinic) 1 tab PO DAILY RF: 0 ciprofloxacin HCl [Cipro] 500 mg tablet 500 mg PO BID 10 Days Qty: 20 RF: 0 levetiracetam 750 mg tablet See Rx Instructions .ROUTE .COMPLEX Qty: 60 RF: 0 dexamethasone [Decadron] 6 mg tablet 6 mg PO Q24H Qty: 3 RF: 0 Discharge Orders: Discharge ED (Routine); Ordered 06/08/21 Ordered By: Lee Trent Referrals: Honorio Ren [Primary Care Provider] - Discharge Diet: Usual diet Discharge Activity: Increase activity as tolerated Patient Instructions: Opioid Safety Coding Level of Care Code ED Behavioral Health Therapist for Lu Fwd Exam Comprehensive
[2021-06-08 17:59] LABS: Basophils # 0.1 10^3/uL (0.0-0.1); Basophils % 0.8 %; Eosinophils # 0.1 10^3/uL (0.0-0.8); Eosinophils % 1.6 %; Hematocrit 44.6 % (37.0-47.0); Hemoglobin 14.7 g/dL (11.5-15.3); Lymphocytes # 1.7 10^3/uL (0.8-4.8); Lymphocytes % 21.1 %; Mean Corpuscular Hemoglobin 30.1 pg (28.0-34.0); Mean Corpuscular Volume 91.2 fl (81-99); Monocytes # 0.5 10^3/uL (0.2-0.9); Monocytes % 6.8 %; Neutrophils # 5.54 10^3/uL (1.8-7.7); Neutrophils % 69.6 %; Nucleated Red Blood Cells % 0 %; Platelet Count 219 10^3/cmm (130-400); Red Blood Count 4.89 10^6/uL (4.1-5.3); Red Cell Distribution Width 12.1 % (12.1-15.1)
[2021-06-08 18:27] LABS: Alanine Aminotransferase 21 U/L (0-33); Alkaline Phosphatase 109 IU/L (35-105); Anion Gap 19.2 (5-19); Aspartate Amino Transferase 25 U/L (0-32); Blood Urea Nitrogen 14 mg/dL (8-23); Calcium 9.8 mg/dL (8.5-10.5); Carbon Dioxide 20 mmol/L (22-29); Chloride 108 mmol/L (98-107); Globulin 2.6 g/dL (1.3-4.6); Glucose 80 mg/dL (65-115); Osmolality Calculated 295 mOsm/kg (285-295); Potassium 4.2 mmol/L (3.5-5.1); Sodium 143 mmol/L (136-145); Total Bilirubin 0.6 mg/dL (0.15-1.2); Total Protein 6.6 g/dL (6.6-8.7)
[2021-06-08 19:08] VITALS: BP 190/80; PULSE 70; RESP 17; O2SAT 97
[2021-06-08] MEDS: hyDRALAzine 20 mg/mL INJ 1 mL 10 MG IM (19:15)
--- NOTE | 2021-06-08 19:57 | PC.NURSE ---
patient here for sob. episode while getting hair done. states she is on O2 at night only. daughter states patient had similar episode at home in the morning, used her O2 and symptoms resolved. Her O2 sat on room air now is 97% on RA. she denies sob. She is hypertensive 200's systolic. states she normally takes her BP med at 1800 but missed her dose since she is here. she has been given hydralazine IM and can be d/c home after bp is 170 systolic or below. last check at 1944 was 190 systolic.
[2021-06-08 20:10] VITALS: BP 180/64; PULSE 84; RESP 16; O2SAT 98
[2021-06-08 20:40] VITALS: BP 168/58; PULSE 75; RESP 18; O2SAT 98
== END 2021-06-08 20:41 | disposition home or self-care (01) ==
PROVIDERS: Emergency Provider Family Medicine; PCP Family Medicine
DX: R06.00 Dyspnea, unspecified (principal); Z79.82 Long term (current) use of aspirin; I12.9 Hypertensive chronic kidney disease with stage 1 through stage 4 chronic kidney disease, or unspecified chronic kidney disease; N18.2 Chronic kidney disease, stage 2 (mild); G30.9 Alzheimer's disease, unspecified; F02.80 Dementia in other diseases classified elsewhere, unspecified severity, without behavioral disturbance, psychotic disturbance, mood disturbance, and anxiety; E78.5 Hyperlipidemia, unspecified; Z87.891 Personal history of nicotine dependence
CPT/HCPCS: 71045; 80053; 85025; 93005; 96372; 99283; J0360

== ENCOUNTER → 2021-06-28 10:37 | Outpatient (BNVA) | payer MEDICARE, SELFPAY | PROVIDERS: PCP Family Medicine; Visit Provider Specialist | DX: G40.219 Localization-related (focal) (partial) symptomatic epilepsy and epileptic syndromes with complex partial seizures, intractable, without status epilepticus (principal); G40.419 Other generalized epilepsy and epileptic syndromes, intractable, without status epilepticus; F03.91 Unspecified dementia, unspecified severity, with behavioral disturbance; Z86.16 Personal history of COVID-19; Z71.85 Encounter for immunization safety counseling | CPT/HCPCS: 96116; 99214; 99215 ==

== ENCOUNTER → 2021-08-05 13:16 | Outpatient (BNVA) | payer MEDICARE, SELFPAY | PROVIDERS: PCP Family Medicine; Visit Provider Nurse Practitioner Family | DX: R35.0 Frequency of micturition (principal); N39.0 Urinary tract infection, site not specified | CPT/HCPCS: 81000; 87077; 87086; 87184 ==

== ENCOUNTER → 2022-01-26 09:28 | Outpatient (BNVA) | payer MEDICARE, SELFPAY | PROVIDERS: PCP Family Medicine; Visit Provider Specialist | DX: G30.9 Alzheimer's disease, unspecified (principal); F02.80 Dementia in other diseases classified elsewhere, unspecified severity, without behavioral disturbance, psychotic disturbance, mood disturbance, and anxiety; R56.9 Unspecified convulsions | CPT/HCPCS: 96116; 99214 ==

== ENCOUNTER → 2022-02-23 12:01 | Outpatient (BNVA) | payer MEDICARE, SELFPAY | PROVIDERS: PCP Family Medicine; Visit Provider Nurse Practitioner Family | DX: M54.50 Low back pain, unspecified (principal); M25.512 Pain in left shoulder; R29.6 Repeated falls; M51.36 Other intervertebral disc degeneration, lumbar region; Z87.81 Personal history of (healed) traumatic fracture | CPT/HCPCS: 72100; 73030 ==

== ENCOUNTER 2022-03-16 06:00 | Outpatient (RCR) | payer MEDICARE, SELFPAY | END 2022-04-04 23:59 | disposition home or self-care (01) | LOC: APT 06:00 | PROVIDERS: PCP Family Medicine; Visit Provider Nurse Practitioner Family | DX: R29.6 Repeated falls (principal); R53.1 Weakness; M25.512 Pain in left shoulder; M54.50 Low back pain, unspecified | CPT/HCPCS: 97110; 97163; 97530 ==

== ENCOUNTER 2022-03-24 13:09 | Outpatient (CLI) | payer MEDICARE, SELFPAY ==
--- NOTE | 2022-03-24 | USCV_ITS ---
CovarrubiasWendy lundberg Age: 82 Gender: F : 1940 Exam Date: 03/24/2022 14:11 Ordering Phys: Honorio Ren XX Technologist: MANISHA [place]am [place] [facility] [place]ication: EVAL FOR CAROTID STENOSIS Risk Factors: Previous Vascular Surgery: Right Brachial BP: / Left Brachial BP: / Right Left Velocity (cm/s) Spectral Plaque Velocity (cm/s) Spectral Plaque Syst/Diast Broadening Syst/Diast Broadening 103.60/16.50 Prox CCA 60.60 / 8.50 64.10/ 8.50 Mid CCA 71.50 / 10.90 57.30/ 6.80 Distal CCA 102.80/ 9.60 79.30/ 17.20 Prox ICA 146.00/ 17.00 59.70/ 12.60 Mid ICA 131.50/ 8.70 66.40/ 13.40 Distal ICA 87.40 / 9.80 137.40 ECA 495.20 0.77 ICA/CCA 1.42 Antegrade Vertebral Antegrade 122.4/ 17.60 cm/s 30.80/ 17.10 cm/s 0 Tri Subclavian Tri 115.5 333.9 0 0 FINDINGS comp 05/13/20 CONCLUSIONS Right ICA stenosis <50%. Moderate calcified atheromatous plaque right carotid bulb/ICA. Left ICA stenosis 50-69% progressed since 2019. . Moderate calcified atheromatous plaque left carotid bulb/ICA. Normal antegrade Doppler flow noted in the right vertebral artery. Normal antegrade Doppler flow noted in the left vertebral artery. Errol Lopez MD (Electronically Signed) Final Date: 24 March 2022 17:52 S
== END 2022-03-24 13:10 | disposition home or self-care (01) ==
LOC: RAD 13:10
PROVIDERS: PCP Family Medicine; Visit Provider Family Medicine
DX: I65.23 Occlusion and stenosis of bilateral carotid arteries (principal)
CPT/HCPCS: 93880

== ENCOUNTER → 2022-03-25 09:12 | Outpatient (BNVA) | payer MEDICARE, SELFPAY | PROVIDERS: PCP Family Medicine; Visit Provider Nurse Practitioner Family | DX: R30.0 Dysuria (principal); B37.31 Acute candidiasis of vulva and vagina | CPT/HCPCS: 81000 ==

== ENCOUNTER 2022-04-05 06:00 | Outpatient (RCR) | payer MEDICARE, SELFPAY | END 2022-05-04 23:59 | disposition home or self-care (01) | LOC: APT 06:00 | PROVIDERS: PCP Family Medicine; Visit Provider Nurse Practitioner Family | DX: R29.6 Repeated falls (principal); R53.1 Weakness; M25.512 Pain in left shoulder; M54.50 Low back pain, unspecified | CPT/HCPCS: 97110 ==

== ENCOUNTER 2022-05-11 00:27 | Emergency (ER) | payer MEDICARE, SELFPAY ==
[2022-05-11 00:37] VITALS: BP 124/67; PULSE 92; RESP 28; TEMP 36.8; O2SAT 98; BMI 21.7
--- NOTE | 2022-05-11 01:07 | ECG_ITS ---
[facility] Test Date: 2022-05-11 Pat Name: Wendy Covarrubias Department: Room: Gender: Female Impregnator: : 1940 Requested By: Aris Ruelas Order Number: [id number] Wily MD: Keegan Pyle M.D. Measurements Intervals [place] Rate: 85 P: 65 [place]: 161 QRS: 7 QRSD: 95 T: 31 QT: 377 QTc: 450 Interpretive Statements SINUS RHYTHM ST DEVIATION AND MODERATE T-WAVE ABNORMALITY, CONSIDER INFERIOR ISCHEMIA [-0.1+ mV T-WAVE IN II/aVF] Compared to ECG 06/08/2021 17:27:41 T-wave abnormality now present Possible ischemia now present Left ventricular hypertrophy no longer present ST (T wave) deviation no longer present Electronically Signed On 05-11-2022 16:14:12 OIL HEATER INSTALLER by Keegan Pyle M.D. [id number]
--- NOTE | 2022-05-11 01:08 | XRR_ITS ---
PROCEDURE INFORMATION: Exam: XR Chest Exam date and time: 05/11/2022 1:28 AM Age: 82 years old Clinical indication: Shortness of breath; Patient HX: C/O SOB TECHNIQUE: Imaging protocol: Radiologic exam of the chest. Views: 1 view. COMPARISON: CR XR chest 1V portable [id number] 06/08/2021 5:34 PM FINDINGS: Lungs: Stable COPD . Pleural spaces: Unremarkable. No pleural effusion. No pneumothorax. Heart/Mediastinum: Unremarkable. No cardiomegaly. Vasculature: Calcification of the thoracic aorta and/or great vessels consistent with atherosclerotic vessel disease. Bones/joints: Stable healed left humeral head and neck fracture. Stable healed right humeral neck fracture. XR/XR chest 1V portable [id number] IMPRESSION: Stable COPD .
--- NOTE | 2022-05-11 01:22 | W.ED.SOB ---
HPI - SOB/Dyspnea General: Chief Complaint: Shortness of Breath/Dyspnea Stated Complaint: Tingling in Feet & Hands\Neck Pain Time Seen by Provider: 05/11/22 00:54 Source: patient Mode of arrival: ambulatory Limitations: no limitations History of Present Illness: HPI Narrative: 82-year-old female states that she has been having slight body aches today along with some malaise states that this evening started feeling short of breath she states she does have a history anxiety she feels like she is having anxiety attack she states states she feels like she cannot get a breath she is tachypneic here and very anxious she denies any chest pain denies any headache denies any worsening proving factors. She is on Celexa for her anxiety. Associated symptoms: Deny abdominal pain, chest pain, fever(s), nausea or vomiting Review of Systems Const: Denies: fever(s), chills, body aches or change in appetite Eyes: Denies: blurry vision or eye discomfort ENMT: Denies: throat pain or dental pain Card: Denies: chest pain Resp: Reports: dyspnea GI: Denies: abdominal pain, nausea, vomiting or diarrhea : Denies: dysuria Musc: Denies: neck pain or back pain Skin/Breast: Denies: rash Neuro: Denies: headache(s) Psych: Reports: anxiety Kash/Lymph: Denies: easy bruising All/Imm: Denies: urticaria PFSH ED PFSH: Medical History Arteriosclerotic heart disease Carotid disease, bilateral CKD (chronic kidney disease) stage 2, GFR 60-89 ml/min Cystocele with small rectocele and uterine descent Dementia in Alzheimer's disease Dyslipidemia Essential hypertension GERD (gastroesophageal reflux disease) Surgical History H/O removal of cyst History of cholecystectomy Status post carotid surgery Family History Mother CAD (coronary artery disease) Hypertension Social History Smoking and tobacco status: former smoker Second hand smoke exposure: No Alcohol intake: never Desire information about alcohol rehabilitation?: No Desire information about substance/drug rehabilitation?: No Adopted: No Lives independently: Yes Household members: family Housing: House Marital status: / History of recent travel: No Physical Exam Const: COMMON NORMALS: patient oriented x3 and healthy appearing GENERAL APPEARANCE: anxious HENMT: COMMON NORMALS: normocephalic and atraumatic HEAD & SCALP: normocephalic and atraumatic Eye: COMMON NORMALS: Equal, round and reactive pupils present and EOMs intact bilaterally PUPIL: Yes Equal, round and reactive pupils present Neck/C-Spine: COMMON NORMALS: full ROM and supple Chest: COMMONS NORMALS: normal inspection of the chest and normal palpation of entire chest wall Resp: COMMON NORMALS: normal respiratory effort, No retractions, No use of accessory muscles and clear to auscultation bilaterally EFFORT & INSPECTION: Yes tachypneic AUSCULTATION: clear to auscultation bilaterally Cardio: COMMON NORMALS: regular rate, regular rhythm and No murmurs present (Cardio) RATE: regular rate RHYTHM: regular rhythm GI: COMMON NORMALS: Normal to inspection, nondistended, normoactive bowel sounds present, Soft to palpation, non-tender and no masses PALPATION: Yes Soft to palpation Extremity: COMMON NORMALS: normal to inspection and full ROM Neuro: COMMON NORMALS: patient oriented x3, moves all extremities and no focal motor deficits Psych: COMMON NORMALS: mental status grossly normal, Normal thought process present and cooperative THOUGHT PROCESS: Normal thought process present Skin: COMMON NORMALS: no rashes or lesions noted and no wounds GENERAL SKIN EXAM: no rashes or lesions noted Course Vital Signs: Vital signs: Vital Signs Temperature 98.2 F 05/11/22 00:37 Pulse Rate 85 05/11/22 03:07 Respiratory Rate 16 05/11/22 03:07 Blood Pressure 125/75 05/11/22 03:07 Pulse Oximetry 100 05/11/22 03:07 Oxygen Delivery Me thod 05/11/22 00:37 MDM - SOB/Dyspnea Medical Decision Making Patient presents here with dyspnea likely an anxiety attack she is well-appearing here her pulse ox 9% blood work is normal chest x-ray shows no acute abnormality she feels much improved here after Ativan she is stable for discharge she is to follow-up PCP and return if worsening. Lab Data 05/11/22 01:35 05/11/22 01:35 Labs/Radiology: Radiology Impressions Chest X-Ray 05/11/22 01:08 IMPRESSION: Stable COPD . Laboratory Results WBC 8.0 10^3/uL (4.0-10.0) 05/11/22 01:35 RBC 4.33 10^6/uL (4.1-5.3) 05/11/22 01:35 Hgb 13.6 g/dL (11.5-15.3) 05/11/22 01:35 Hct 40.3 % (37.0-47.0) 05/11/22 01:35 MCV 93.1 fl (81-99) 05/11/22 01:35 MCH 31.4 pg (28.0-34.0) 05/11/22 01:35 MCHC 33.7 g/dL (30.0-36.0) 05/11/22 01:35 RDW 12.1 % (12.1-15.1) 05/11/22 01:35 Plt Count 237 10^3/cmm (130-400) 05/11/22 01:35 MPV 11.2 fL (7.4-10.4) H 05/11/22 01:35 Neut % (Auto) 69.1 % 05/11/22 01:35 Lymph % (Auto) 20.2 % 05/11/22 01:35 [place] % (Auto) 9.0 % 05/11/22 01:35 Eos % (Auto) 0.9 % 05/11/22 01:35 Baso % (Auto) 0.6 % 05/11/22 01:35 Neut # (Auto) 5.54 10^3/uL (1.8-7.7) 05/11/22 01:35 Lymph # (Auto) 1.6 10^3/uL (0.8-4.8) 05/11/22 01:35 [place] # (Auto) 0.7 10^3/uL (0.2-0.9) 05/11/22 01:35 Eos # (Auto) 0.1 10^3/uL (0.0-0.8) 05/11/22 01:35 Baso # (Auto) 0.1 10^3/uL (0.0-0.1) 05/11/22 01:35 Nucleated RBC % (auto) 0 % 05/11/22 01:35 Nucleated RBCs # 0.0 /100WBC 05/11/22 01:35 Sodium 141 mmol/L (136-145) 05/11/22 01:35 Potassium 3.8 mmol/L (3.5-5.1) 05/11/22 01:35 Chloride 105 mmol/L (98-107) 05/11/22 01:35 Carbon Dioxide 20 mmol/L (22-29) L 05/11/22 01:35 Anion Gap 19.8 (5-19) H 05/11/22 01:35 BUN 12 mg/dL (8-23) 05/11/22 01:35 Creatinine 0.8 mg/dL (0.5-0.9) 05/11/22 01:35 GFR Calculation Not Reportable 05/11/22 01:35 Glucose 106 mg/dL (65-115) 05/11/22 01:35 Calculated Osmolality 292 mOsm/kg (285-295) 05/11/22 01:35 Calcium 9.5 mg/dL (8.5-10.5) 05/11/22 01:35 Total Bilirubin 0.3 mg/dL (0.15-1.2) 05/11/22 01:35 AST 26 U/L (0-32) 05/11/22 01:35 ALT 20 U/L (0-33) 05/11/22 01:35 Alkaline Phosphatase 128 U/L (35-105) H 05/11/22 01:35 NT-Pro-B Natriuret Pep 3635 pg/mL (0-450) H 05/11/22 01:35 Total Protein 6.5 g/dL (6.6-8.7) L 05/11/22 01:35 Albumin 3.9 g/dL (3.5-5.2) 05/11/22 01:35 Globulin 2.6 g/dL (1.3-4.6) 05/11/22 01:35 Influenza Type A Ag negative (Negative) 05/11/22 02:01 Influenza Type B Ag negative (Negative) 05/11/22 02:01 Discharge Plan Discharge Patient Disposition: Home Clinical Impression: Breath shortness Condition: Stable Prescriptions: No Action nifedipine 90 mg tablet extended release 90 mg PO DAILY atorvastatin 80 mg tablet 80 mg PO DAILY metoprolol tartrate 25 mg tablet .5 mg PO BID Dexilant 60 mg capsule,biphase delayed releas 60 mg PO DAILY alendronate 70 mg tablet 70 mg PO Q7D Rx Instructions: Take one tab on once weekly aspirin [Adult Low Dose Aspirin] 81 mg tablet,delayed release (DR/EC) 81 mg PO DAILY vitamin d 1 tab PO DAILY multivitamin-iron (hematinic) 1 tab PO DAILY galantamine 4 mg tablet 4 mg PO BID Qty: 180 3RF Rx Instructions: administer with AM and PM meals ciprofloxacin HCl [Cipro] 500 mg tablet 500 mg PO BID 10 Days Qty: 20 0RF fluconazole [Diflucan] 150 mg tablet 150 mg PO Q3D Qty: 2 0RF Rx Instructions: may repeat second dose 72 hrs after first dose if symptoms persist [id number]-[id number]-[place] 3.5-10,000-1 mg/mL-unit/mL-% drops,suspension 4 drp otic (ear) Q8H 10 Days Qty: 10 0RF cefdinir 300 mg capsule 300 mg PO BID Qty: 20 0RF citalopram 10 mg tablet See Rx Instructions .ROUTE .COMPLEX Qty: 30 5RF Dose Instruction: TAKE ONE TABLET BY MOUTH DAILY Rx Instructions: TAKE ONE TABLET BY MOUTH DAILY levetiracetam 500 mg tablet 750 mg PO BID 30 Days Qty: 180 3RF dexamethasone [Decadron] 6 mg tablet 6 mg PO Q24H Qty: 3 0RF Rx Instructions: for up to 10 days Discharge Orders: Discharge ED (Routine); Ordered 05/11/22 Ordered By: Aris Ruelas Referrals: Honorio Ren [Primary Care Provider] - Discharge Diet: Advance as tolerated Discharge Activity: Resume usual activity Patient Instructions: Dyspnea (ED) Coding Level of Care Code ED Hot Plate Press Operator for Shakeelg Fwd Exam Comprehensive
[2022-05-11] MEDS: LORazepam 1 mg Tablet PO (01:44)
[2022-05-11 01:46] VITALS: BP 126/89; PULSE 85; RESP 15; O2SAT 95
[2022-05-11] MEDS: acetaminophen 500 mg Tablet 1000 MG PO (01:56)
[2022-05-11 01:58] LABS: Basophils # 0.1 10^3/uL (0.0-0.1); Basophils % 0.6 %; Eosinophils # 0.1 10^3/uL (0.0-0.8); Eosinophils % 0.9 %; Hematocrit 40.3 % (37.0-47.0); Hemoglobin 13.6 g/dL (11.5-15.3); Lymphocytes # 1.6 10^3/uL (0.8-4.8); Lymphocytes % 20.2 %; Mean Corpuscular HGB Conc 33.7 g/dL (30.0-36.0); Mean Corpuscular Hemoglobin 31.4 pg (28.0-34.0); Mean Corpuscular Volume 93.1 fl (81-99); Mean Platelet Volume 11.2 fL (7.4-10.4); Monocytes # 0.7 10^3/uL (0.2-0.9); Neutrophils # 5.54 10^3/uL (1.8-7.7); Neutrophils % 69.1 %; Nucleated Red Blood Cells % 0 %; Platelet Count 237 10^3/cmm (130-400); Red Blood Count 4.33 10^6/uL (4.1-5.3); Red Cell Distribution Width 12.1 % (12.1-15.1)
[2022-05-11 02:10] LABS: Alanine Aminotransferase 20 U/L (0-33); Albumin Level 3.9 g/dL (3.5-5.2); Chloride 105 mmol/L (98-107); Potassium 3.8 mmol/L (3.5-5.1); Sodium 141 mmol/L (136-145)
[2022-05-11 02:43] LABS: Alkaline Phosphatase 128 U/L (35-105); Anion Gap 19.8 (5-19); Aspartate Amino Transferase 26 U/L (0-32); Blood Urea Nitrogen 12 mg/dL (8-23); Calcium 9.5 mg/dL (8.5-10.5); Carbon Dioxide 20 mmol/L (22-29); Creatinine Clr Calc Pharmacy 40.9436; Globulin 2.6 g/dL (1.3-4.6); Glucose 106 mg/dL (65-115); Osmolality Calculated 292 mOsm/kg (285-295); Total Bilirubin 0.3 mg/dL (0.15-1.2); Total Protein 6.5 g/dL (6.6-8.7)
[2022-05-11 02:47] LABS: Influenza A by IFA negative (Negative); Influenza B by IFA negative (Negative)
[2022-05-11 03:07] VITALS: BP 125/75; PULSE 85; RESP 16; O2SAT 100
[2022-05-11 03:10] LABS: NT Pro B Type Natriuretic Pept 3635 pg/mL (0-450)
== END 2022-05-11 03:08 | disposition home or self-care (01) ==
PROVIDERS: Emergency Provider Emergency Medicine; PCP Family Medicine
DX: R06.02 Shortness of breath (principal); Z79.82 Long term (current) use of aspirin; I12.9 Hypertensive chronic kidney disease with stage 1 through stage 4 chronic kidney disease, or unspecified chronic kidney disease; N18.2 Chronic kidney disease, stage 2 (mild); G30.9 Alzheimer's disease, unspecified; F02.80 Dementia in other diseases classified elsewhere, unspecified severity, without behavioral disturbance, psychotic disturbance, mood disturbance, and anxiety; E78.5 Hyperlipidemia, unspecified; Z87.891 Personal history of nicotine dependence
CPT/HCPCS: 71045; 80053; 83880; 85025; 87804; 93005; 99285

== ENCOUNTER → 2022-08-22 10:18 | Outpatient (BNVA) | payer MEDICARE, SELFPAY | PROVIDERS: PCP Family Medicine; Visit Provider Specialist | DX: G30.9 Alzheimer's disease, unspecified (principal); F02.80 Dementia in other diseases classified elsewhere, unspecified severity, without behavioral disturbance, psychotic disturbance, mood disturbance, and anxiety; R56.9 Unspecified convulsions | CPT/HCPCS: 99214 ==

== ENCOUNTER 2022-09-09 21:23 | Emergency (ER) | payer MEDICARE, SELFPAY ==
[2022-09-09 21:32] VITALS: BP 122/63; PULSE 63; RESP 18; TEMP 36.8; O2SAT 100; BMI 28.3
--- NOTE | 2022-09-09 21:42 | XRR_ITS ---
PROCEDURE INFORMATION: Exam: XR Chest Exam date and time: 09/09/2022 9:48 PM Age: 82 years old Clinical indication: Dyspnea TECHNIQUE: Imaging protocol: Radiologic exam of the chest. Views: 1 view. COMPARISON: CR XR chest 1V portable [id number] 05/11/2022 1:28 AM FINDINGS: Lungs: Emphysematous changes. Right lower lobe atelectasis versus minimal infiltrate. Pleural spaces: Unremarkable. No pleural effusion. No pneumothorax. Heart/Mediastinum: Cardiomegaly. Bones/joints: Unremarkable. XR/XR chest 1V portable [id number] IMPRESSION: 1. Emphysematous changes. 2. Cardiomegaly. 3. Right lower lobe atelectasis versus minimal infiltrate.
--- NOTE | 2022-09-09 21:42 | W.ED.ANXIETY ---
HPI - Anxiety General: Chief Complaint: Anxiety Stated Complaint: WEAKNESS Time Seen by Provider: 09/09/22 21:42 History of Present Illness: 82-year-old female comes in today for complaints of shortness of breath. Patient is able to redirect to control her shortness of breath. Patient's oxygen saturation was 100%. Patient's daughter with her thinks that she might have some anxiety which they have just recently increased her medication, citalopram,. Patient also has dementia. Review of medical history also no hypertension, CKD, atherosclerosis, GERD, seizures. Patient denies any pain. Patient is talking in full sentences and reports that she does not know what is going on. Associated symptoms: Deny chest pain, fever(s), nausea or vomiting Review of Systems General: Reports: 10 or more systems reviewed and unremarkable except in HPI and below Const: Denies: fever(s) ENMT: Denies: throat pain Card: Denies: chest pain Resp: Reports: dyspnea GI: Denies: nausea or vomiting Musc: Reports: neck pain Skin/Breast: Denies: rash PFSH ED PFSH: Medical History Arteriosclerotic heart disease Carotid disease, bilateral CKD (chronic kidney disease) stage 2, GFR 60-89 ml/min Cystocele with small rectocele and uterine descent Dementia in Alzheimer's disease Dyslipidemia Essential hypertension GERD (gastroesophageal reflux disease) Surgical History H/O removal of cyst History of cholecystectomy Status post carotid surgery Family History Mother CAD (coronary artery disease) Hypertension Social History Smoking and tobacco status: former smoker Second hand smoke exposure: No Alcohol intake: never Desire information about alcohol rehabilitation?: No Desire information about substance/drug rehabilitation?: No Adopted: No Lives independently: Yes Household members: family Housing: House Marital status: / Physical Exam Const: COMMON NORMALS: alert HENMT: COMMON NORMALS: normocephalic HEAD & SCALP: normocephalic MOUTH: Normal oral and palatal mucosa present Neck/C-Spine: COMMON NORMALS: full ROM CERVICAL SPINE: No Cervical spine tenderness and Yes Paracervical muscle tenderness Resp: COMMON NORMALS: normal respiratory effort and clear to auscultation bilaterally EFFORT & INSPECTION: Yes able to speak in complete sentences and Yes tachypneic AUSCULTATION: clear to auscultation bilaterally GI: COMMON NORMALS: Soft to palpation PALPATION: Yes Soft to palpation Back/Pelvis: COMMON NORMALS: thoracic and lumbar spine normal to inspection Extremity: COMMON NORMALS: normal to inspection Neuro: SENSORIUM/ORIENTATION: Yes alert Skin: COMMON NORMALS: turgor normal GENERAL SKIN EXAM: turgor normal Course Vital Signs: Vital signs: Vital Signs Temperature 98.3 F 09/09/22 21:32 Pulse Rate 62 09/09/22 21:54 Respiratory Rate 16 09/09/22 21:54 Blood Pressure 126/55 09/09/22 21:54 Pulse Oximetry 98 09/09/22 21:54 Oxygen Delivery Me thod 09/09/22 21:54 MDM - Anxiety Medical Decision Making Patient was brought in by EMS for concerns of shortness of breath that was able to be redirected. On arrival patient is alert and talkative. Patient speaks in full sentences. Patient reports he does not know what is actually going on. Patient denies any pain or discomfort at this time. Lungs were clear to auscultation. Heart rate was regular. Skin was warm and dry. No edema was noted in the extremities. Differential diagnosis includes but not limited to CHF, anxiety, pneumonia, ACS. EKG showed no changes from prior exams in May 2022. Troponin was 11. Chest x-ray showed some atelectasis in the right lower lobe. CBC and urinalysis was unremarkable. Patient was given 0.5 of alprazolam which improved her dyspnea. Reviewed exam with daughter and patient with recommendations for follow-up or return to the ER for worsening symptoms. Lorazepam 0.5 mg was prescribed for daily doses as needed for severe anxiety. Daughter reported understanding and agreed to plan. Lab Data 09/09/22 21:50 09/09/22 21:50 Radiology Impressions Chest X-Ray 09/09/22 21:42 IMPRESSION: 1. Emphysematous changes. 2. Cardiomegaly. 3. Right lower lobe atelectasis versus minimal infiltrate. Laboratory Results WBC 8.1 10^3/uL (4.0-10.0) 09/09/22 21:50 RBC 4.49 10^6/uL (4.1-5.3) 09/09/22 21:50 Hgb 14.0 g/dL (11.5-15.3) 09/09/22 21:50 Hct 42.1 % (37.0-47.0) 09/09/22 21:50 MCV 93.8 fl (81-99) 09/09/22 21:50 MCH 31.2 pg (28.0-34.0) 09/09/22 21:50 MCHC 33.3 g/dL (30.0-36.0) 09/09/22 21:50 RDW 12.2 % (12.1-15.1) 09/09/22 21:50 Plt Count 263 10^3/cmm (130-400) 09/09/22 21:50 MPV 10.8 fL (7.4-10.4) H 09/09/22 21:50 Neut % (Auto) 61.2 % 09/09/22 21:50 Lymph % (Auto) 24.6 % 09/09/22 21:50 [place] % (Auto) 9.1 % 09/09/22 21:50 Eos % (Auto) 4.0 % 09/09/22 21:50 Baso % (Auto) 0.9 % 09/09/22 21:50 Neut # (Auto) 4.95 10^3/uL (1.8-7.7) 09/09/22 21:50 Lymph # (Auto) 2.0 10^3/uL (0.8-4.8) 09/09/22 21:50 [place] # (Auto) 0.7 10^3/uL (0.2-0.9) 09/09/22 21:50 Eos # (Auto) 0.3 10^3/uL (0.0-0.8) 09/09/22 21:50 Baso # (Auto) 0.1 10^3/uL (0.0-0.1) 09/09/22 21:50 Nucleated RBC % (auto) 0 % 09/09/22 21:50 Nucleated RBCs # 0.0 /100WBC 09/09/22 21:50 Troponin T Baseline 11 ng/L (0-10) H 09/09/22 21:50 Urine Color Yellow (Yellow) 09/09/22 20:10 Urine Appearance Clear (CLEAR) 09/09/22 20:10 Urine pH 9 (5-7) H 09/09/22 20:10 Ur Specific [place] 1.010 (1.005-1.030) 09/09/22 20:10 Urine Protein Neg (Negative) 09/09/22 20:10 Urine Glucose (UA) Norm (Normal) 09/09/22 20:10 Urine Ketones Negative (Negative) 09/09/22 20:10 Urine Blood Neg (Negative) 09/09/22 20:10 Urine Nitrate Negative (Negative) 09/09/22 20:10 Urine Bilirubin Neg (Negative) 09/09/22 20:10 Prot Sulfosalicylic Acd Negative (Negative) 09/09/22 20:10 Urine Urobilinogen Norm mg/dL (Negative) 09/09/22 20:10 Ur Leukocyte Esterase Trace (Negative) H 09/09/22 20:10 Urine RBC None /hpf (0-2) 09/09/22 20:10 Urine WBC 0-4 /hpf (0-5) H 09/09/22 20:10 Ur Squamous Epith Cells 5-10 /hpf (0-5) H 09/09/22 20:10 Amorphous Sediment Not Reportable 09/09/22 20:10 Urine Bacteria Trace /hpf (NONE) 09/09/22 20:10 Imaging Data CXR: My impression: Chest x-ray noted no significant abnormality. EKG Data EKG 1: EKG interpretation date: 09/09/22 EKG interpretation time: 22:00 Prior EKG tracings: available for review (May 11, 2022) Interpretation: Chest X-Ray 09/09/22 21:42 IMPRESSION: 1. Emphysematous changes. 2. Cardiomegaly. 3. Right lower lobe atelectasis versus minimal infiltrate. EKG shows a sinus bradycardia with a regular rate of 59 bpm. There is some nonspecific ST and T wave abnormality. When compared to prior exam no significant changes were noted. No other signs of ectopy is noted. Other EKG comments: Chest X-Ray 09/09/22 21:42 IMPRESSION: 1. Emphysematous changes. 2. Cardiomegaly. 3. Right lower lobe atelectasis versus minimal infiltrate. Discharge Plan Discharge Patient Disposition: Home Clinical Impression: Acute anxiety Condition: Stable Prescriptions: New lorazepam 0.5 mg tablet 0.5 mg PO DAILY PRN (Reason: anxiety) Qty: 10 0RF No Action nifedipine 90 mg tablet extended release 90 mg PO DAILY atorvastatin 80 mg tablet 80 mg PO DAILY metoprolol tartrate 25 mg tablet 12.5 mg PO BID Dexilant 60 mg capsule,biphase delayed releas 60 mg PO DAILY alendronate 70 mg tablet 70 mg PO Q7D Rx Instructions: Take one tab on once weekly vitamin d 1 tab PO DAILY multivitamin-iron (hematinic) 1 tab PO DAILY citalopram 20 mg tablet 20 mg PO DAILY 90 Days Qty: 90 2RF Rx Instructions: TAKE ONE TABLET BY MOUTH DAILY galantamine 4 mg tablet 4 mg PO BID Qty: 180 3RF Rx Instructions: administer with AM and PM meals levetiracetam 500 mg tablet 750 mg PO BID 30 Days Qty: 180 3RF Discharge Orders: Discharge ED (Routine); Ordered 09/09/22 Ordered By: Mic Shell Referrals: Honorio Ren [Primary Care Provider] - Discharge Diet: Usual diet Discharge Activity: Increase activity as tolerated Patient Instructions: Anxiety (ED) Activity Restrictions/Additional Instructions: Home and rest. Activity as tolerated. Follow-up with primary care in 3 to 5 days for recheck. Return to ED for worsening symptoms such as increased shortness of breath, high fever greater than 100.4, severe chest pain, or new concerns. Coding Level of Care Code ED Code Enforcement Officer for Lu Ridley
[2022-09-09 21:54] VITALS: BP 126/55; PULSE 62; RESP 16; O2SAT 98
--- NOTE | 2022-09-09 21:55 | ECG_ITS ---
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 Measurements Intervals [place] Rate: 59 P: 52 NE: 158 QRS: -1 QRSD: 97 T: -24 QT: 429 QTc: 428 Interpretive Statements SINUS BRADYCARDIA NONSPECIFIC ST & T-WAVE ABNORMALITY Compared to ECG 05/11/2022 01:41:26 Sinus rhythm no longer present Possible ischemia no longer present T-wave abnormality still present Electronically Signed On 09-10-2022 21:40:33 CDT by Mo Cortez M.D. [id number]
[2022-09-09] MEDS: LORazepam 0.5 mg Tablet PO (22:02)
[2022-09-09 22:17] LABS: Basophils # 0.1 10^3/uL (0.0-0.1); Basophils % 0.9 %; Eosinophils # 0.3 10^3/uL (0.0-0.8); Hematocrit 42.1 % (37.0-47.0); Lymphocytes % 24.6 %; Mean Corpuscular HGB Conc 33.3 g/dL (30.0-36.0); Mean Corpuscular Hemoglobin 31.2 pg (28.0-34.0); Mean Corpuscular Volume 93.8 fl (81-99); Mean Platelet Volume 10.8 fL (7.4-10.4); Monocytes # 0.7 10^3/uL (0.2-0.9); Monocytes % 9.1 %; Neutrophils # 4.95 10^3/uL (1.8-7.7); Neutrophils % 61.2 %; Nucleated Red Blood Cells % 0 %; Platelet Count 263 10^3/cmm (130-400); Red Blood Count 4.49 10^6/uL (4.1-5.3); Red Cell Distribution Width 12.2 % (12.1-15.1); White Blood Count 8.1 10^3/uL (4.0-10.0)
[2022-09-09 22:32] LABS: Bilirubin Urine Neg (Negative); Blood Urine Neg (Negative); Glucose Urine UA Norm (Normal); Ketones Urine Negative (Negative); Leukocyte Esterase Urine Trace (Negative); Nitrate Urine Negative (Negative); Protein Urine Neg (Negative); Urine Appearance Clear (CLEAR); Urine Color Yellow (Yellow); Urobilinogen Urine Norm (Negative); pH Urine 9 (5-7)
[2022-09-09 22:35] LABS: Add Urine Microscopic? YES; Sulfosalicylic Acid Urine Negative (Negative)
[2022-09-09 22:37] LABS: Bacteria Urine TRACE /hpf; WBC Urine 0-4 /hpf (0-5)
[2022-09-09 22:41] LABS: Troponin(5th) Baseline 11 ng/L (0-10)
[2022-09-09 23:04] LABS: Alanine Aminotransferase 16 U/L (0-33); Albumin Level 3.7 g/dL (3.5-5.2); Alkaline Phosphatase 87 U/L (35-105); Aspartate Amino Transferase 22 U/L (0-32); Blood Urea Nitrogen 14 mg/dL (8-23); Carbon Dioxide 18 mmol/L (22-29); Chloride 104 mmol/L (98-107); Globulin 2.7 g/dL (1.3-4.6); Glucose 93 mg/dL (65-115); Osmolality Calculated 288 mOsm/kg (285-295); Sodium 139 mmol/L (136-145); Total Bilirubin 0.3 mg/dL (0.15-1.2); Total Protein 6.4 g/dL (6.6-8.7)
[2022-09-09 23:06] LABS: Anion Gap 20.7 (5-19); Potassium 3.7 mmol/L (3.5-5.1)
== END 2022-09-09 23:27 | disposition home or self-care (01) ==
PROVIDERS: Emergency Provider Nurse Practitioner Family; PCP Family Medicine
DX: F41.9 Anxiety disorder, unspecified (principal); I12.9 Hypertensive chronic kidney disease with stage 1 through stage 4 chronic kidney disease, or unspecified chronic kidney disease; N18.2 Chronic kidney disease, stage 2 (mild); G30.9 Alzheimer's disease, unspecified; F02.80 Dementia in other diseases classified elsewhere, unspecified severity, without behavioral disturbance, psychotic disturbance, mood disturbance, and anxiety; E78.5 Hyperlipidemia, unspecified; Z87.891 Personal history of nicotine dependence
CPT/HCPCS: 71045; 80053; 81001; 84484; 85025; 93005; 99285

== ENCOUNTER 2022-10-06 02:31 | Inpatient (IN) | payer MEDICARE, SELFPAY ==
[2022-10-06] VITALS (20 sets, daily range): BP systolic 95–204; BP diastolic 45–106; PULSE 62–109; RESP 16–23; TEMP 35.9–37; O2SAT 90–97; BMI 25.7
--- NOTE | 2022-10-06 02:35 | CTR_ITS ---
PROCEDURE INFORMATION: Exam: CT Head Without Contrast Exam date and time: 10/06/2022 3:07 AM Age: 82 years old Clinical indication: Altered mental status/memory loss; Confusion or disorientation; Patient HX: Severe lethargy with n/v; Additional info: AMS TECHNIQUE: Imaging protocol: Computed tomography of the head without contrast. Radiation optimization: All CT scans at this facility use at least one of these dose optimization techniques: automated exposure control; mA and/or kV adjustment per patient size (includes targeted exams where dose is matched to clinical indication); or iterative reconstruction. REPORTING DATA: Count of CT and Cardiac NM exams in prior 12 months: This patient has received 0 known CTs and 0 known cardiac nuclear medicine studies in the 12 months prior to the current study. COMPARISON: 1. MR head wo/w con [id number] 04/04/2017 9:[address] head wo con* [id number] 03/31/2017 4:18 PM RADIATION DOSE METRICS: Total DLP (mGy-cm): 865.89 FINDINGS: Brain: Encephalomalacia in the right frontal lobe, similar to prior exam. No acute large territorial ischemic infarct. No acute intracranial hemorrhage. Cerebral ventricles: The ventricles are within normal limits. Paranasal sinuses: The visualized sinuses are unremarkable. Mastoid air cells: The visualized mastoid air cells are well aerated. Bones/joints: The osseous structures are intact. Soft tissues: Unremarkable. CT/CT head wo con* [id number] IMPRESSION: 1. No acute intracranial abnormality. 2. Right frontal lobe encephalomalacia similar to prior exam.
--- NOTE | 2022-10-06 02:37 | XRR_ITS ---
PROCEDURE INFORMATION: Exam: XR Chest Exam date and time: 10/06/2022 3:01 AM Age: 82 years old Clinical indication: Shortness of breath; Prior surgery; Surgery type: Gb; Patient HX: SOB with hypoxia; Additional info: AMS TECHNIQUE: Imaging protocol: Radiologic exam of the chest. Views: 1 view. COMPARISON: CR (CHEST, ) 09/09/2022 9:48 PM FINDINGS: Lungs: Emphysematous changes. Patchy ground-glass opacities in the lungs, concerning for pneumonia. Pleural spaces: bilateral pleural effusions. Heart/Mediastinum: Heart is enlarged for size. Bones/joints: Old fractures in the bilateral proximal humerus. XR/XR chest 1V portable [id number] IMPRESSION: 1. Bilateral pleural effusions. 2. Emphysematous changes. 3. Patchy ground-glass opacities in the lungs, concerning for pneumonia. 4. Cardiomegaly.
[2022-10-06 02:45] LABS: Basophils % 0.2 %; Eosinophils # 0.1 10^3/uL (0.0-0.8); Eosinophils % 0.3 %; Hematocrit 43.7 % (37.0-47.0); Hemoglobin 14.2 g/dL (11.5-15.3); Lymphocytes # 1.1 10^3/uL (0.8-4.8); Lymphocytes % 6.5 %; Mean Corpuscular HGB Conc 32.5 g/dL (30.0-36.0); Mean Corpuscular Hemoglobin 30.6 pg (28.0-34.0); Mean Corpuscular Volume 94.2 fl (81-99); Monocytes % 5.8 %; Neutrophils # 14.73 10^3/uL (1.8-7.7); Neutrophils % 86.7 %; Nucleated Red Blood Cells % 0 %; Platelet Count 242 10^3/cmm (130-400); Red Blood Count 4.64 10^6/uL (4.1-5.3); Red Cell Distribution Width 12.5 % (12.1-15.1)
--- NOTE | 2022-10-06 02:45 | ECG_ITS ---
[facility] Test Date: 2022-10-06 Pat Name: Wendy Covarrubias Department: Room: Gender: Female Emergency Room Clerk: : 1940 Requested By: Aris Ruelas Order Number: [id number] Wily MD: Mo Cortez M.D. Measurements Intervals [place] Rate: 84 P: 36 WV: 152 QRS: 49 QRSD: 105 T: 114 QT: 395 QTc: 469 Interpretive Statements SINUS RHYTHM NONSPECIFIC ST & T-WAVE ABNORMALITY Compared to ECG 09/09/2022 21:55:05 Sinus bradycardia no longer present T-wave abnormality still present Electronically Signed On 10-06-2022 21:19:17 CDT by Mo Cortez M.D. [email or web address].[employer]/store/OM/[id number]
[2022-10-06] MEDS: sodium chloride 0.9% 1,000 ML 999 ML IV (02:47)
[2022-10-06] MEDS: ondansetron 2 mg/ML SDV 2 mL 4 MG IVP ×2 (02:47→03:54)
[2022-10-06] MEDS: hyDRALAzine 20 mg/mL INJ 1 mL 10 MG IVP (02:48)
--- NOTE | 2022-10-06 02:48 | W.ED.NAVMDI ---
HPI - Nausea/Vomiting/Diarrhea General: Chief complaint: Nausea/Vomiting/Diarrhea Stated complaint: N/V Time Seen by Provider: 10/06/22 02:32 Source: patient and EMS Mode of arrival: EMS Limitations: no limitations History of Present Illness: 82-year-old female who states that she has been feeling ill over the last 2 days she been having nausea vomiting along with diarrhea states been having abdominal cramping. She is given Zofran in route states she does feel slightly improved but still has abdominal pain per EMS her daughter states she been a little confused from her baseline she does have dementia she is answering my questions here appropriately he does have some confusion. She wears 3 L of oxygen at home Associated nausea: Yes Associated symtoms: Reports nausea; Denies chest pain, dysuria or headache(s) Review of Systems Const: Denies: fever(s), chills, body aches or change in appetite Eyes: Denies: blurry vision or eye discomfort ENMT: Denies: throat pain or dental pain Card: Denies: chest pain Resp: Denies: dyspnea GI: Reports: abdominal pain, nausea and vomiting : Denies: dysuria Musc: Denies: neck pain or back pain Skin/Breast: Denies: rash Neuro: Denies: headache(s) Psych: Denies: depression Kash/Lymph: Denies: easy bruising All/Imm: Denies: urticaria PFSH ED PFSH: Medical History Arteriosclerotic heart disease Carotid disease, bilateral CKD (chronic kidney disease) stage 2, GFR 60-89 ml/min Cystocele with small rectocele and uterine descent Dementia in Alzheimer's disease Dyslipidemia Essential hypertension GERD (gastroesophageal reflux disease) Surgical History H/O removal of cyst History of cholecystectomy Status post carotid surgery Family History Mother CAD (coronary artery disease) Hypertension Social History Smoking and tobacco status: former smoker Second hand smoke exposure: No Alcohol intake: never Desire information about alcohol rehabilitation?: No Substance/Drug Use: never Desire information about substance/drug rehabilitation?: No Adopted: No Lives independently: Yes Household members: family Housing: House Marital status: / Physical Exam Const: COMMON NORMALS: negative for patient oriented x3 GENERAL APPEARANCE: ill appearing HENMT: COMMON NORMALS: normocephalic and atraumatic HEAD & SCALP: normocephalic and atraumatic Eye: COMMON NORMALS: conjunctivae normal CONJUNCTIVA: Yes conjunctivae normal Neck/C-Spine: COMMON NORMALS: full ROM and supple Chest: COMMONS NORMALS: normal inspection of the chest and normal palpation of entire chest wall Resp: COMMON NORMALS: normal respiratory effort, No retractions, No use of accessory muscles and clear to auscultation bilaterally AUSCULTATION: clear to auscultation bilaterally Cardio: COMMON NORMALS: regular rate, regular rhythm and No murmurs present (Cardio) RATE: regular rate RHYTHM: regular rhythm GI: COMMON NORMALS: Normal to inspection, nondistended, normoactive bowel sounds present, Soft to palpation, non-tender and no masses PALPATION: Yes Soft to palpation Extremity: COMMON NORMALS: normal to inspection and full ROM Neuro: COMMON NORMALS: moves all extremities and no focal motor deficits; negative for patient oriented x3 Psych: COMMON NORMALS: mental status grossly normal, Normal thought process present and cooperative THOUGHT PROCESS: Normal thought process present Skin: COMMON NORMALS: no rashes or lesions noted and no wounds GENERAL SKIN EXAM: no rashes or lesions noted Course Vital Signs: Vital signs: Vital Signs Temperature 97.5 F L 10/06/22 02:34 Pulse Rate 109 H 10/06/22 04:00 Respiratory Rate 16 10/06/22 02:34 Blood Pressure 152/95 10/06/22 04:00 Pulse Oximetry 95 10/06/22 04:00 Oxygen Delivery Me thod Nasal Cannula 10/06/22 02:34 Oxygen Flow Rate 6 10/06/22 02:34 MDM - Nausea/Vomiting/Diarrhea Medical Decision Making Patient presents here with vomiting along with shortness of breath she is requiring 6 L here currently she typically on 3 L she has quite elevated BNP from her baseline along with congestion on CT scan with CHF exacerbation has a slight white count to possible pneumonia will get blood cultures give IV antibiotics I spoke to the hospitalist will admit at this time. Medical Records I reviewed the patient's medical records. Lab Data 10/06/22 02:41 10/06/22 02:[address] 10/06/22 02:35 IMPRESSION: 1. No acute intracranial abnormality. 2. Right frontal lobe encephalomalacia similar to prior exam. Chest X-Ray 10/06/22 02:37 IMPRESSION: 1. Bilateral pleural effusions. 2. Emphysematous changes. 3. Patchy ground-glass opacities in the lungs, concerning for pneumonia. 4. Cardiomegaly. Chest/Abdomen/Pelvis CT 10/06/22 03:04 IMPRESSION: 1. No pulmonary embolism identified. 2. Large bilateral pleural effusions. 3. Emphysematous disease. 4. Peripheral patchy opacities in the lungs may be related to pulmonary scarring, difficult to exclude pneumonia. IMPRESSION: 1. 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 Prominent atherosclerotic disease of the origin of the SMA and celiac. 2. Left renal atrophy. 3. Colonic diverticulosis without signs of acute diverticulitis. COMMENTS: Consistent with the [place] [employer]'s Incidental Findings Committee white paper (J Am Sidney Radiol 2018): Any incidental renal lesion less than 1 cm or classified as too small to characterize, or any incidental cystic renal lesion characterized as simple-appearing, is likely benign. No follow-up imaging is recommended for these lesions per consensus recommendations based on imaging criteria. Laboratory Results WBC 17.0 10^3/uL (4.0-10.0) H 10/06/22 02:41 RBC 4.64 10^6/uL (4.1-5.3) 10/06/22 02:41 Hgb 14.2 g/dL (11.5-15.3) 10/06/22 02:41 Hct 43.7 % (37.0-47.0) 10/06/22 02:41 MCV 94.2 fl (81-99) 10/06/22 02:41 MCH 30.6 pg (28.0-34.0) 10/06/22 02:41 MCHC 32.5 g/dL (30.0-36.0) 10/06/22 02:41 RDW 12.5 % (12.1-15.1) 10/06/22 02:41 Plt Count 242 10^3/cmm (130-400) 10/06/22 02:41 MPV 11.0 fL (7.4-10.4) H 10/06/22 02:41 Neut % (Auto) 86.7 % 10/06/22 02:41 Lymph % (Auto) 6.5 % 10/06/22 02:41 Merrick % (Auto) 5.8 % 10/06/22 02:41 Eos % (Auto) 0.3 % 10/06/22 02:41 Baso % (Auto) 0.2 % 10/06/22 02:41 Neut # (Auto) 14.73 10^3/uL (1.8-7.7) H 10/06/22 02:41 Lymph # (Auto) 1.1 10^3/uL (0.8-4.8) 10/06/22 02:41 Merrick # (Auto) 1.0 10^3/uL (0.2-0.9) H 10/06/22 02:41 Eos # (Auto) 0.1 10^3/uL (0.0-0.8) 10/06/22 02:41 Baso # (Auto) 0.0 10^3/uL (0.0-0.1) 10/06/22 02:41 Nucleated RBC % (auto) 0 % 10/06/22 02:41 Nucleated RBCs # 0.0 /100WBC 10/06/22 02:41 Specimen Type Arterial 10/06/22 04:10 Sample Site Radial, right 10/06/22 04:10 ABG pH 7.36 (7.35-7.45) 10/06/22 04:10 ABG pCO2 41.6 mmHg (35-45) 10/06/22 04:10 ABG pO2 76.7 mmHg (80.0-100.0) L 10/06/22 04:10 ABG HCO3 23.3 mmol/L (22-26) 10/06/22 04:10 ABG Base Excess -2.2 mmol/L (-2.0-2.0) L 10/06/22 04:10 Tien Test Pos 10/06/22 04:10 Hematocrit 44.4 % (37-47) 10/06/22 04:10 O2 Delivery Device Room air 10/06/22 04:10 FiO2 21.0 % 10/06/22 04:10 Contract Forester ID Prakash 10/06/22 04:10 Sodium 137 mmol/L (136-145) 10/06/22 02:41 Potassium 3.8 mmol/L (3.5-5.1) 10/06/22 02:41 Chloride 101 mmol/L (98-107) 10/06/22 02:41 Carbon Dioxide 22 mmol/L (22-29) 10/06/22 02:41 Anion Gap 17.8 (5-19) 10/06/22 02:41 BUN 12 mg/dL (8-23) 10/06/22 02:41 Creatinine 0.7 mg/dL (0.5-0.9) 10/06/22 02:41 GFR Calculation Not Reportable 10/06/22 02:41 Glucose 152 mg/dL (65-115) H 10/06/22 02:41 Calculated Osmolality 287 mOsm/kg (285-295) 10/06/22 02:41 Calcium 9.5 mg/dL (8.5-10.5) 10/06/22 02:41 Total Bilirubin 0.5 mg/dL (0.15-1.2) 10/06/22 02:41 AST 23 U/L (0-32) 10/06/22 02:41 ALT 19 U/L (0-33) 10/06/22 02:41 Alkaline Phosphatase 112 U/L (35-105) H 10/06/22 02:41 Troponin T Baseline 26 ng/L (0-10) H 10/06/22 02:41 NT-Pro-B Natriuret Pep 79907 pg/mL (0-450) H 10/06/22 02:41 Total Protein 6.6 g/dL (6.6-8.7) 10/06/22 02:41 Albumin 3.9 g/dL (3.5-5.2) 10/06/22 02:41 Globulin 2.7 g/dL (1.3-4.6) 10/06/22 02:41 Lipase 48 U/L (13-60) 10/06/22 02:41 EKG Data EKG 1: I personally reviewed and interpreted this EKG as follows: EKG interpretation date: 10/06/22 EKG interpretation time: 02:45 Interpretation: nsr hr [address] or t wave abnormalities qrs 105 qtc 436 Critical Care Time Critical Care Time: Critical Care Time: Yes Total Critical Care Time: 45 Attestation: The high probability of a clinically significant, sudden or life threatening deterioration of the patient's resp system(s) required my full and direct attention, intervention and personal management. The critical care time is as shown. This time is in addition to time spent performing any reported procedures but includes the following: [x] Data and vital sign review and interpretation [x] Patient assessment, examination and intervention [x] Documentation [x] Medication orders and management Discharge Plan Discharge Patient Disposition: Admitted As Inpatient Clinical Impression: Acute exacerbation of CHF (congestive heart failure), Acute respiratory failure with hypoxia, Vomiting Condition: Stable Prescriptions: No Action nifedipine 90 mg tablet extended release 90 mg PO DAILY atorvastatin 80 mg tablet 80 mg PO DAILY metoprolol tartrate 25 mg tablet 12.5 mg PO BID Dexilant 60 mg capsule,biphase delayed releas 60 mg PO DAILY alendronate 70 mg tablet 70 mg PO Q7D Rx Instructions: Take one tab on once weekly vitamin d 1 tab PO DAILY multivitamin-iron (hematinic) 1 tab PO DAILY citalopram 20 mg tablet 20 mg PO DAILY 90 Days Qty: 90 2RF Rx Instructions: TAKE ONE TABLET BY MOUTH DAILY galantamine 4 mg tablet 4 mg PO BID Qty: 180 3RF Rx Instructions: administer with AM and PM meals levetiracetam 500 mg tablet 750 mg PO BID 30 Days Qty: 180 3RF lorazepam 0.5 mg tablet 0.5 mg PO DAILY PRN (Reason: anxiety) Qty: 10 0RF Referrals: Honorio Ren [Primary Care Provider] - Coding Level of Care Code ED [facility] for [facility] [place]
--- NOTE | 2022-10-06 03:04 | CTR_ITS ---
PROCEDURE INFORMATION: Exam: CTA Chest With Contrast Exam date and time: 10/06/2022 3:23 AM Age: 82 years old Clinical indication: Nausea and vomiting; Shortness of breath; Prior surgery; Surgery type: Carotid. Gb; Patient HX: SOB with hypoxia and n/v/d. ; Additional info: Sob/abd pain TECHNIQUE: Imaging protocol: Computed tomographic angiography of the chest with contrast. 3D rendering (Not supervised by radiologist): MIP and/or 3D reconstructed images were created by the technologist. Radiation optimization: All CT scans at this facility use at least one of these dose optimization techniques: automated exposure control; mA and/or kV adjustment per patient size (includes targeted exams where dose is matched to clinical indication); or iterative reconstruction. Contrast material: OMNI 350; Contrast volume: 100 ml; Contrast route: INTRAVENOUS (IV); REPORTING DATA: Count of CT and Cardiac NM exams in prior 12 months: This patient has received 0 known CTs and 0 known cardiac nuclear medicine studies in the 12 months prior to the current study. COMPARISON: CT angio chest PE protcl [id number] 11/27/2020 5:12 AM RADIATION DOSE METRICS: Total DLP (mGy-cm): 901.82 FINDINGS: Pulmonary arteries: No pulmonary embolism identified. Aorta: The aorta is normal in caliber. Lungs: Respiratory motion limiting fine pulmonary detail. Emphysematous disease. Peripheral patchy opacities in the lungs may be related to pulmonary scarring, difficult to exclude pneumonia. Pleural spaces: Large bilateral pleural effusions. Heart: The heart is mildly enlarged for size. Coronary arteries: Coronary artery calcifications noted. Lymph nodes: The visualized supraclavicular region appears normal. No mediastinal or hilar adenopathy is identified. Bones/joints: Unremarkable. Soft tissues: Unremarkable. PROCEDURE INFORMATION: Exam: CT Abdomen And Pelvis With Contrast Exam date and time: 10/06/2022 3:23 AM Age: 82 years old Clinical indication: Nausea and vomiting; Shortness of breath; Prior surgery; Surgery type: Carotid. Gb; Patient HX: SOB with hypoxia and n/v/d. ; Additional info: Sob/abd pain TECHNIQUE: Imaging protocol: Computed tomography of the abdomen and pelvis with contrast. Radiation optimization: All CT scans at this facility use at least one of these dose optimization techniques: automated exposure control; mA and/or kV adjustment per patient size (includes targeted exams where dose is matched to clinical indication); or iterative reconstruction. Contrast material: OMNI 350; Contrast volume: 100 ml; Contrast route: INTRAVENOUS (IV); REPORTING DATA: Count of CT and Cardiac NM exams in prior 12 months: This patient has received 0 known CTs and 0 known cardiac nuclear medicine studies in the 12 months prior to the current study. COMPARISON: CT angio chest PE protcl [id number] 11/27/2020 5:12 AM RADIATION DOSE METRICS: Total DLP (mGy-cm): 901.82 FINDINGS: Liver: The liver is normal in size and contour. Gallbladder and bile ducts: The gallbladder is surgically absent. Pancreas: The pancreas appears normal. Spleen: The spleen appears normal. Adrenal glands: The adrenals appear normal. Kidneys and ureters: Simple appearing cysts noted within the left kidney. Left renal atrophy compared to the right with somewhat delayed perfusion compared to the right. Stomach and bowel: The stomach appears unremarkable. The small bowel loops are not abnormally dilated. The large bowel loops are not abnormally dilated. Colonic diverticulosis without signs of acute diverticulitis. Appendix: The appendix appears normal. Intraperitoneal space: Trace free fluid adjacent to the uterus and left adnexa, may be physiologic. Vasculature: Noncalcified atherosclerotic occlusion of the infrarenal abdominal aorta. Significant calcified atherosclerotic disease in the distal abdominal aorta and bilateral common iliac arteries. The bilateral common, external, and internal iliac arteries are severely diminutive in size. Reconstitution of the common femoral arteries via anterior abdominopelvic wall collaterals. Prominent calcified atherosclerotic disease in the bilateral common femoral arteries causing severe stenosis. The partially visualized proximal SFA and profunda femoral arteries are patent. Prominent atherosclerotic disease of the origin of the SMA and celiac. Lymph nodes: There are no enlarged lymph nodes. Urinary bladder: The bladder is distended and demonstrates no focal contour abnormality. Reproductive: Unremarkable as visualized. Bones/joints: Multilevel degenerative changes in the spine. Soft tissues: Unremarkable. CT/CT angio chest w abd pel w con IMPRESSION: 1. No pulmonary embolism identified. 2. Large bilateral pleural effusions. 3. Emphysematous disease. 4. Peripheral patchy opacities in the lungs may be related to pulmonary scarring, difficult to exclude pneumonia. IMPRESSION: 1. 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 Prominent atherosclerotic disease of the origin of the SMA and celiac. 2. Left renal atrophy. 3. Colonic diverticulosis without signs of acute diverticulitis. COMMENTS: Consistent with the [place] [employer]'s Incidental Findings Committee white paper (J Am Sidney Radiol 2018): Any incidental renal lesion less than 1 cm or classified as too small to characterize, or any incidental cystic renal lesion characterized as simple-appearing, is likely benign. No follow-up imaging is recommended for these lesions per consensus recommendations based on imaging criteria.
[2022-10-06] MEDS: iohexol 350 mg/mL 500 mL Btl (per mL) IV (03:16)
[2022-10-06 03:18] LABS: Alanine Aminotransferase 19 U/L (0-33); Albumin Level 3.9 g/dL (3.5-5.2); Alkaline Phosphatase 112 U/L (35-105); Anion Gap 17.8 (5-19); Aspartate Amino Transferase 23 U/L (0-32); Blood Urea Nitrogen 12 mg/dL (8-23); Calcium 9.5 mg/dL (8.5-10.5); Carbon Dioxide 22 mmol/L (22-29); Chloride 101 mmol/L (98-107); Globulin 2.7 g/dL (1.3-4.6); Glucose 152 mg/dL (65-115); Lipase 48 U/L (13-60); NT Pro B Type Natriuretic Pept 13944 pg/mL (0-450); Osmolality Calculated 287 mOsm/kg (285-295); Potassium 3.8 mmol/L (3.5-5.1); Sodium 137 mmol/L (136-145); Total Bilirubin 0.5 mg/dL (0.15-1.2); Total Protein 6.6 g/dL (6.6-8.7)
[2022-10-06] MEDS: FUROsemide 10 mg/mL SDV 4mL 40 MG IVP ×2 (03:38→14:49)
[2022-10-06 03:40] LABS: Troponin(5th) Baseline 26 ng/L (0-10)
[2022-10-06 04:24] LABS: ABG PCO2 41.6 mmHg (35-45); ABG PH Result 7.36 (7.35-7.45); Arterial Blood Gas Hematocrit 44.4 % (37-47); Base Excess ABG -2.2 mmol/L (-2.0-2.0); Blood Gas Allen Test Pos; Blood Gas Operator Identificat JB; Blood Gas Sample Site Radial, right; Blood Gas Sample Type Arterial; HCO3 ABG 23.3 mmol/L (22-26); Oxygen Device ROOM AIR; PO2 ABG 76.7 mmHg (80.0-100.0)
--- NOTE | 2022-10-06 04:51 | ECG_ITS ---
[facility] Test Date: 2022-10-06 Pat Name: Wendy Covarrubias Department: Room: Gender: Female Hospital Liaison: : 1940 Requested By: Aris Ruelas Order Number: [id number] Wily MD: Mo Cortez M.D. Measurements Intervals Ferguson Rate: 104 P: 62 KS: 185 QRS: 50 QRSD: 115 T: 70 QT: 382 QTc: 505 Interpretive Statements SINUS TACHYCARDIA WITH OCCASIONAL VENTRICULAR PREMATURE COMPLEXES MODERATE INTRAVENTRICULAR CONDUCTION DELAY [105+ ms QRS DURATION, 80+ ms Q/S IN V1/V2, NO Q AND 60+ ms R IN I/aVL/V5/V6] NONSPECIFIC ST & T-WAVE ABNORMALITY Compared to ECG 10/06/2022 02:45:48 Ventricular premature complex(es) now present Intraventricular conduction delay now present Sinus rhythm no longer present T-wave abnormality still present Electronically Signed On 10-06-2022 21:28:01 CDT by Mo Cortez M.D. https://[email or web address].[employer]/store/OM/[id number]
[2022-10-06] MEDS: cefTRIAXone 1,000 MG in sodium chloride 0.9% (plus) 50 ML 100 MG IV (05:09)
--- NOTE | 2022-10-06 05:28 | PM.HP ---
Providers/Chief Complaint Admitting Physician: Justo Christy MD Primary Care Provider: Honorio Ren Chief Complaint: N/V History of Present Illness Wendy Covarrubias is a 82 year old female this is a 82-year-old female with a past medical history of CKD, Alzheimer's disease, history of CAD, history of focal seizures, history of GERD, history of carotid artery disease, who presents to [facility] with daughter for complaints of feeling ill, fatigue, malaise and having diarrhea for the last few days. Currently patient alert to person, not to place, not to time, will she tells me that she is not feeling well, she is feeling nauseous, and that she is having diarrhea. Her daughter tells me that for the last 2 days she has had diarrhea, with nausea, at times bilious vomit, she has reported to her daughter that she has not been feeling well for the last day, this evening her symptoms worsened so she was brought to [facility] for evaluation. She denies any chest pain. She does report shortness of breath, she is you requiring 6 L of oxygen. Daughter is not sure if he she had an aspiration event or choking episode. Review of Systems Const: Reports: fatigue and malaise; Denies: fever(s) Card: Denies: chest pain Resp: Reports: dyspnea : Denies: dysuria Medications/Allergies Home Medications Medication Instructions Recorded Confirmed Last Taken Type alendronate 70 mg tablet 70 mg PO Q7D 07/26/19 08/22/22 11/12/20 History atorvastatin 80 mg tablet 80 mg PO DAILY 07/26/19 08/22/22 11/18/20 History dexlansoprazole 60 mg 60 mg PO DAILY 07/26/19 08/22/22 11/18/20 History capsule,biphase delayed release (Dexilant) metoprolol tartrate 25 mg tablet 12.5 mg PO BID 07/26/19 08/22/22 11/18/20 History multivitamin-iron (hematinic) 1 tab PO DAILY 07/26/19 08/22/22 11/18/20 History nifedipine 90 mg tablet,extended 90 mg PO DAILY 07/26/19 08/22/22 11/18/20 History release vitamin d 1 tab PO DAILY 02/21/20 03/20/23 06/16/21 History citalopram 20 mg tablet 20 mg PO DAILY 3 months #90 tabs 08/22/22 08/22/22 Unknown Rx galantamine 4 mg tablet 4 mg PO BID #180 tabs 08/22/22 08/22/22 Unknown Rx levetiracetam 500 mg tablet 750 mg PO BID 30 days #180 tabs 08/22/22 08/22/22 Unknown Rx lorazepam 0.5 mg tablet 0.5 mg PO DAILY PRN anxiety #10 09/09/22 Unknown Rx tabs Allergies Allergy/AdvReac Type Severity Reaction Status Date / Time morphine Allergy ADR-Vomitin Verified 08/22/22 10:26 g Penicillins Allergy ALGY-Hives Verified 08/22/22 10:26 PFSH Acute PFSH: Medical History Arteriosclerotic heart disease Carotid disease, bilateral CKD (chronic kidney disease) stage 2, GFR 60-89 ml/min Cystocele with small rectocele and uterine descent Dementia in Alzheimer's disease Dyslipidemia Essential hypertension GERD (gastroesophageal reflux disease) Surgical History H/O removal of cyst History of cholecystectomy Status post carotid surgery Family History Mother CAD (coronary artery disease) Hypertension Social History Smoking and tobacco status: former smoker Second hand smoke exposure: No Alcohol intake: never Desire information about alcohol rehabilitation?: No Substance/Drug Use: never Desire information about substance/drug rehabilitation?: No Adopted: No Lives independently: Yes Household members: family Housing: House Marital status: / Vitals/I&O/Wt Last Vital Signs Temp 97.5 F L 10/06/22 02:34 Pulse 101 H 10/06/22 05:08 Resp 16 10/06/22 05:08 BP 186/84 10/06/22 05:11 Pulse Ox 93 10/06/22 05:08 O2 Del Method Nasal Cannula 10/06/22 02:34 O2 Flow Rate 6 10/06/22 02:34 10/05/22 10/05/22 10/06/22 14:59 22:59 06:59 Intake Total 1000 / 1000 Balance 1000 / 1000 Weight last 48 hrs Weight 68.039 kg Physical Exam Const: COMMON NORMALS: no acute distress and patient oriented x3 EXAM LIMITATIONS: altered mental status ORIENTATION/CONSCIOUSNESS: Yes awake, Yes oriented to person and Yes confused; not oriented to place and not oriented to time Eye: COMMON NORMALS: Equal, round and reactive pupils present Neck/C-Spine: COMMON NORMALS: full ROM and no lymphadenopathy Resp: COMMON NORMALS: normal respiratory effort, No retractions, No use of accessory muscles and clear to auscultation bilaterally AUSCULTATION: clear to auscultation bilaterally Cardio: COMMON NORMALS: regular rate, regular rhythm, S1 normal heart sound present and S2 normal heart sound present RATE: regular rate RHYTHM: regular rhythm HEART SOUNDS: S1 normal heart sound present and S2 normal heart sound present GI: COMMON NORMALS: Normal to inspection, nondistended, normoactive bowel sounds present, Soft to palpation and non-tender : COMMON NORMALS: Yes no CVA tenderness Extremity: COMMON NORMALS: no pedal edema Data 10/06/22 02:41 10/06/22 02:41 A&P Assessment and plan (1) Acute exacerbation of CHF (congestive heart failure): (2) Acute respiratory failure with hypoxia: (3) Pneumonia: (4) Acute diarrhea: (5) Epilepsy: (6) CKD (chronic kidney disease) stage 2, GFR 60-89 ml/min: (7) Alzheimer disease: (8) Hypertension: (9) GERD (gastroesophageal reflux disease): (10) Dyslipidemia: (11) Arteriosclerotic heart disease: (12) Secondarily generalized seizures: Plan Acute hypoxic respiratory failure -Likely combination of CHF exacerbation, pneumonia -CT of the chest showed peripheral patchy opacities pneumonia versus fluid, and does have leukocytosis -BNP over 13,000, CT does show large bilateral pleural effusions Plan -Continue oxygen therapy -Continue Rocephin and azithromycin -Lasix 40 IV every 24 hours -Monitor respiratory status closely -Goals of care discussion, patient's daughter at bedside, had a goals of care discussion, that she does not want her mother to receive CPR, it would be against her wishes, but she is okay with defibrillation, drugs per ACLS, she does not want her mother to be intubated, DNI Acute diarrhea -Stool studies CKD GERD History of seizures continue seizure medications Attestations Medical Necessity Statement*: Patient requires hospitalization, inpatient, greater than 2 midnights, for pneumonia, CHF exacerbation, bilateral pleural effusions Diagnoses Acute exacerbation of CHF (congestive heart failure) I50.9 Acute respiratory failure with hypoxia J96.01 Pneumonia J18.9 Acute diarrhea R19.7 Epilepsy G40.909 CKD (chronic kidney disease) stage 2, GFR 60-89 ml/min N18.2 Alzheimer disease G30.9; F02.80 Hypertension I10 GERD (gastroesophageal reflux disease) K21.9 Dyslipidemia E78.5 Arteriosclerotic heart disease I25.10 Secondarily generalized seizures
[2022-10-06] MEDS: promethazine 25 mg/mL SDV 1 mL 12.5 MG IM (05:48)
[2022-10-06 05:50] LABS: Troponin 5 2HR 43.51 ng/L (0-10)
[2022-10-06 05:51] LABS: C Reactive Protein 21.7 mg/L (0.0-4.9)
[2022-10-06] MEDS: enoxaparin 40 mg/0.4 mL Syringe SUBCUT (05:51)
[2022-10-06] MEDS: pantoprazole 40 mg SDV IVP (05:51)
[2022-10-06 05:56] LABS: Troponin 5 2HR Delta 17.51 ABS# (0-10)
[2022-10-06 05:58] LABS: Procalcitonin 0.12 ng/mL (0-0.5)
[2022-10-06] MEDS: azithromycin 500 MG in sodium chloride 0.9% 250 ML 250 MG IV (06:01)
[2022-10-06 07:13] LABS: Adenovirus Not Detected (NOT DETECT); Chlamydia Pneumoniae Not Detected (NOT DETECT); Coronavirus 229E,HKU1,NL63,OC4 Not Detected (NOT DETECT); Human Metapneumovirus Not Detected (NOT DETECT); Human Rhinovirus/Enterovirus Not Detected (NOT DETECT); Influenza A Not Detected (NOT DETECT); Influenza A H1 Not Detected (NOT DETECT); Influenza A H1-2009 Not Detected (NOT DETECT); Influenza A H3 Not Detected (NOT DETECT); Influenza B Not Detected (NOT DETECT); Mycoplasma Pneumoniae Not Detected (NOT DETECT); Parainfluenza Virus Type 1 Not Detected (NOT DETECT); Parainfluenza Virus Type 2 Not Detected (NOT DETECT); Parainfluenza Virus Type 3 Not Detected (NOT DETECT); Parainfluenza Virus Type 4 Not Detected (NOT DETECT); Respiratory Syncytial Virus A Not Detected (NOT DETECT); Respiratory Syncytial Virus B Not Detected (NOT DETECT); SARS-COV-2 Not Detected (NOT DETECT)
[2022-10-06] MEDS: ipratropium-albuterol 3 mL Neb INHALATION ×4 (08:09→19:55)
[2022-10-06] MEDS: budesonide 0.5 mg/2 mL Neb INHALATION ×2 (08:09→19:55)
[2022-10-06 08:13] LABS: Thyroid Stimulating Hormone 3.47 uIU/mL (0.27-4.20)
[2022-10-06] MEDS: NIFEdipine ER (24 hr) 30 mg Tablet 90 MG PO (08:29)
[2022-10-06] MEDS: citalopram 20 mg Tablet PO (08:29)
[2022-10-06] MEDS: metoprolol tartrate 25 mg Tablet 12.5 MG PO ×2 (08:29→17:05)
[2022-10-06] MEDS: levETIRAcetam 500 mg Tablet 750 MG PO ×2 (08:29→17:05)
[2022-10-06] MEDS: atorvastatin 40 mg Tablet 80 MG PO (08:29)
--- NOTE | 2022-10-06 08:37 | PC.PHAR ---
PT UNABLE TO VERIFY MEDICATIONS- ATTEMPTED TO CONTACT PTS DAUGHTER RONEY AT 8:30 AM- LEFT MESSAGE
--- NOTE | 2022-10-06 08:56 | USCV_ITS ---
Covarrubias Wendy Age: 82 Gender: F : 1940 Exam Date: 10/06/2022 16:21 Ordering Phys: Ankur Machado MD Technologist: José Crawley Exam Location: [facility] Indication: chf BP: 126 / 54 HR: 72 Rhythm: Sinus Technical Quality: Adequate MEASUREMENTS (Male / Female) Normal Values 2D ECHO LV Diastolic Diameter PLAX 4.3 cm 4.2 - 5.9 / 3.9 - 5.3 cm LV Systolic Diameter PLAX 3.5 cm IVS Diastolic Thickness 1.3 cm 0.6 - 1.0 / 0.6 - 0.9 cm IVS Systolic Thickness 1.6 cm LVPW Diastolic Thickness 1.4 cm 0.6 - 1.0 / 0.6 - 0.9 cm LVPW Systolic Thickness 1.7 cm LVOT Diameter 1.9 cm LV Ejection Fraction 2D Teich 30.4 % LV Ejection Fraction MOD 2C 45.1 % LV Ejection Fraction 2C AL 45.8 % LA Diameter 4.1 cm M-MODE LV Diastolic Diameter MM 5.2 cm 4.2 - 5.9 / 3.9 - 5.3 cm LV Systolic Diameter MM 4.8 cm LV Ejection Fraction MM Teich 18.5 % IVS Diastolic Thickness MM 1.1 cm 0.6 - 1.0 / 0.6 - 0.9 cm IVS Systolic Thickness MM 1.2 cm LVPW Diastolic Thickness MM 1.1 cm 0.6 - 1.0 / 0.6 - 0.9 cm LVPW Systolic Thickness MM 1.3 cm RV Diastolic Diameter MM 1.4 cm Aortic Annulus Diameter 3.0 cm LA Ao Ratio MM 1.5 MV E Point Septal Separation 1.5 cm DOPPLER AV Peak Velocity 118.0 cm/s LVOT Peak Velocity 70.0 cm/s AV Area Cont Eq vti 1.7 cm squared AV Area Cont Eq pk 1.8 cm squared MV Area PHT 5.0 cm squared Mitral E to A Ratio 1.0 MV E' Velocity 44.5 cm/s Mitral E to MV E' Ratio 17.4 Mitral E to LV E' Lateral Ratio 16.4 Mitral E to LV E' Septal Ratio 19.0 TR Peak Velocity 303.0 cm/s TR Peak Gradient 36.7 mmHg TV Peak E Velocity 90.0 cm/s Right Atrial Pressure 3.0 mmHg Pulmonary Artery Systolic Pressu 39.7 mmHg PV Peak Velocity 81.0 cm/s RV Acceleration Time 0.1 s FINDINGS Left Ventricle Left ventricle is normal in size. LV systolic function is moderately reduced with EF of 35 to 40%. Mild to moderate global hypokinesis seen. More marked hypokinesis of anterior and anteroseptal kwan seen. Right Ventricle Normal in size and function Right Atrium Normal in size Left Atrium Dilated Mitral Valve Structurally normal mitral valve. Mild to moderate mitral regurgitation. Aortic Valve Structurally normal aortic valve. Tricuspid Valve Mild tricuspid regurgitation. Pulmonary artery systolic pressure is 35 to 40 mmHg. This is consistent with mild pulmonary hypertension. Pulmonic Valve Mild pulmonic regurgitation. Pericardium Normal Aorta Normal in size IVC Appears to be normal CONCLUSIONS LV systolic function is moderately reduced with EF of 35 to 40%. Above-mentioned regional wall motion abnormalities are seen. Left atrial dilation Mild to moderate mitral regurgitation. Mild pulmonary hypertension Mild tricuspid regurgitation Mild pulmonic regurgitation Compared to prior echocardiogram from 2017, LV systolic function appears to have reduced further. Pawan Tse MD (Electronically Signed) Final Date: 06 Oct 2022 18:41 S
--- NOTE | 2022-10-06 09:04 | ECG_ITS ---
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 Measurements Intervals [place] Rate: 81 P: -7 [place]: 144 QRS: 14 QRSD: 112 T: 60 QT: 416 QTc: 485 Interpretive Statements SINUS RHYTHM WITH MARKED SINUS ARRHYTHMIA MODERATE INTRAVENTRICULAR CONDUCTION DELAY [110+ ms QRS DURATION] NONSPECIFIC ST & T-WAVE ABNORMALITY Compared to ECG 10/06/2022 04:51:32 Sinus tachycardia no longer present Ventricular premature complex(es) no longer present T-wave abnormality still present Electronically Signed On 10-06-2022 21:29:19 CDT by Mo Cortez M.D. [id number]
--- NOTE | 2022-10-06 09:13 | PC.PHAR ---
Pharmacokinetic dosing service Date: Time: Objective: Patient: Floor: Age: 82 yo Serum creatinine: 0.7 mg/dL Height: 63.8 Inches Weight (kg): 68 Trough to be drawn before 3rd dose IBW (kg): 54.24 Dosing wt(kg): 68 Estimated Creatinine clearance (ml/min): 51.2 CRCL method: Cockcroft and Gault using ibw(default). Drug selected: Vancomycin Loading dose (mg): Vd (liters): 47.6 (factor used: 0.7 L/kg) Jeremiah (hr-1): 0.047 Half life (hrs): 14.75 CLvanco=?? 2.237 L/hr Recommended dose: 1000 mg Interval: 18 hrs Infusion time (hrs): 1 Predicted peak (mcg/mL): 35.9 Predicted trough (mcg/mL): 16.15 Total body weight is being used for vancomycin dosing. Recommendations: Give Vancomycin 1000 mg q 18 hrs with an expected Cpeak of 35.9 mcg/ml and an expected Ctrough of 16.15 mcg/ml AUC 0-24 /JED Data: JED 0.5 mcg/mL:?? AUC/JED:? 1192.1 JED 1.0 mcg/mL:?? AUC/JED:? 596.0 --------- JED 1.5 mcg/mL:?? AUC/JED:? 397.4 JED 2.0 mcg/mL:?? AUC/JED:? 298.0 Renal dosing of other antibiotics (review renal dosing of other medications and list guidelines here): Thank you for the consult, will continue to follow. Signature: Nick Parry PharmD
[2022-10-06 09:18] LABS: Iron 34 ug/dL (37-145); Percent Saturation 14.2 % (20-50); Total Iron Binding Capacity 238 mcg/dl; Unsaturated Iron Binding 204 ug/dL (112-347)
[2022-10-06 09:34] LABS: Vitamin B12 769 pg/mL (232-1245)
[2022-10-06 09:43] LABS: Lactic Sepsis W/Reflex 2.2 mmol/L (0.5-2.2)
[2022-10-06 09:53] LABS: Troponin 5 6HR 66.83 ng/L (0-10)
[2022-10-06 09:57] LABS: Folate Level > 20.0 ng/mL (4.8-37.3)
[2022-10-06] MEDS: meropenem 1,000 MG in sodium chloride 0.9% (plus) 50 ML 100 MG IV ×2 (10:15→17:01)
[2022-10-06 10:54] LABS: Troponin 5 6HR Delta 40.83 ng/L (0-12)
[2022-10-06 11:00] LABS: Add Urine Microscopic? YES; Bilirubin Urine Neg (Negative); Blood Urine 3+ (Negative); Glucose Urine UA Norm (Normal); Ketones Urine Negative (Negative); Leukocyte Esterase Urine Negative (Negative); Nitrate Urine Negative (Negative); Protein Urine 3+ (Negative); Urine Appearance Clear (CLEAR); Urine Color Light yellow (Yellow); Urobilinogen Urine Neg (Negative); pH Urine 5 (5-7)
[2022-10-06 11:01] LABS: Bacteria Urine 1+ /hpf; Mucus Urine 1+ /hpf; RBC Urine 40-50 /hpf (0-2); Squamous Epithelial Cell Urine 0-4 /hpf (0-5); WBC Urine 0-4 /hpf (0-5)
[2022-10-06 11:02] LABS: Add Urine Culture? Yes; Amorphous Sediment Urine TRACE /hpf; Hyaline Casts Urine 0-4 /lpf
[2022-10-06] MEDS: vancomycin 1,000 MG in sodium chloride 0.9% 250 ML 250 MG IV (11:05)
[2022-10-06 11:08] LABS: Reflex Lactate Order REFLEX LACTIC ORDERD
--- NOTE | 2022-10-06 11:25 | ECG_ITS ---
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 Measurements Intervals [place] Rate: 70 P: -19 [place]: 129 QRS: -7 QRSD: 108 T: -19 QT: 445 QTc: 482 Interpretive Statements SINUS RHYTHM LATERAL MYOCARDIAL INFARCTION , PROBABLY OLD [40+ ms Q WAVE AND/OR ST/T ABNORMALITY IN I/aVL/V5/V6] MODERATE T-WAVE ABNORMALITY, CONSIDER ANTERIOR ISCHEMIA [-0.1+ mV T-WAVE IN V3/V4] Compared to ECG 10/06/2022 10:14:13 Myocardial infarct finding now present Possible ischemia now present Sinus arrhythmia no longer present Intraventricular conduction delay no longer present T-wave abnormality still present Electronically Signed On 10-06-2022 21:29:41 CDT by Mo Cortez M.D. [id number]
[2022-10-07] VITALS (13 sets, daily range): BP systolic 106–140; BP diastolic 42–65; PULSE 58–80; RESP 14–24; TEMP 36.8–37.5; O2SAT 89–96
[2022-10-07] MEDS: meropenem 1,000 MG in sodium chloride 0.9% (plus) 50 ML 100 MG IV ×3 (01:08→17:26)
[2022-10-07] MEDS: vancomycin 1,000 MG in sodium chloride 0.9% 250 ML 250 MG IV (04:11)
[2022-10-07 04:56] LABS: Basophils # 0.1 10^3/uL (0.0-0.1); Basophils % 0.6 %; Eosinophils % 0.5 %; Hematocrit 36.4 % (37.0-47.0); Hemoglobin 12.2 g/dL (11.5-15.3); Lymphocytes # 1.3 10^3/uL (0.8-4.8); Lymphocytes % 16.1 %; Mean Corpuscular HGB Conc 33.5 g/dL (30.0-36.0); Mean Corpuscular Hemoglobin 31.3 pg (28.0-34.0); Mean Corpuscular Volume 93.3 fl (81-99); Mean Platelet Volume 10.6 fL (7.4-10.4); Monocytes # 0.9 10^3/uL (0.2-0.9); Monocytes % 11.4 %; Neutrophils # 5.66 10^3/uL (1.8-7.7); Neutrophils % 71.1 %; Nucleated Red Blood Cells % 0 %; Platelet Count 222 10^3/cmm (130-400); Red Cell Distribution Width 13.2 % (12.1-15.1)
[2022-10-07 05:13] LABS: Alanine Aminotransferase 19 U/L (0-33); Albumin Level 2.9 g/dL (3.5-5.2); Alkaline Phosphatase 78 U/L (35-105); Anion Gap 15.7 (5-19); Aspartate Amino Transferase 22 U/L (0-32); Blood Urea Nitrogen 19 mg/dL (8-23); Calcium 8.3 mg/dL (8.5-10.5); Carbon Dioxide 26 mmol/L (22-29); Chloride 107 mmol/L (98-107); Globulin 2.4 g/dL (1.3-4.6); Glucose 91 mg/dL (65-115); Osmolality Calculated 302 mOsm/kg (285-295); Potassium 3.7 mmol/L (3.5-5.1); Sodium 145 mmol/L (136-145); Total Bilirubin 0.4 mg/dL (0.15-1.2); Total Protein 5.3 g/dL (6.6-8.7)
[2022-10-07 05:15] LABS: Estmated Average Glucose 91; Hemoglobin A1C 4.8 % (4.0-6.0)
[2022-10-07] MEDS: enoxaparin 40 mg/0.4 mL Syringe SUBCUT (05:49)
[2022-10-07] MEDS: pantoprazole 40 mg SDV IVP (05:50)
[2022-10-07] MEDS: azithromycin 500 MG in sodium chloride 0.9% 250 ML 250 MG IV (05:52)
[2022-10-07] MEDS: budesonide 0.5 mg/2 mL Neb INHALATION (08:15)
[2022-10-07] MEDS: ipratropium-albuterol 3 mL Neb INHALATION ×3 (08:15→15:22)
[2022-10-07] MEDS: atorvastatin 40 mg Tablet 80 MG PO (08:43)
[2022-10-07] MEDS: metoprolol tartrate 25 mg Tablet 12.5 MG PO ×2 (08:44→17:24)
[2022-10-07] MEDS: NIFEdipine ER (24 hr) 30 mg Tablet 90 MG PO (08:45)
[2022-10-07] MEDS: citalopram 20 mg Tablet PO (08:45)
[2022-10-07] MEDS: levETIRAcetam 500 mg Tablet 750 MG PO ×2 (08:45→17:24)
--- NOTE | 2022-10-07 10:04 | PC.CHAP ---
Pastoral Care Encounter/Spiritual Assessment Type of Contact [] Declined mechanical repair worker visit [] Patient/Family/Request visit [] Outpatient visit [] Follow-up visit [] Physician referral [] Code/Alert [x] Routine visit [] Staff referral [] Actively dying [x] Patient sleeping [] Family support [] [] Out of room [] Palliative care [] [] Receiving care in room [] Pre-surgical visit [] Trauma [] Long length of stay [] ICU visit [] Other: Relational/Emotional Strength [] Patient feels connected with others/family/visitors/staff [] Distress [] Loneliness/isolation [] Abandonment Spirituality of Patient [] Person of Carri [] Attends Adventism of their Carri [] Believes in Prayer [] Reads Bible or Bahai materials [] There are Spiritual issues to be addressed [employer] Interventions [x] Prayer [] Active listening [] Non-anxious presence [] Spiritual/emotional support [] Crisis/trauma care [] Spiritual counseling [] Bereavement support [] Provided bereavement packet [] Provided Bible/devotional materials [] Provided toy/stuffed animal, coloring book to patient or family member [] Provided Communion [] Anointing/[place] [] Salvation [] Completed spiritual assessment [] Other: Impact on Illness or Injury [] Angry [] Fearful [] Anxious [] Often cries [] Exhaustion [] Unable to work [] Unable to attend muslim [] Unable to walk/stand [] Unable to read [] Unable to drive [] Unable to eat/drink [] Unable to sleep [] Unable to be with family [] Patient intubated [] Other: Summary Time spent with patient
[2022-10-07] MEDS: FUROsemide 40 mg Tablet PO (11:51)
[2022-10-07] MEDS: dexamethasone 4 mg/mL INJ 5 mL 3 MG IVP (11:51)
--- NOTE | 2022-10-07 14:29 | PC.PHAR ---
PHARMACY TO DOSE CONSULT - VANCOMYCIN With the patient's decline of renal function (57 on presentation, currently 31), went ahead and adjusted the patient's dose to account for these changes. Will remain at a 1 gram dose but spread the frequency out to every 36 hours, which should yield us a predicted peak of 32.6 mcg/ml and a trough of 12.25 mcg/ml. We will continue to monitor the patient's renal function and make adjustments as necessary. Please reach out if you have any questions or concerns. Thanks, Chris Yeung, Pharm.D
--- NOTE | 2022-10-07 16:06 | P.PN_ITS ---
Subjective Subjective: No acute events overnight. On examination patient lying comfortably in bed. Awake and alert. Slightly tired appearing. On examination at first oxygen supplementation was up to 5 L but turned down to 2.5 L during the day and saturation maintained over 92%. Has remained hemodynamically stable and afebrile. Vitals/I&O/Wt Last Vital Signs Temp 98.5 F 10/07/22 12:12 Pulse 64 10/07/22 15:23 Resp 16 10/07/22 15:23 BP 140/42 10/07/22 12:12 Pulse Ox 92 10/07/22 15:23 O2 Del Method Nasal Cannula 10/07/22 15:23 O2 Flow Rate 2.5 10/07/22 15:23 10/07/22 10/07/22 10/07/22 06:59 14:59 22:59 Intake Total 300 / 900 540 / 540 Output Total 220 / 1120 Balance 80 / -220 540 / 540 Weight last 48 hrs Weight 68.039 kg Physical Exam Const: COMMON NORMALS: no acute distress and patient oriented x3 EXAM LIMITATIONS: altered mental status ORIENTATION/CONSCIOUSNESS: Yes awake, Yes oriented to person and Yes confused; not oriented to place and not oriented to time Eye: COMMON NORMALS: Equal, round and reactive pupils present PUPIL: Yes Equal, round and reactive pupils present Neck/C-Spine: COMMON NORMALS: full ROM and no lymphadenopathy Resp: COMMON NORMALS: normal respiratory effort, No retractions, No use of ac cessory muscles and clear to auscultation bilaterally AUSCULTATION: clear to auscultation bilaterally Cardio: COMMON NORMALS: regular rate, regular rhythm, S1 normal heart sound present and S2 normal heart sound present RATE: regular rate RHYTHM: regular rhythm HEART SOUNDS: S1 normal heart sound present and S2 normal heart sound present GI: COMMON NORMALS: Normal to inspection, nondistended, normoactive bowel sounds present, Soft to palpation and non-tender PALPATION: Yes Soft to palpation : COMMON NORMALS: Yes no CVA tenderness BLADDER/KIDNEY EXAM: Yes no CVA tenderness Back/Pelvis: COMMON NORMALS: no CVA tenderness Extremity: COMMON NORMALS: no pedal edema Neuro: COMMON NORMALS: patient oriented x3 SENSORIUM/ORIENTATION: Yes oriented to person, No oriented to place and No oriented to time Urinary Catheter Management: Rodriguez: Cath Placed During This Visit: yes Reason for Continuing Indwelling Catheter: Accurate Measurement of Urinary Output in Critically Ill Patients Urinary Catheter Date of Insertion: 10/06/22 Urinary Catheter Time of Insertion: 10:15 Data 10/07/22 04:43 10/07/22 04:43 Micro: Microbiology 10/06/22 03:02 Stool Lactoferrin - Final Stool Enteric Pathogens (PCR) - Final Parasite Antigen Panel - Final Occult Blood (FIT) - Final 10/06/22 10:15 MRSA Culture - Final Nose 10/07/22 09:20 Gram Stain - Final Sputum - Expectorated Sputum 10/06/22 10:19 Bacterial Antigens - Final Urine Kidney 10/06/22 05:10 Blood Culture - Preliminary Blood NEGATIVE TO DATE 10/06/22 05:16 Blood Culture - Preliminary Blood NEGATIVE TO DATE 10/06/22 10:19 Legionella Urinary Antigen - Final Unknown Source A&P Assessment and plan (1) Acute respiratory failure with hypoxia: Most likely in setting of pneumonia and acute systolic congestive heart failure. Echocardiogram done shows EF of 35 to 40% with mild to moderate global LV hypokinesis, regional wall motion abnormality of the anterior and anteroseptal kwan, mild TR, PASP of 35-40 consistent with mild pulmonary hypertension, mild to moderate MR. Echocardiogram reveals lower EF than before. Oxygen supplementation keeping saturation over 90%. Speech evaluation. DuoNebs every 6 hours, budesonide twice daily. (2) Acute exacerbation of CHF (congestive heart failure): Mild elevation in creatinine. Most likely patient's dry creatinine is higher than normal. Switch to oral Lasix 40 mg daily. Fluid restriction up to 1500 cc. Strict input output charting, daily weights. (3) Pneumonia: MRSA negative. Sputum culture awaited. Discontinue vancomycin. Continue with meropenem. Patient allergic to penicillin. Antibiotics as per creatinine clearance. Speech evaluation. Incentive spirometry and flutter valve. Out of bed to chair. (4) Acute diarrhea: Resolved. Stool studies negative. (5) Epilepsy: (6) CKD (chronic kidney disease) stage 2, GFR 60-89 ml/min: (7) Alzheimer disease: (8) Hypertension: Goal blood pressure less than 140/90 mmHg. Continue with home dose of metoprolol 12.5 mg twice daily, nifedipine 90 mg daily. If needed will add low-dose Imdur if blood pressure is higher than goal. 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 Acute hypoxic respiratory failure -Goals of care discussion, patient's daughter at bedside, had a goals of care discussion, that she does not want her mother to receive CPR, it would be against her wishes, but she is okay with defibrillation, drugs per ACLS, she does not want her mother to be intubated, DNI Protonix for PUD prophylaxis To mechanical soft diet. Lovenox for DVT prophylaxis. Attestations Medical Necessity Statement*: Requires further hospitalization for management of acute hypoxia in setting of pneumonia and systolic congestive heart failure. Diagnoses Acute respiratory failure with hypoxia J96.01 Acute exacerbation of CHF (congestive heart failure) I50.9 Pneumonia J18.9 Acute diarrhea R19.7 Epilepsy G40.909 CKD (chronic kidney disease) stage 2, GFR 60-89 ml/min N18.2 Alzheimer disease G30.9; F02.80 Hypertension I10 GERD (gastroesophageal reflux disease) K21.9 Dyslipidemia E78.5 Arteriosclerotic heart disease I25.10 Secondarily generalized seizures
[2022-10-07] MEDS: NON-FORMULARY MEDICATION (Galantamine 4 mg tablet) 4 EACH PO (17:38)
[2022-10-07] MEDS: dexamethasone 4 mg/mL INJ 3 MG IVP (23:11)
[2022-10-08] VITALS (15 sets, daily range): BP systolic 136–159; BP diastolic 40–60; PULSE 56–78; RESP 15–30; TEMP 36.7–36.9; O2SAT 92–100
[2022-10-08] MEDS: meropenem 1,000 MG in sodium chloride 0.9% (plus) 50 ML 100 MG IV ×3 (00:53→18:03)
[2022-10-08] MEDS: pantoprazole 40 mg SDV IVP (05:50)
[2022-10-08] MEDS: enoxaparin 40 mg/0.4 mL Syringe SUBCUT (05:53)
[2022-10-08] MEDS: ipratropium-albuterol 3 mL Neb INHALATION ×4 (07:15→19:21)
[2022-10-08] MEDS: budesonide 0.5 mg/2 mL Neb INHALATION ×2 (07:15→19:22)
[2022-10-08 08:15] LABS: Basophils % 0.1 %; Hematocrit 35.4 % (37.0-47.0); Lymphocytes % 13.9 %; Mean Corpuscular HGB Conc 33.9 g/dL (30.0-36.0); Mean Corpuscular Volume 91.5 fl (81-99); Mean Platelet Volume 11.1 fL (7.4-10.4); Monocytes # 0.2 10^3/uL (0.2-0.9); Monocytes % 3.1 %; Neutrophils # 5.92 10^3/uL (1.8-7.7); Neutrophils % 82.5 %; Nucleated Red Blood Cells % 0 %; Platelet Count 206 10^3/cmm (130-400); Red Blood Count 3.87 10^6/uL (4.1-5.3); Red Cell Distribution Width 12.4 % (12.1-15.1); White Blood Count 7.2 10^3/uL (4.0-10.0)
[2022-10-08 08:22] LABS: Alanine Aminotransferase 18 U/L (0-33); Albumin Level 3.2 g/dL (3.5-5.2); Alkaline Phosphatase 72 U/L (35-105); Blood Urea Nitrogen 25 mg/dL (8-23); Calcium 8.5 mg/dL (8.5-10.5); Carbon Dioxide 25 mmol/L (22-29); Chloride 100 mmol/L (98-107); Globulin 1.9 g/dL (1.3-4.6); Glucose 111 mg/dL (65-115); Osmolality Calculated 289 mOsm/kg (285-295); Sodium 137 mmol/L (136-145); Total Bilirubin 0.4 mg/dL (0.15-1.2); Total Protein 5.1 g/dL (6.6-8.7)
[2022-10-08 08:36] LABS: Anion Gap 16.3 (5-19); Aspartate Amino Transferase 27 U/L (0-32); Potassium 4.3 mmol/L (3.5-5.1)
[2022-10-08] MEDS: citalopram 20 mg Tablet PO (09:12)
[2022-10-08] MEDS: NIFEdipine ER (24 hr) 30 mg Tablet 90 MG PO (09:12)
[2022-10-08] MEDS: FUROsemide 40 mg Tablet PO (09:12)
[2022-10-08] MEDS: atorvastatin 40 mg Tablet 80 MG PO (09:13)
[2022-10-08] MEDS: metoprolol tartrate 25 mg Tablet 12.5 MG PO ×2 (09:13→18:02)
[2022-10-08] MEDS: levETIRAcetam 500 mg Tablet 750 MG PO ×2 (09:14→18:02)
[2022-10-08] MEDS: NON-FORMULARY MEDICATION (Galantamine 4 mg tablet) 4 EACH PO ×2 (09:14→18:04)
[2022-10-08] MEDS: dexamethasone 4 mg/mL INJ 3 MG IVP (13:05)
--- NOTE | 2022-10-08 14:27 | P.PN_ITS ---
Subjective Subjective: No acute events overnight. Patient has remained hemodynamically stable and afebrile. Was on 2 L of oxygen supplementation. During examination sitting up to have food. Patient looks really short of breath though she states she is at her baseline. Denies any nausea or vomiting. Has not had any further diarrhea. Vitals/I&O/Wt Last Vital Signs Temp 98.5 F 10/08/22 04:00 Pulse 75 10/08/22 12:00 Resp 30 H 10/08/22 12:00 BP 136/48 10/08/22 12:00 Pulse Ox 95 10/08/22 12:00 O2 Del Method Nasal Cannula 10/08/22 12:00 O2 Flow Rate 2 10/08/22 12:00 10/07/22 10/08/22 10/08/22 22:59 06:59 14:59 Intake Total 730 / 1270 250 / 1520 550 / 550 Output Total 750 / 750 700 / 1450 Balance -20 / 520 -450 / 70 550 / 550 Physical Exam Const: COMMON NORMALS: no acute distress and patient oriented x3 EXAM LIMITATIONS: altered mental status ORIENTATION/CONSCIOUSNESS: Yes awake, Yes oriented to person and Yes confused; not oriented to place and not oriented to time Eye: COMMON NORMALS: Equal, round and reactive pupils present PUPIL: Yes Equal, round and reactive pupils present Neck/C-Spine: COMMON NORMALS: full ROM and no lymphadenopathy Resp: COMMON NORMALS: normal respiratory effort, No retractions, No use of accessory muscles and clear to auscultation bilaterally AUSCULTATION: clear to auscultation bilaterally Cardio: COMMON NORMALS: regular rate, regular rhythm, S1 normal heart sound present and S2 normal heart sound present RATE: regular rate RHYTHM: regular rhythm HEART SOUNDS: S1 normal heart sound present and S2 normal heart sound present GI: COMMON NORMALS: Normal to inspection, nondistended, normoactive bowel sounds present, Soft to palpation and non-tender PALPATION: Yes Soft to palpation : COMMON NORMALS: Yes no CVA tenderness BLADDER/KIDNEY EXAM: Yes no CVA tenderness Back/Pelvis: COMMON NORMALS: no CVA tenderness Extremity: COMMON NORMALS: no pedal edema Neuro: COMMON NORMALS: patient oriented x3 SENSORIUM/ORIENTATION: Yes oriented to person, No oriented to place and No oriented to time Urinary Catheter Management: Rodriguez: Cath Placed During This Visit: yes, but has since been removed by the nurse Reason for Continuing Indwelling Catheter: Accurate Measurement of Urinary Output in Critically Ill Patients Urinary Catheter Date of Insertion: 10/06/22 Urinary Catheter Time of Insertion: 10:15 Date Urinary Catheter Removed: 10/08/22 Time Urinary Catheter Discontinued: 12:56 Data 10/08/22 07:35 10/08/22 07:35 Micro: Microbiology 10/06/22 10:19 Urine Culture - Preliminary Urine,Clean Catch 10/06/22 03:02 Stool Lactoferrin - Final Stool Enteric Pathogens (PCR) - Final Parasite Antigen Panel - Final Occult Blood (FIT) - Final 10/06/22 10:15 MRSA Culture - Final Nose 10/07/22 09:20 Gram Stain - Final Sputum - Expectorated Sputum 10/06/22 10:19 Bacterial Antigens - Final Urine Kidney A&P Assessment and plan (1) Acute respiratory failure with hypoxia: Most likely in setting of pneumonia and acute systolic congestive heart failure. Echocardiogram done shows EF of 35 to 40% with mild to moderate global LV h ypokinesis, regional wall motion abnormality of the anterior and anteroseptal kwan, mild TR, PASP of 35-40 consistent with mild pulmonary hypertension, mild to moderate MR. Echocardiogram reveals lower EF than before. Oxygen supplementation keeping saturation over 90%. Speech evaluation. DuoNebs every 6 hours, budesonide twice daily. (2) Acute exacerbation of CHF (congestive heart failure): Creatinine back to normal today. IV Lasix 40 mg daily. Fluid restriction up to 1200 cc. Strict input output charting, daily weights. (3) Pneumonia: Sputum culture pending. Continue with meropenem. Patient allergic to penicillin. Antibiotics as per creatinine clearance. Speech evaluation. Incentive spirometry and flutter valve. Out of bed to chair. (4) Acute diarrhea: Resolved. Stool studies negative. (5) Epilepsy: (6) CKD (chronic kidney disease) stage 2, GFR 60-89 ml/min: (7) Alzheimer disease: (8) Hypertension: Goal blood pressure less than 140/90 mmHg. Continue with home dose of metoprolol 12.5 mg twice daily, nifedipine 90 mg daily. If needed will add low-dose Imdur if blood pressure is higher than goal. 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 Acute hypoxic respiratory failure -Goals of care discussion, patient's daughter at bedside, had a goals of care discussion, that she does not want her mother to receive CPR, it would be against her wishes, but she is okay with defibrillation, drugs per ACLS, she does not want her mother to be intubated, DNI Protonix for PUD prophylaxis To mechanical soft diet. Lovenox for DVT prophylaxis. Care discussed in detail with patient's daughter over the phone. We discussed that patient underwent. Lower EF than the past and difficulty in breathing is most likely from heart failure. Discussed the need for ACS work-up most likely as an outpatient. Patient's daughter verbalized understanding. All the questions were answered. Discharge plan: Plan to discharge in the next 24 hours back home with caregiver and home health once medically stable. Patient will most likely need repeat home O2 evaluation prior to discharge. Attestations Medical Necessity Statement*: Requires further hospitalization for management of hypoxia in setting of congestive systolic heart failure, pneumonia and further discharge planning is sought. Diagnoses Acute respiratory failure with hypoxia J96.01 Acute exacerbation of CHF (congestive heart failure) I50.9 Pneumonia J18.9 Acute diarrhea R19.7 Epilepsy G40.909 CKD (chronic kidney disease) stage 2, GFR 60-89 ml/min N18.2 Alzheimer disease G30.9; F02.80 Hypertension I10 GERD (gastroesophageal reflux disease) K21.9 Dyslipidemia E78.5 Arteriosclerotic heart disease I25.10 Secondarily generalized seizures
[2022-10-08] MEDS: FUROsemide 10 mg/mL SDV 4mL 40 MG IVP (15:28)
[2022-10-08] MEDS: hyDROXYzine 25 mg Capsule PO (22:06)
[2022-10-09] VITALS (7 sets, daily range): BP systolic 116–140; BP diastolic 54–79; PULSE 61–74; RESP 16–26; TEMP 36.9; O2SAT 93–99
[2022-10-09] MEDS: meropenem 1,000 MG in sodium chloride 0.9% (plus) 50 ML 100 MG IV ×2 (01:18→10:06)
[2022-10-09] MEDS: enoxaparin 40 mg/0.4 mL Syringe SUBCUT (04:51)
[2022-10-09] MEDS: pantoprazole 40 mg SDV IVP (04:52)
[2022-10-09 05:33] LABS: Basophils % 0.2 %; Eosinophils % 0.2 %; Hematocrit 38.2 % (37.0-47.0); Hemoglobin 12.4 g/dL (11.5-15.3); Lymphocytes # 1.4 10^3/uL (0.8-4.8); Lymphocytes % 21.4 %; Mean Corpuscular HGB Conc 32.5 g/dL (30.0-36.0); Mean Corpuscular Hemoglobin 30.2 pg (28.0-34.0); Mean Corpuscular Volume 92.9 fl (81-99); Mean Platelet Volume 10.7 fL (7.4-10.4); Monocytes # 0.8 10^3/uL (0.2-0.9); Monocytes % 12.1 %; Neutrophils # 4.35 10^3/uL (1.8-7.7); Neutrophils % 65.8 %; Nucleated Red Blood Cells % 0 %; Platelet Count 231 10^3/cmm (130-400); Red Blood Count 4.11 10^6/uL (4.1-5.3); Red Cell Distribution Width 12.7 % (12.1-15.1); White Blood Count 6.6 10^3/uL (4.0-10.0)
[2022-10-09 05:51] LABS: Alanine Aminotransferase 21 U/L (0-33); Albumin Level 3.2 g/dL (3.5-5.2); Alkaline Phosphatase 82 U/L (35-105); Anion Gap 15.9 (5-19); Aspartate Amino Transferase 27 U/L (0-32); Blood Urea Nitrogen 20 mg/dL (8-23); Calcium 8.8 mg/dL (8.5-10.5); Carbon Dioxide 28 mmol/L (22-29); Chloride 97 mmol/L (98-107); Globulin 2.7 g/dL (1.3-4.6); Glucose 90 mg/dL (65-115); Osmolality Calculated 288 mOsm/kg (285-295); Sodium 138 mmol/L (136-145); Total Bilirubin 0.4 mg/dL (0.15-1.2); Total Protein 5.9 g/dL (6.6-8.7)
[2022-10-09 05:59] LABS: Potassium 2.9 mmol/L (3.5-5.1)
[2022-10-09] MEDS: potassium chloride ER 20 mEq Tablet 40 MEQ PO ×2 (06:33→10:07)
[2022-10-09] MEDS: ipratropium-albuterol 3 mL Neb INHALATION ×2 (07:37→11:13)
[2022-10-09] MEDS: budesonide 0.5 mg/2 mL Neb INHALATION (07:37)
[2022-10-09] MEDS: metoprolol tartrate 25 mg Tablet 12.5 MG PO (09:57)
[2022-10-09] MEDS: atorvastatin 40 mg Tablet 80 MG PO (09:58)
[2022-10-09] MEDS: NIFEdipine ER (24 hr) 30 mg Tablet 90 MG PO (09:58)
[2022-10-09] MEDS: levETIRAcetam 500 mg Tablet 750 MG PO (09:58)
[2022-10-09] MEDS: dexamethasone 4 mg/mL INJ 3 MG IVP (09:59)
[2022-10-09] MEDS: citalopram 20 mg Tablet PO (09:59)
[2022-10-09] MEDS: NON-FORMULARY MEDICATION (Galantamine 4 mg tablet) 4 EACH PO (10:01)
[2022-10-09] MEDS: FUROsemide 10 mg/mL SDV 4mL 40 MG IVP (11:09)
--- NOTE | 2022-10-09 11:25 | PC.SOCIAL ---
Imm update Imm updated with patient at bedside. Copy of page 2 provided. Patient verbalized understanding. Copy in chart initialed, dated and timed.
--- NOTE | 2022-10-09 13:13 | P.DS_ITS ---
Discharge Providers Date of Admission: 10/06/22 05:28 Date of Discharge: October 09, 2022 Attending Provider at Admission: Justo Christy MD Attending Provider at Discharge: Ankur Machado MD Primary Care Provider: Honorio Ren Diagnoses at Discharge Discharge Diagnosis (1) Acute respiratory failure with hypoxia: Status: Acute (2) Acute exacerbation of CHF (congestive heart failure): Status: Acute (3) Pneumonia: Status: Acute (4) Acute diarrhea: Status: Acute (5) Epilepsy: Status: Acute (6) CKD (chronic kidney disease) stage 2, GFR 60-89 ml/min: Status: Acute (7) Alzheimer disease: Status: Acute (8) Hypertension: Status: Acute (9) GERD (gastroesophageal reflux disease): Status: Acute (10) Dyslipidemia: Status: Acute (11) Arteriosclerotic heart disease: Status: Acute (12) Secondarily generalized seizures: Status: Acute Reason for Visit Reason for Visit: N/V Brief History: History as per HPI: Wendy Covarrubias is a 82 year old female this is a 82-year-old female with a past medical history of CKD, Alzheimer's disease, history of CAD, history of focal seizures, history of GERD, history of carotid artery disease, who presents to [facility] with daughter for complaints of feeling ill, fatigue, malaise and having diarrhea for the last few days.? Currently patient alert to person, not to place, not to time, will she tells me that she is not feeling well, she is feeling nauseous, and that she is having diarrhea.? Her daughter tells me that for the last 2 days she has had diarrhea, with nausea, at times bilious vomit, she has reported to her daughter that she has not been feeling w ell for the last day, this evening her symptoms worsened so she was brought to [facility] for evaluation.? She denies any chest pain.? She does report shortness of breath, she is you requiring 6 L of oxygen.? Daughter is not sure if he she had an aspiration event or choking episode. Hospital Course Hospital Course Patient was roomed to the hospital further evaluation and management of acute hypoxia in setting of congestive heart failure. Patient did not have any episode of nausea vomiting or diarrhea during hospitalization. She was maintained on regular diet. Echocardiogram was done which was concerning for worsening EF of 35 to 40% with dilatation of LA, mild to moderate MR, mild pulmonary hypertension with global LV hypokinesia with more marked hypokinesia of anterior anteroseptal kwan. Patient was diuresed aggressively with IV Lasix. There was some concerns of pneumonia on admission but were ruled out. She was monitored off antibiotics for more than 24 hours. During hospitalization her cultures remained negative. Patient's symptoms continue to improve. She has been discharged hemodynamically stable condition on oral Lasix. Her antihypertensives have been adjusted. Home O2 evaluation has been done prior to discharge. She is advised to follow-up with a primary care provider within next 1 week. She is to check her blood pressure daily at home and maintain a blood pressure diary and follow-up with a primary care provider onsite appointment for further adjustment of medication as needed. Patient is also advised to have a Lexiscan stress test as an outpatient for further evaluation of new lower EF. Discharge plan were discussed in detail with patient and patient's daughter. Both verbalized understanding. Physical Exam Const: COMMON NORMALS: no acute distress and patient oriented x3 EXAM LIMITATIONS: altered mental status ORIENTATION/CONSCIOUSNESS: Yes awake, Yes oriented to person and Yes confused; not oriented to place and not oriented to time Eye: COMMON NORMALS: Equal, round and reactive pupils present PUPIL: Yes Eq ual, round and reactive pupils present Neck/C-Spine: COMMON NORMALS: full ROM and no lymphadenopathy Resp: COMMON NORMALS: normal respiratory effort, No retractions, No use of accessory muscles and clear to auscultation bilaterally AUSCULTATION: clear to auscultation bilaterally Cardio: COMMON NORMALS: regular rate, regular rhythm, S1 normal heart sound present and S2 normal heart sound present RATE: regular rate RHYTHM: regular rhythm HEART SOUNDS: S1 normal heart sound present and S2 normal heart sound present GI: COMMON NORMALS: Normal to inspection, nondistended, normoactive bowel sounds present, Soft to palpation and non-tender PALPATION: Yes Soft to palpation : COMMON NORMALS: Yes no CVA tenderness BLADDER/KIDNEY EXAM: Yes no CVA tenderness Back/Pelvis: COMMON NORMALS: no CVA tenderness Extremity: COMMON NORMALS: no pedal edema Neuro: COMMON NORMALS: patient oriented x3 SENSORIUM/ORIENTATION: Yes oriented to person, No oriented to place and No oriented to time Urinary Catheter Management: Rodriguez: Cath Placed During This Visit: yes, but has since been removed by the nurse Reason for Continuing Indwelling Catheter: Accurate Measurement of Urinary Output in Critically Ill Patients Urinary Catheter Date of Insertion: 10/06/22 Urinary Catheter Time of Insertion: 10:15 Date Urinary Catheter Removed: 10/08/22 Time Urinary Catheter Discontinued: 12:56 Discharge Data Studies Completed and Pending Completed Studies During Hospitalization Category Date Time Status CT angio chest w abd pel w con Stat Cat Scan 10/06/22 03:[address] head wo con* [id number] Stat Cat Scan 10/06/22 02:35 Completed CXRP [XR chest 1V portable [id number]] Stat Exams 10/06/22 02:37 Completed CV. echo complete* [id number] Routine Ultrasound 10/06/22 08:56 Completed Pending at discharge Category Date Time Status Blood Culture Stat Lab 10/06/22 05:16 Results Radiology Impressions Head CT 10/06/22 02:35 IMPRESSION: 1. No acute intracranial abnormality. 2. Right frontal lobe encephalomalacia similar to prior exam. Chest X-Ray 10/06/22 02:37 IMPRESSION: 1. Bilateral pleural effusions. 2. Emphysematous changes. 3. Patchy ground-glass opacities in the lungs, concerning for pneumonia. 4. Cardiomegaly. Chest/Abdomen/Pelvis CT 10/06/22 03:04 IMPRESSION: 1. No pulmonary embolism identified. 2. Large bilateral pleural effusions. 3. Emphysematous disease. 4. Peripheral patchy opacities in the lungs may be related to pulmonary scarring, difficult to exclude pneumonia. IMPRESSION: 1. 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 Prominent atherosclerotic disease of the origin of the SMA and celiac. 2. Left renal atrophy. 3. Colonic diverticulosis without signs of acute diverticulitis. COMMENTS: Consistent with the [employer]'s Incidental Findings Committee white paper (J Am Sidney Radiol 2018): Any incidental renal lesion less than 1 cm or classified as too small to characterize, or any incidental cystic renal lesion characterized as simple-appearing, is likely benign. No follow-up imaging is recommended for these lesions per consensus recommendations based on imaging criteria. Microbiology 10/07/22 09:20 Sputum - Expectorated Sputum Gram Stain - Final 10/07/22 09:20 Sputum - Expectorated Sputum Sputum Culture - Final 10/06/22 10:19 Urine,Clean Catch Urine Culture - Final 10/06/22 03:02 Stool Stool Lactoferrin - Final 10/06/22 03:02 Stool Enteric Pathogens (PCR) - Final 10/06/22 03:02 Stool Parasite Antigen Panel - Final 10/06/22 03:02 Stool Occult Blood (FIT) - Final 10/06/22 10:15 Nose MRSA Culture - Final 10/06/22 10:19 Urine Kidney Bacterial Antigens - Final 10/06/22 05:10 Blood Blood Culture - Preliminary NEGATIVE TO DATE 10/06/22 05:16 Blood Blood Culture - Preliminary NEGATIVE TO DATE 10/06/22 10:19 Unknown Source Legionella Urinary Antigen - Final 10/06/22 03:02 Stool - Stool Aspirate C.difficile Toxin B Gene (PCR) - Final Laboratory Results WBC 6.6 10^3/uL (4.0-10.0) 10/09/22 04:25 RBC 4.11 10^6/uL (4.1-5.3) 10/09/22 04:25 Hgb 12.4 g/dL (11.5-15.3) 10/09/22 04:25 Hct 38.2 % (37.0-47.0) 10/09/22 04:25 MCV 92.9 fl (81-99) 10/09/22 04:25 MCH 30.2 pg (28.0-34.0) 10/09/22 04:25 MCHC 32.5 g/dL (30.0-36.0) 10/09/22 04:25 RDW 12.7 % (12.1-15.1) 10/09/22 04:25 Plt Count 231 10^3/cmm (130-400) 10/09/22 04:25 MPV 10.7 fL (7.4-10.4) H 10/09/22 04:25 Neut % (Auto) 65.8 % 10/09/22 04:25 Lymph % (Auto) 21.4 % 10/09/22 04:25 [place] % (Auto) 12.1 % 10/09/22 04:25 Eos % (Auto) 0.2 % 10/09/22 04:25 Baso % (Auto) 0.2 % 10/09/22 04:25 Neut # (Auto) 4.35 10^3/uL (1.8-7.7) 10/09/22 04:25 Lymph # (Auto) 1.4 10^3/uL (0.8-4.8) 10/09/22 04:25 [place] # (Auto) 0.8 10^3/uL (0.2-0.9) 10/09/22 04:25 Eos # (Auto) 0.0 10^3/uL (0.0-0.8) 10/09/22 04:25 Baso # (Auto) 0.0 10^3/uL (0.0-0.1) 10/09/22 04:25 Nucleated RBC % (auto) 0 % 10/09/22 04:25 Nucleated RBCs # 0.0 /100WBC 10/09/22 04:25 Specimen Type Arterial 10/06/22 04:10 Sample Site Radial, right 10/06/22 04:10 ABG pH 7.36 (7.35-7.45) 10/06/22 04:10 ABG pCO2 41.6 mmHg (35-45) 10/06/22 04:10 ABG pO2 76.7 mmHg (80.0-100.0) L 10/06/22 04:10 ABG HCO3 23.3 mmol/L (22-26) 10/06/22 04:10 ABG Base Excess -2.2 mmol/L (-2.0-2.0) L 10/06/22 04:10 Tien Test Pos 10/06/22 04:10 Hematocrit 44.4 % (37-47) 10/06/22 04:10 O2 Delivery Device Room air 10/06/22 04:10 FiO2 21.0 % 10/06/22 04:10 Systems Tester ID Prakash 10/06/22 04:10 Sodium 138 mmol/L (136-145) 10/09/22 04:25 Potassium 2.9 mmol/L (3.5-5.1) L D 10/09/22 04:25 Chloride 97 mmol/L (98-107) L 10/09/22 04:25 Carbon Dioxide 28 mmol/L (22-29) 10/09/22 04:25 Anion Gap 15.9 (5-19) 10/09/22 04:25 BUN 20 mg/dL (8-23) 10/09/22 04:25 Creatinine 0.8 mg/dL (0.5-0.9) 10/09/22 04:25 GFR Calculation Not Reportable 10/09/22 04:25 Glucose 90 mg/dL (65-115) 10/09/22 04:25 Estimat Average Glucose 91 10/07/22 04:43 Hemoglobin A1c 4.8 % (4.0-6.0) 10/07/22 04:43 Calculated Osmolality 288 mOsm/kg (285-295) 10/09/22 04:25 Lactic Acid 2.2 mmol/L (0.5-2.2) 10/06/22 09:15 Lactic Acid (Sepsis) 1.0 mmol/L (0.5-2.2) 10/06/22 12:45 Calcium 8.8 mg/dL (8.5-10.5) 10/09/22 04:25 Iron 34 ug/dL (37-145) L 10/06/22 02:41 TIBC 238 mcg/dl 10/06/22 02:41 % Saturation 14.2 % (20-50) L 10/06/22 02:41 Unsat Iron Binding 204 ug/dL (112-347) 10/06/22 02:41 Total Bilirubin 0.4 mg/dL (0.15-1.2) 10/09/22 04:25 AST 27 U/L (0-32) 10/09/22 04:25 ALT 21 U/L (0-33) 10/09/22 04:25 Alkaline Phosphatase 82 U/L (35-105) 10/09/22 04:25 Troponin T Baseline 26 ng/L (0-10) H 10/06/22 02:41 Troponin T 120 Minute 43.51 ng/L (0-10) H 10/06/22 05:16 Delta Troponin T 17.51 ABS# (0-10) H* 10/06/22 05:16 Troponin T Hi Sens 6Hr 66.83 ng/L (0-10) H 10/06/22 09:15 Troponin T Hi Sens 6Hr Delta 40.83 ng/L (0-12) H* 10/06/22 09:15 C-Reactive Protein 21.7 mg/L (0.0-4.9) H 10/06/22 04:58 NT-Pro-B Natriuret Pep 86113 pg/mL (0-450) H 10/06/22 02:41 Total Protein 5.9 g/dL (6.6-8.7) L 10/09/22 04:25 Albumin 3.2 g/dL (3.5-5.2) L 10/09/22 04:25 Globulin 2.7 g/dL (1.3-4.6) 10/09/22 04:25 Lipase 48 U/L (13-60) 10/06/22 02:41 Vitamin B12 769 pg/mL (232-1245) 10/06/22 02:41 Folate > 20.0 ng/mL (4.8-37.3) 10/06/22 02:41 Procalcitonin 0.12 ng/mL (0-0.5) 10/06/22 04:58 TSH 3.47 uIU/mL (0.27-4.20) 10/06/22 04:58 Urine Color Light yellow (Yellow) 10/06/22 10:19 Urine Appearance Clear (CLEAR) 10/06/22 10:19 Urine pH 5 (5-7) 10/06/22 10:19 Ur Specific [place] 1.010 (1.005-1.030) 10/06/22 10:19 Urine Protein 3+ (Negative) H 10/06/22 10:19 Urine Glucose (UA) Norm (Normal) 10/06/22 10:19 Urine Ketones Negative (Negative) 10/06/22 10:19 Urine Blood 3+ (Negative) H 10/06/22 10:19 Urine Nitrate Negative (Negative) 10/06/22 10:19 Urine Bilirubin Neg (Negative) 10/06/22 10:19 Urine Urobilinogen Neg mg/dL (Negative) 10/06/22 10:19 Ur Leukocyte Esterase Negative (Negative) 10/06/22 10:19 Urine RBC 40-50 /hpf (0-2) H 10/06/22 10:19 Urine WBC 0-4 /hpf (0-5) H 10/06/22 10:19 Ur Squamous Epith Cells 0-4 /hpf (0-5) H 10/06/22 10:19 Amorphous Sediment Trace /hpf 10/06/22 10:19 Urine Bacteria 1+ /hpf (NONE) H 10/06/22 10:19 Hyaline Casts 0-4 /lpf H 10/06/22 10:19 Urine Mucus 1+ /hpf 10/06/22 10:19 Nasal Influ A H1 2008 PCR Not detected (NOT DETECT) 10/06/22 05:09 Adenovirus (PCR) Not detected (NOT DETECT) 10/06/22 05:09 C. pneumoniae DNA (PCR) Not detected (NOT DETECT) 10/06/22 05:09 Coronavirus 229E (PCR) Not detected (NOT DETECT) 10/06/22 05:09 Human Metapneumovir PCR Not detected (NOT DETECT) 10/06/22 05:09 Influenza A (H1) PCR Not detected (NOT DETECT) 10/06/22 05:09 Influenza A (H3) PCR Not detected (NOT DETECT) 10/06/22 05:09 Influenza Type A (PCR) Not detected (NOT DETECT) 10/06/22 05:09 Influenza Type B (PCR) Not detected (NOT DETECT) 10/06/22 05:09 M. pneumoniae (PCR) Not detected (NOT DETECT) 10/06/22 05:09 Parainfluenza 1 (PCR) Not detected (NOT DETECT) 10/06/22 05:09 Parainfluenza 2 (PCR) Not detected (NOT DETECT) 10/06/22 05:09 Parainfluenza 3 (PCR) Not detected (NOT DETECT) 10/06/22 05:09 Parainfluenza 4 (PCR) Not detected (NOT DETECT) 10/06/22 05:09 RSV Type A (PCR) Not detected (NOT DETECT) 10/06/22 05:09 RSV Type B (PCR) Not detected (NOT DETECT) 10/06/22 05:09 Entero/Rhino (PCR) Not detected (NOT DETECT) 10/06/22 05:09 SARS-CoV-2 (PCR) Not detected (NOT DETECT) 10/06/22 05:09 Vitals Last Vital Signs Temp 98.4 F 10/09/22 04:00 Pulse 70 10/09/22 11:14 Resp 18 10/09/22 11:14 BP 140/79 10/09/22 04:00 Pulse Ox 97 10/09/22 11:14 O2 Del Method Room Air 10/09/22 11:14 O2 Flow Rate 2 10/09/22 07:38 Discharge Plan Discharge Patient Disposition: Home Condition: Stable Prescriptions: New furosemide [Lasix] 40 mg tablet 40 mg PO BID Qty: 60 0RF potassium chloride 20 mEq tablet extended release 20 meq PO BID Qty: 60 0RF isosorbide mononitrate 30 mg tablet extended release 24 hr 30 mg PO QAM Qty: 30 0RF nifedipine 60 mg tablet extended release 60 mg PO DAILY Qty: 30 0RF Continued atorvastatin 80 mg tablet 80 mg PO QPM metoprolol tartrate 25 mg tablet 12.5 mg PO BID Dexilant 60 mg capsule,biphase delayed releas 60 mg PO DAILY alendronate 70 mg tablet 70 mg PO Q7D Rx Instructions: Take one tab on Monday once weekly citalopram 20 mg tablet 20 mg PO DAILY 90 Days Qty: 90 2RF Rx Instructions: TAKE ONE TABLET BY MOUTH DAILY galantamine 4 mg tablet 4 mg PO BID Qty: 180 3RF Rx Instructions: administer with AM and PM meals levetiracetam 500 mg tablet 750 mg PO BID 30 Days Qty: 180 3RF lorazepam 0.5 mg tablet 0.5 mg PO DAILY PRN (Reason: anxiety) Qty: 10 0RF Multi-Vitamin Tablet 1 tab PO DAILY Vitamin D3 50 mcg (2,000 unit) Capsule 50 mcg PO DAILY albuterol sulfate 90 mcg/actuation HFA aerosol inhaler 2 puff INHALATION Q6H PRN (Reason: Shortness Of Breath Or Wheezing) cranberry 400 mg Capsule 400 mg PO DAILY Rx Instructions: administer with a meal Discontinued nifedipine 90 mg tablet extended release 90 mg PO DAILY Discharge Orders: Discharge Order (Routine); Ordered 10/09/22 Ordered By: Ankur Machado Other Ambulatory Orders: Sestamibi Stress Test Request (Routine) Timeframe: 1 Week Facility: [facility] - Location: Cardiac Diagnostic Laboratory Ordered By: Ankur Machado Referrals: Honorio Ren [Primary Care Provider] - 4-7 days (Please call for an follow-up appointment with Dr. Ren in 4 to 7 days. Also, [facility] Centralized Scheduling will contact you to schedule an outpatient Stress Test. If you haven't heard from them by Monday afnoon. Please call ) Discharge Diet: Advance as tolerated, Cardiac and Soft Mechanical Discharge Activity: Resume usual activity and Increase activity as tolerated Patient Instructions: Nifedipine (By mouth) (Adalat CC, Nifedical XL, Procardia, Procardia XL), Furosemide (By mouth) (Lasix), Potassium Chloride (By mouth), Isosorbide Mononitrate (By mouth) (Imdur, Imdur ER, Ismo), DASH Eating Plan (DC), Hypoxia (GEN), CHF Stoplight, Opioid Safety, Pneumonia Stoplight Activity Restrictions/Additional Instructions: Dose of nifedipine has been changed to 60 mg daily. Imdur 30 mg daily has been added to your medication list. Take Lasix 40 mg twice daily. On the day of Lasix also takes potassium 20 mg twice daily. Please check your body weight daily at home and maintain a weight diary. If your weight increases by 5 pounds of its current weight you can take extra Lasix ~body weight comes back to baseline. Please follow-up with a primary care provider within next 1 week for repeat BMP. Please check your blood pressure daily at home and maintain a blood pressure diary and follow-up with a primary care provider within next 1 week for further adjustment of antihypertensive. Please schedule cardiac Lexiscan stress test for further evaluation of new low EF. Mechanical soft diet going forward for next 1 week and then gradually advancing to regular consistency diet Fluid restriction of less than 1500 cc/day, salt restriction of less than 2 g/day Discharge Attestations Time Spent in Discharge Care*: greater than 30 min Status at Discharge: Cognitive status at discharge: mildly impaired cognition , Behavioral status at discharge: cooperative , Functional status at discharge: uses cane/walker , Overall status at discharge: patient is progressing back to baseline Quality Metrics Clinical Quality Measures [ No reported AMI, CVA or VTE this stay] Coding Level of Care Code 82970 Total time (in minutes) for Discharge: 60 Diagnoses Acute respiratory failure with hypoxia J96.01 Acute exacerbation of CHF (congestive heart failure) I50.9 Pneumonia J18.9 Acute diarrhea R19.7 Epilepsy G40.909 CKD (chronic kidney disease) stage 2, GFR 60-89 ml/min N18.2 Alzheimer disease G30.9; F02.80 Hypertension I10 GERD (gastroesophageal reflux disease) K21.9 Dyslipidemia E78.5 Arteriosclerotic heart disease I25.10 Secondarily generalized seizures
== END 2022-10-09 14:00 | disposition home health service (06) | DRG 291 ==
LOC: ER 04:40 → CSU 05:17
PROVIDERS: Admitting Provider Family Medicine; Emergency Provider Emergency Medicine; PCP Family Medicine; Visit Provider Student in an Organized Health Care Education/Training Program
DX: I13.0 Hypertensive heart and chronic kidney disease with heart failure and stage 1 through stage 4 chronic kidney disease, or unspecified chronic kidney disease (principal); I50.23 Acute on chronic systolic (congestive) heart failure; N18.2 Chronic kidney disease, stage 2 (mild); G30.9 Alzheimer's disease, unspecified; F02.80 Dementia in other diseases classified elsewhere, unspecified severity, without behavioral disturbance, psychotic disturbance, mood disturbance, and anxiety; I25.10 Atherosclerotic heart disease of native coronary artery without angina pectoris; K21.9 Gastro-esophageal reflux disease without esophagitis; I34.0 Nonrheumatic mitral (valve) insufficiency; I27.20 Pulmonary hypertension, unspecified; Z79.51 Long term (current) use of inhaled steroids; G40.909 Epilepsy, unspecified, not intractable, without status epilepticus; E78.5 Hyperlipidemia, unspecified; Z87.891 Personal history of nicotine dependence; R19.7 Diarrhea, unspecified
CPT/HCPCS: 36415; 51702; 70450; 71045; 71275; 74177; 80053; 81001; 82274; 82607; 82746; 82803; 83036; 83540; 83550; 83605; 83630; 83690; 83880; 84145; 84443; 84484; 85025; 86140; 86403; 87040; 87070; 87086; 87205; 87449; 87486; 87493; 87506; 87581; 87633; 87641; 92610; 93005; 93306; 94640; 94664; 94760; 96372; 96376; 97161; 97530; C9113; J0360; J0456; J0696; J1100; J1650; J1940; J2185; J2405; J2550; J3370; J7030; J7050; J7626; Q9967

== ENCOUNTER → 2022-10-24 09:47 | Outpatient (BNVA) | payer MEDICARE, SELFPAY | PROVIDERS: PCP Family Medicine; Visit Provider Nurse Practitioner | DX: N39.0 Urinary tract infection, site not specified (principal); E87.6 Hypokalemia; R19.7 Diarrhea, unspecified | CPT/HCPCS: 80053; 81003; 85025; 87077; 87086; 87184 ==

== ENCOUNTER → 2022-10-27 07:50 | Outpatient (BNVA) | payer MEDICARE, SELFPAY | PROVIDERS: PCP Family Medicine; Visit Provider Nurse Practitioner | DX: E87.6 Hypokalemia (principal) | CPT/HCPCS: 83630; 87045; 87427; 87449 ==

== ENCOUNTER → 2022-11-02 08:56 | Outpatient (BNVA) | payer MEDICARE, SELFPAY | PROVIDERS: PCP Family Medicine; Visit Provider Nurse Practitioner | DX: E87.6 Hypokalemia (principal); N39.0 Urinary tract infection, site not specified | CPT/HCPCS: 81000 ==

== ENCOUNTER 2022-11-08 09:29 | Outpatient (CLI) | payer MEDICARE, SELFPAY ==
[2022-11-08 10:26] VITALS: BMI 22.6
--- NOTE | 2022-11-08 10:27 | ECG_ITS ---
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 Interpretive Statements NAME OF STUDY: LEXISCAN SESTAMIBI STRESS TEST INDICATION: [Chest Pain, ] Procedure: At the baseline, the blood pressure was 127/58 mmHg with a heart rate of 58 bpm. The electrocardiogram showed sinus bradycardia, normal axis with borderline ST depression The Lexiscan was infused over a period of 20 seconds. A total of 0.4 mg of Lexiscan was infused. The stress phase was continued for a total of 5 minutes. Heart rate was at the end of stress phase was 66 bpm and a blood pressure of 112/60 mmHg. The EKG at the peak infusion revealed normal sinus rhythm with no significant ST-T wave changes. Sestamibi was injected 20 seconds after the Lexiscan infusion. Blood pressure at the end of recovery phase was 115/57 mmHg with a heart rate of 75 bpm. Conclusion: 1. Normal EKG response to Lexiscan infusion 2. No Lexiscan induced chest pain or cardiac arrhythmia. 3. Normal blood pressure and heart rate response. 4. Sestamibi/sestamibi perfusion scan pending; see separate report. Electronically Signed On 11-22-2022 17:27:15 CDT by Pawan Tse M.D. [email or web address]
--- NOTE | 2022-11-08 10:27 | NMCV_ITS ---
NM susie perf SPECT r/s* [id number] Wendy Covarrubias Age: 82 Gender: F : 1940 Exam Date: 11/08/2022 10:27 Ordering Phys: Ankur Machado MD Technologist: BIRDIE Jang Exam Location: [facility] Indications: HEART DISEASE STRESS TEST [facility] IMAGE PROTOCOL Rest/Stress 1 Lexiscan Day Radiopharmaceutical Dose (mCi) Administration Site Administered by Rest: Tc-99m 10.7 IV BIRDIE Pinzon Sestamibi Stress:Tc-99m 33.0 IV BIRDIE Pinzon Sestamibi Rest: 08-Nov-2022 60 Discovery 630 Stress: 08-Nov-2022 30 Discovery 630 0.4mg Lexiscan. Supine position only as patient was unable to lay prone. SPECT RESULTS Technical Quality: Good Raw Data Analysis: Normal Image Corrections: Patient motion artifact - motion correction applied to stress images. Summed Stress Score: 11 Summed Rest Score: 4 Summed Difference Score: 7 PERFUSION FINDINGS There is a medium sized mostly reversible perfusion defect noted in the apical, apical septal kwan. This is consistent with medium sized area of ischemia in LAD territory. There is a partially reversible perfusion defect noted in the apical inferior and inferolateral kwan. This is consistent with medium sized area of prior infarct with lydia-infarct ischemia in LCx/RCA territories. FUNCTIONAL RESULTS (calculated via Gated SPECT) Stress Image LV EF (%): 47 Stress EDV (mL):95 TID: 0.93 Stress ESV (mL):50 FUNCTIONAL FINDINGS: LV systolic function is mildly reduced with EF of 47%. IMPRESSIONS 1. Medium sized area of ischemia seen in the LAD territory. 2. 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 3. LV systolic function is mildly reduced with EF of 47%. Mild global hypokinesis is seen Pawan Tse MD (Electronically Signed) Final Date: 12 November 2022 09:33 S
[2022-11-08] MEDS: regadenoson 0.4 Mg/5 ml Syringe IVP (11:49)
[2022-11-08 12:10] VITALS: BP 113/52; PULSE 71
== END 2022-11-08 09:30 | disposition home or self-care (01) ==
LOC: CDL 09:34
PROVIDERS: PCP Family Medicine; Visit Provider Student in an Organized Health Care Education/Training Program
DX: R06.02 Shortness of breath (principal); R07.9 Chest pain, unspecified; I25.9 Chronic ischemic heart disease, unspecified; I25.2 Old myocardial infarction
CPT/HCPCS: 36415; 78452; 93017; 96374; A9500; J2785

== ENCOUNTER → 2022-12-01 12:16 | Outpatient (BNVA) | payer MEDICARE, SELFPAY | PROVIDERS: PCP Family Medicine; Visit Provider Internal Medicine | DX: R07.9 Chest pain, unspecified (principal); R94.39 Abnormal result of other cardiovascular function study; R06.09 Other forms of dyspnea; E78.5 Hyperlipidemia, unspecified; I77.9 Disorder of arteries and arterioles, unspecified; I10 Essential (primary) hypertension; Z87.891 Personal history of nicotine dependence | CPT/HCPCS: 93005; 99204 ==

== ENCOUNTER → 2022-12-22 09:52 | Outpatient (BNVA) | payer MEDICARE, SELFPAY | PROVIDERS: PCP Family Medicine; Visit Provider Internal Medicine | DX: R94.39 Abnormal result of other cardiovascular function study (principal); R06.09 Other forms of dyspnea; I10 Essential (primary) hypertension; E78.5 Hyperlipidemia, unspecified; I77.9 Disorder of arteries and arterioles, unspecified; R07.9 Chest pain, unspecified | CPT/HCPCS: 80048; 83880; 85025 ==

== ENCOUNTER 2022-12-27 05:51 | Outpatient (CLI) | payer MEDICARE, SELFPAY ==
[2022-12-27] VITALS (22 sets, daily range): BP systolic 93–151; BP diastolic 32–92; PULSE 42–99; RESP 10–23; TEMP 36.8; O2SAT 95–99; BMI 21.1
--- NOTE | 2022-12-27 06:00 | XACV_ITS ---
Ht: 155 cm Wt: 51 kg BSA: 1.48 m2 Gender: Female : 1940 Any Known Allergies: Morphine Exam Priority: Routine Procedure(s): Procedure Description: Diagnostic procedure Procedure Description: Left Heart Catheterization Procedure Description: Coronary IVUS Procedure Description: Miscellaneous Procedure Description: ACT Procedure Description: Coronary Angiography Procedure Description: Pressure Wire Diagnostic Cath Status: Elective Diagnostic Findings * INDICATION: Dyspnea on exertion/LV dysfunction/ abnormal stress test. * Left Main has no significant disease. * Circumflex has no significant disease. * Proximal Left Anterior Descending: minimal 30% stenosis, SANTOS: 3 flow. * Mid Left Anterior Descending: obstructive 60% stenosis, SANTOS: 3 flow. * Proximal Right Coronary Artery: minimal 30% stenosis, SANTOS: 3 flow. * Coronary angiography shows right dominance. PCI Status: Elective PCI Indication: Other Interventional Findings * PROCEDURE DETAIL: We engaged left main artery with XB 3.0 guide catheter. IV heparin was administered to maintain anticoagulation. iFR wire was advanced into the guide and was normalized in the left main artery. We then advanced it across the LAD stenosis and was put in distal vessel. Significantly ischemic IFR value of 0.79 was obtained. Gradient was across the mid LAD stenosis on pullback. iFR pullback value was 0.74. We then advanced a run-through guidewire into the distal LAD. We predilated the mid LAD stenosis with 2.5 x 12 mm semicompliant balloon. This was followed by placement of 2.75 x 15 mm resolute Armona drug-eluting stent. At this time we performed IVUS of the proximal LAD lesion as it was not well-visualized on angiography secondary to vessel overlap. MLA of 5.3 mm2 was obtained which was not significant for stenting. We decided to treat it medically.. * Mid Left Anterior Descendin% stenosis treated with a AB TREK 2.50X12 RX BALLOON, and MDT R ELLI 2.75X15 CRYSTAL. 0% residual stenosis, SANTOS: 3 flow. Conclusions 1. Severe mid LAD stenosis confirmed with IFR value of 0.79. 2. S/p successful revascularization with 1 stent. IVUS of ostial to proximal LAD not significant. MLA of 5.3 mm2 obtained.. 3. Mid Left Anterior Descending was treated with a Balloon, and Drug Eluting Stent. Recommendations * Dual antiplatelet therapy with aspirin and plavix for atleast 1 year. * High intensity statin therapy. * Outpatient cardiology follow up in 2-4 weeks. Interventional RX Recommendation: PCI w/o planned CABG Diagnostic RX Recommendation: PCI w/o planned CABG Anticoagulation: Heparin Pressures Phase:Rest AO : 117 / 44 ( 72 ) @ 8:29:00 AM 142 / 47 ( 84 ) @ 8:38:00 AM 162 / 39 ( 77 ) @ 8:45:00 AM 170 / 41 ( 89 ) @ 8:59:00 AM Clinical Evaluation EBL: 5mL-10mL Procedural Details Procedure Consent Obtained. Pre-Procedure Time Out. Identified patient by full name and date of as verbalized by the patient/guarantor. Does the consent match the physician's order: Yes. Accurate & Complete Informed Consent: Yes. Inpatient/Outpatient History & Physical on Chart: Yes. If H&P is completed, is and addenduem needed: No; If yes, is the addendum complete: N/A. Visualize and Verify Site with Patient/Guarantor: N/A. Relevant Radiology Images available: N/A. Pre-op teaching completed and patient verbalized understanding. The risks, benefits, and alternatives of sedation and/or procedure were discussed by physician. The patient agrees to continue. Procedure started. 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 Chest Pain Symptom Assessment: Typical Angina Symptoms. Cardiovascular Instability: No. Correct patient, site and procedure confirmed by cath team. PERRLA. 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 Lungs clear x 5 lobes. IV Site on Arrival: 22 gauge in the left forearm. IV Fluids: 0.9% NaCl at KVO. 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 Pre Procedural Pulses: bilateral dorsalis pedis was Doppled. Pre Procedural Pulses: bilateral posterior tibial was Doppled. Pre Procedural Pulses: bilateral radial was 3+. Oxygen started at 2liters/min via nasal canula. right groin was prepped with chloroprep then draped in the usual sterile fashion. right radial was prepped with chloroprep then draped in the usual sterile fashion. Baseline sample Acquired. HR: 59 BPM. Physician notified. Physician arrived. Equipment: 6F - Radial. Cardiac Cath Pack. ACIST Manifold Kit Model BT 2000. Heparinized Saline (2 units/mL), 1000 mL bag. Physician scrubbed in. Immediate Pre-Procedure Time Out. Correct Patient: Yes; Correct Procedure: Yes; Correct Site: Yes; Correct Patient Position: Yes; Correct Supplies: Yes; Dried Flammable Prep: Yes; Blood Products Available: N/A;. Lidocaine 1% infiltrated to the right radial. Arterial access obtained. A 5 congolese TIG catheter in over wire. Multiple views taken of left coronary artery. Catheter redirected to the RCA. Multiple views taken of right coronary artery. Catheter out. 6 congolese XB 3 guide catheter was inserted over the wire. Pressure guidewire was advanced through the guide catheter to lesion in the prox LAD. Pressure wire out. IFR measurement obtained of 0.78. Runthrough guidewire was advanced through the guide catheter to lesion in the mid LAD. Inflation number : 1 A AB TREK 2.50X12 RX BALLOON was prepped and advanced across the Mid LAD , then inflated to 8 RAFI for 0:18 seconds. Balloon out. Inflation Number : 2 A DEX Freeman ELLI 2.75X15 CRYSTAL -Lot Number# [id number] exp date 08/05/2024 was prepped and advanced across the Mid LAD. The stent was deployed at 12 RAFI for 0:17 seconds. Stent balloon and wire out. ACT drawn. Results 311 seconds. Therapeutic limits - pre-heparin administration 90-150 seconds and monitoring heparin during a vascular procedure >250 seconds. Runthrough guidewire was advanced through the guide catheter to lesion in the mid LAD. IVUS catheter inserted over runthrough wire. IVUS catheter out. Runthrough wire out. Guide catheter out. Physician scrubbed out. A TR Band was successful obtaining hemostatsis at the Right Radial artery insertion site. TR band placed. Hemostasis obtained. Post Procedure: Pulses reassessed and unchanged. PERRLA. 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 No VTE prophylaxis required. Medication's Wasted: Nitro = 49.8 mg. Medication's Wasted: Heparin = 1000 units. Medication's Wasted: Other = fentanyl 62.5 mcg. Total IV fluids: 56 mL. Contrast type used: Omnipaque 300 mg/mL, 150 mL bottle. Post-op diagnosis: severe mid LAD stenosis. Post PCI one stent. Complications: none. Estimated blood loss: 5mL-10mL. Responsiveness - Normal response to verbal stimuli; alert and oriented, PERRLA. Airway - Unaffected, no intervention required; spontaneous ventilation. Circulation: W/N/L, pulses unchanged. Nausea/Vomiting: No. Procedure completed. Patient transferred by bed to CPRU. Vital chart was stopped. Access Site Site: Right Radial artery Sheath Size: 6 Fr Hemostasis Method: TR Band Hemostasis Success: Successful Procedure Medications Start: 7:20 AM Stop: 7:20 AM Medication: Versed Amount: 1 mg Route: I.V. Start: 7:20 AM Stop: 7:20 AM Medication: Fentanyl Amount: 25 mcg Route: I.V. Start: 7:27 AM Stop: 7:27 AM Medication: Nitrogylcerin Amount: 200 mcg Route: I.A. Start: 7:29 AM Stop: 7:29 AM Medication: Heparin Amount: 3000 units Route: I.V. Start: 7:39 AM Stop: 7:39 AM Medication: Heparin Amount: 2000 units Route: I.V. Start: 8:07 AM Stop: 8:07 AM Medication: Fentanyl Amount: 12.5 mcg Route: I.V. I, the attending physician, have reviewed and verified all procedure medications. Yes, all medications given per verbal order History/Risk Factors Hypertension: Yes Dyslipidemia: Yes Peripheral Arterial Disease (PAD): No Myocardial Infarction (CO): No Obesity: No Renal Disease: No Tobacco Use: Former Prior Interventions PCI: No CABG: No Valve Surgery: No Report Signatures Finalized by Pawan Tse MD on 01/03/2023 09:34 AM
[2022-12-27] MEDS: aspirin 325 mg Tablet PO (06:20)
[2022-12-27] MEDS: diphenhydrAMINE 50 mg Capsule PO (06:20)
--- NOTE | 2022-12-27 07:22 | W.PM.OPSUD ---
Surgery/Procedure H&P Update DATE OF PROCEDURE: December 27, 2022 DATE H&P PERFORMED: 12/01/22 H&P UPDATE INFORMATION: I have reviewed H&P completed within last 30 days, I have examined patient prior to procedure and No changes to prior documentation PREOP DIAGNOSIS: Dyspnea on exertion/LV dysfunction/ abnormal stress test PRIMARY INDICATION FOR PROCEDURE: Dyspnea on exertion/LV dysfunction/ abnormal stress test PLANNED PROCEDURE: Operation Date: 12/27/22 07:00 Proposed Procedures p [facility] 62222,R94.39, R06.09, I51.89, I50.9, E78.5, I77.9(Left) - Pawan Tse M.D Possible percutaneous coronary intervention PATIENT REASSESSED PRIOR TO SEDATION, WITH NO CHANGE NOTED: Yes PHYSICAL EXAM: alert, oriented x 3, clear to auscultation bilaterally and regular rate & rhythm AIRWAY EVAL/ANESTHESIA PLAN: normal airway, ASA III, Local Anesthesia, Risks, benefits & alternatives of sedation and/or procedure discussed and Patient agrees to continue as planned ADDITIONAL INFORMATION: Moderate sedation
--- NOTE | 2022-12-27 08:15 | SUR.EXTENDED ---
Received the patient back from the label printer via cot s/p PCI of the LAD. Patient A & O x 3. traffic monitor specialist placed and vital signs obtained. TR band intact to the right wrist with no bleeding or hematoma noted. Palpable radial pulse. No other assessment changes noted from pre cath assessment. Daughter at bedside.
--- NOTE | 2022-12-27 09:13 | ECG_ITS ---
[facility] Test Date: 2022-12-27 Pat Name: Wendy Covarrubias Department: Room: Gender: Female Mgmt Analyst: : 1940 Requested By: Pawan Tse Order Number: [id number] Wily MD: Pawan Tse M.D. Measurements Intervals [place] Rate: 62 P: 52 TX: 192 QRS: 1 QRSD: 114 T: 38 QT: 451 QTc: 461 Interpretive Statements SINUS RHYTHM MODERATE INTRAVENTRICULAR CONDUCTION DELAY [105+ ms QRS DURATION, 80+ ms Q/S IN V1/V2, NO Q AND 60+ ms R IN I/aVL/V5/V6] MODERATE ST DEPRESSION [0.05+ mV ST DEPRESSION] Compared to ECG 12/01/2022 12:28:10 Intraventricular conduction delay now present Sinus bradycardia no longer present Possible ischemia no longer present ST (T wave) deviation still present Electronically Signed On 12-27-2022 17:32:57 CDT by Pawan Tse M.D. [email or web address]
--- NOTE | 2022-12-27 09:15 | SUR.EXTENDED ---
Letting the air out of the TR band per protocol.
[2022-12-27] MEDS: aluminum-mag hydrox-simethicon 30 ML, sucralfate oral liq 1 GM PO (09:26)
--- NOTE | 2022-12-27 09:50 | SUR.EXTENDED ---
Patient up in the room to use the bedside commode to urinate. After assisting the patient back to bed this nurse noticed that the patients right palm near her thumb was bruised. The area is soft with no hematoma. The patient stated that I put my hand down on the bed earlier and pushed up . The bruised area is distal to the TR band. Dr. Tse was notified. Will continue letting the air out of the band. No other assessment changes noted.
--- NOTE | 2022-12-27 11:30 | SUR.EXTENDED ---
TR band off. Site cleansed with warm water and patted dry. The bruised area remains the same. No bleeding or hematoma noted. Palpable radial pulse. The site was covered with an opsite and loosely secured with coban as the patient has very thin, fragile skin. She also has an existing skin tear on the top of her right hand that was covered with an opsite as well. No other changes noted at this time. The daughter remains in the room. Still waiting for CSU bed.
--- NOTE | 2022-12-27 13:23 | SUR.EXTENDED ---
Patient transferred via wheelchair to [facility]. Report called to PARKER Blunt
--- NOTE | 2022-12-27 13:48 | PC.NURSE ---
Wendy came from [facility] via a wheelchair to [facility] at 1330.
--- NOTE | 2022-12-27 19:47 | PC.NURSE ---
Patient is s/p C with right radial access. Dressing in place to right wrist remains c,d,i with no s/s of bleeding or hematoma formation observed. Patient has bruising and skin tear to right hand. Patient stated, I did this at home. Patient denies pain at this time to site. Instructed patient on site care and restrictions. Patient verbalized complete understanding. Will continue to monitor.
[2022-12-28] VITALS: BP 95/32; PULSE 43; RESP 17; TEMP 36.9; O2SAT 98
[2022-12-28 04:00] VITALS: BP 117/56; PULSE 46; RESP 18; TEMP 37.1; O2SAT 97
[2022-12-28 04:48] VITALS: PULSE 52
[2022-12-28 08:00] VITALS: BP 98/70; PULSE 46; RESP 20; TEMP 36.6; O2SAT 96
[2022-12-28] MEDS: aspirin 81 mg EC Tablet PO (08:49)
[2022-12-28] MEDS: clopidogrel 75 mg Tablet PO (08:49)
[2022-12-28 11:14] VITALS: BP 124/52; PULSE 67; RESP 17; O2SAT 94
[2022-12-28 11:42] LABS: Anion Gap 12.5 (5-19); Blood Urea Nitrogen 20 mg/dL (8-23); Calcium 8.8 mg/dL (8.5-10.5); Carbon Dioxide 26 mmol/L (22-29); Chloride 106 mmol/L (98-107); Glucose 109 mg/dL (65-115); Osmolality Calculated 293 mOsm/kg (285-295); Potassium 4.5 mmol/L (3.5-5.1); Sodium 140 mmol/L (136-145)
--- NOTE | 2022-12-28 12:24 | P.DS_ITS ---
Discharge Providers Date of Admission: 12/27/2022 Date of Discharge: December 28, 2022 Attending Provider at Admission: Pawan Tse MD Attending Provider at Discharge: Pawan Tse M.D Primary Care Provider: Honorio Ren Reason for Visit Reason for Visit: R94.39, R06.09, I51.89, I50.9, E78.5, I77.9 Brief History: 82-year-old woman who has recently been found to have significantly low LV systolic function with EF of 35 to 40%. She also had abnormal stress test. She has significant dyspnea on exertion and on and off chest pain symptoms. Plan for coronary angiogram with possible percutaneous coronary intervention. Hospital Course Hospital Course Patient underwent coronary angiogram that showed moderate to severe mid LAD stenosis. iFR was significantly abnormal with a value of 0.79. She underwent successful revascularization with 1 stent. She stayed stable overnight and was discharged home in a stable condition. Physical Exam Narrative: GENERAL: Patient is alert, awake and oriented x3. [] NECK: No jugular vein distension. [] HEENT: No cyanosis. No icterus. No pallor. [] HEART: Regular S1 and S2. No murmur, rub or gallop. [] LUNGS: Clear to auscultate bilaterally. [] CENTRAL NERVOUS SYSTEM: Grossly nonfocal. [] EXTREMITIES: Lower extremities with 1+ edema bilaterally. Pulses palpable in the lower extremities, both dorsalis pedis and posterior tibial. [] Discharge Data Studies Completed and Pending Pending at discharge Category Date Time Status OPERATIONS PROJECT MANAGER request for service Routine Exams 12/27/22 06:00 Taken Laboratory Results Sodium 140 mmol/L (136-145) 12/28/22 10:39 Potassium 4.5 mmol/L (3.5-5.1) 12/28/22 10:39 Chloride 106 mmol/L (98-107) 12/28/22 10:39 Carbon Dioxide 26 mmol/L (22-29) 12/28/22 10:39 Anion Gap 12.5 (5-19) 12/28/22 10:39 BUN 20 mg/dL (8-23) 12/28/22 10:39 Creatinine 1.0 mg/dL (0.5-0.9) H 12/28/22 10:39 GFR Calculation Not Reportable 12/28/22 10:39 Glucose 109 mg/dL (65-115) 12/28/22 10:39 Calculated Osmolality 293 mOsm/kg (285-295) 12/28/22 10:39 Calcium 8.8 mg/dL (8.5-10.5) 12/28/22 10:39 Vitals Last Vital Signs Temp 97.9 F 12/28/22 08:00 Pulse 67 12/28/22 11:14 Resp 17 12/28/22 11:14 BP 124/52 12/28/22 11:14 Pulse Ox 94 12/28/22 11:14 O2 Del Method Room Air 12/28/22 11:14 O2 Flow Rate 2 12/27/22 13:00 Discharge Plan Discharge Patient Disposition: Home Prescriptions: New aspirin 81 mg Tablet,Delayed Release (Dr/Ec) 81 mg PO DAILY Qty: 90 3RF clopidogrel 75 mg Tablet 75 mg PO DAILY Qty: 90 3RF Continued atorvastatin 80 mg tablet 80 mg PO QPM metoprolol tartrate 25 mg tablet 12.5 mg PO BID Dexilant 60 mg capsule,biphase delayed releas 60 mg PO DAILY alendronate 70 mg tablet 70 mg PO Q7D Rx Instructions: Take one tab on Monday once weekly Probiotic Digestive Care 20 billion cell capsule See Rx Instructions PO .2 times day Qty: 60 0RF Rx Instructions: 20 billion cell PO .2 times day; nitroglycerin 0.4 mg tablet, sublingual 0.4 mg sublingual Q5M PRN (Reason: chest pain) Qty: 25 0RF Rx Instructions: do not exceed 3 doses per episode Lasix 40 mg tablet 80 mg PO DAILY Rx Instructions: Give 1 extra for >2# weight gain citalopram 20 mg tablet 20 mg PO DAILY 90 Days Qty: 90 2RF Rx Instructions: TAKE ONE TABLET BY MOUTH DAILY galantamine 4 mg tablet 4 mg PO BID Qty: 180 3RF Rx Instructions: administer with AM and PM meals levetiracetam 500 mg tablet 750 mg PO BID 30 Days Qty: 180 3RF lorazepam 0.5 mg tablet 0.5 mg PO DAILY PRN (Reason: anxiety) Qty: 10 0RF multivitamin Tablet 1 tab PO DAILY cholecalciferol (vitamin D3) [Vitamin D3] 50 mcg (2,000 unit) Capsule 50 mcg PO DAILY albuterol sulfate 90 mcg/actuation HFA aerosol inhaler 2 puff INHALATION Q6H PRN (Reason: Shortness Of Breath Or Wheezing) cranberry 400 mg Capsule 400 mg PO DAILY Rx Instructions: administer with a meal potassium chloride 20 mEq tablet extended release 20 meq PO BID Qty: 60 0RF nifedipine 60 mg tablet extended release 60 mg PO DAILY Qty: 30 0RF isosorbide mononitrate 30 mg tablet extended release 24 hr 30 mg PO QAM Qty: 30 0RF Discharge Orders: Discharge Order (Routine); Ordered 12/28/22 Ordered By: Pawan Tse Referrals: Shanelle Almaraz FNP [Nurse Practitioner] - 01/05/23 8:45 am Diet: Cardiac Activity: Increase activity as tolerated Patient Instructions: Aspirin (By mouth), Clopidogrel (By mouth) (Plavix), Coronary Angioplasty (DC), Dyspnea (DC), Post Angiogram Home Care Instructions Discharge Date/Time: 12/28/22 13:35 Discharge Attestations Time Spent in Discharge Care*: less than 30 min Status at Discharge: Cognitive status at discharge: mildly impaired cognition , Behavioral status at discharge: cooperative , Quality Metrics Clinical Quality Measures [ No reported AMI, CVA or VTE this stay] Coding Level of Care Code Acute Code for Chg Fwd Diagnoses
--- NOTE | 2022-12-28 13:43 | PC.NURSE ---
Discharge Note Patient discharged to [home] via [POV] accompanied by [daughter]. Discharge instructions reviewed with patient and/or personal financial representative. Mobile pharmacy medications and/or prescriptions provided. Belongings/home medications returned.
== END 2022-12-28 13:35 | disposition home or self-care (01) ==
LOC: CCL 05:51 → CSU 14:45
PROVIDERS: PCP Family Medicine; Visit Provider Internal Medicine
DX: R94.39 Abnormal result of other cardiovascular function study (principal); R07.9 Chest pain, unspecified; R06.00 Dyspnea, unspecified; I25.10 Atherosclerotic heart disease of native coronary artery without angina pectoris; I10 Essential (primary) hypertension; E78.5 Hyperlipidemia, unspecified; Z87.891 Personal history of nicotine dependence
CPT/HCPCS: 36415; 80048; 85347; 92978; 93005; 93454; 93571; 96361; 96365; 96376; 99152; 99153; C1725; C1753; C1769; C1874; C1887; C1894; C9600; J1644; J2250; J3010; J3490; J7030; Q0163; Q9967

== ENCOUNTER → 2023-01-09 10:15 | Outpatient (BNVA) | payer MEDICARE, SELFPAY | PROVIDERS: PCP Family Medicine; Visit Provider Nurse Practitioner Family | DX: I25.10 Atherosclerotic heart disease of native coronary artery without angina pectoris (principal); I13.10 Hypertensive heart and chronic kidney disease without heart failure, with stage 1 through stage 4 chronic kidney disease, or unspecified chronic kidney disease; N18.2 Chronic kidney disease, stage 2 (mild); Z87.891 Personal history of nicotine dependence | CPT/HCPCS: 36415; 80048; 99214 ==

== ENCOUNTER 2023-03-10 09:20 | Emergency (ER) | payer MEDICARE, SELFPAY ==
[2023-03-10 09:58] VITALS: BP 143/84; PULSE 66; RESP 17; TEMP 36.7; O2SAT 99; BMI 21.7
[2023-03-10 10:07] VITALS: BP 185/58; PULSE 63; RESP 19; O2SAT 99
--- NOTE | 2023-03-10 10:13 | CTR_ITS ---
PROCEDURE INFORMATION: Exam: CT Chest With Contrast; Diagnostic Exam date and time: 03/10/2023 12:22 PM Age: 83 years old Clinical indication: Pain and injury or trauma; Fall; Ruq; Abdominal pain; Localized; Blunt trauma (contusions or hematomas); Chest wall pain and right-sided; Additional info: Right chest/abd pain, fall, right chest pain, right upper abd pain TECHNIQUE: Imaging protocol: Diagnostic computed tomography of the chest with contrast. Radiation optimization: All CT scans at this facility use at least one of these dose optimization techniques: automated exposure control; mA and/or kV adjustment per patient size (includes targeted exams where dose is matched to clinical indication); or iterative reconstruction. Contrast material: OMNI 350; Contrast volume: 70 ml; Contrast route: INTRAVENOUS (IV); REPORTING DATA: Count of CT and Cardiac NM exams in prior 12 months: This patient has received 3 known CTs and 0 known cardiac nuclear medicine studies in the 12 months prior to the current study. COMPARISON: 1. CT angio chest w abd pel w con 10/06/2022 3:[address] angio chest PE protcl [id number] 11/27/2020 5:[address] angio chest PE protcl [id number] 11/20/2020 5:03 PM 4. Report only from CT angiogram neck dated 11/30/2016 RADIATION DOSE METRICS: Total DLP (mGy-cm): 544.52 FINDINGS: Thyroid: 1.9 cm left inferior thyroid nodule, stable. Lungs: Moderate upper lung predominant emphysematous changes. No consolidation. No mass. Pleural spaces: No pleural effusion or pneumothorax. Heart: Unremarkable. No cardiomegaly. No pericardial effusion. Coronary arteries: Moderate coronary artery calcification. Lymph nodes: No enlarged lymph nodes. Vasculature: Heavy systemic atherosclerosis without aortic aneurysm. Chronic occlusion of the left vertebral artery. Diaphragm: Small hiatal hernia. Bones/joints: No acute fracture. Stable compression deformity of the T8 vertebral body. Chronic fracture deformities of both proximal humeri. Mild degenerative changes along the spine and shoulders. Soft tissues: Unremarkable. PROCEDURE INFORMATION: Exam: CT Abdomen With Contrast Exam date and time: 03/10/2023 12:22 PM Age: 83 years old Clinical indication: Pain and injury or trauma; Fall; Ruq; Abdominal pain; Localized; Blunt trauma (contusions or hematomas); Chest wall pain and right-sided; Additional info: Right chest/abd pain, fall, right chest pain, right upper abd pain TECHNIQUE: Imaging protocol: Computed tomography of the abdomen with contrast. Radiation optimization: All CT scans at this facility use at least one of these dose optimization techniques: automated exposure control; mA and/or kV adjustment per patient size (includes targeted exams where dose is matched to clinical indication); or iterative reconstruction. Contrast material: OMNI 350; Contrast volume: 70 ml; Contrast route: INTRAVENOUS (IV); REPORTING DATA: Count of CT and Cardiac NM exams in prior 12 months: This patient has received 3 known CTs and 0 known cardiac nuclear medicine studies in the 12 months prior to the current study. COMPARISON: CT angio chest w abd pel w con 10/06/2022 3:23 AM RADIATION DOSE METRICS: Total DLP (mGy-cm): 544.52 FINDINGS: Liver: Normal without focal lesions. Gallbladder and bile ducts: Stable postsurgical changes from prior cholecystectomy. Pancreas: Normal without ductal dilatation. Spleen: Normal. Adrenal glands: Normal. No mass. Kidneys and ureters: Stable left renal atrophy with simple appearing cysts and subcentimeter hypodensities too small to characterize, which are statistically likely benign and require no dedicated imaging follow-up. Stomach and bowel: Colonic diverticulosis. Intraperitoneal space: Unremarkable. No free air. No significant fluid collection. Vasculature: Heavy atherosclerosis with redemonstration of complete infrarenal occlusion. Lymph nodes: Unremarkable. No enlarged lymph nodes. Bones/joints: No acute fracture. Degenerative changes along the spine with stable grade 1 anterolisthesis of L5 on S1 and trace retrolisthesis of L4 on L5. Soft tissues: Stable right upper abdominal wall surgical clip. CT/CT chest abdomen w con* IMPRESSION: 1. No acute findings. 2. Moderate emphysema. 3. 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 4. Additional chronic and incidental findings as above. IMPRESSION: 1. No acute findings. 2. Heavy atherosclerosis with known infrarenal occlusion. 3. Additional chronic and incidental findings as above. COMMENTS: Consistent with the [employer]'s Incidental Findings Committee white paper (J Am Sidney Radiol 2018): Any incidental renal lesion less than 1 cm or classified as too small to characterize, or any incidental cystic renal lesion characterized as simple-appearing, is likely benign. No follow-up imaging is recommended for these lesions per consensus recommendations based on imaging criteria.
--- NOTE | 2023-03-10 10:18 | CTR_ITS ---
PROCEDURE INFORMATION: Exam: CT Right Upper Extremity With Contrast, Forearm Exam date and time: 03/10/2023 12:27 PM Age: 83 years old Clinical indication: Injury or trauma; Fall; Blunt trauma (contusions or hematomas); Elbow and arm, lower; Right; Additional info: Hematoma, fall, large hematoma of right forearm on plavix- bleed in TECHNIQUE: Imaging protocol: Computed tomography of the right upper extremity with contrast. Exam focused on the forearm. Radiation optimization: All CT scans at this facility use at least one of these dose optimization techniques: automated exposure control; mA and/or kV adjustment per patient size (includes targeted exams where dose is matched to clinical indication); or iterative reconstruction. Contrast material: OMNI 350; Contrast volume: 40 ml; Contrast route: INTRAVENOUS (IV); REPORTING DATA: Count of CT and Cardiac NM exams in prior 12 months: This patient has received 3 known CTs and 0 known cardiac nuclear medicine studies in the 12 months prior to the current study. COMPARISON: No relevant prior studies available. RADIATION DOSE METRICS: Total DLP (mGy-cm): 520 FINDINGS: Bones/joints: No acute fracture or dislocation. No joint effusion. Soft tissues: Posterior elbow and forearm soft tissue swelling with more focal hyperdense hematoma measuring approximately 3.2 x 2.1 x 7.6 cm. Within this area is curvilinear hyperdensity suspicious for active extravasation. Partially visualized subcutaneous fat stranding overlying the right greater trochanter. CT/CT forearm RT w con [id number] IMPRESSION: 1. Posterior right elbow and forearm superficial soft tissue swelling with suspected active hemorrhage into approximately 7.6 cm long hematoma. 2. Partially visualized soft tissue contusion overlying the right greater trochanter.
--- NOTE | 2023-03-10 10:57 | ED_ITS ---
HPI - Fall General: Chief Complaint: Fall Stated Complaint: fall, injured right arm, right side pain Time Seen by Provider: 03/10/23 09:26 Source: patient and family Mode of arrival: wheelchair Limitations: no limitations History of Present Illness: Patient presents to the emergency department today brought by family for evaluation treatment of injury sustained after a fall today. Patient states she was laying in bed and while laying in bed, reached over the side. She states she lost her balance and fell. Patient sustained a laceration approximately 3 cm in length with minimal wound edge separation to the posterior proximal right forearm. There is slow oozing of blood still present as patient is chronically anticoagulated on a baby aspirin and Plavix. However, she has an extremely large hematoma affecting the right proximal, medial forearm. Patient shows no signs of compartment syndrome. She denies elbow pain. Patient also complains of right-sided chest, rib, and right upper quadrant pain from her fall this morning. She is profusely tender on her examination and has quite a bit of difficulty with mobility due to her discomfort. Patient's daughter was concerned regarding the amount of bruising to the forearm and patient's complaint of right-sided pain and brought her in. Review of Systems General: Reports: 10 or more systems reviewed and unremarkable except in HPI and below PFSH ED PFSH: Medical History Arteriosclerotic heart disease Carotid disease, bilateral CKD (chronic kidney disease) stage 2, GFR 60-89 ml/min Cystocele with small rectocele and uterine descent Dementia in Alzheimer's disease Dyslipidemia Epilepsy Essential hypertension GERD (gastroesophageal reflux disease) Left ventricular systolic dysfunction (LVSD), NYHA class 3 Secondarily generalized seizures Surgical History H/O removal of cyst History of cholecystectomy Status post carotid surgery Family History Mother CAD (coronary artery disease) Hypertension Social History Smoking and tobacco status: former smoker Second hand smoke exposure: No Smoking risk assessment/counseling performed?: No Alcohol intake: never Desire information about alcohol rehabilitation?: No Counseling given: No Substance/Drug Use: never Desire information about substance/drug rehabilitation?: No Counseling given: No Adopted: No Lives independently: Yes Household members: family Housing: House Marital status: / service: No Current occupational status: retired Do you think of yourself as: Straight/Heterosexual Current gender identity: Female Physical Exam Const: COMMON NORMALS: patient oriented x3 and alert OTHER: Patient is pleasant, social. Answers her own history. She is obviously uncomfortable and grimaces in quite a bit of pain during her examination. HENMT: COMMON NORMALS: normocephalic, atraumatic and hearing grossly normal bilaterally HEAD & SCALP: normocephalic and atraumatic Eye: COMMON NORMALS: Equal, round and reactive pupils present, EOMs intact bilaterally and conjunctivae normal CONJUNCTIVA: Yes conjunctivae normal PUPIL: Yes Equal, round and reactive pupils present Neck/C-Spine: COMMON NORMALS: full ROM and no JVD Lymph: LYMPHATIC: no lymphadenopathy noted Resp: COMMON NORMALS: normal respiratory effort, No retractions and No use of accessory muscles Cardio: COMMON NORMALS: no JVD and regular rate RATE: regular rate GI: OTHER: Normoactive bowel sounds. Abdomen is soft without any tenderness in the lower abdomen. Patient does have tenderness in the right upper quadrant and right lateral abdominal region just below the ribs on palpation. No signs of overlying bruising to the skin in this region. Extremity: NARRATIVE EXTREMITY EXAM: Patient shows full flexion extension capabilities of the fingers on the right hand as well as pronation and supination. Patient has an extremely large hematoma-approximately 9 cm in diameter that is firm to touch and tender to the right proximal medial forearm. She has a small laceration/skin tear approximately 3 cm in length with only 1 to 2 mm wound edge separation present but, slow oozing of blood noted to the lateral portion of the wound. Patient is profusely tender along the right lateral and right anterior inferior rib region also affecting the right upper quadrant and right upper flank region. Neuro: COMMON NORMALS: patient oriented x3 SENSORIUM/ORIENTATION: Yes alert Psych: COMMON NORMALS: mental status grossly normal, Normal thought process present, cooperative and normal affect THOUGHT PROCESS: Normal thought process present Skin: COMMON NORMALS: no rashes or lesions noted and turgor normal GENERAL SKIN EXAM: no rashes or lesions noted and turgor normal Course Vital Signs: Vital signs: Vital Signs Temperature 98.0 F 03/10/23 09:58 Pulse Rate 75 03/10/23 14:00 Respiratory Rate 15 03/10/23 14:17 Blood Pressure 165/62 03/10/23 14:00 Pulse Oximetry 98 03/10/23 14:17 Oxygen Delivery Me thod Room Air 03/10/23 14:00 Oxygen Flow Rate 2 03/10/23 14:00 MDM - Fall Medical Decision Making Given the severity of the hematoma to the right forearm I was concerned for continued bleed and recommended a CT examination. Also, patient is profusely tender along her ribs and abdominal region. Given that she has so much bleeding on her forearm I was worried about internal injuries or, possible rib fracture so we did proceed on with a CT of the chest and abdomen. Chest and abdomen was read negative for any acute concerns but there was potential for continued bleeding from the hematoma site on the forearm. Discussed case with Dr. Arenas who recommended reaching out to Dr. Meeks. After speaking with Dr. Meeks, he is currently in clinic would not be able to see the patient for 5 to 6 hours. He stated that if the patient was bleeding he recommended reaching out to higher level capacity of care. I spoke with [facility] in [place]-Dr. Hopson, as well as uploaded the patient's imaging to the cloud. After speaking to vascular specialty regarding the patient's imaging and examination, he did not indicate any emergent need for intervention but recommended compressive b andaging and follow-up. Discussed all of this with the patient and daughter. Referral for follow-up with vascular here in [place] was initiated as well. Went over strict instructions to watch for compartment syndrome. Explained what this looks like and how it is because so they are able to identify it should it occur. They are to be seen and evaluated in the ER for any concerns of lack of mobility to the fingers of the right hand. Patient experienced nausea here in the emergency department-my suspicion is due to pain medication as she has had similar response in the past. She is also had several bowel movements while here but is not complaining of abdominal pains and is not at risk for condition such as C. difficile. No elevated white blood cell count concerning for bacterial GI issue at this time. They will continue to keep the patient hydrated and monitor at home. Patient daughter verbalized understanding and agreement to treatment plan. Differential Diagnosis Unlikely syncope, dislocation of shoulder region, fracture of wrist, compression fracture or concussion without loss of consciousness Lab Data 03/10/23 11:20 03/10/23 11:20 Radiology Impressions Chest/Abdomen CT 03/10/23 10:13 IMPRESSION: 1. No acute findings. 2. Moderate emphysema. 3. 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 4. Additional chronic and incidental findings as above. IMPRESSION: 1. No acute findings. 2. Heavy atherosclerosis with known infrarenal occlusion. 3. Additional chronic and incidental findings as above. COMMENTS: Consistent with the [employer]'s Incidental Findings Committee white paper (J Am Sidney Radiol 2018): Any incidental renal lesion less than 1 cm or classified as too small to characterize, or any incidental cystic renal lesion characterized as simple-appearing, is likely benign. No follow-up imaging is recommended for these lesions per consensus recommendations based on imaging criteria. Forearm CT 03/10/23 10:18 IMPRESSION: 1. Posterior right elbow and forearm superficial soft tissue swelling with suspected active hemorrhage into approximately 7.6 cm long hematoma. 2. Partially visualized soft tissue contusion overlying the right greater trochanter. Laboratory Results WBC 12.81 10^3/uL (3.29-11.43) H 03/10/23 11:20 RBC 4.46 10^6/uL (3.85-5.65) 03/10/23 11:20 Hgb 14.20 g/dL (11.27-16.99) 03/10/23 11:20 Hct 43.1 % (36-47) 03/10/23 11:20 MCV 96.6 fl (85-98) 03/10/23 11:20 MCH 31.8 pg (27-33) 03/10/23 11:20 MCHC 32.9 g/dL (30-55) 03/10/23 11:20 RDW 11.6 % (12.1-15.1) L 03/10/23 11:20 Plt Count 283 10^3/cmm (157-399) 03/10/23 11:20 MPV 10.4 fL (7.4-10.4) 03/10/23 11:20 Neut % (Auto) 83.0 % 03/10/23 11:20 Lymph % (Auto) 10.9 % 03/10/23 11:20 [place] % (Auto) 4.1 % 03/10/23 11:20 Eos % (Auto) 0.9 % 03/10/23 11:20 Baso % (Auto) 0.4 % 03/10/23 11:20 Neut # (Auto) 10.64 10^3/uL (1.8-7.7) H 03/10/23 11:20 Lymph # (Auto) 1.4 10^3/uL (0.8-4.8) 03/10/23 11:20 [place] # (Auto) 0.5 10^3/uL (0.2-0.9) 03/10/23 11:20 Eos # (Auto) 0.1 10^3/uL (0.0-0.8) 03/10/23 11:20 Baso # (Auto) 0.1 10^3/uL (0.0-0.1) 03/10/23 11:20 Nucleated RBC % (auto) 0 % 03/10/23 11:20 Nucleated RBCs # 0.0 /100WBC 03/10/23 11:20 PT 12.90 SECONDS (12.1-14.9) 03/10/23 11:20 INR 0.94 (0.8-1.2) 03/10/23 11:20 APTT 22.8 SECONDS (23.9-36.7) L 03/10/23 11:20 Sodium 143 mmol/L (136-145) 03/10/23 11:20 Potassium 3.9 mmol/L (3.5-5.1) 03/10/23 11:20 Chloride 104 mmol/L (98-107) 03/10/23 11:20 Carbon Dioxide 21 mmol/L (22-29) L 03/10/23 11:20 Anion Gap 21.9 (5-19) H 03/10/23 11:20 BUN 19 mg/dL (8-23) 03/10/23 11:20 Creatinine 1.2 mg/dL (0.5-0.9) H 03/10/23 11:20 GFR Calculation Not Reportable 03/10/23 11:20 Glucose 148 mg/dL (65-115) H 03/10/23 11:20 Calculated Osmolality 301 mOsm/kg (285-295) H 03/10/23 11:20 Calcium 9.3 mg/dL (8.5-10.5) 03/10/23 11:20 Total Bilirubin 0.6 mg/dL (0.15-1.2) 03/10/23 11:20 AST 21 U/L (0-32) 03/10/23 11:20 ALT 18 U/L (0-33) 03/10/23 11:20 Alkaline Phosphatase 107 U/L (35-105) H 03/10/23 11:20 Total Protein 7.2 g/dL (6.6-8.7) 03/10/23 11:20 Albumin 4.5 g/dL (3.5-5.2) 03/10/23 11:20 Globulin 2.7 g/dL (1.3-4.6) 03/10/23 11:20 Urine Color Yellow (Yellow) 03/10/23 12:15 Urine Appearance Clear (CLEAR) 03/10/23 12:15 Urine pH 5 (5-7) 03/10/23 12:15 Ur Specific [place] 1.010 (1.005-1.030) 03/10/23 12:15 Urine Protein Neg (Negative) 03/10/23 12:15 Urine Glucose (UA) Norm (Normal) 03/10/23 12:15 Urine Ketones Negative (Negative) 03/10/23 12:15 Urine Blood Neg (Negative) 03/10/23 12:15 Urine Nitrate Negative (Negative) 03/10/23 12:15 Urine Bilirubin Neg (Negative) 03/10/23 12:15 Urine Urobilinogen Norm mg/dL (Negative) 03/10/23 12:15 Ur Leukocyte Esterase Negative (Negative) 03/10/23 12:15 All radiology interpretation(s) finalized by discharge Discharge Plan Discharge Patient Disposition: Home Clinical Impression: Traumatic hematoma of right forearm, Chronic anticoagulation, Rib pain on right side Condition: Stable Prescriptions: No Action atorvastatin 80 mg tablet 80 mg PO QPM metoprolol tartrate 25 mg tablet 12.5 mg PO BID Dexilant 60 mg capsule,biphase delayed releas 60 mg PO DAILY alendronate 70 mg tablet 70 mg PO Q7D Rx Instructions: Take one tab on Monday once weekly Probiotic Digestive Care 20 billion cell capsule See Rx Instructions PO .2 times day Qty: 60 0RF Rx Instructions: 20 billion cell PO .2 times day; nitroglycerin 0.4 mg tablet, sublingual 0.4 mg sublingual Q5M PRN (Reason: chest pain) Qty: 25 0RF Rx Instructions: do not exceed 3 doses per episode Lasix 40 mg tablet 40 mg PO BID Rx Instructions: Give 1 extra for >2# weight gain citalopram 20 mg tablet 20 mg PO DAILY 90 Days Qty: 90 2RF galantamine 4 mg tablet 4 mg PO BID Qty: 180 3RF Rx Instructions: administer with AM and PM meals levetiracetam 500 mg tablet 750 mg PO BID 30 Days Qty: 180 3RF aspirin 81 mg Tablet,Delayed Release (Dr/Ec) 81 mg PO DAILY Qty: 90 3RF clopidogrel 75 mg Tablet 75 mg PO DAILY Qty: 90 3RF lorazepam 0.5 mg tablet 0.5 mg PO DAILY PRN (Reason: anxiety) Qty: 10 0RF multivitamin Tablet 1 tab PO DAILY cholecalciferol (vitamin D3) [Vitamin D3] 50 mcg (2,000 unit) Capsule 50 mcg PO DAILY albuterol sulfate 90 mcg/actuation HFA aerosol inhaler 2 puff INHALATION Q6H PRN (Reason: Shortness Of Breath Or Wheezing) cranberry 400 mg Capsule 400 mg PO DAILY Rx Instructions: administer with a meal potassium chloride 20 mEq tablet extended release 20 meq PO BID Qty: 60 0RF nifedipine 60 mg tablet extended release 60 mg PO DAILY Qty: 30 0RF isosorbide mononitrate 30 mg tablet extended release 24 hr 30 mg PO QAM Qty: 30 0RF Discharge Orders: Discharge ED (Routine); Ordered 03/10/23 Ordered By: Shellie Richards Referrals: Honorio Ren [Primary Care Provider] - Discharge Diet: Usual diet Discharge Activity: Increase activity as tolerated Patient Instructions: Hematoma (ED) Activity Restrictions/Additional Instructions: The CT examination of your chest and abdomen showed no signs of any bone fractures or internal bleeding at this time. The CT of your forearm however is concerning for a slow bleed continuing to cause a large hematoma on your forearm. After speaking to the vascular specialist at [facility] in [place], he indicated that compression of the area was appropriate and that based on your examination, emergent intervention was not necessary. Encourage you to still take your medication as prescribed. You need to carefully watch for any change in ability to move your fingers. There is a condition called compartment syndrome where the pressure on the muscles of the forearm resulted in lack of ability to flex or extend the fingers. If you notice you are unable to flex or extend the fingers on your right hand you need to return to the e mergency department immediately. Otherwise, we do recommend wearing a daily compression bandage as applied here in the emergency department until you have follow-up with vascular. I have put in a referral request to follow-up with Dr. Meeks for continued monitoring of this wound. Coding Level of Care Code ED Tare Worker for Lu Ridley
[2023-03-10 11:00] VITALS: BP 142/123; PULSE 88; O2SAT 90
[2023-03-10 11:33] LABS: Basophils # 0.1 10^3/uL (0.0-0.1); Basophils % 0.4 %; Eosinophils # 0.1 10^3/uL (0.0-0.8); Eosinophils % 0.9 %; Hematocrit 43.1 % (36-47); Lymphocytes # 1.4 10^3/uL (0.8-4.8); Lymphocytes % 10.9 %; Mean Corpuscular HGB Conc 32.9 g/dL (30-55); Mean Corpuscular Hemoglobin 31.8 pg (27-33); Mean Corpuscular Volume 96.6 fl (85-98); Mean Platelet Volume 10.4 fL (7.4-10.4); Monocytes # 0.5 10^3/uL (0.2-0.9); Monocytes % 4.1 %; Neutrophils # 10.64 10^3/uL (1.8-7.7); Nucleated Red Blood Cells % 0 %; Platelet Count 283 10^3/cmm (157-399); Red Blood Count 4.46 10^6/uL (3.85-5.65); Red Cell Distribution Width 11.6 % (12.1-15.1); White Blood Count 12.81 10^3/uL (3.29-11.43)
[2023-03-10] MEDS: metoclopramide 5 mg/mL SDV 2 mL 10 MG IVP (11:34)
[2023-03-10 11:46] LABS: INR 0.94 (0.8-1.2)
[2023-03-10 11:47] LABS: Partial Thromboplastin Time 22.8 SECONDS (23.9-36.7)
[2023-03-10 11:53] LABS: Alanine Aminotransferase 18 U/L (0-33); Albumin Level 4.5 g/dL (3.5-5.2); Alkaline Phosphatase 107 U/L (35-105); Anion Gap 21.9 (5-19); Aspartate Amino Transferase 21 U/L (0-32); Blood Urea Nitrogen 19 mg/dL (8-23); Calcium 9.3 mg/dL (8.5-10.5); Carbon Dioxide 21 mmol/L (22-29); Chloride 104 mmol/L (98-107); Globulin 2.7 g/dL (1.3-4.6); Glucose 148 mg/dL (65-115); Osmolality Calculated 301 mOsm/kg (285-295); Potassium 3.9 mmol/L (3.5-5.1); Sodium 143 mmol/L (136-145); Total Bilirubin 0.6 mg/dL (0.15-1.2); Total Protein 7.2 g/dL (6.6-8.7)
[2023-03-10 12:30] VITALS: BP 117/95; PULSE 74; O2SAT 91
[2023-03-10 12:33] LABS: Add Urine Microscopic? NO; Charge for UA Resulting for Rev
[2023-03-10] MEDS: iohexol 350 mg/mL 500 mL Btl (per mL) IV ×2 (12:42→12:43)
[2023-03-10 12:52] LABS: Bilirubin Urine Neg (Negative); Blood Urine Neg (Negative); Glucose Urine UA Norm (Normal); Ketones Urine Negative (Negative); Leukocyte Esterase Urine Negative (Negative); Nitrate Urine Negative (Negative); Protein Urine Neg (Negative); Urine Appearance Clear (CLEAR); Urine Color Yellow (Yellow); Urobilinogen Urine Norm (Negative); pH Urine 5 (5-7)
[2023-03-10 14:00] VITALS: BP 165/62; PULSE 75; O2SAT 96
[2023-03-10] MEDS: dicyclomine 10 mg Capsule PO (14:13)
[2023-03-10] MEDS: sodium chloride 0.9% 500 ML IV (14:14)
[2023-03-10] MEDS: ondansetron 2 mg/ML SDV 2 mL 4 MG IVP (14:15)
[2023-03-10 14:17] VITALS: RESP 15; O2SAT 98
[2023-03-10] MEDS: fentaNYL 50 mcg/mL INJ 2mL IVP (14:17)
--- NOTE | 2023-03-10 15:25 | PC.SOCIAL ---
Vascular Referral to cardiology at this time. Clinic to contact patient with appt date/time.
== END 2023-03-10 15:23 | disposition home or self-care (01) ==
PROVIDERS: Emergency Provider Physician Assistant; PCP Family Medicine
DX: S50.11XA Contusion of right forearm, initial encounter (principal); D68.318 Other hemorrhagic disorder due to intrinsic circulating anticoagulants, antibodies, or inhibitors; R07.81 Pleurodynia; Z79.02 Long term (current) use of antithrombotics/antiplatelets; Z79.82 Long term (current) use of aspirin; J43.9 Emphysema, unspecified; I12.9 Hypertensive chronic kidney disease with stage 1 through stage 4 chronic kidney disease, or unspecified chronic kidney disease; N18.2 Chronic kidney disease, stage 2 (mild); G30.9 Alzheimer's disease, unspecified; F02.80 Dementia in other diseases classified elsewhere, unspecified severity, without behavioral disturbance, psychotic disturbance, mood disturbance, and anxiety; E78.5 Hyperlipidemia, unspecified; Z87.891 Personal history of nicotine dependence; S51.811A Laceration without foreign body of right forearm, initial encounter; W06.XXXA Fall from bed, initial encounter
CPT/HCPCS: 71260; 73201; 74160; 80053; 81003; 85025; 85610; 85730; 96374; 96375; 99285; J2405; J2765; J3010; J7040; Q9967

== ENCOUNTER → 2023-03-21 14:30 | Outpatient (BNVA) | payer MEDICARE, SELFPAY | PROVIDERS: PCP Family Medicine; Visit Provider Thoracic Surgery (Cardiothoracic Vascular Surgery) | DX: S50.11XA Contusion of right forearm, initial encounter (principal); W06.XXXA Fall from bed, initial encounter | CPT/HCPCS: 99202 ==

== ENCOUNTER → 2023-05-02 15:46 | Outpatient (BNVA) | payer MEDICARE, SELFPAY | PROVIDERS: PCP Family Medicine; Visit Provider Nurse Practitioner Family | DX: I25.10 Atherosclerotic heart disease of native coronary artery without angina pectoris (principal); I13.10 Hypertensive heart and chronic kidney disease without heart failure, with stage 1 through stage 4 chronic kidney disease, or unspecified chronic kidney disease; N18.2 Chronic kidney disease, stage 2 (mild); Z87.891 Personal history of nicotine dependence | CPT/HCPCS: 99214 ==

== ENCOUNTER 2023-06-01 13:21 | Outpatient (CLI) | payer MEDICARE, SELFPAY ==
--- NOTE | 2023-06-01 13:45 | USCV_ITS ---
Wendy Covarrubias Age: 83 Gender: F : 1940 Exam Date: 06/01/2023 13:41 Ordering Phys: Mic Meeks MD (Andy) [email or web address] [place] Technologist: RUDOLPH [place] [facility] [place]: Stenosis Risk Factors: Previous Vascular Surgery: Right Brachial BP: / Left Brachial BP: / Right Left Velocity (cm/s) Spectral Plaque Velocity (cm/s) Spectral Plaque Syst/Diast Broadening Syst/Diast Broadening 81.60/ 13.20 Prox CCA 44.90 / 6.40 56.20/ 13.20 Mid CCA 76.00 / 14.50 61.40/ 11.70 Distal CCA 85.40 / 10.50 41.60/ 7.60 Prox ICA 79.50 / 14.50 46.70/ 8.80 Mid ICA 47.60 / 11.20 52.40/ 12.00 Distal ICA 32.30 / 8.50 132.30 ECA 75.20 0.64 ICA/CCA 0.93 Antegrade Vertebral Antegrade 66.00/ 9.30 cm/s / cm/s Tri Subclavian Tri 196.8 338.7 0 0 CONCLUSIONS Right ICA stenosis <50%. Mild atheromatous plaque right carotid bulb/ICA. Left ICA stenosis <50%. Mild atheromatous plaque left carotid bulb/ICA. Intimal thickening in the common carotid arteries and internal carotid arteries bilaterally. Normal antegrade Doppler flow noted in the right vertebral artery. Normal antegrade Doppler flow noted in the left vertebral artery. Errol Lopez MD (Electronically Signed) Final Date: 01 June 2023 14:56 S
== END 2023-06-01 13:22 | disposition home or self-care (01) ==
LOC: RAD 13:22
PROVIDERS: PCP Family Medicine; Visit Provider Thoracic Surgery (Cardiothoracic Vascular Surgery)
DX: I65.23 Occlusion and stenosis of bilateral carotid arteries (principal)
CPT/HCPCS: 93880

== ENCOUNTER → 2023-07-31 11:34 | Outpatient (BNVA) | payer MEDICARE, SELFPAY | PROVIDERS: PCP Family Medicine; Visit Provider Thoracic Surgery (Cardiothoracic Vascular Surgery) | DX: I65.23 Occlusion and stenosis of bilateral carotid arteries (principal); I12.9 Hypertensive chronic kidney disease with stage 1 through stage 4 chronic kidney disease, or unspecified chronic kidney disease; N18.2 Chronic kidney disease, stage 2 (mild); Z87.891 Personal history of nicotine dependence | CPT/HCPCS: 99213 ==

== ENCOUNTER → 2023-08-24 15:12 | Outpatient (BNVA) | payer MEDICARE, SELFPAY | PROVIDERS: PCP Family Medicine; Visit Provider Specialist | DX: R41.3 Other amnesia (principal); F41.9 Anxiety disorder, unspecified; R29.90 Unspecified symptoms and signs involving the nervous system; R56.9 Unspecified convulsions; G30.9 Alzheimer's disease, unspecified; F02.80 Dementia in other diseases classified elsewhere, unspecified severity, without behavioral disturbance, psychotic disturbance, mood disturbance, and anxiety; I25.10 Atherosclerotic heart disease of native coronary artery without angina pectoris; I65.23 Occlusion and stenosis of bilateral carotid arteries | CPT/HCPCS: 99214 ==

== ENCOUNTER 2023-09-21 20:59 | Emergency (ER) | payer MEDICARE, SELFPAY ==
[2023-09-21 21:21] VITALS: BP 124/59; PULSE 65; RESP 20; TEMP 36.6; O2SAT 98
--- NOTE | 2023-09-21 21:43 | XRR_ITS ---
PROCEDURE INFORMATION: Exam: XR Right Hip Exam date and time: 09/21/2023 11:00 PM Age: 83 years old Clinical indication: Injury or trauma; Fall; Other: Pain; Additional info: Fall hip pain, injury TECHNIQUE: Imaging protocol: Radiologic exam of the right hip. Views: 1 view hip with pelvis when performed. COMPARISON: CT angio chest w abd pel w con 10/06/2022 3:23 AM FINDINGS: Bones/joints: No acute fracture or dislocation. Decreased osseous mineralization. Mild hip and sacroiliac osteoarthritis. Soft tissues: Unremarkable. XR/XR hip RT 2-3V wo/w pel* [id number] IMPRESSION: No acute fracture or dislocation. If there is persistent high clinical suspicion, consider CT.
--- NOTE | 2023-09-21 21:44 | XRR_ITS ---
PROCEDURE INFORMATION: Exam: XR Lumbosacral Spine Exam date and time: 09/21/2023 11:00 PM Age: 83 years old Clinical indication: Injury or trauma; Fall; Other: Pain; Additional info: Fall injury TECHNIQUE: Imaging protocol: Radiologic exam of the lumbosacral spine. Views: 2 or 3 views. COMPARISON: CR XR lumbar spine 2-3V* [id number] 02/23/2022 12:10 PM FINDINGS: Bones/joints: No new or acute appearing vertebral body height loss. There is minimal retrolisthesis of L4 on L5 and L3 on L4. Minimal anterolisthesis of L5 on S1. Multilevel disc degeneration and facet arthropathy, worst at L4-L5 and L5-S1. Osseous demineralization. Sacroiliac osteoarthritis. Soft tissues: Unremarkable. Prominent vascular calcification. XR/XR lumbar spine 2-3V* [id number] IMPRESSION: No evidence of acute fracture.
--- NOTE | 2023-09-21 23:56 | W.ED.EXTPRO ---
HPI - Extremity Problem General: Chief complaint: Extremity Injury, Lower Stated complaint: fall right side injured Time Seen by Provider: 09/21/23 23:34 History of Present Illness: 83-year-old female comes in today for complaints of fall with injury to the right hip area. Patient reports pain in the posterior right hip after fall. Patient appears nontoxic. Patient appears in no acute distress. Respirations are even lungs are clear to auscultation. Review of Systems General: Reports: 10 or more systems reviewed and unremarkable except in HPI and below PFSH ED PFSH: Medical History Left ventricular systolic dysfunction (LVSD), NYHA class 3 Epilepsy Essential hypertension Dyslipidemia GERD (gastroesophageal reflux disease) Dementia in Alzheimer's disease Arteriosclerotic heart 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, 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 Carotid disease, bilateral Cystocele with small rectocele and uterine descent Surgical History Status post carotid surgery History of cholecystectomy H/O removal of cyst Family History Mother CAD (coronary artery disease) Hypertension Social History Smoking and tobacco/nicotine status: former use of tobacco/nicotine Second hand smoke exposure: No Alcohol intake: never Substance/Drug Use: never Adopted: No Lives independently: Yes Household members: family Housing: House Marital status: / service: No Current occupational status: retired Do you think of yourself as: Straight/Heterosexual Current gender identity: Female Physical Exam Const: COMMON NORMALS: alert HENMT: COMMON NORMALS: normocephalic HEAD & SCALP: normocephalic Neck/C-Spine: COMMON NORMALS: full ROM Resp: COMMON NORMALS: normal respiratory effort Cardio: COMMON NORMALS: regular rate and regular rhythm RATE: regular rate RHYTHM: regular rhythm GI: COMMON NORMALS: Soft to palpation PALPATION: Yes Soft to palpation Back/Pelvis: COMMON NORMALS: thoracic and lumbar spine normal to inspection Extremity: COMMON NORMALS: full ROM Neuro: SENSORIUM/ORIENTATION: Yes alert Skin: COMMON NORMALS: turgor normal GENERAL SKIN EXAM: turgor normal Course Vital Signs: Vital signs: Vital Signs Temperature 97.8 F 09/21/23 21:21 Pulse Rate 67 09/21/23 23:57 Respiratory Rate 18 09/21/23 23:57 Blood Pressure 167/57 09/21/23 23:57 Pulse Oximetry 98 09/21/23 23:57 Oxygen Delivery Me thod Room Air 09/21/23 21:21 MDM - Extremity (Nontraumatic) Medical Decision Making 83-year-old female comes in today with some right hip pain. On exam patient has good range of motion of the right hip. Patient has tenderness in the right posterior hip buttock area. No tenderness is noted along the lumbar spine. Differential diagnosis includes fracture, contusion, dislocation. X-ray notes no abnormality of the hip or lumbar spine. Reviewed exam with patient with recommendations for treatment and follow-up. Patient reported understanding and agreed to plan. Lab Data Radiology Impressions Hip/Pelvis X-Ray 09/21/23 21:43 IMPRESSION: No acute fracture or dislocation. If there is persistent high clinical suspicion, consider CT. Lumbar Spine X-Ray 09/21/23 21:44 IMPRESSION: No evidence of acute fracture. All radiology interpretation(s) finalized by discharge Discharge Plan Discharge Patient Disposition: Home Clinical Impression: Fall Qualifiers: Encounter type: initial encounter Qualified Code(s): W19.XXXA - Unspecified fall, initial encounter Contusion of right hip Qualifiers: Encounter type: initial encounter Qualified Code(s): S70.01XA - Contusion of right hip, initial encounter Condition: Stable Prescriptions: No Action atorvastatin 80 mg tablet 80 mg PO QPM metoprolol tartrate 25 mg tablet 12.5 mg PO BID Dexilant 60 mg capsule,biphase delayed releas 60 mg PO DAILY alendronate 70 mg tablet 70 mg PO Q7D Rx Instructions: Take one tab on Monday once weekly nitroglycerin 0.4 mg tablet, sublingual 0.4 mg sublingual Q5M PRN (Reason: chest pain) Qty: 25 0RF Rx Instructions: do not exceed 3 doses per episode Lasix 40 mg tablet 40 mg PO BID Rx Instructions: Give 1 extra for >2# weight gain potassium chloride 20 mEq tablet extended release 20 meq PO BID Qty: 180 3RF levetiracetam [Keppra] 500 mg tablet 1,000 mg PO BID Qty: 360 3RF Rx Instructions: 1000 mg twice a day (combine 1/2 with the 750 mg tab twice a day, then 2 twice a day) citalopram 20 mg tablet See Rx Instructions .ROUTE .COMPLEX Qty: 90 2RF Dose Instruction: TAKE ONE TABLET BY MOUTH ONCE DAILY Rx Instructions: TAKE ONE TABLET BY MOUTH ONCE DAILY galantamine 4 mg tablet 4 mg PO BID Qty: 180 3RF Rx Instructions: administer with AM and PM meals aspirin 81 mg Tablet,Delayed Release (Dr/Ec) 81 mg PO DAILY Qty: 90 3RF clopidogrel 75 mg Tablet 75 mg PO DAILY Qty: 90 3RF lorazepam 0.5 mg tablet 0.5 mg PO DAILY PRN (Reason: anxiety) Qty: 10 0RF multivitamin Tablet 1 tab PO DAILY cholecalciferol (vitamin D3) [Vitamin D3] 50 mcg (2,000 unit) Capsule 50 mcg PO DAILY albuterol sulfate 90 mcg/actuation HFA aerosol inhaler 2 puff INHALATION Q6H PRN (Reason: Shortness Of Breath Or Wheezing) cranberry 400 mg Capsule 400 mg PO DAILY Rx Instructions: administer with a meal nifedipine 60 mg tablet extended release 60 mg PO DAILY Qty: 30 0RF isosorbide mononitrate 30 mg tablet extended release 24 hr 30 mg PO QAM Qty: 30 0RF Discharge Orders: Discharge ED (Routine); Ordered 09/22/23 Ordered By: Mic Shell Referrals: Honorio Ren [Primary Care Provider] - Patient Instructions: Fall Prevention (ED) Activity Restrictions/Additional Instructions: Activity as tolerated. Use acetaminophen as needed for pain. Use ice or heat for further pain relief. Use a walker when ambulating. Return to ED for worsening symptoms or new concerns. Follow-up with primary care otherwise. Coding Level of Care Code ED Employee Communications Intern for Lu Ridley
[2023-09-21 23:57] VITALS: BP 167/57; PULSE 67; RESP 18; O2SAT 98
== END 2023-09-22 00:20 | disposition home or self-care (01) ==
PROVIDERS: Emergency Provider Nurse Practitioner Family; PCP Family Medicine
DX: S70.01XA Contusion of right hip, initial encounter (principal); Z79.02 Long term (current) use of antithrombotics/antiplatelets; Z79.82 Long term (current) use of aspirin; Z87.891 Personal history of nicotine dependence; I12.9 Hypertensive chronic kidney disease with stage 1 through stage 4 chronic kidney disease, or unspecified chronic kidney disease; N18.2 Chronic kidney disease, stage 2 (mild); E78.5 Hyperlipidemia, unspecified; G30.9 Alzheimer's disease, unspecified; F02.80 Dementia in other diseases classified elsewhere, unspecified severity, without behavioral disturbance, psychotic disturbance, mood disturbance, and anxiety; W19.XXXA Unspecified fall, initial encounter
CPT/HCPCS: 72100; 73502; 99284

== ENCOUNTER → 2023-10-17 15:24 | Outpatient (BNVA) | payer MEDICARE, SELFPAY | PROVIDERS: PCP Family Medicine; Visit Provider Internal Medicine | DX: R06.00 Dyspnea, unspecified (principal); E78.5 Hyperlipidemia, unspecified; I65.23 Occlusion and stenosis of bilateral carotid arteries; R94.39 Abnormal result of other cardiovascular function study; Z87.891 Personal history of nicotine dependence; I13.10 Hypertensive heart and chronic kidney disease without heart failure, with stage 1 through stage 4 chronic kidney disease, or unspecified chronic kidney disease; N18.2 Chronic kidney disease, stage 2 (mild) | CPT/HCPCS: 99214 ==

== ENCOUNTER 2023-11-09 14:40 | Outpatient (CLI) | payer MEDICARE, SELFPAY ==
--- NOTE | 2023-11-09 15:00 | USCV_ITS ---
Wendy Covarrubias Age: 83 Gender: F : 1940 Exam Date: 11/09/2023 14:51 Ordering Phys: Pawan Tse M.D ([email or web address]) Technologist: Exam Location: [facility] – [place] Indication: sob BP: 125 / 75 HR: 79 Rhythm: Sinus Technical Quality: Good MEASUREMENTS (Male / Female) Normal Values 2D ECHO LV Diastolic Diameter PLAX 4.1 cm 4.2 - 5.9 / 3.9 - 5.3 cm IVS Diastolic Thickness 1.5 cm 0.6 - 1.0 / 0.6 - 0.9 cm IVS Systolic Thickness 1.7 cm LVPW Diastolic Thickness 1.2 cm 0.6 - 1.0 / 0.6 - 0.9 cm LVPW Systolic Thickness 2.3 cm LVOT Diameter 1.9 cm LV Ejection Fraction 2D Teich 48.9 % LV Ejection Fraction MOD 2C 66.2 % LV Ejection Fraction 2C AL 67.6 % LA Diameter 2.8 cm RA Systolic Volume 4C AL 35.5 ml RA Systolic Volume 4C MOD 34.0 ml Aorta at Sinotubular Diameter 2.8 cm IVC Diameter 1.5 cm M-MODE LA Ao Ratio MM 1.1 AV Cusp Separation MM 1.7 cm DOPPLER LVOT Peak Velocity 62.0 cm/s AV Area Cont Eq vti 2.3 cm squared AV Area Cont Eq pk 2.3 cm squared MV Peak Velocity 144.0 cm/s MV Area PHT 2.3 cm squared Mitral E to A Ratio 0.6 TV Peak Velocity 189.0 cm/s TR Peak Velocity 278.0 cm/s TR Peak Gradient 30.9 mmHg TV Peak E Velocity 86.0 cm/s Right Atrial Pressure 3.0 mmHg Pulmonary Artery Systolic Pressu 33.9 mmHg PV Peak Velocity 57.0 cm/s FINDINGS Left Ventricle Left ventricle is normal in size. LV systolic function is normal with EF of 50-55%. No regional wall abnormalities are seen. Grade 1 diastolic dysfunction Right Ventricle Normal in size and function Right Atrium Normal in size Left Atrium Normal in size Mitral Valve Structurally normal mitral valve. Moderate mitral regurgitation Aortic Valve Structurally normal aortic valve. No significant stenosis or regurgitation. Tricuspid Valve Mild tricuspid regurgitation. RVSP is normal. Pulmonic Valve Mild pulmonic regurgitation Pericardium Normal Aorta Normal in size IVC Appears to be normal CONCLUSIONS LV systolic function is normal with EF 50-55%. Grade 1 diastolic dysfunction. Moderate mitral regurgitation. Mild tricuspid regurgitation Mild pulmonic regurgitation. Compared to prior echocardiogram from 10/2022, LV systolic function has improved significantly. Pawan Tse MD (Electronically Signed) Final Date: 18 November 2023 22:39 S
== END 2023-11-09 14:41 | disposition home or self-care (01) ==
LOC: RAD 14:41
PROVIDERS: PCP Family Medicine; Visit Provider Internal Medicine
DX: I34.0 Nonrheumatic mitral (valve) insufficiency (principal); I50.30 Unspecified diastolic (congestive) heart failure; R06.02 Shortness of breath
CPT/HCPCS: 93306

== ENCOUNTER → 2024-05-07 14:28 | Outpatient (BNVA) | payer MEDICARE, SELFPAY | PROVIDERS: PCP Family Medicine; Visit Provider Nurse Practitioner Family | DX: R06.09 Other forms of dyspnea (principal); I34.0 Nonrheumatic mitral (valve) insufficiency; E78.5 Hyperlipidemia, unspecified; I65.23 Occlusion and stenosis of bilateral carotid arteries; R94.39 Abnormal result of other cardiovascular function study; I13.10 Hypertensive heart and chronic kidney disease without heart failure, with stage 1 through stage 4 chronic kidney disease, or unspecified chronic kidney disease; N18.2 Chronic kidney disease, stage 2 (mild); Z87.891 Personal history of nicotine dependence | CPT/HCPCS: 99213 ==

== ENCOUNTER 2024-10-24 15:54 | Emergency (ER) | payer MEDICARE, SELFPAY ==
[2024-10-24] VITALS (8 sets, daily range): BP systolic 152–219; BP diastolic 58–86; PULSE 55–70; RESP 16–20; TEMP 36.7; O2SAT 96–100
--- NOTE | 2024-10-24 16:15 | XRR_ITS ---
PROCEDURE INFORMATION: Exam: XR Chest Exam date and time: 10/24/2024 5:21 PM Age: 84 years old Clinical indication: Shortness of breath; Prior surgery; Surgery date: 6+ months; Surgery type: Carotid; Additional info: SOB TECHNIQUE: Imaging protocol: Radiologic exam of the chest. Views: 1 view. COMPARISON: CT chest abd w con*[id number] 03/10/2023 12:22 PM FINDINGS: Tubes, catheters and devices: Surgical clips of the base of the neck bilaterally. Lungs: No focal consolidation. Mild bibasilar opacities favor atelectasis. Lungs are hyperexpanded. Emphysematous changes. Pleural spaces: Unremarkable. No pleural effusion. No pneumothorax. Heart/Mediastinum: Stable cardiomediastinal silhouette. Vasculature: Atherosclerotic aortic calcifications. Bones/joints: Remote bilateral proximal humerus fractures. XR/XR chest 1V portable [id number] IMPRESSION: 1. No acute cardiopulmonary process. 2. Pulmonary hyperexpansion.
--- NOTE | 2024-10-24 16:42 | ECG_ITS ---
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 Measurements Intervals [place] Rate: 58 P: 46 GA: 182 QRS: 36 QRSD: 110 T: 37 QT: 449 QTc: 441 Interpretive Statements SINUS BRADYCARDIA NONSPECIFIC ST & T-WAVE ABNORMALITY Compared to ECG 12/27/2022 09:24:32 T-wave abnormality now present Sinus rhythm no longer present Intraventricular conduction delay no longer present ST (T wave) deviation no longer present Electronically Signed On 10-24-2024 18:00:30 CDT by Mo Cortez M.D. [id number]
[2024-10-24 16:52] LABS: Basophils % 0.4 %; Eosinophils # 0.2 10^3/uL (0.0-0.8); Eosinophils % 2.8 %; Hematocrit 39.5 % (36-47); Lymphocytes # 1.1 10^3/uL (0.8-4.8); Lymphocytes % 14.8 %; Mean Corpuscular HGB Conc 32.9 g/dL (30-55); Mean Corpuscular Hemoglobin 32.1 pg (27-33); Mean Corpuscular Volume 97.5 fl (85-98); Monocytes # 0.5 10^3/uL (0.2-0.9); Monocytes % 6.7 %; Neutrophils # 5.68 10^3/uL (1.8-7.7); Nucleated Red Blood Cells % 0 %; Platelet Count 216 10^3/cmm (157-399); Red Blood Count 4.05 10^6/uL (3.85-5.65); Red Cell Distribution Width 12.7 % (12.1-15.1); White Blood Count 7.57 10^3/uL (3.29-11.43)
--- NOTE | 2024-10-24 17:18 | W.ED.SOB ---
HPI - SOB/Dyspnea General: Chief Complaint: Shortness of Breath/Dyspnea Stated Complaint: SOB Time Seen by Provider: 10/24/24 16:14 History of Present Illness: HPI Narrative: Wendy Covarrubias, an elderly female patient with a history of requiring oxygen at night, presents to the emergency room after being transferred from a clinic visit. The patient reports confusion about why she was brought to the ER, stating she went to the clinic for a routine checkup and was unexpectedly transferred via ambulance. Mrs. Covarrubias denies any current symptoms or distress, expressing that she feels pretty well and doesn't understand the reason for her ER visit. She mentions using oxygen at night when sleeping but typically doesn't require it during the day unless necessary. The patient expresses a desire to return home, where she lives with her daughter who manages her care and medication regimen. Mrs. Covarrubias reports taking daily medications, which her daughter administers as needed. The patient appears to have some difficulty recalling the events leading to her ER transfer, stating she doesn't remember why she was sent from the clinic. She mentions feeling tired but otherwise does not report any specific complaints or symptoms. Related Data Home Medications ?Medication ?Instructions ?Recorded ?Confirmed alendronate 70 mg tablet 70 mg PO Q7D 07/26/19 10/24/24 atorvastatin 80 mg tablet 80 mg PO QPM 07/26/19 10/24/24 dexlansoprazole 60 mg 60 mg PO DAILY 07/26/19 10/24/24 capsule,biphase delayed release (Dexilant) metoprolol tartrate 25 mg tablet 12.5 mg PO BID 07/26/19 10/24/24 albuterol sulfate 90 mcg/actuation 2 puff inhalation Q6H PRN 10/06/22 10/24/24 aerosol inhaler Shortness Of Breath Or Wheezing cranberry fruit 400 mg capsule 400 mg PO DAILY 10/06/22 10/24/24 multivitamin 1 tab PO DAILY 10/06/22 10/24/24 furosemide 40 mg tablet (Lasix) 40 mg PO BID 12/01/22 10/24/24 ketorolac 0.5 % eye drops drp ophthalmic (eye) QID 08/23/24 10/24/24 prednisolone acetate 1 % eye drp ophthalmic (eye) QID 03/21/25 05/22/25 drops,suspension Previous Rx's ?Medication ?Instructions ?Recorded lorazepam 0.5 mg tablet 0.5 mg PO DAILY PRN anxiety #10 09/09/22 tabs isosorbide mononitrate 30 mg 30 mg PO QAM #30 tabs 10/09/22 tablet,extended release 24 hr nifedipine 60 mg tablet,extended 60 mg PO DAILY #30 tabs 10/09/22 release nitroglycerin 0.4 mg sublingual 0.4 mg sublingual Q5M PRN chest 11/23/22 tablet pain #25 tabs aspirin 81 mg tablet,delayed 81 mg PO DAILY #90 tabs 12/28/22 release clopidogrel 75 mg tablet 75 mg PO DAILY #90 tabs 01/01/24 citalopram 20 mg tablet See Rx Instructions .Route 04/16/24 .COMPLEX #90 tabs potassium chloride 20 mEq See Rx Instructions .Route 05/15/24 tablet,extended release .COMPLEX #180 tabs galantamine 4 mg tablet See Rx Instructions .Route 09/11/24 .COMPLEX #180 tabs levetiracetam 500 mg tablet 500 mg PO BID 90 days #180 tabs 09/11/24 donepezil 10 mg tablet 10 mg PO DAILY #90 tabs 09/12/24 Allergies Allergy/AdvReac Type Severity Reaction Status Date / Time meperidine (From Demerol) Allergy ADR-Vomitin Verified 10/24/24 14:24 g morphine Allergy ADR-Vomitin Verified 10/24/24 14:24 g Penicillins Allergy ALGY-Hives Verified 10/24/24 14:24 Review of Systems General: Reports: 10 or more systems reviewed and unremarkable except in HPI and below PFSH ED PFSH: Medical History Left ventricular systolic dysfunction (LVSD), NYHA class 3 Epilepsy Essential hypertension Dyslipidemia GERD (gastroesophageal reflux disease) Dementia in Alzheimer's disease Arteriosclerotic heart 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, 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 Carotid disease, bilateral Cystocele with small rectocele and uterine descent Surgical History History of coronary artery stent placement Status post carotid surgery History of cholecystectomy H/O removal of cyst Family History Mother CAD (coronary artery disease) Hypertension Social History Smoking and tobacco/nicotine status: former use of tobacco/nicotine Second hand smoke exposure: No Alcohol intake: never Substance/Drug Use: never Adopted: No Lives independently: Yes Household members: family Housing: House Marital status: / service: No Current occupational status: retired Do you think of yourself as: Straight/Heterosexual Current gender identity: Female Physical Exam Const: COMMON NORMALS: no acute distress, patient oriented x3, healthy appearing, alert and well nourished HENMT: COMMON NORMALS: normocephalic HEAD & SCALP: normocephalic Eye: COMMON NORMALS: EOMs intact bilaterally Neck/C-Spine: COMMON NORMALS: full ROM and supple Resp: COMMON NORMALS: normal respiratory effort, No retractions and clear to auscultation bilaterally AUSCULTATION: clear to auscultation bilaterally Cardio: COMMON NORMALS: regular rate, regular rhythm, No gallops present (Cardio) and No murmurs present (Cardio) RATE: regular rate RHYTHM: regular rhythm GI: COMMON NORMALS: Soft to palpation and non-tender PALPATION: Yes Soft to palpation Extremity: GENERAL: Yes normal exam except as noted Neuro: COMMON NORMALS: patient oriented x3 SENSORIUM/ORIENTATION: Yes alert Skin: COMMON NORMALS: no rashes or lesions noted GENERAL SKIN EXAM: no rashes or lesions noted Course Vital Signs: Vital signs: Vital Signs Temperature 98.1 F 10/24/24 15:59 Pulse Rate 60 10/24/24 19:00 Respiratory Rate 16 10/24/24 19:00 Blood Pressure 164/72 10/24/24 19:00 Pulse Oximetry 100 10/24/24 19:00 Oxygen Delivery Me thod Nasal Cannula 10/24/24 16:54 Oxygen Flow Rate 2 10/24/24 16:54 MDM - SOB/Dyspnea Medical Decision Making 84-year-old female presents to the emergency department after being sent here by her primary care physician for low heart rate. Patient does not endorse any complaints at this time. However, per family she might have been experiencing some shortness of breath, but the patient denies at this time. Patient's EKG did show sinus bradycardia, but the patient is asymptomatic. Patient observed for several hours with stable heart rate. She is on her home level of oxygen. Encouraged the patient to follow-up with her saw tailer regarding the intermittent bradycardia. Her labs demonstrated a slight elevation in sodium but otherwise were unremarkable. Return precautions were discussed and the patient was discharged home in good condition. Lab Data 10/24/24 16:41 10/24/24 16:41 Labs/Radiology: Radiology Impressions Chest X-Ray 10/24/24 16:15 IMPRESSION: 1. No acute cardiopulmonary process. 2. Pulmonary hyperexpansion. Laboratory Results WBC 7.57 10^3/uL (3.29-11.43) 10/24/24 16:41 RBC 4.05 10^6/uL (3.85-5.65) 10/24/24 16:41 Hgb 13.00 g/dL (11.27-16.99) 10/24/24 16:41 Hct 39.5 % (36-47) 10/24/24 16:41 MCV 97.5 fl (85-98) 10/24/24 16:41 MCH 32.1 pg (27-33) 10/24/24 16:41 MCHC 32.9 g/dL (30-55) 10/24/24 16:41 RDW 12.7 % (12.1-15.1) 10/24/24 16:41 Plt Count 216 10^3/cmm (157-399) 10/24/24 16:41 MPV 11.0 fL (7.4-10.4) H 10/24/24 16:41 Neut % (Auto) 75.0 % 10/24/24 16:41 Lymph % (Auto) 14.8 % 10/24/24 16:41 [place] % (Auto) 6.7 % 10/24/24 16:41 Eos % (Auto) 2.8 % 10/24/24 16:41 Baso % (Auto) 0.4 % 10/24/24 16:41 Neut # (Auto) 5.68 10^3/uL (1.8-7.7) 10/24/24 16:41 Lymph # (Auto) 1.1 10^3/uL (0.8-4.8) 10/24/24 16:41 [place] # (Auto) 0.5 10^3/uL (0.2-0.9) 10/24/24 16:41 Eos # (Auto) 0.2 10^3/uL (0.0-0.8) 10/24/24 16:41 Baso # (Auto) 0.0 10^3/uL (0.0-0.1) 10/24/24 16:41 Nucleated RBC % (auto) 0 % 10/24/24 16:41 Nucleated RBCs # 0.0 /100WBC 10/24/24 16:41 Sodium 146 mmol/L (136-145) H 10/24/24 16:41 Potassium 4.1 mmol/L (3.5-5.1) 10/24/24 16:41 Chloride 106 mmol/L (98-107) 10/24/24 16:41 Carbon Dioxide 26 mmol/L (22-29) 10/24/24 16:41 Anion Gap 18.1 (5-19) 10/24/24 16:41 BUN 20 mg/dL (8-23) 10/24/24 16:41 Creatinine 1.0 mg/dL (0.5-0.9) H 10/24/24 16:41 GFR Calculation Not Reportable 10/24/24 16:41 Glucose 84 mg/dL (65-115) 10/24/24 16:41 Calculated Osmolality 304 mOsm/kg (285-295) H 10/24/24 16:41 Lactic Acid 2.0 mmol/L (0.5-2.2) 10/24/24 16:41 Calcium 8.4 mg/dL (8.5-10.5) L 10/24/24 16:41 Total Bilirubin 0.5 mg/dL (0.15-1.2) 10/24/24 16:41 AST 23 U/L (0-32) 10/24/24 16:41 ALT 17 U/L (0-33) 10/24/24 16:41 Alkaline Phosphatase 104 U/L (35-105) 10/24/24 16:41 Troponin T Baseline 17 ng/L (0-10) H 10/24/24 16:41 Troponin T 120 Minute 15.29 ng/L (0-10) H 10/24/24 18:15 Delta Troponin T -1.71 ABS# (0-10) L 10/24/24 18:15 NT-Pro-B Natriuret Pep 3407 pg/mL (0-450) H 10/24/24 16:41 Total Protein 5.7 g/dL (6.6-8.7) L 10/24/24 16:41 Albumin 3.7 g/dL (3.5-5.2) 10/24/24 16:41 Globulin 2.0 g/dL (1.3-4.6) 10/24/24 16:41 All radiology interpretation(s) finalized by discharge EKG Data EKG 1: Interpretation: Sinus bradycardia with a rate of 56, FL 171, QRS 91, QTc 433, no ST segment elevation or depression Discharge Plan Discharge Patient Disposition: Home Clinical Impression: Bradycardia, Shortness of breath Condition: Stable Prescriptions: No Action atorvastatin 80 mg tablet 80 mg PO QPM metoprolol tartrate 25 mg tablet 12.5 mg PO BID Dexilant 60 mg capsule,biphase delayed releas 60 mg PO DAILY alendronate 70 mg tablet 70 mg PO Q7D Rx Instructions: Take one tab on Monday once weekly nitroglycerin 0.4 mg tablet, sublingual 0.4 mg sublingual Q5M PRN (Reason: chest pain) Qty: 25 0RF Rx Instructions: do not exceed 3 doses per episode Lasix 40 mg tablet 40 mg PO BID Rx Instructions: Give 1 extra for >2# weight gain prednisolone acetate 1 % drops,suspension ophthalmic (eye) QID ketorolac 0.5 % drops ophthalmic (eye) QID clopidogrel 75 mg tablet 75 mg PO DAILY Qty: 90 3RF citalopram 20 mg tablet See Rx Instructions .ROUTE .COMPLEX Qty: 90 2RF Dose Instruction: TAKE ONE TABLET BY MOUTH DAILY Rx Instructions: TAKE ONE TABLET BY MOUTH DAILY potassium chloride 20 mEq tablet extended release See Rx Instructions .ROUTE .COMPLEX Qty: 180 3RF Dose Instruction: TAKE ONE TABLET BY MOUTH TWICE DAILY Rx Instructions: TAKE ONE TABLET BY MOUTH TWICE DAILY levetiracetam 500 mg tablet 500 mg PO BID 90 Days Qty: 180 3RF galantamine 4 mg tablet See Rx Instructions .ROUTE .COMPLEX Qty: 180 3RF Dose Instruction: TAKE ONE TABLET BY MOUTH TWICE DAILY WITH MORNING AND EVENING MEALS Rx Instructions: TAKE ONE TABLET BY MOUTH TWICE DAILY WITH MORNING AND EVENING MEALS donepezil 10 mg tablet 10 mg PO DAILY Qty: 90 3RF Rx Instructions: take 1/2 with breakfast for a month then a whole tablet aspirin 81 mg Tablet,Delayed Release (Dr/Ec) 81 mg PO DAILY Qty: 90 3RF lorazepam 0.5 mg tablet 0.5 mg PO DAILY PRN (Reason: anxiety) Qty: 10 0RF multivitamin Tablet 1 tab PO DAILY albuterol sulfate 90 mcg/actuation HFA aerosol inhaler 2 puff INHALATION Q6H PRN (Reason: Shortness Of Breath Or Wheezing) cranberry fruit 400 mg Capsule 400 mg PO DAILY Rx Instructions: administer with a meal nifedipine 60 mg tablet extended release 60 mg PO DAILY Qty: 30 0RF isosorbide mononitrate 30 mg tablet extended release 24 hr 30 mg PO QAM Qty: 30 0RF Discharge Orders: Discharge ED (Routine); Ordered 10/24/24 Ordered By: Chris Wheeler Referrals: Honorio Ren [Primary Care Provider, Family Practice] Patient Instructions: Opioid Safety, Pain Management Activity Restrictions/Additional Instructions: Please follow-up with your saw tailer for your intermittent low heart rate. Continue home oxygen with a goal of 92 to 96%. Return to the emergency department any new or worsening symptoms. Print Language: Serbian Coding Level of Care Code ED Solid Waste Disposal Manager for Lu Ridley
[2024-10-24 17:26] LABS: Alanine Aminotransferase 17 U/L (0-33); Albumin Level 3.7 g/dL (3.5-5.2); Alkaline Phosphatase 104 U/L (35-105); Anion Gap 18.1 (5-19); Aspartate Amino Transferase 23 U/L (0-32); Blood Urea Nitrogen 20 mg/dL (8-23); Calcium 8.4 mg/dL (8.5-10.5); Carbon Dioxide 26 mmol/L (22-29); Chloride 106 mmol/L (98-107); Creatinine Clr Calc Pharmacy 32.1634; Glucose 84 mg/dL (65-115); NT Pro B Type Natriuretic Pept 3407 pg/mL (0-450); Osmolality Calculated 304 mOsm/kg (285-295); Potassium 4.1 mmol/L (3.5-5.1); Sodium 146 mmol/L (136-145); Total Bilirubin 0.5 mg/dL (0.15-1.2); Total Protein 5.7 g/dL (6.6-8.7)
[2024-10-24 17:28] LABS: Troponin(5th) Baseline 17 ng/L (0-10)
--- NOTE | 2024-10-24 18:27 | ECG_ITS ---
[facility]24-[facility]24 Pat Name: Wendy Covarrubias Department: Room: Gender: Female Order Administrator: : 1940 Requested By: Chris Wheeler Order Number: [id number] Wily MD: Mo Cortez M.D. Measurements Intervals [place] Rate: 56 P: 58 NM: 171 QRS: 59 QRSD: 91 T: 47 QT: 441 QTc: 427 Interpretive Statements SINUS BRADYCARDIA ST DEVIATION AND MODERATE T-WAVE ABNORMALITY, CONSIDER ANTERIOR ISCHEMIA [-0.1+ mV T-WAVE IN V3/V4] Compared to ECG 10/24/2024 16:42:26 Possible ischemia now present T-wave abnormality still present Electronically Signed On 10-25-2024 16:34:51 CDT by Mo Cortez M.D. [id number]
[2024-10-24 18:43] LABS: Troponin 5 2HR 15.29 ng/L (0-10)
[2024-10-24 18:44] LABS: Troponin 5 2HR Delta -1.71 ABS# (0-10)
== END 2024-10-24 19:52 | disposition home or self-care (01) ==
PROVIDERS: Emergency Provider General Practice; PCP Family Medicine
DX: R00.1 Bradycardia, unspecified (principal); I12.9 Hypertensive chronic kidney disease with stage 1 through stage 4 chronic kidney disease, or unspecified chronic kidney disease; N18.2 Chronic kidney disease, stage 2 (mild); R06.02 Shortness of breath; E78.5 Hyperlipidemia, unspecified; Z87.891 Personal history of nicotine dependence; Z79.899 Other long term (current) drug therapy
CPT/HCPCS: 36415; 71045; 80053; 83605; 83880; 84484; 85025; 93005; 99285

== ENCOUNTER → 2024-11-07 14:16 | Outpatient (BNVA) | payer MEDICARE, SELFPAY | PROVIDERS: PCP Family Medicine; Visit Provider Internal Medicine | DX: I13.0 Hypertensive heart and chronic kidney disease with heart failure and stage 1 through stage 4 chronic kidney disease, or unspecified chronic kidney disease (principal); N18.2 Chronic kidney disease, stage 2 (mild); I50.20 Unspecified systolic (congestive) heart failure; I65.23 Occlusion and stenosis of bilateral carotid arteries; R94.39 Abnormal result of other cardiovascular function study; E78.5 Hyperlipidemia, unspecified; Z79.02 Long term (current) use of antithrombotics/antiplatelets; Z79.82 Long term (current) use of aspirin; Z95.5 Presence of coronary angioplasty implant and graft; Z87.891 Personal history of nicotine dependence | CPT/HCPCS: 99214 ==

== ENCOUNTER 2024-12-25 14:51 | Outpatient (CLI) | payer MEDICARE, SELFPAY ==
--- NOTE | 2024-12-25 12:00 | USCV_ITS ---
Wendy Covarrubias Age: 84 Gender: F : 1940 Exam Date: 12/25/2024 15:22 Ordering Phys: Nicky Madison NP Technologist: RUDOLPH [place] [facility] [place] SoB BP: 85 / 65 HR: 66 Rhythm: Sinus Technical Quality: Adequate MEASUREMENTS (Male / Female) Normal Values 2D ECHO LV Diastolic Diameter PLAX 4.4 cm 4.2 - 5.9 / 3.9 - 5.3 cm IVS Diastolic Thickness 1.3 cm 0.6 - 1.0 / 0.6 - 0.9 cm IVS Systolic Thickness 1.9 cm LVPW Diastolic Thickness 1.6 cm 0.6 - 1.0 / 0.6 - 0.9 cm LVPW Systolic Thickness 1.9 cm LVOT Diameter 2.0 cm LV Ejection Fraction 2D Teich 51.9 % LV Ejection Fraction MOD 4C 40.0 % LV Ejection Fraction MOD 2C 56.0 % LV Ejection Fraction 2C AL 56.0 % LA Diameter 3.8 cm RA Systolic Volume 4C AL 15.5 ml RA Systolic Volume 4C MOD 15.8 ml LA Sys Volume AL 53.5 cm cubed LA Sys Volume Index AL 32.7 cm cubed/m squared Aorta at Sinotubular Diameter 1.8 cm M-MODE LA Ao Ratio MM 2.2 AV Cusp Separation MM 1.3 cm DOPPLER AV Peak Velocity 78.0 cm/s LVOT Peak Velocity 54.0 cm/s AV Area Cont Eq vti 2.0 cm squared AV Area Cont Eq pk 2.1 cm squared MV Peak Velocity 128.0 cm/s MV Area PHT 4.2 cm squared Mitral E to A Ratio 0.7 TR Peak Velocity 101.0 cm/s TR Peak Gradient 4.1 mmHg TV Peak E Velocity 72.0 cm/s PV Peak Velocity 85.0 cm/s FINDINGS Left Ventricle Normal left ventricular size. Mild left ventricular systolic dysfunction with akinesis of the basal inferoseptal and basal inferior wall segments with mildly reduced ejection fraction of 51%. Mild concentric left ventricular hypertrophy. Stage I left ventricular diastolic dysfunction-normal for patient's age. Right Ventricle The right ventricle is normal in size and function. Right Atrium The right atrium is normal in size. Left Atrium The left atrium is normal in size. Mitral Valve Structurally normal mitral valve. No mitral valve stenosis. Mild mitral valve regurgitation. Aortic Valve Structurally normal aortic valve without stenosis or regurgitation. Tricuspid Valve Tricuspid valve regurgitation jet not adequate to estimate pulmonary artery systolic pressure. Structurally normal tricuspid valve without stenosis or regurgitation. Pulmonic Valve Structurally normal pulmonic valve without significant stenosis. There is no pulmonic regurgitation. Pericardium Small pericardial effusion. No echocardiogram signs of tamponade. Aorta Normal ascending aorta dimension. IVC IVC not well-visualized. CONCLUSIONS 1. Mild left ventricular systolic dysfunction with akinesis of the basal inferoseptal and basal inferior wall segments. EF 51%. 2. Mild mitral valve regurgitation 3. Small circumferential pericardial effusion without signs of tamponade. Dank Rincon (Electronically Signed) Final Date: 26 December 2024 18:24 S
== END 2024-12-25 14:52 | disposition home or self-care (01) ==
LOC: RAD 14:54
PROVIDERS: PCP Nurse Practitioner; Visit Provider Internal Medicine
DX: R06.02 Shortness of breath (principal); R93.1 Abnormal findings on diagnostic imaging of heart and coronary circulation; I34.0 Nonrheumatic mitral (valve) insufficiency; I31.39 Other pericardial effusion (noninflammatory)
CPT/HCPCS: 93306

== ENCOUNTER 2025-01-28 10:28 | Outpatient (CLI) | payer MEDICARE, SELFPAY | END 2025-01-28 10:29 | disposition home or self-care (01) | LOC: SLEEP 10:29 | PROVIDERS: PCP Nurse Practitioner; Visit Provider Nurse Practitioner | DX: G47.34 Idiopathic sleep related nonobstructive alveolar hypoventilation (principal) | CPT/HCPCS: 94762 ==

== ENCOUNTER 2025-02-27 06:44 | Inpatient (IN) | payer MEDICARE, SELFPAY ==
[2025-02-27] VITALS (47 sets, daily range): BP systolic 132–194; BP diastolic 50–83; PULSE 86–122; RESP 16–31; TEMP 36.2–37.1; O2SAT 88–97; BMI 32.1
--- NOTE | 2025-02-27 06:52 | ECG_ITS ---
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1940 Requested By: Lee Wolfe Order Number: [id number] Reading MD: TALIA GABRIEL Measurements Intervals [place] Rate: 119 P: 41 IA: 164 QRS: -13 QRSD: 109 T: 81 QT: 354 QTc: 499 Interpretive Statements SINUS TACHYCARDIA WITH OCCASIONAL VENTRICULAR PREMATURE COMPLEXES ANTEROSEPTAL MYOCARDIAL INFARCTION , OF INDETERMINATE AGE [40+ ms Q WAVE IN V1-V4] Compared to ECG 10/24/2024 18:27:52 Ventricular premature complex(es) now present Myocardial infarct finding now present Sinus bradycardia no longer present T-wave abnormality no longer present Possible ischemia no longer present Electronically Signed On 03-01-2025 21:37:29 CDT by TALIA GABRIEL [email or web address] [id number]
--- NOTE | 2025-02-27 06:52 | XR_ITS ---
WS: [id number] Exam: XR chest 1V portable [id number] Date/Time of Exam: 02/27/2025 6:52 AM Reason For Exam: dyspnea/cough Comparison 10/24/2024. There is cardiac enlargement with pulmonary vascular congestion suggesting CHF. There is consolidating airspace infiltrate in the LEFT lower lobe and LEFT basal pleural effusion. There is also infiltrate in the RIGHT lung base. No pneumothorax. The mediastinum is normal in contour. Old bilateral humeral neck fractures. Surgical clips in the RIGHT and LEFT neck. IMPRESSION1. Interval cardiac enlargement with pulmonary vascular congestion suggesting CHF. 2. Bilateral basal infiltrates LEFT basal pleural effusion. Superimposed pneumonia not excluded.
--- OUTSIDE RECORDS SUMMARY | 2025-02-27 06:52 | XMS_ITS | Clinical Summary ---
Author Organization [facility] Address [address] [place] [address] Phone Care Team Providers Care Assistant Banquet Manager Name Role Phone Honorio Ren MD Primary Care Provider [phone] Allergies Active Allergy Reactions Criticality Noted Date Comments Amoxicillin Rash Low 11/22/2015 Morphine Hives,Nausea and Vomiting High 04/06/2014 Penicillins Hives High 04/06/2014 Medications cholecalciferol, Vitamin D3, (VITAMIN D3) 25 mcg (1,000 unit) Capsule Take by mouth daily. 08/24/19 19 Active aspirin (ECOTRIN EC) 81 mg Tablet, Delayed Release (E.C.) Take 81 mg by mouth daily. Active multivitamin (DAILY-LEONIDES) tablet Take 1 Tablet by mouth daily. Active levETIRAcetam (KEPPRA) 750 mg Tablet Take 750 mg by mouth[address] Bid [address] diaz Active citalopram (CeleXA) 20 mg tablet Take 20 mg by mouth daily. 08/23/19 23 Active LORazepam (ATIVAN) 0.5 mg tabletIndication s:Vascular dementia with anxiety, unspecified dementia severity (CMS/HCC) Take 1 Tablet (0.5 mg) by mouth 1 time daily as needed for Anxiety. 30 Tablet 5 09/22/19 23 Active clopidogreL (PLAVIX) 75 mg Tablet Take 1 Tablet by mouth daily. 08/16/19 25 Active ketorolac tromethamine (ACULAR) 0.5 % solution PLACE 1 DROP IN EACH EYE FOUR TIMES DAILY 08/15/19 25 Active potassium CHLORIDE (K-TAB) 20 mEq Extended Release tablet Take 1 Tablet by mouth 2 times daily. 08/16/19 25 Active prednisoLONE acetate (PRED FORTE) 1 % suspension PLACE 1 DROP IN EACH EYE FOUR TIMES DAILY 08/15/19 25 Active cranberry fruit extract (CRANBERRY CONCENTRATE ORAL) Take by mouth. Active NIFEdipine (ADALAT CC) 30 mg Extended Release tabletIndication s:Benign hypertension,Ath erosclerosis of [place] coronary artery of [place] heart with angina pectoris Take 1 Tablet (30 mg) by mouth daily. 90 Tablet 3 08/29/19 25 Active atorvastatin (LIPITOR) 80 mg tabletIndication s:Mixed hyperlipidemia,A therosclerosis of [place] coronary artery of [place] heart with angina pectoris Take 1 Tablet (80 mg) by mouth daily. 100 Tablet 3 08/29/19 25 Active alendronate (FOSAMAX) 70 mg tabletIndication s:Age-related osteoporosis without current pathological fracture Take 1 Tablet (70 mg) by mouth every 7 days. empty stomach before other meds,with 8oz of water, stay upright 30 min 4 Tablet 4 08/29/19 25 Active furosemide (LASIX) 40 mg tablet Take 1 Tablet (40 mg) by mouth 2 times daily. 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 30 Tablet 3 08/29/19 25 Active isosorbide mononitrate (IMDUR) 30 mg Extended Release 24 hour tablet TAKE ONE TABLET BY MOUTH DAILY IN THE MORNING 100 Tablet 3 09/12/19 25 Active albuterol sulfate HFA 90 mcg/actuation aerosol inhalerIndicatio ns:History of 2019 novel coronavirus disease (COVID-19),Mucop urulent chronic bronchitis (CMS/HCC) Take 2 Puffs by inhalation every 6 hours as needed for Shortness of Breath. 8.5 Gram 3 09/12/19 25 Active memantine (NAMENDA) 10 mg TabletIndication s:Mild vascular dementia with anxiety (CMS/HCC) TAKE ONE TABLET BY MOUTH TWICE DAILY 60 Tablet 2 01/30/20 25 Active lansoprazole (PREVACID) 30 mg Capsule, Delayed Release(E.C.)Ind ications:Gastroe sophageal reflux disease without esophagitis TAKE ONE CAPSULE BY MOUTH DAILY 100 Capsule 1 02/27/20 25 Active lansoprazole (Prevacid) 30 mg Capsule, Delayed Release(E.C.)Ind ications:Gastroe sophageal reflux disease without esophagitis Take 1 Capsule (30 mg) by mouth daily. 90 Capsule 1 09/12/19 25 025 Discontinued memantine (NAMENDA) 10 mg TabletIndication s:Mild vascular dementia with anxiety (CMS/HCC) TAKE ONE TABLET BY MOUTH TWICE DAILY 60 Tablet 2 11/06/19 25 025 Discontinued Active Problems Problem Noted Date Diagnosed Date Mucopurulent chronic bronchitis 09/21/2022 Thoracic aortic atherosclerosis 02/16/2022 Overview (02/16/2022): ADDED PER PVQ Vascular dementia with anxiety 02/15/2022 Dependence on other enabling machines and device s 02/15/2022 Vitamin D deficiency 02/15/2022 History of 2019 novel coronavirus disease (COVID -19) 01/19/2021 Benign hypertension 01/19/2021 Seizure 01/13/2020 Overview (10/02/2020): ADDED PER PB QUERY RESPONSE DOS 6..2019 Vaginal atrophy 11/21/2019 History of TIA (transient ischemic attack) 08/23 Overview (10/01/2020): CHANGED PER PVQ RESPONSE DOS 6..2019 Age-related osteoporosis wit hout current pathological fracture 11/13/2017 Left hemiparesis 04/15/2017 Gastroesophageal reflux disease without esophagi tis 04/01/2016 Iron deficiency anemia 04/01/2016 Chronic combined systolic an d diastolic congestive heart failure 09/15/2014 History of right MCA stroke 06/09/2014 Intracranial atherosclerosis 06/09/2014 Post-Stroke Cognitive impairment 06/09/2014 Former smoker, stopped smoking many years ago Carotid artery disease - LICA mild, CLARA severe 06/07/2014 Atherosclerosis of [place] co ronary artery of [place] heart- s/p CRYSTAL RCA 06/201406/07/2014 Mixed hyperlipidemia 06/07/2014 Hypertensive heart disease w ith combined systolic and diastolic congestive heart failure 04/07/2014 Overview (10/01/2020): CHANGED PER PVQ RESPONSE DOS 11.21.2019 Resolved Problems Problem Noted Date Diagnosed Date Resolved Date Common bile duct stone 11/23/201512/09 H/O: CVA (cerebrovascular accident) 11/23/2015 08/23/2018 Elevated liver function tests 11/23/2015 02/15/2022 Acute coronary syndrome 06/08/2014 07/0 12/2015 TIA involving right internal carotid artery 06/07/2014 08/23/2018 Hypomagnesemia 04/09/2014 06/09/2014 Nausea \T\ vomiting 04/07/2014 06/09/19 15 Acute gastroenteritis 04/07/20142014 Hypokalemia 04/07/2014 06/09/2014 Hyperlipidemia 04/07/2014 06/09/2014 Nausea \T\ vomiting 04/07/2014 04/07/20 14 Encounters Date Type Department Care Team Description 02/26/[address] [address] Isabella Gaitan FNP Gastroesophageal reflux disease without esophagitis 01/29/[address] [address] Isabella Gaitan FNP Mild vascular dementia with anxiety ([facility]) 01/07/2025 External Device Data ST[facility] ABSTRACTION Provider, Abstract 12/18/2024 External Device Data [place] ABSTRACTION Provider, Abstract 12/17/2024 External Device Data [place] ABSTRACTION Provider, Abstract from Last 3 Months Immunizations Immunization Administration Dates Next Due INFLUENZA VACCINE HIGH DOSE QUADRIVALENT 65 YR UP PF IM 02/20/2017,04/01/2016 INFLUENZA VACCINE QUADRIVALENT 3 YR UP PF IM 10/2013 INFLUENZA VACCINE QUADRIVALENT 6 MOS UP PF IM Influenza Seasonal Unspecified Formulation IM Influenza Vaccine High Dose 65+ Yrs IM 7,04/01/2016 Pneumococcal conjugate, unspecified formulation 03/05/2013 Family History Medical History Relation Name Comments Unknown Brother 1 Jr Cancer Brother 2 Pedro stomach Hypertension Daughter 1 Hypertension Daughter 2 Nasreen Other Father Miles killed in MVA Hypertension Mother Maria Dolores Hypertension Sister Isabela Hypertension Son 1 Hypertension Son 2 Hypertension Son 3 Joselo Hypertension Son 4 Aaron Relation Name Status Comments Brother 1 Jr Brother 2 Pedro Alive Daughter 1 Alive Daughter 2 Nasreen Alive Father Miles Mother Maria Dolores Sister Isabela Son 1 Alive Son 2 Alive Son 3 Joselo Alive Son 4 Aaron Alive Social History Tobacco Use Types Packs/Day Years Used Date Smoking Tobacco: Former Cigarettes Q uit: 08/22/2001 Smokeless Tobacco: Never Tobacco Cessation:Counseling Given: No Alcohol Use Standard Drinks/Week Comments No 0 (1 standard drink = 0.6 oz pur e alcohol) Social Connections Answer Date Recorded In a typical week, how many times do you talk on the phone with family, friends, or neighbors? More than three times a week 11/21/2019 How often do you get togethe r with friends or relatives? Never 11/21/2019 How often do you attend chur or latter day services? Never 11/21/2019 Do you belong to any clubs o r organizations such as uatsdin groups, unions, fraternal or athletic groups, or school groups? No 11/21/2019 How often do you attend meet ings of the clubs or organizations you belong to? Never 11/21/2019 Are you , , di vorced, , never , or living with a partner? 11/21/2019 Financial Resource Strain Answer Date R ecorded How hard is it for you to pa y for the very basics like food, housing, medical care, and heating? Not hard at all 02/15/2022 Food Insecurity Answer Date Recorded In the past 12 months, have you worried that your food would run out before you had money to buy more? Never true 02/15/2022 In the past 12 months, did y ou run out of food and didn't have money to buy more? Never true 02/15/2022 Transportation Needs Answer Date Record ed In the past 12 months, has l ack of transportation kept you from medical appointments or from getting medications? 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 Gender Identity Not on file Sexual Orientation Not on file Last Filed Vital Signs Vital Sign Reading Time Taken Comments Blood Pressure 93/50 08/28/2024 1:15 PM CDT Pulse 46 08/28/2024 1:15 PM CDT Temperature 36 C (96.8 F) 08/28/2024 1:15 PM CDT Respiratory Rate 24 08/28/2024 1:15 PM CDT Oxygen Saturation 100% 08/28/2024 1:15 PM CDT Inhaled Oxygen Concentration - - Weight 52.2 kg (115 lb) 08/28/2024 1:15 PM CDT Height 156.2 cm (5' 1.5 ) 08/28/2024 1:15 PM CDT Body Mass Index 21.38 08/28/2024 1:15 PM CDT Plan of Treatment Health Maintenance Due Date Last Done Comments DTAP/TDAP/TD VACCINES (1 - Tdap) 1959 PNEUMOCOCCAL VACCINE 50+ YEA RS (1 of 2 - PCV) 1959 03/05/2013 ZOSTER VACCINE (1 of 2) 1988 RSV VACCINE (60+ or ) (1 - 1-dose 75+ series) 2013 OSTEOPOROSIS SCREENING 11/01/2022 11/01/2017, 2017 INFLUENZA VACCINE (#1) 2025 9, 02/20/2017, 02/20/2017, Additional history exists Medicare Advantage (NE) Preventative Visit/Annual Wellness Visit Completed 08/28/2024, 08/15/2023, 02/15/2022, Additional history exists Procedures Procedure Name Priority Date/Time Associated Diagnosis Comments XR DEXA BONE DENSITY AXIAL 1 OR MORE SITES Routine 11/01/2017 11:30 AM CDT Medicare annual wellness visit, subsequent from Last 3 Months or Most Recently Relevant to Health Maintenance Results * XR DEXA BONE DENSITY AXIAL 1 OR MORE SITES (11/01/2017 11:30 AM CDT) Anatomical Region Laterality Modality Other Impressions 11/01/2017 5:02 PM CDT Abnormal examination Bone density lies in the osteoporotic range at all locations lying significantly below the average of the patient's age-matched control in the hip consistent with accelerated bone demineralization is the etiology of her osteoporosis. NOF guidelines recommend consideration of FDA-approved medical therapies in patients with T-scores of the spine or hip equal to or less than -2.5 or with FRAX determined 10-year probabilities of hip/major osteoporosis-related fractures equal or greater than 3%/20% respectively. Consider assessing fracture risk using the FRAX analysis tool for guidance of clinical management available online at www.shef.ac.uk/FRAX/. [employer] for Select DXA and the Femoral Neck BMD value. Also consider remeasuring no sooner than 2 years only as clinically needed. Narrative 11/01/2017 5:02 PM CDT DEXA Evaluation of the Lumbar Spine and Left Proximal Femur Reason for Consultation: Ovarian failure. Evaluation of bone mineral density. The following absorptiometry data were obtained. The quality of this examination is acceptable with regards to count density, processed images, data display and lack of important artifacts (including but not limited to motion and attenuation artifacts). Serial examination number 1. L1-L4 BMD (g/cm2): 0.692 Adult T-score: -3.2 Adult Z-score: -0.6 Left femoral neck BMD (g/cm2): 0.407 Adult T-score: -4.0 Adult Z-score: -1.7 Left Total Hip BMD (g/cm2): 0.583 Adult T-score: -2.9 Adult Z-score: -0.9 Procedure Note Leandro Cruz MD - 07/28/2021 DEXA Evaluation of the Lumbar Spine and Left Proximal Femur Reason for Consultation: Ovarian failure. Evaluation of bone mineral density. The following absorptiometry data were obtained. The quality of this examination is acceptable with regards to count density, processed images, data display and lack of important artifacts (including but not limited to motion and attenuation artifacts). Serial examination number 1. L1-L4 BMD (g/cm2): 0.692 Adult T-score: -3.2 Adult Z-score: -0.6 Left femoral neck BMD (g/cm2): 0.407 Adult T-score: -4.0 Adult Z-score: -1.7 Left Total Hip BMD (g/cm2): 0.583 Adult T-score: -2.9 Adult Z-score: -0.9 IMPRESSION Abnormal examination Bone density lies in the osteoporotic range at all locations lying significantly below the average of the patient's age-matched control in the hip consistent with accelerated bone demineralization is the etiology of her osteoporosis. NOF guidelines recommend consideration of FDA-approved medical therapies in patients with T-scores of the spine or hip equal to or less than -2.5 or with FRAX determined 10-year probabilities of hip/major osteoporosis-related fractures equal or greater than 3%/20% respectively. Consider assessing fracture risk using the FRAX analysis tool for guidance of clinical management available online at www.shef.ac.uk/FRAX/. [employer] for Select DXA and the Femoral Neck BMD value. Also consider remeasuring no sooner than 2 years only as clinically needed. Honorio Ren MD DIAGNOSTIC IMAGING ORDERA BLES Final Result from Last 3 Months or Most Recently Relevant to Health Maintenance Insurance [facility] [id number] Advance Directives For more information, please contact: [phone] Documents on File Type Date Recorded Patient Steward/Stewardess Chief Cargo Vessel Expl anation Advance Directive POA 07/01/2014 2:18 PM A dvance Directive POA Care Teams Assistant Banquet Manager Relationship Specialty Start Date End Date Honorio Ren MD [address] [place] [id number] PCP - General Family Practice 02/18/16
--- OUTSIDE RECORDS SUMMARY | 2025-02-27 06:52 | XMS_ITS | Clinical Summary ---
Author Organization [facility] Address [address] [facility] [address] [place] [address] Phone Care Team Providers Care Family Court Counsellor Name Role Phone Honorio Ren MD Primary Care Provider [phone] [phone] Allergies Active Allergy Reactions Criticality Noted Date Comments Amoxicillin Rash Low 11/22/2015 Morphine Hives,Nausea and Vomiting High 04/06/2014 Penicillins Hives High 04/06/2014 Medications aspirin (CAMRON CHEWABLE) 81 mg Tablet, Chewable Take 81 mg by mouth daily. Active triamcinolone acetonide (KENALOG) 0.1 % Cream Apply to affected area 2 times daily. 45 Gram 05/17/20 18 Active cholecalciferol, Vitamin D3, (VITAMIN D3) 1,000 unit Capsule Take by mouth daily. Active nystatin (MYCOSTATIN) 100,000 unit/gram CreamIndications :Candidiasis of vulva and vagina Apply to affected area 2 times daily In the skin. 15 Gram 10/27/19 19 Active conjugated estrogens (Premarin) 0.625 mg/gram vaginal creamIndications :Vaginal atrophy USE ONE APPLICATORFUL THREE TIMES WEEKLY 30 Gram 11/21/19 20 Active levETIRAcetam (KEPPRA) 500 mg tabletIndication s:Cognitive impairment,Histo ry of right MCA stroke Take 1 Tablet (500 mg) by mouth 2 times daily. 60 Tablet 11/21/19 20 Active alendronate (FOSAMAX) 70 mg tabletIndication s:Age-related osteoporosis without current pathological fracture TAKE ONE TABLET BY MOUTH EVERY 7 DAYS ON AN EMPTY STOMACH BEFORE OTHER MED, WITH EIGHT OUNCES OF WATER, STAY UPRIGHT FOR 30 MINUTES 4 Tablet 10/08/19 21 Active atorvastatin (LIPITOR) 80 mg tabletIndication s:Mixed hyperlipidemia,A therosclerosis of [place] post[place] coronary artery of [place] heart with angina pectoris TAKE ONE TABLET BY MOUTH DAILY 30 Tablet 10/08/19 21 Active Dexilant 60 mg Delayed Release capsuleIndicatio ns:Gastroesophag eal reflux disease without esophagitis TAKE ONE CAPSULE BY MOUTH DAILY 30 Capsule 10/08/19 21 Active metoprolol tartrate (LOPRESSOR) 25 mg tabletIndication s:Atherosclerosi s of [place] post[place] coronary artery of [place] heart with angina pectoris,Chronic combined systolic and diastolic congestive heart failure (CMS/HCC),Benign hypertension TAKE 1/2 TABLET BY MOUTH TWICE DAILY 30 Tablet 10/08/19 21 Active NIFEdipine (ADALAT CC) 90 mg Extended Release tabletIndication s:Atherosclerosi s of [place] coronary artery of [place] heart with angina pectoris,Chronic combined systolic and diastolic congestive heart failure (CMS/HCC),Benign hypertension TAKE ONE TABLET BY MOUTH DAILY 30 Tablet 10/08/19 21 Active spironolactone (ALDACTONE) 25 mg tabletIndication s:Atherosclerosi s of [place] post[place] coronary artery of [place] heart with angina pectoris,Chronic combined systolic and diastolic congestive heart failure (CMS/HCC),Benign hypertension TAKE ONE TABLET BY MOUTH DAILY 30 Tablet 10/08/19 21 Active Active Problems Problem Noted Date Diagnosed Date Seizure 01/13/2020 Overview (01/13/2020): ADDED PER PB QUERY RESPONSE DOS 11.21.2019 Vaginal atrophy 11/21/2019 History of TIA (transient ischemic attack) 08/23 Overview (01/08/2020): CHANGED PER PVQ RESPONSE DOS 6..2019 Age-related osteoporosis wit hout current pathological fracture 11/13/2017 Left hemiparesis 04/15/2017 Iron deficiency anemia 04/01/2016 Gastroesophageal reflux disease without esophagi tis 04/01/2016 Elevated liver function tests 11/23/2015 Chronic combined systolic an d diastolic congestive heart failure 09/15/2014 History of right MCA stroke 06/09/2014 Intracranial atherosclerosis 06/09/2014 Post-Stroke Cognitive impairment 06/09/2014 Former smoker, stopped smoking many years ago Atherosclerosis of [place] post[place] co ronary artery of [place] post[place] heart- s/p CRYSTAL RCA 06/201406/07/2014 Carotid artery disease - LICA mild, CLARA severe 06/07/2014 Mixed hyperlipidemia 06/07/2014 Hypertensive heart disease w ith combined systolic and diastolic congestive heart failure 04/07/2014 Overview (01/08/2020): CHANGED PER PVQ RESPONSE DOS 11.21.2019 Resolved Problems Problem Noted Date Diagnosed Date Resolved Date Common bile duct stone 11/23/201512/09 H/O: CVA (cerebrovascular accident) 11/23/2015 08/23/2018 Acute coronary syndrome 06/08/2014 07/0 12/2015 TIA involving right internal carotid artery 06/07/2014 08/23/2018 Hypomagnesemia 04/09/2014 06/09/2014 Nausea & vomiting 04/07/2014 04/07/2014 Acute gastroenteritis 04/07/20142014 Hypokalemia 04/07/2014 06/09/2014 Nausea & vomiting 04/07/2014 06/09/2014 Hyperlipidemia 04/07/2014 06/09/2014 Immunizations Immunization Administration Dates Next Due INFLUENZA VACCINE QUADRIVALENT 3 YR UP PF IM 10/2013 Influenza Vaccine High Dose 65+ Yrs IM 7,04/01/2016 Pneumococcal conjugate, unspecified formulation 03/05/2013 Family History Medical History Relation Name Comments Unknown Brother 1 Cancer Brother 2 stomach Hypertension Daughter 1 Hypertension Daughter 2 Other Father killed in MVA Hypertension Mother Hypertension Sister Hypertension Son 1 Hypertension Son 2 Hypertension Son 3 Hypertension Son 4 Relation Name Status Comments Brother 1 Brother 2 Alive Daughter 1 Alive Daughter 2 Alive Father Mother Sister Son 1 Alive Son 2 Alive Son 3 Alive Son 4 Alive Social History Tobacco Use Types Packs/Day Years Used Date Smoking Tobacco: Former Cigarettes 0.3 40 0 08/22/1961 - 08/22/2001 Smokeless Tobacco: Never Alcohol Use Standard Drinks/Week Comments No 0 [...] 11/21/2019 How often do you attend chur ch or orthodox services? Never 11/21/2019 Do you belong to any clubs o r organizations such as denominational groups, unions, fraternal or athletic groups, or [...] care, and heating? Not hard at all 11/21/2019 Food Insecurity Answer Date Recorded Within the past 12 months, y ou worried that your food would run out before you got the money to buy more. Never true 11/21/19 20 Within the past 12 months, t he food you bought just didn't last and you didn't have money to get more. Never true 11/21/2019 Transportation Needs Answer Date Record ed In the past 12 months, has l ack of transportation kept you from medical appointments or from getting medications? No 11/03 In the past 12 months, has l ack of transportation kept you from meetings, work, or from getting things needed for daily living? No 11/21/2019 Education Answer Date Recorded What is the highest level of school you have completed or the highest degree you have received? 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 Gender Identity Not on file Sexual Orientation Not on file Occupation Industry Job Start Date Job End Date Not on file Not on file Not on file Not on file Last Filed Vital Signs Vital Sign Reading Time Taken Comments Blood Pressure 120/78 11/21/2019 2:08 PM CDT Pulse 64 11/21/2019 2:08 PM CDT Temperature 36.6 C (97.9 F) 11/21/2019 2:08 PM CDT Respiratory Rate 16 11/21/2019 2:08 PM CDT Oxygen Saturation 97% 11/21/2019 2:08 PM CDT Inhaled Oxygen Concentration - - Weight 56.2 kg (124 lb) 11/21/2019 2:08 PM CDT Height 157.5 cm (5' 2 ) 11/21/2019 2:08 PM CDT Body Mass Index 22.68 11/21/2019 2:08 PM CDT Plan of Treatment Health Maintenance Due Date Last Done Comments DTAP/TDAP/TD VACCINES (1 - Tdap) 1959 PNEUMOCOCCAL VACCINE 50+ YEA RS (1 of 2 - PCV) 1959 03/05/2013 ZOSTER VACCINE (1 of 2) 1988 RSV VACCINE (60+ or ) (1 - 1-dose 75+ series) 2013 OSTEOPOROSIS SCREENING 11/01/2022 11/01/2017 Medicare Advantage ([place]) Preventative Visit/Annual Wellness Visit 06/05/2024 11/21/2019, 10/24/2017 INFLUENZA VACCINE (#1) 2025 9, 02/20/2017, 04/01/2016, Additional history exists Procedures Procedure Name Priority Date/Time Associated Diagnosis Comments XR DEXA BONE DENSITY AXIAL 1 OR MORE SITES Routine 11/01/2017 11:30 AM CDT Medicare annual wellness visit, subsequent from Last 3 Months or Most Recently Relevant to Health Maintenance Results * XR DEXA BONE DENSITY AXIAL 1 OR MORE SITES (11/01/2017 11:30 AM CDT) Anatomical Region Laterality Modality Digital Radiogra phy 11/01/2017 12:3 3 PM CDT Impressions 11/01/2017 5:02 PM CDT IMPRESSION: Abnormal examination Bone density lies in the [...] clinical management available online at [email or web address] [employer] for Select DXA and the Femoral Neck [...] -0.9 Procedure Note Leandro Cruz MD - 11/01/2017 DEXA Evaluation of the Lumbar Spine and [...] 0.583 Adult T-score: -2.9 Adult Z-score: -0.9 IMPRESSION: Abnormal examination Bone density lies in the [...] clinical management available online at [email or web address] Enter [employer] for Select DXA and the Femoral Neck BMD value. Also consider remeasuring no sooner than 2 years only as clinically needed. Honorio Ren MD DIAGNOSTIC IMAGING ORDERA BLES Final Result from Last 3 Months or Most Recently Relevant to Health Maintenance Insurance [facility] DUAL COMPLETE MCR PPO D-SNP [place]ICA[place] Advance Directives For more information, please contact: [phone] Documents on File Type Date Recorded Patient Scaler Expl anation Advance Directive POA 07/01/2014 2:18 PM A dvance Directive POA * Full Code (Latest Code Status on File) Date Activated Date Inactivated Comments 11/22/2015 11:20 PM 11/28/2015 12:40 AM * Full Code Date Activated Date Inactivated Comments 06/07/2014 7:11 PM 06/10/2014 4:14 PM * Full Code Date Activated Date Inactivated Comments 04/07/2014 12:29 PM 04/09/2014 3:29 PM * Full Code Date Activated Date Inactivated Comments 04/07/2014 1:17 AM 04/07/2014 12:[address] Counsellor Relationship Specialty Start Date End Date Honorio Ren MD [address] [id number] PCP - General Family Practice 02/18/16
--- OUTSIDE RECORDS SUMMARY | 2025-02-27 06:52 | XMS_ITS | Encounter Summary ---
Author Organization [facility] Address [address] [place] [address] Care Team Providers Care Senior Marketing Coordinator Name Role Phone Honorio Ren MD Primary Care Provider [phone] [phone] Reason for Visit * Reason Comments Med Refill Encounter Details Date Type Department Care Team (Late st Contact Info) Description 02/26/2025 Refill [facility] [address] [address] Isabella Gaitan, [facility] [address] [address] Gastroesophageal reflux disease without esophagitis Social History Tobacco Use Types Packs/Day Years Used Date Smoking Tobacco: Former Cigarettes Q uit: 08/22/2001 Smokeless Tobacco: Never Alcohol Use Standard [...] often do you attend chur ch or christianity services? 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 Gender Identity Not on file Sexual Orientation Not on file documented as of this encounter Plan of Treatment Not on file documented as of this encounter Visit Diagnoses Diagnosis Gastroesophageal reflux disease without esophagitis Esophageal reflux documented in this encounter Additional Health Concerns Assessment Noted Time PHQ-9 Depression Total Score: 1 08/29/19 25 12:59 PM CDT documented as of this encounter Care Teams Senior Marketing Coordinator Relationship Specialty Start Date End Date Honorio Ren MD [address] [facility] [address] [place] [address] PCP - General Family Practice 02/18/16 documented as of this encounter
--- OUTSIDE RECORDS SUMMARY | 2025-02-27 06:52 | XMS_ITS | Encounter Summary ---
Author Organization [facility] Address [address] [place] [address] Care Team Providers Care Document Improvement Specialist Name Role Phone Honorio Ren MD Primary Care Provider [phone] [phone] Encounter Details Date Type Department Care Team (Late st Contact Info) Description 07/12/2002 Inpatient Historical HIS IN BED Iain Nguyen MD [address] [place] [address] RESPIRATORY FAILURE (CMS/HCC) (Primary Dx) Social History Tobacco Use Types Packs/Day Years Used Date Smoking Tobacco: Never Assessed Comments Unknown Sex and Gender Information Value Date Recorded Sex Assigned at Not on file 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
--- NOTE | 2025-02-27 06:55 | W.ED.SOB ---
HPI - SOB/Dyspnea General: Chief Complaint: Shortness of Breath/Dyspnea Stated Complaint: SOB Time Seen by Provider: 02/27/25 06:52 History of Present Illness: HPI Narrative: 84-year-old female presents emergency room complaining of shortness of breath. She is chronically on 2 to 3 L by nasal cannula at home. EMS was called with complaint of shortness of breath exacerbation of COPD. She relates she feels short of breath she denies productive cough or hemoptysis no chest pain. She was given 2 nebulizers once IV Solu-Medrol and route. She is tachypneic on arrival. She states this been progressively worsening overnight. Associated symptoms: Reports chest congestion; Deny abdominal pain, chest pain or fever(s) Related Data Home Medications ?Medication ?Instructions ?Recorded ?Confirmed atorvastatin 80 mg tablet 80 mg PO QPM 07/26/19 02/27/25 albuterol sulfate 90 mcg/actuation 2 puff inhalation Q6H PRN 10/06/22 02/27/25 aerosol inhaler Shortness Of Breath Or Wheezing multivitamin 1 tab PO DAILY 10/06/22 02/27/25 ketorolac 0.5 % eye drops 1 drp ophthalmic (eye) QID PRN 08/23/24 02/27/25 allergies prednisolone acetate 1 % eye 1 drp ophthalmic (eye) QID 08/23/24 02/27/25 drops,suspension furosemide 40 mg tablet (Lasix) 80 mg PO QAM 12/24/24 02/27/25 citalopram 20 mg tablet 20 mg PO DAILY 02/27/25 02/27/25 clopidogrel 75 mg tablet 75 mg PO DAILY 02/27/25 02/27/25 lansoprazole 30 mg capsule,delayed 30 mg PO DAILY 02/27/25 02/27/25 release memantine 10 mg tablet 10 mg PO BID 02/27/25 02/27/25 nifedipine 30 mg tablet,extended 30 mg PO DAILY 02/27/25 02/27/25 release Previous Rx's ?Medication ?Instructions ?Recorded isosorbide mononitrate 30 mg 30 mg PO QAM #30 tabs 10/09/22 tablet,extended release 24 hr nitroglycerin 0.4 mg sublingual 0.4 mg sublingual Q5M PRN chest 11/23/22 tablet pain #25 tabs aspirin 81 mg tablet,delayed 81 mg PO DAILY #90 tabs 12/28/22 release levetiracetam 500 mg tablet 500 mg PO BID 90 days #180 tabs 09/11/24 Oxygen concentrator 2L NC #1 ea 01/29/25 Allergies Allergy/AdvReac Type Severity Reaction Status Date / Time meperidine (From Demerol) Allergy ADR-Vomitin Verified 12/24/24 15:19 g morphine Allergy ADR-Vomitin Verified 12/24/24 15:19 g Penicillins Allergy ALGY-Hives Verified 12/24/24 15:19 Review of Systems Const: Denies: fever(s) or chills Card: Denies: chest pain Resp: Reports: dyspnea, non-productive cough and chest congestion GI: Denies: abdominal pain : Denies: dysuria, urinary frequency or urinary urgency Musc: Denies: neck pain or back pain Skin/Breast: Denies: rash PFSH ED PFSH: Medical History Pulmonary emphysema, unspecified emphysema type Left ventricular systolic dysfunction (LVSD), NYHA class 3 Epilepsy Essential hypertension Dyslipidemia GERD (gastroesophageal reflux disease) Dementia in Alzheimer's disease Arteriosclerotic heart 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, 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 Carotid disease, bilateral Cystocele with small rectocele and uterine descent Surgical History History of coronary artery stent placement Status post carotid surgery History of cholecystectomy H/O removal of cyst Family History Mother CAD (coronary artery disease) Hypertension Social History Smoking and tobacco/nicotine status: former use of tobacco/nicotine Second hand smoke exposure: No Alcohol intake: never Substance/Drug Use: never Adopted: No Lives independently: Yes Household members: family Housing: House Marital status: / service: No Current occupational status: retired Do you think of yourself as: Straight/Heterosexual Current gender identity: Female Physical Exam Const: GENERAL APPEARANCE: cooperative ORIENTATION/CONSCIOUSNESS: Yes awake HENMT: COMMON NORMALS: normocephalic, atraumatic and hearing grossly normal bilaterally HEAD & SCALP: normocephalic and atraumatic Resp: EFFORT & INSPECTION: Yes tachypneic, Yes labored and Yes uses accessory muscles AUSCULTATION: rhonchi and wheezes Cardio: COMMON NORMALS: regular rhythm and No murmurs present (Cardio) RATE: tachycardic RHYTHM: regular rhythm GI: COMMON NORMALS: Soft to palpation and No hepatosplenomegaly present AUSCULTATION: Yes normoactive bowel sounds PALPATION: Yes Soft to palpation, No Tenderness to palpation present (GI), No Guarding due to palpation present (GI) and Yes No hepatosplenomegaly present Extremity: COMMON NORMALS: normal to inspection, capillary refill normal, no clubbing, cyanosis or edema, no calf tenderness and no pedal edema Skin: COMMON NORMALS: no rashes or lesions noted GENERAL SKIN EXAM: no rashes or lesions noted Course Vital Signs: Vital signs: Vital Signs Temperature 98.1 F 02/27/25 15:58 Pulse Rate 98 02/27/25 15:53 Respiratory Rate 19 H 02/27/25 15:53 Blood Pressure 159/71 02/27/25 15:53 Pulse Oximetry 93 02/27/25 15:53 Oxygen Delivery Me thod Nasal Cannula 02/27/25 15:53 Oxygen Flow Rate 4 02/27/25 15:53 Fraction of Inspir ed Oxygen 40 02/27/25 10:15 MDM - SOB/Dyspnea Medical Decision Making Patient improved on BiPAP. Hypoxia improved work of breathing improved chest x-ray shows pneumonia and underlying CHF. Patient has been given Lasix. Additionally started oral IV antibiotics cultures done discussed with hospitalist orders written Medical Records I reviewed the patient's medical records. Lab Data I reviewed the patient's lab results. 02/27/25 07:20 02/27/25 07:20 Labs/Radiology: Radiology Impressions Chest Ultrasound 02/27/25 10:32 IMPRESSION: Very small LEFT pleural effusion with atelectatic lung mobile within the fluid. Insufficient pleural fluid for safe thoracentesis. Laboratory Results WBC 14.49 10^3/uL (3.29-11.43) H 02/27/25 07:20 RBC 4.23 10^6/uL (3.85-5.65) 02/27/25 07:20 Hgb 12.20 g/dL (11.27-16.99) 02/27/25 07:20 Hct 38.9 % (36-47) 02/27/25 07:20 MCV 92.0 fl (85-98) 02/27/25 07:20 MCH 28.8 pg (27-33) 02/27/25 07:20 MCHC 31.4 g/dL (30-55) 02/27/25 07:20 RDW 13.3 % (12.1-15.1) 02/27/25 07:20 Plt Count 264 10^3/cmm (157-399) 02/27/25 07:20 MPV 10.6 fL (7.4-10.4) H 02/27/25 07:20 Neut % (Auto) 87.5 % 02/27/25 07:20 Lymph % (Auto) 8.4 % 02/27/25 07:20 [place] % (Auto) 2.6 % 02/27/25 07:20 Eos % (Auto) 0.5 % 02/27/25 07:20 Baso % (Auto) 0.4 % 02/27/25 07:20 Neut # (Auto) 12.68 10^3/uL (1.8-7.7) H 02/27/25 07:20 Lymph # (Auto) 1.2 10^3/uL (0.8-4.8) 02/27/25 07:20 [place] # (Auto) 0.4 10^3/uL (0.2-0.9) 02/27/25 07:20 Eos # (Auto) 0.1 10^3/uL (0.0-0.8) 02/27/25 07:20 Baso # (Auto) 0.1 10^3/uL (0.0-0.1) 02/27/25 07:20 Nucleated RBC % (auto) 0 % 02/27/25 07:20 Nucleated RBCs # 0.0 /100WBC 02/27/25 07:20 Specimen Type Arterial 02/27/25 06:58 Sample Site Radial, left 02/27/25 06:58 ABG pH 7.45 (7.35-7.45) 02/27/25 06:58 ABG pCO2 40.0 mmHg (35-45) 02/27/25 06:58 ABG pO2 66.5 mmHg (80.0-100.0) L 02/27/25 06:58 ABG HCO3 27.6 mmol/L (22-26) H 02/27/25 06:58 ABG O2 Saturation 92.6 02/27/25 06:58 ABG Base Excess 3.4 mmol/L (-2.0-2.0) H 02/27/25 06:58 Tien Test Pos 02/27/25 06:58 A-a O2 Gradient 4.3 mmHg (5-10) L 02/27/25 06:58 Hematocrit 38.6 % (37-47) 02/27/25 06:58 Hgb O2 Saturation 90.8 % (95-100) L 02/27/25 06:58 Carboxyhemoglobin 1.1 %THgb (0.4-20.1) 02/27/25 06:58 Methemoglobin 0.9 % (0.4-1.5) 02/27/25 06:58 Total Hemoglobin 12.6 g/dL (12-16) 02/27/25 06:58 Sodium 141.0 mmol/L (131-143) 02/27/25 06:58 Potassium 3.1 mmol/L (3.5-5.0) L 02/27/25 06:58 Glucose 182.0 mg/dL (70-115) H 02/27/25 06:58 Ionized Calcium 1.2 mmol/L (1.1-1.4) 02/27/25 06:58 O2 Delivery Device Nc 02/27/25 06:58 O2 Liters/Min 4.0 % 02/27/25 06:58 Shearing Machine Tender ID [place] 02/27/25 06:58 Sodium 140 mmol/L (136-145) 02/27/25 07:20 Potassium 3.3 mmol/L (3.5-5.1) L 02/27/25 07:20 Chloride 99 mmol/L (98-107) 02/27/25 07:20 Carbon Dioxide 25 mmol/L (22-29) 02/27/25 07:20 Anion Gap 19.3 (5-19) H 02/27/25 07:20 BUN 17 mg/dL (8-23) 02/27/25 07:20 Creatinine 1.1 mg/dL (0.5-0.9) H 02/27/25 07:20 GFR Calculation Not Reportable 02/27/25 07:20 Glucose 176 mg/dL (65-115) H 02/27/25 07:20 Calculated Osmolality 296 mOsm/kg (285-295) H 02/27/25 07:20 Lactic Acid 2.0 mmol/L (0.5-2.2) 02/27/25 07:20 Calcium 9.2 mg/dL (8.5-10.5) 02/27/25 07:20 Total Bilirubin 0.5 mg/dL (0.15-1.2) 02/27/25 07:20 AST 19 U/L (0-32) 02/27/25 07:20 ALT 12 U/L (0-33) 02/27/25 07:20 Alkaline Phosphatase 133 U/L (35-105) H 02/27/25 07:20 Troponin T Baseline 54 ng/L (0-10) H 02/27/25 07:20 C-Reactive Protein 25.0 mg/L (0.0-4.9) H 02/27/25 07:20 NT-Pro-B Natriuret Pep 6626 pg/mL (0-450) H 02/27/25 07:20 Total Protein 6.2 g/dL (6.6-8.7) L 02/27/25 07:20 Albumin 3.8 g/dL (3.5-5.2) 02/27/25 07:20 Globulin 2.4 g/dL (1.3-4.6) 02/27/25 07:20 Urine Color Yellow (Yellow) 02/27/25 07:52 Urine Appearance Clear (CLEAR) 02/27/25 07:52 Urine pH 5.0 (5-7) 02/27/25 07:52 Ur Specific [place] 1.023 (1.005-1.030) 02/27/25 07:52 Urine Protein 3+ (Negative) A 02/27/25 07:52 Urine Glucose (UA) Negative (Normal) 02/27/25 07:52 Urine Ketones Trace (Negative) 02/27/25 07:52 Urine Blood Negative (Negative) 02/27/25 07:52 Urine Nitrate Negative (Negative) 02/27/25 07:52 Urine Bilirubin Negative (Negative) 02/27/25 07:52 Urine Urobilinogen 1.0 mg/dL (Negative) 02/27/25 07:52 Ur Leukocyte Esterase Negative (Negative) 02/27/25 07:52 Urine RBC 0-2 /hpf (0-2) 02/27/25 07:52 Urine WBC 0-5 /hpf (0-5) 02/27/25 07:52 Ur Squamous Epith Cells 0-5 /hpf (0-5) 02/27/25 07:52 Amorphous Sediment Not Reportable 02/27/25 07:52 Urine Bacteria None seen /hpf (NONE) 02/27/25 07:52 Hyaline Casts 17.37 /lpf 02/27/25 07:52 All radiology interpretation(s) finalized by discharge EKG Data EKG 1: Interpretation: EKG 02/27/2025 6:51 AM sinus tachycardia with PVCs. Q waves in V1 through 4. Rate of 119 OK interval 164 QTc 499. Compared to EKG 10/24/2024 EKG 2: Interpretation: EKG 02/27/2025 1245. Sinus tachycardia Q waves in V1 through V4. Rate 101 OK interval 175 QTc [address]. No acute ST changes noted compared to EKG done earlier today no significant 8 Discharge Plan Discharge Patient Disposition: Admitted As Inpatient Admit Provider: Bhaskar Schultz Clinical Impression: Pneumonia, Alzheimer disease, Acute exacerbation of CHF (congestive heart failure) Condition: Stable Coding Level of Care Code ED [employer] for Lu Ridley
[2025-02-27 07:09] LABS: ABG PCO2 40.0 mmHg (35-45); ABG PH Result 7.45 (7.35-7.45); Alveolar-Arterial Oxygen Gradi 4.3 mmHg (5-10); Arterial Blood Gas Hematocrit 38.6 % (37-47); Blood Gas Allen Test Pos; Blood Gas LPM 4.0 %; Blood Gas Operator Identificat WALCI; Blood Gas Sample Site Radial, left; Blood Gas Sample Type Arterial; Carboxyhemoglobin 1.1 %THgb (0.4-20.1); Glucose Level-ABG 182.0 mg/dL (70-115); HCO3 ABG 27.6 mmol/L (22-26); Ionized Calcium Level - ABG 1.2 mmol/L (1.1-1.4); Methemoglobin 0.9 % (0.4-1.5); Oxygen Saturation ABG 92.6; PO2 ABG 66.5 mmHg (80.0-100.0); Potassium Level - ABG 3.1 mmol/L (3.5-5.0); Sodium Level - ABG 141.0 mmol/L (131-143)
[2025-02-27] MEDS: cefTRIAXone 1,000 mg SDV 1000 MG IVP (07:30)
--- NOTE | 2025-02-27 07:32 | PC.PHAR ---
Family states pt no longer takes Alendronate 70mg or Metoprolol Tartrate 25mg. All other medications taken yesterday 02/26/25. None today.
[2025-02-27 07:34] LABS: Hematocrit 38.9 % (36-47); Hemoglobin 12.20 g/dL (11.27-16.99); Mean Corpuscular HGB Conc 31.4 g/dL (30-55); Mean Corpuscular Hemoglobin 28.8 pg (27-33); Mean Corpuscular Volume 92.0 fl (85-98); Nucleated Red Blood Cells % 0 %; Platelet Count 264 10^3/cmm (157-399); Red Blood Count 4.23 10^6/uL (3.85-5.65); White Blood Count 14.49 10^3/uL (3.29-11.43)
[2025-02-27 07:50] LABS: Lactic Sepsis W/Reflex 2.0 mmol/L (0.5-2.2)
[2025-02-27 07:51] LABS: Troponin(5th) Baseline 54 ng/L (0-10)
[2025-02-27 08:01] LABS: Alanine Aminotransferase 12 U/L (0-33); Albumin Level 3.8 g/dL (3.5-5.2); Alkaline Phosphatase 133 U/L (35-105); Anion Gap 19.3 (5-19); Aspartate Amino Transferase 19 U/L (0-32); Blood Urea Nitrogen 17 mg/dL (8-23); Calcium 9.2 mg/dL (8.5-10.5); Carbon Dioxide 25 mmol/L (22-29); Chloride 99 mmol/L (98-107); Creatinine Clr Calc Pharmacy 34.4971; Globulin 2.4 g/dL (1.3-4.6); Glucose 176 mg/dL (65-115); NT Pro B Type Natriuretic Pept 6626 pg/mL (0-450); Osmolality Calculated 296 mOsm/kg (285-295); Potassium 3.3 mmol/L (3.5-5.1); Sodium 140 mmol/L (136-145); Total Protein 6.2 g/dL (6.6-8.7)
[2025-02-27 08:03] LABS: Glucose Urine UA Negative (Normal); Nitrate Urine Negative (Negative); Specific Gravity, Urine 1.023 (1.005-1.030)
[2025-02-27 08:08] LABS: Add Urine Microscopic? YES
[2025-02-27] MEDS: FUROsemide 10 mg/mL SDV 4mL 40 MG IVP (08:16)
--- NOTE | 2025-02-27 08:18 | PM.HP ---
Providers/Chief Complaint Primary Care Provider: MEGGAN ConcepcionC Chief Complaint: SOB History of Present Illness Wendy Covarrubias is a 84 year old woman with a history of emphysema/chronic obstructive pulmonary disease (COPD), chronic systolic congestive heart failure (CHF), hypertension, hyperlipidemia, chronic kidney disease (CKD), carotid artery disease, coronary artery disease (CAD), epilepsy, and gastroesophageal reflux disease (GERD) presented to the emergency department (ED) with respiratory distress. At baseline, uses 2?3 L oxygen via nasal cannula at home; was on 4 L via EMS and started on bilevel positive airway pressure (BiPAP) in the ED. Reports a little cough. Denies fever, chest pain or pressure, nausea, vomiting, diarrhea, muscle aches, or headache. Denies leg swelling; family notes she ?has tiny legs.? Not diagnosed with sleep apnea. At home, typically wears oxygen all the time due to shortness of breath, though previously advised nighttime use. Home diuretic use described: takes Lasix daily (family reports taking two pills at one time per prior instructions and adjusting with weight; ultimately kept her on it due to weight gain when reduced). Eats smaller, chopped food; has no teeth. Ambulates at home, has a walker but does not use it; uses a wheelchair when out. Review of Systems Const: Denies: fever(s), chills, body aches or malaise ENMT: Denies: throat pain Card: Denies: chest pain, edema, pre-syncope or dyspnea on exertion Resp: Reports: dyspnea and productive cough; Denies: hemoptysis GI: Denies: abdominal pain, nausea, vomiting, diarrhea, constipation, hematochezia or melena : Denies: flank pain, urinary frequency or hematuria Musc: Denies: back pain, joint swelling or joint redness Skin/Breast: Denies: rash or new lesions Neuro: Denies: headache(s) or confusion Medications/Allergies Home Medications ?Medication ?Instructions ?Recorded ?Confirmed ?Last Taken ?Type atorvastatin 80 mg tablet 80 mg PO QPM 07/26/19 02/27/25 02/26/25 History albuterol sulfate 90 mcg/actuation 2 puff inhalation Q6H PRN 10/06/22 02/27/25 02/26/25 History aerosol inhaler Shortness Of Breath Or Wheezing multivitamin 1 tab PO DAILY 10/06/22 02/27/25 02/26/25 History isosorbide mononitrate 30 mg 30 mg PO QAM #30 tabs 10/09/22 02/27/25 02/26/25 Rx tablet,extended release 24 hr nitroglycerin 0.4 mg sublingual 0.4 mg sublingual Q5M PRN chest 11/23/22 02/27/25 Unknown Rx tablet pain #25 tabs aspirin 81 mg tablet,delayed 81 mg PO DAILY #90 tabs 12/28/22 02/27/25 02/26/25 Rx release ketorolac 0.5 % eye drops 1 drp ophthalmic (eye) QID PRN 08/23/24 02/27/25 Unknown History allergies prednisolone acetate 1 % eye 1 drp ophthalmic (eye) QID 08/23/24 02/27/25 Unknown History drops,suspension levetiracetam 500 mg tablet 500 mg PO BID 90 days #180 tabs 09/11/24 02/27/25 02/26/25 Rx furosemide 40 mg tablet (Lasix) 80 mg PO QAM 12/24/24 02/27/25 02/26/25 History Oxygen concentrator 2L NC #1 ea 01/29/25 02/27/25 Unknown Rx citalopram 20 mg tablet 20 mg PO DAILY 02/27/25 02/27/25 02/26/25 History clopidogrel 75 mg tablet 75 mg PO DAILY 02/27/25 02/27/25 02/26/25 History lansoprazole 30 mg capsule,delayed 30 mg PO DAILY 02/27/25 02/27/25 02/26/25 History release memantine 10 mg tablet 10 mg PO BID 02/27/25 02/27/25 02/26/25 History nifedipine 30 mg tablet,extended 30 mg PO DAILY 02/27/25 02/27/25 02/26/25 History release Allergies Allergy/AdvReac Type Severity Reaction Status Date / Time meperidine (From Demerol) Allergy ADR-Vomitin Verified 12/24/24 15:19 g morphine Allergy ADR-Vomitin Verified 12/24/24 15:19 g Penicillins Allergy ALGY-Hives Verified 12/24/24 15:19 PFSH Acute PFSH: Medical History Pulmonary emphysema, unspecified emphysema type Left ventricular systolic dysfunction (LVSD), NYHA class 3 Epilepsy Essential hypertension Dyslipidemia GERD (gastroesophageal reflux disease) Dementia in Alzheimer's disease Arteriosclerotic heart 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, 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 Carotid disease, bilateral Cystocele with small rectocele and uterine descent Surgical History History of coronary artery stent placement Status post carotid surgery History of cholecystectomy H/O removal of cyst Family History Mother CAD (coronary artery disease) Hypertension Social History Smoking and tobacco/nicotine status: former use of tobacco/nicotine Second hand smoke exposure: No Alcohol intake: never Substance/Drug Use: never Adopted: No Lives independently: Yes Household members: family Housing: House Marital status: / service: No Current occupational status: retired Do you think of yourself as: Straight/Heterosexual Current gender identity: Female Vitals/I&O/Wt Last Vital Signs Temp 97.1 F L 02/27/25 06:45 Pulse 115 H 02/27/25 07:45 Resp 16 02/27/25 07:45 BP 194/81 02/27/25 07:45 Pulse Ox 93 02/27/25 07:45 O2 Del Method Nasal Cannula 02/27/25 06:45 O2 Flow Rate 4 02/27/25 06:45 FiO2 45 02/27/25 07:10 Weight last 48 hrs Weight 77.111 kg Physical Exam Narrative: Accompanied by her daughter. Const: COMMON NORMALS: patient oriented x3 and alert GENERAL APPEARANCE: cooperative ORIENTATION/CONSCIOUSNESS: Yes awake OTHER: BiPAP mask. HENMT: COMMON NORMALS: oropharynx normal Neck/C-Spine: COMMON NORMALS: no JVD Resp: COMMON NORMALS: normal respiratory effort AUSCULTATION: diminished lung sounds Cardio: COMMON NORMALS: no JVD, regular rhythm, S1 normal heart sound present, S2 normal heart sound present and No murmurs present (Cardio) RHYTHM: regular rhythm HEART SOUNDS: S1 normal heart sound present and S2 normal heart sound present GI: COMMON NORMALS: Normal to inspection, nondistended, normoactive bowel sounds present, Soft to palpation and non-tender PALPATION: Yes Soft to palpation Extremity: COMMON NORMALS: no joint enlargement and no pedal edema Neuro: COMMON NORMALS: patient oriented x3 and moves all extremities SENSORIUM/ORIENTATION: Yes alert Skin: COMMON NORMALS: no rashes or lesions noted GENERAL SKIN EXAM: no rashes or lesions noted Data 02/27/25 07:20 02/27/25 07:20 Micro: Microbiology 02/27/25 07:24 Blood Culture - Preliminary Blood SPECIMEN COLLECTED 02/27/25 07:20 Blood Culture - Preliminary Blood SPECIMEN COLLECTED A&P Assessment and plan 1. Acute respiratory failure: Presented with acute respiratory distress; initially required BiPAP. Chest x-ray showed bilateral basal infiltrates with left basal pleural effusion; superimposed pneumonia not excluded. With severe exacerbation of COPD with cough dyspnea and diminished air entry with underlying emphysema. Reviewed vitals CBC, ABG, chest x-ray. Discussed with ED provider, reviewed ED provider note. With noted suspected pneumonia bibasilar, with pleural effusion left lung, discussed with patient and her daughter unclear whether related to acute congestive heart failure versus parapneumonic. Thoracentesis is requested as per discussion with patient and her daughter. Continue BiPAP, monitor vitals, wean off BiPAP as tolerated. Monitor for risk of aspiration. Clear liquids only for now. - Continue oxygen therapy and breathing treatments. - Attempt to wean off BiPAP mask after a while if tolerated; start with clear liquids and later transition to solid meals if able. -Collect BM culture if able to provide would collect urine bacterial antigens. Collect MRSA PCR. -Treatment for severe exacerbation of COPD with IV corticosteroid, monitor for risk of hyperglycemia, gastritis, encephalopathy, hypertension. 2. COPD exacerbation: Suspected exacerbation of emphysema/COPD contributing to breathing difficulty. - Administer methylprednisolone (Solu-Medrol) 30 mg every 6 hours for COPD exacerbation; monitor for risk of hyperglycemia, hypertension, encephalopathy, and gastritis. 3. Community acquired pneumonia: Chest x-ray findings and symptoms concerning for pneumonia; antibiotics initiated in ED. - Continue ceftriaxone and azithromycin. - Collect sputum culture if able. - Collect urine bacteria/antigen tests to help identify pathogen. - Monitor for risk of Clostridioides difficile (C. diff) infection. - Monitor for risk of QT prolongation. - Blood cultures collected (acknowledged). 4. CHF (congestive heart failure): Possible acute on chronic systolic congestive heart failure : Known CHF with prior EF 51%. NT-proBNP elevated on admission. Possible acute systolic CHF with respiratory failure, elevated BNP. Diuretic management discussed. Monitor for risk of electrolyte normality, ALYX, hypotension with diuretic. Hold off further scheduled diuretic for now, as needed diuretic depending on volume reassessment. - Obtain a limited echocardiogram to assess cardiac function and valves. - Consider repeated doses of furosemide (Lasix) depending on volume status; hold off scheduled dose for now. - Monitor for risk of hypovolemia, kidney injury, and electrolyte abnormalities. 5. Troponin level elevated: Troponin level reviewed, reviewed EKG. Noted rising from baseline troponin 54 up to 2-hour troponin 78.66, positive delta 24.67. NT proBNP elevated 6626 but in the setting of emphysema and mild CKD. Difficult to interpret. Possible acute on chronic CHF as above. Complete troponin EKG series. As per discussion with patient and her daughter, obtain limited TTE, monitor telemetry with risk of arrhythmia. On aspirin and Plavix, will continue. Centesis is requested with possible parapneumonic effusion as above, anticoagulation consideration at the same time depending on procedure and follow-up troponin. She is not having chest pain or pressure. Would suspect more likely type II [place] in the setting of respiratory distress and failure. She does have underlying coronary disease with prior stenting. 6. Pleural effusion: Left basal pleural effusion noted; may be related to CHF or pneumonia. - Request radiology evaluation for possible ultrasound-guided thoracentesis to drain pleural fluid and send sample for analysis (pending patient/family agreement). Plan: Follow-up : Mlroy-uj-lase discussion documented during hospitalization. Most history obtained from patient's daughter as patient does have underlying dementia although does appear to answer questions appropriately. Patient lives at home with her daughter. - Intubation acceptable if necessary; avoid chest compressions unless a simple shock could correct the issue (patient expresses preference to avoid chest compressions). - Pacemaker acceptable if needed. - CAD: With prior cardiac stents reported by her daughter. On aspirin Plavix, statin. Per report previously on beta-rachelle but could not tolerated due to bradycardia. - History of carotid artery disease - Alzheimer's dementia - Emphysema/chronic obstructive pulmonary disease (COPD) - Chronic systolic congestive heart failure (CHF); ejection fraction 51% on echocardiogram (December) - Hypertension (HTN) - Hyperlipidemia (HLD) - Chronic kidney disease (CKD) - Carotid artery disease - Coronary artery disease (CAD) - Epilepsy - Gastroesophageal reflux disease (GERD) - Former smoker PDMP PDMP Reviewed: Not Reviewed Attestations Medical Necessity Statement*: Admission over 2 midnights anticipated for assessment management of acute respiratory failure, severe exacerbation of COPD, pneumonia with possible parapneumonic effusion, acute systolic CHF Diagnoses Acute respiratory failure J96.00 COPD exacerbation J44.1 Community acquired pneumonia J18.9 CHF (congestive heart failure) I50.9 Troponin level elevated R79.89 Pleural effusion J90
[2025-02-27 08:36] LABS: UA Slide Review UA Slide Review Perf
[2025-02-27 09:56] LABS: Troponin 5 2HR 78.67 ng/L (0-10)
[2025-02-27 09:59] LABS: Troponin 5 2HR Delta 24.67 ABS# (0-10)
--- NOTE | 2025-02-27 10:32 | US_ITS ---
WS: [id number] BILATERAL CHEST ULTRASOUND. HISTORY: Evaluate for pleural effusions. No significant RIGHT pleural effusion is identified. There is a small LEFT pleural effusion but there is atelectatic lung extending through the effusion which is only small. There is also compressive atelectasis. US/US chest 78060 IMPRESSION: Very small LEFT pleural effusion with atelectatic lung mobile within the fluid. Insufficient pleural fluid for safe thoracentesis.
--- NOTE | 2025-02-27 11:18 | PC.NURSE ---
Provider updated with patients heart rhythm and blood pressure readings. Provider ordered to start her nifedipine ER 30mg daily.
[2025-02-27] MEDS: pantoprazole 40 mg SDV IVP (11:42)
[2025-02-27] MEDS: NIFEdipine ER (24 hr) 30 mg Tablet PO (11:42)
[2025-02-27] MEDS: methylPREDNISolone sod succ 40 mg/mL INJ 30 MG IVP ×3 (12:26→23:44)
[2025-02-27 12:41] LABS: Magnesium 1.9 mg/dL (1.7-2.3)
--- NOTE | 2025-02-27 12:52 | ECG_ITS ---
[facility] Test Date: 2025-02-27 Pat Name: Wendy Covarrubias Department: Room: 105 Gender: Female Qa Specialist: : 1940 Requested By: Lee Wolfe Order Number: [id number] Reading MD: TALIA GABRIEL Measurements Intervals [place] Rate: 101 P: 47 WV: 175 QRS: -15 QRSD: 110 T: 90 QT: 333 QTc: 432 Interpretive Statements SINUS TACHYCARDIA WITH OCCASIONAL ECTOPIC PREMATURE COMPLEXES MODERATE INTRAVENTRICULAR CONDUCTION DELAY [105+ ms QRS DURATION, 80+ ms Q/S IN V1/V2, NO Q AND 60+ ms R IN I/aVL/V5/V6] NONSPECIFIC ST & T-WAVE ABNORMALITY Compared to ECG 02/27/2025 06:51:22 Intraventricular conduction delay now present T-wave abnormality now present Ventricular premature complex(es) no longer present Myocardial infarct finding no longer present Electronically Signed On 03-01-2025 21:42:07 CDT by TALIA GABRIEL [email or web address]
[2025-02-27 13:36] LABS: Troponin 5 6HR 88.95 ng/L (0-10)
[2025-02-27 13:45] LABS: Troponin 5 6HR Delta 34.95 ng/L (0-12)
[2025-02-27] MEDS: heparin 5,000 unit/mL INJ 1 mL IVP (14:27)
[2025-02-27] MEDS: heparin drip 25,000 UNIT/500 ML PREMIX 17 UNIT IV (14:29)
[2025-02-27 15:57] LABS: MRSA PCR OZH (swab) NOT DETECTED (Not Detecte)
--- NOTE | 2025-02-27 16:55 | PC.NURSE ---
Patient is refusing to have a moran catheter placed at this time. She said they put one in me in the ED, Why didn't they just leave it in? She wants to just get out of bed and use the commode.
[2025-02-27 21:51] LABS: Partial Thromboplastin Time 182.4 SECONDS (23.9-36.7)
--- NOTE | 2025-02-27 21:59 | PC.NURSE ---
Patients ptt was 182.4 contacted , she gave orders to pause for 2hours and to redraw ptt and let her kknow what it is. Heparin drip paused.
[2025-02-28] VITALS (16 sets, daily range): BP systolic 91–157; BP diastolic 55–96; PULSE 78–96; RESP 12–23; TEMP 36.4–36.9; O2SAT 92–96
[2025-02-28 01:05] LABS: Hematocrit 31.7 % (36-47); Hemoglobin 10.30 g/dL (11.27-16.99); Mean Corpuscular HGB Conc 32.5 g/dL (30-55); Mean Corpuscular Hemoglobin 28.9 pg (27-33); Mean Corpuscular Volume 88.8 fl (85-98); Nucleated Red Blood Cells % 0 %; Platelet Count 221 10^3/cmm (157-399); Red Blood Count 3.57 10^6/uL (3.85-5.65); White Blood Count 4.18 10^3/uL (3.29-11.43)
[2025-02-28 01:23] LABS: Alanine Aminotransferase 12 U/L (0-33); Albumin Level 3.3 g/dL (3.5-5.2); Alkaline Phosphatase 110 U/L (35-105); Anion Gap 16.7 (5-19); Aspartate Amino Transferase 21 U/L (0-32); Blood Urea Nitrogen 15 mg/dL (8-23); Calcium 8.7 mg/dL (8.5-10.5); Carbon Dioxide 28 mmol/L (22-29); Chloride 100 mmol/L (98-107); Creatinine Clr Calc Pharmacy 33.6671; Globulin 2.5 g/dL (1.3-4.6); Glucose 136 mg/dL (65-115); Osmolality Calculated 295 mOsm/kg (285-295); Potassium 3.7 mmol/L (3.5-5.1); Sodium 141 mmol/L (136-145); Total Protein 5.8 g/dL (6.6-8.7)
[2025-02-28 01:27] LABS: Partial Thromboplastin Time 70.4 SECONDS (23.9-36.7)
--- NOTE | 2025-02-28 02:14 | PC.NURSE ---
Contacted Dr.Onouha muse patients ptt redraw came back at 70.4, orders recieved to restart drip at 12mls/hr.
[2025-02-28] MEDS: FUROsemide 10 mg/mL SDV 4mL 40 MG IVP ×2 (04:59→15:45)
[2025-02-28] MEDS: methylPREDNISolone sod succ 40 mg/mL INJ 30 MG IVP ×4 (05:00→23:30)
[2025-02-28] MEDS: cefTRIAXone 1,000 mg SDV 1000 MG IVP (08:44)
[2025-02-28] MEDS: NIFEdipine ER (24 hr) 30 mg Tablet PO (08:44)
[2025-02-28 08:47] LABS: Partial Thromboplastin Time 80.3 SECONDS (23.9-36.7)
[2025-02-28] MEDS: pantoprazole 40 mg SDV IVP (11:44)
--- NOTE | 2025-02-28 13:08 | P.PN_ITS ---
Subjective 2 Subjective: Bipap overnight, currently on 3 1/2 liters per NC and satting well. Vitals/I&O/Wt Last Vital Signs Temp 98.5 F 02/28/25 12:00 Pulse 87 02/28/25 12:00 Resp 23 H 02/28/25 12:00 BP 130/64 02/28/25 12:00 Pulse Ox 94 02/28/25 12:00 O2 Del Method Nasal Cannula 02/28/25 12:00 O2 Flow Rate 4 02/28/25 07:35 FiO2 40 02/28/25 03:54 02/27/25 02/28/25 02/28/25 22:59 06:59 14:59 Intake Total 187.217 / 497.217 0 / 497.217 443.4 / 443.4 Output Total 475 / 825 Balance -287.783 / -327.783 0 / -327.783 443.4 / 443.4 Weight last 48 hrs Weight 59.511 kg Weight 60.328 kg Weight 77.111 kg Physical Exam 2 Narrative: Physical Exam Narrative: Const: patient oriented x 3 and alert, coope rative HENMT: oropharynx normal, MMM Neck/C-Spine: no JVD Resp: normal respiratory effort, rales, di minished lung soun ds in bases. Cardio: no JVD, regular rh ythm, S1/S2 normal , regular rhythm GI: nondistended, Soft to palpation and non-tender Extremity: no joint enlargeme nt and no pedal ed ace Neuro: oriented x3 and mo ves all extremitie s Skin: no rashes or lesio ns noted Data 02/28/25 00:45 02/28/25 00:45 Micro: Microbiology 02/27/25 07:24 Blood Culture - Preliminary Blood NEGATIVE TO DATE 02/27/25 07:20 Blood Culture - Preliminary Blood NEGATIVE TO DATE 02/27/25 07:52 Bacterial Antigens - Final Urine,Clean Catch 02/27/25 07:52 Legionella Urinary Antigen - Final Urine Catheterized A&P Assessment and plan 1. CHF (congestive heart failure): 2. Community acquired pneumonia: 3. COPD exacerbation: 4. Acute respiratory failure: Plan: 84 year old female presenting with COPD exacerbation. 1. Acute respiratory failure: - initially required BiPAP, currently using BIPAP at night, does not use at home - Chest x-ray showed bilateral basal infiltrates with left basal pleural effusion; superimposed pneumonia not excluded. - pleural effusion left lung, - Continue oxygen therapy and breathing treatments. - wean off BiPAP mask as tolerated - Collect BM culture if able to provide would collect urine bacterial antigens. Collect MRSA PCR. - Treatment for severe exacerbation of COPD with IV corticosteroid, monitor for risk of hyperglycemia, gastritis, encephalopathy, hypertension. 2. Severe COPD exacerbation: Former smoker Suspected exacerbation of emphysema/COPD contributing to breathing difficulty. -cont. methylprednisolone (Solu-Medrol) 30 mg every 6 hours for COPD exacerbation; monitor for risk of hyperglycemia, hypertension, encephalopathy, and gastritis. 3. Community acquired pneumonia: Chest x-ray findings and symptoms concerning for pneumonia; antibiotics initiated in ED. - Continue ceftriaxone and azithromycin. - Collect sputum culture if able. - Collect urine bacteria/antigen tests to help identify pathogen. - Monitor for risk of Clostridioides difficile (C. diff) infection. - Monitor for risk of QT prolongation. - Blood cultures collected (acknowledged). - US with insufficient fluid for thoracentesis 4. CHF (congestive heart failure): CAD: With prior cardiac stents reported by her daughter. On aspirin Plavix, statin. Per report previously on beta-rachelle but could not tolerated due to bradycardia. - History of carotid artery disease - CHF with prior EF 51%. NT-proBNP elevated on admission. 5. Troponin level elevated: Troponin level reviewed, Noted rising from baseline troponin 54 up to 2-hour troponin 78.66, positive delta 24.67. NT proBNP elevated 6626 but in the setting of emphysema and mild CKD. Difficult to interpret. Possible acute on chronic CHF as above. - no acute ST/T-wave abnormalities. - cont. aspirin and Plavix -no chest pain or pressure. - suspect more likely type II OR in the setting of respiratory distress and failure. - She does have underlying coronary disease with prior stenting. - recheck troponin now, if decreasing, can likely stop heparin drip, cont. ASA/plavix. 6. Pleural effusion: Left basal pleural effusion noted; may be related to CHF or pneumonia. - Request radiology evaluation for possible ultrasound-guided thoracentesis to drain pleural fluid and send sample for analysis (pending patient/family agreement). Alzheimer's dementia Hypertension (HTN) Hyperlipidemia (HLD) Chronic kidney disease (CKD) Carotid artery disease Coronary artery disease (CAD) Epilepsy Gastroesophageal reflux disease (GERD) PPx: heparin drip currently Disposition - patient does have underlying dementia although does appear to answer questions appropriately. Patient lives at home with her daughter. - Intubation acceptable if necessary; avoid chest compressions unless a simple shock could correct the issue (patient expresses preference to avoid chest compressions). - Pacemaker acceptable if needed. PDMP PDMP Reviewed: Not Reviewed Attestations 2 Medical Necessity Statement*: Ongoing inpatient for COPD/pna on BiPAP. Coding Level of Care Code Acute Code for [facility] Fwd Diagnoses CHF (congestive heart failure) I50.9 Community acquired pneumonia J18.9 COPD exacerbation J44.1 Acute respiratory failure J96.00
--- NOTE | 2025-02-28 14:14 | PC.NURSE ---
Provider is updated about Wendy Covarrubias, she is on a clear liquid diet. She is not liking it - so intake is limited. Can we advance her to a soft diet (she has no teeth)? Provider ordered a soft diet.
[2025-02-28 15:53] LABS: Troponin T (5th) Once 55 ng/L (0-10)
[2025-02-28 15:55] LABS: Partial Thromboplastin Time 87.1 SECONDS (23.9-36.7)
--- NOTE | 2025-02-28 16:16 | PC.NURSE ---
Provider is updated that she just had about a 3 sec run of V-tach. She is sound a sleep and turned over in her bed when this happened. She has had one or two of these a day since she has been here. No new orders given. Patient is asymptomatic.
--- NOTE | 2025-02-28 18:14 | PC.SOCIAL ---
*IMM* Patient received copy of important message from Medicare. manager of loss prevention operations initialled and placed copy in chart.
[2025-02-28 22:37] LABS: Partial Thromboplastin Time 58.1 SECONDS (23.9-36.7)
[2025-03-01] VITALS (9 sets, daily range): BP systolic 91–166; BP diastolic 57–79; PULSE 90–104; RESP 16–23; TEMP 36.5–37; O2SAT 92–96
[2025-03-01 02:53] LABS: Hematocrit 33.4 % (36-47); Hemoglobin 10.30 g/dL (11.27-16.99); Mean Corpuscular HGB Conc 30.8 g/dL (30-55); Mean Corpuscular Hemoglobin 28.5 pg (27-33); Mean Corpuscular Volume 92.5 fl (85-98); Nucleated Red Blood Cells % 0 %; Platelet Count 248 10^3/cmm (157-399); Red Blood Count 3.61 10^6/uL (3.85-5.65); White Blood Count 7.09 10^3/uL (3.29-11.43)
[2025-03-01 03:07] LABS: Partial Thromboplastin Time 25.5 SECONDS (23.9-36.7)
[2025-03-01 03:15] LABS: Alanine Aminotransferase 17 U/L (0-33); Albumin Level 3.5 g/dL (3.5-5.2); Alkaline Phosphatase 99 U/L (35-105); Anion Gap 16.2 (5-19); Aspartate Amino Transferase 25 U/L (0-32); Blood Urea Nitrogen 21 mg/dL (8-23); Calcium 8.9 mg/dL (8.5-10.5); Carbon Dioxide 28 mmol/L (22-29); Chloride 102 mmol/L (98-107); Globulin 2.5 g/dL (1.3-4.6); Glucose 126 mg/dL (65-115); Osmolality Calculated 299 mOsm/kg (285-295); Potassium 4.2 mmol/L (3.5-5.1); Sodium 142 mmol/L (136-145); Total Protein 6.0 g/dL (6.6-8.7)
[2025-03-01 03:19] LABS: Creatinine Clr Calc Pharmacy 27.8823
[2025-03-01 03:21] LABS: Anion Gap 17.2 (5-19); Blood Urea Nitrogen 22 mg/dL (8-23); Calcium 8.9 mg/dL (8.5-10.5); Carbon Dioxide 28 mmol/L (22-29); Chloride 103 mmol/L (98-107); Glucose 125 mg/dL (65-115); Osmolality Calculated 303 mOsm/kg (285-295); Potassium 4.2 mmol/L (3.5-5.1); Sodium 144 mmol/L (136-145)
[2025-03-01 03:22] LABS: Creatinine Clr Calc Pharmacy 30.4171
[2025-03-01] MEDS: methylPREDNISolone sod succ 40 mg/mL INJ 30 MG IVP ×4 (05:53→23:25)
[2025-03-01 06:34] LABS: Partial Thromboplastin Time 33.4 SECONDS (23.9-36.7)
[2025-03-01] MEDS: cefTRIAXone 1,000 mg SDV 1000 MG IVP (08:14)
[2025-03-01] MEDS: NIFEdipine ER (24 hr) 30 mg Tablet PO (08:15)
[2025-03-01] MEDS: heparin 5,000 unit/mL INJ 1 mL 5000 UNIT SUBCUT ×3 (08:15→23:26)
[2025-03-01] MEDS: pantoprazole 40 mg SDV IVP (11:42)
--- NOTE | 2025-03-01 12:45 | P.PN_ITS ---
Subjective 2 Subjective: Ongoing BiPAP, increase O2 requirements. Vitals/I&O/Wt Last Vital Signs Temp 97.7 F 03/01/25 11:50 Pulse 99 03/01/25 11:50 Resp 16 03/01/25 11:50 BP 140/79 03/01/25 11:50 Pulse Ox 95 03/01/25 11:50 O2 Del Method Nasal Cannula 03/01/25 11:50 O2 Flow Rate 4 03/01/25 11:50 FiO2 36 03/01/25 08:44 02/28/25 03/01/25 03/01/25 22:59 06:59 14:59 Intake Total 376.783 / 820.183 71.55 / 891.733 261.933 / 261.933 Output Total 500 / 750 150 / 150 Balance -123.217 / 70.183 71.55 / 141.733 111.933 / 111.933 Weight last 48 hrs Weight 62.55 kg Weight 59.511 kg Physical Exam 2 Narrative: Physical Exam Const: patient oriented x 3 and alert, cooperative HENMT: oropharynx normal, MMM Neck/C-Spine: no JVD Resp: normal respiratory effort, rales, diminished lung sounds in bases. Cardio: no JVD, regular rhythm, S1/S2 normal, regular rhythm GI: nondistended, Soft to palpation and non-tender Extremity: no joint enlargement and no pedal edema Neuro: oriented x3 and moves all extremities Skin: no rashes or lesions noted Data 03/01/25 02:17 03/01/25 02:17 A&P Assessment and plan 1. Troponin level elevated: 2. COPD exacerbation: 3. Community acquired pneumonia: 4. Acute respiratory failure: 5. Nocturnal oxygen desaturation: Plan: 84 year old female presenting with COPD exacerbation. 1. Acute respiratory failure: - initially required BiPAP, currently using BIPAP at night, actually uses BIPAP nocturnally at home and PRN during the day. - Chest x-ray showed bilateral basal infiltrates with left basal pleural effusion; superimposed pneumonia not excluded. - Continue oxygen therapy and breathing treatments. - wean BiPAP to home use - urine bacterial antigens negative - legionella negative - MRSA PCR pending. - blood cultures negative to date. - Treatment for severe exacerbation of COPD with IV corticosteroid, monitor for risk of hyperglycemia, gastritis, encephalopathy, hypertension. 2. Severe COPD exacerbation: Former smoker Suspected exacerbation of emphysema/COPD contributing to breathing difficulty. -cont. methylprednisolone (Solu-Medrol) 30 mg every 6 hours for COPD exacerbation; monitor for risk of hyperglycemia, hypertension, encephalopathy, and gastritis. 3. Community acquired pneumonia: Chest x-ray findings and symptoms concerning for pneumonia; antibiotics initiated in ED. - Continue ceftriaxone and azithromycin. - Collect sputum culture if able. - Monitor for risk of Clostridioides difficile (C. diff) infection. - Monitor for risk of QT prolongation. 4. CHF (congestive heart failure): CAD: With prior cardiac stents reported by her daughter. On aspirin Plavix, statin. Per report previously on beta-rachelle but could not tolerated due to bradycardia. - History of carotid artery disease - CHF with prior EF 51%. NT-proBNP elevated on admission. 5. Troponin level elevated: Troponin level reviewed, Noted rising from baseline troponin 54 up to 2-hour troponin 78.66, positive delta 24.67. NT proBNP elevated 6626 but in the setting of emphysema and mild CKD. Difficult to interpret. Possible acute on chronic CHF as above. - no acute ST/T-wave abnormalities. - cont. aspirin and Plavix -no chest pain or pressure. - suspect more likely type II MS in the setting of respiratory distress and failure. - She does have underlying coronary disease with prior stenting. - recheck troponin decreased, which is not the pattern for ACS event, stop heparin drip, cont. ASA/plavix. 6. Pleural effusion: Left basal pleural effusion noted; may be related to CHF or pneumonia. - US with insufficient fluid for thoracentesis Alzheimer's dementia Hypertension (HTN) Hyperlipidemia (HLD) Chronic kidney disease (CKD) Carotid artery disease Coronary artery disease (CAD) Epilepsy Gastroesophageal reflux disease (GERD) PPx: heparin subq. Diet: HH Disposition - patient does have underlying dementia although does appear to answer questions appropriately. Patient lives at home with her daughter. - Intubation acceptable if necessary; avoid chest compressions unless a simple shock could correct the issue (patient expresses preference to avoid chest compressions). - Pacemaker acceptable if needed. PDMP PDMP Reviewed: Not Reviewed Attestations 2 Medical Necessity Statement*: Ongoing inpatient for COPDe Time Spent in Patient Care: 16 - 35 minutes (>than 50% of time sp ent in counselling and/or direct pt care on unit) . Coding Level of Care Code Acute Code for [facility] Fwd Diagnoses Troponin level elevated R79.89 COPD exacerbation J44.1 Community acquired pneumonia J18.9 Acute respiratory failure J96.00 Nocturnal oxygen desaturation G47.34
[2025-03-01] MEDS: FUROsemide 10 mg/mL SDV 4mL 40 MG IVP (15:38)
[2025-03-02] VITALS (7 sets, daily range): BP systolic 103–151; BP diastolic 60–92; PULSE 80–94; RESP 14–26; TEMP 36.5–37; O2SAT 91–96
[2025-03-02 03:50] LABS: Hematocrit 31.2 % (36-47); Hemoglobin 9.60 g/dL (11.27-16.99); Mean Corpuscular HGB Conc 30.8 g/dL (30-55); Mean Corpuscular Hemoglobin 28.5 pg (27-33); Mean Corpuscular Volume 92.6 fl (85-98); Nucleated Red Blood Cells % 0 %; Platelet Count 219 10^3/cmm (157-399); Red Blood Count 3.37 10^6/uL (3.85-5.65); White Blood Count 6.32 10^3/uL (3.29-11.43)
[2025-03-02 04:26] LABS: Alanine Aminotransferase 19 U/L (0-33); Albumin Level 3.4 g/dL (3.5-5.2); Alkaline Phosphatase 98 U/L (35-105); Anion Gap 14.0 (5-19); Aspartate Amino Transferase 24 U/L (0-32); Blood Urea Nitrogen 27 mg/dL (8-23); Calcium 9.2 mg/dL (8.5-10.5); Carbon Dioxide 28 mmol/L (22-29); Chloride 102 mmol/L (98-107); Globulin 2.3 g/dL (1.3-4.6); Glucose 126 mg/dL (65-115); Osmolality Calculated 297 mOsm/kg (285-295); Potassium 4.0 mmol/L (3.5-5.1); Sodium 140 mmol/L (136-145); Total Protein 5.7 g/dL (6.6-8.7)
[2025-03-02 04:27] LABS: Creatinine Clr Calc Pharmacy 33.5167
[2025-03-02 04:32] LABS: Anion Gap 14.2 (5-19); Blood Urea Nitrogen 28 mg/dL (8-23); Calcium 9.4 mg/dL (8.5-10.5); Carbon Dioxide 28 mmol/L (22-29); Chloride 103 mmol/L (98-107); Glucose 124 mg/dL (65-115); Osmolality Calculated 299 mOsm/kg (285-295); Potassium 4.2 mmol/L (3.5-5.1); Sodium 141 mmol/L (136-145)
[2025-03-02 04:39] LABS: Creatinine Clr Calc Pharmacy 33.5167
[2025-03-02] MEDS: methylPREDNISolone sod succ 40 mg/mL INJ 30 MG IVP ×2 (05:27→12:16)
[2025-03-02] MEDS: FUROsemide 10 mg/mL SDV 4mL 40 MG IVP (05:27)
[2025-03-02] MEDS: heparin 5,000 unit/mL INJ 1 mL 5000 UNIT SUBCUT (09:21)
[2025-03-02] MEDS: pantoprazole 40 mg SDV IVP (09:21)
[2025-03-02] MEDS: NIFEdipine ER (24 hr) 30 mg Tablet PO (09:22)
[2025-03-02] MEDS: cefTRIAXone 1,000 mg SDV 1000 MG IVP (09:22)
--- NOTE | 2025-03-02 09:40 | PM.DCS ---
Discharge Providers Date of Admission: 02/27/25 09:20 Date of Discharge: March 02, 2025 Attending Provider at Admission: Bhaskar Schultz Attending Provider at Discharge: Ankur Bass MD Primary Care Provider: MOHAN Concepcion Diagnoses at Discharge Discharge Diagnosis 1. Troponin level elevated: 2. COPD exacerbation: 3. Community acquired pneumonia: 4. Acute respiratory failure: 5. Nocturnal oxygen desaturation: Reason for Visit Reason for Visit: SOB Hospital Course Hospital Course 84 year old female presenting with COPD exacerbation. 1. Acute respiratory failure: - initially required BiPAP, currently using BIPAP at night, actually uses BIPAP nocturnally at home and PRN during the day. - initial Chest x-ray showed bilateral basal infiltrates with left basal pleural effusion; superimposed pneumonia not excluded. - Continue oxygen therapy and breathing treatments. - BiPAP now weaned to home use, she states she is consistent with home bipap at night. - urine bacterial antigens negative - legionella negative - MRSA PCR pending. - blood cultures negative to date. - taper steroids on D/C, switch to oral abx. 2. Severe COPD exacerbation: Former smoker Suspected exacerbation of emphysema/COPD contributing to breathing difficulty. -cont. methylprednisolone (Solu-Medrol) 30 mg every 6 hours for COPD exacerbation; monitor for risk of hyperglycemia, hypertension, encephalopathy, and gastritis. 3. Community acquired pneumonia: Chest x-ray findings and symptoms concerning for pneumonia; antibiotics initiated in ED. - Continue ceftriaxone and azithromycin, oral abx on D/C - Collect sputum culture if able. 4. CHF (congestive heart failure): CAD: With prior cardiac stents reported by her daughter. On aspirin Plavix, statin. Per report previously on beta-rachelle but could not tolerate due to bradycardia. - History of carotid artery disease - CHF with prior EF 51%. NT-proBNP elevated on admission. 5. Troponin level elevated: Troponin level reviewed, Noted rising from baseline troponin 54 up to 2-hour troponin 78.66, positive delta 24.67. NT proBNP elevated 6626 but in the setting of emphysema and mild CKD. Difficult to interpret. Possible acute on chronic CHF as above. - no acute ST/T-wave abnormalities. - cont. aspirin and Plavix - suspect more likely type II MS in the setting of respiratory distress and failure. - She does have underlying coronary disease with prior stenting. - recheck troponin decreased, which is not the pattern for ACS event, stop heparin drip, cont. ASA/plavix. - not having chest pain. 6. Pleural effusion: Left basal pleural effusion noted; may be related to CHF or pneumonia. - US with insufficient fluid for thoracentesis, likely improved with diuresis. Alzheimer's dementia Hypertension (HTN) Hyperlipidemia (HLD) Chronic kidney disease (CKD) Carotid artery disease Coronary artery disease (CAD) Epilepsy Gastroesophageal reflux disease (GERD) PPx: heparin subq. Diet: HH Disposition - patient does have underlying dementia although does appear to answer questions appropriately. Patient lives at home with her daughter. - Intubation acceptable if necessary; avoid chest compressions unless a simple shock could correct the issue (patient expresses preference to avoid chest compressions). - Pacemaker acceptable if needed. - respiratory status back to baseline. Discharge planning for today, home with home health. - follow up with pulmonary after discharge in 2-4 weeks. Physical Exam Narrative: Physical Exam Const: patient oriented x 3 and alert, cooperative HENMT: oropharynx normal, MMM Neck/C-Spine: no JVD Resp: normal respiratory effort, diminished lung sounds in bases, no wheezing or rales. Cardio: no JVD, regular rhythm, S1/S2 normal, regular rhythm GI: nondistended, Soft to palpation and non-tender Extremity: no joint enlargement and no pedal edema Neuro: oriented x3 and moves all extremities Skin: no rashes or lesions noted Discharge Data Studies Completed and Pending Completed Studies During Hospitalization Category Date Time Status XR chest 1V portable [id number] Stat Exams 02/27/25 06:52 [place] chest [id number] Routine Ultrasound 02/27/25 10:32 Completed Pending at discharge Category Date Time Status Blood Culture Stat Lab 02/27/25 07:24 Results Body Fluid Culture & GS Routine Lab 02/27/25 10:33 Uncollected Cyto Order Verification Routine Lab 02/27/25 10:34 Ordered LDH Pleural Fluid Routine Lab 02/27/25 10:33 Uncollected Left Pleural Fluid Analysis Routine Lab 02/27/25 10:33 Uncollected Sputum Culture and Gram Stain Routine Lab 02/27/25 10:41 Uncollected pH Pleural Fluid Routine Lab 02/27/25 10:33 Uncollected Radiology Impressions Chest Ultrasound 02/27/25 10:32 IMPRESSION: Very small LEFT pleural effusion with atelectatic lung mobile within the fluid. Insufficient pleural fluid for safe thoracentesis. Laboratory Results WBC 6.32 10^3/uL (3.29-11.43) 03/02/25 03:14 RBC 3.37 10^6/uL (3.85-5.65) L 03/02/25 03:14 Hgb 9.60 g/dL (11.27-16.99) L 03/02/25 03:14 Hct 31.2 % (36-47) L 03/02/25 03:14 MCV 92.6 fl (85-98) 03/02/25 03:14 MCH 28.5 pg (27-33) 03/02/25 03:14 MCHC 30.8 g/dL (30-55) 03/02/25 03:14 RDW 13.6 % (12.1-15.1) 03/02/25 03:14 Plt Count 219 10^3/cmm (157-399) 03/02/25 03:14 MPV 10.9 fL (7.4-10.4) H 03/02/25 03:14 Neut % (Auto) 87.1 % 03/02/25 03:14 Lymph % (Auto) 8.5 % 03/02/25 03:14 Benzie % (Auto) 3.8 % 03/02/25 03:14 Eos % (Auto) 0.0 % 03/02/25 03:14 Baso % (Auto) 0.0 % 03/02/25 03:14 Neut # (Auto) 5.50 10^3/uL (1.8-7.7) 03/02/25 03:14 Lymph # (Auto) 0.5 10^3/uL (0.8-4.8) L 03/02/25 03:14 Benzie # (Auto) 0.2 10^3/uL (0.2-0.9) 03/02/25 03:14 Eos # (Auto) 0.0 10^3/uL (0.0-0.8) 03/02/25 03:14 Baso # (Auto) 0.0 10^3/uL (0.0-0.1) 03/02/25 03:14 Nucleated RBC % (auto) 0 % 03/02/25 03:14 Nucleated RBCs # 0.0 /100WBC 03/02/25 03:14 APTT 33.4 SECONDS (23.9-36.7) 03/01/25 06:04 Specimen Type Arterial 02/27/25 06:58 Sample Site Radial, left 02/27/25 06:58 ABG pH 7.45 (7.35-7.45) 02/27/25 06:58 ABG pCO2 40.0 mmHg (35-45) 02/27/25 06:58 ABG pO2 66.5 mmHg (80.0-100.0) L 02/27/25 06:58 ABG HCO3 27.6 mmol/L (22-26) H 02/27/25 06:58 ABG O2 Saturation 92.6 02/27/25 06:58 ABG Base Excess 3.4 mmol/L (-2.0-2.0) H 02/27/25 06:58 Tien Test Pos 02/27/25 06:58 A-a O2 Gradient 4.3 mmHg (5-10) L 02/27/25 06:58 Hematocrit 38.6 % (37-47) 02/27/25 06:58 Hgb O2 Saturation 90.8 % (95-100) L 02/27/25 06:58 Carboxyhemoglobin 1.1 %THgb (0.4-20.1) 02/27/25 06:58 Methemoglobin 0.9 % (0.4-1.5) 02/27/25 06:58 Total Hemoglobin 12.6 g/dL (12-16) 02/27/25 06:58 Sodium 141.0 mmol/L (131-143) 02/27/25 06:58 Potassium 3.1 mmol/L (3.5-5.0) L 02/27/25 06:58 Glucose 182.0 mg/dL (70-115) H 02/27/25 06:58 Ionized Calcium 1.2 mmol/L (1.1-1.4) 02/27/25 06:58 O2 Delivery Device Nc 02/27/25 06:58 O2 Liters/Min 4.0 % 02/27/25 06:58 Bread Room Hand ID Walci 02/27/25 06:58 Sodium 140 mmol/L (136-145) 03/02/25 03:14 Sodium 141 mmol/L (136-145) 03/02/25 03:14 Potassium 4.0 mmol/L (3.5-5.1) 03/02/25 03:14 Potassium 4.2 mmol/L (3.5-5.1) 03/02/25 03:14 Chloride 102 mmol/L (98-107) 03/02/25 03:14 Chloride 103 mmol/L (98-107) 03/02/25 03:14 Carbon Dioxide 28 mmol/L (22-29) 03/02/25 03:14 Carbon Dioxide 28 mmol/L (22-29) 03/02/25 03:14 Anion Gap 14.0 (5-19) 03/02/25 03:14 Anion Gap 14.2 (5-19) 03/02/25 03:14 BUN 27 mg/dL (8-23) H 03/02/25 03:14 BUN 28 mg/dL (8-23) H 03/02/25 03:14 Creatinine 1.0 mg/dL (0.5-0.9) H 03/02/25 03:14 Creatinine 1.0 mg/dL (0.5-0.9) H 03/02/25 03:14 GFR Calculation Not Reportable 03/02/25 03:14 GFR Calculation Not Reportable 03/02/25 03:14 Glucose 124 mg/dL (65-115) H 03/02/25 03:14 Glucose 126 mg/dL (65-115) H 03/02/25 03:14 Calculated Osmolality 297 mOsm/kg (285-295) H 03/02/25 03:14 Calculated Osmolality 299 mOsm/kg (285-295) H 03/02/25 03:14 Lactic Acid 2.0 mmol/L (0.5-2.2) 02/27/25 07:20 Calcium 9.2 mg/dL (8.5-10.5) 03/02/25 03:14 Calcium 9.4 mg/dL (8.5-10.5) 03/02/25 03:14 Magnesium 1.9 mg/dL (1.7-2.3) 02/27/25 11:56 Total Bilirubin 0.2 mg/dL (0.15-1.2) 03/02/25 03:14 AST 24 U/L (0-32) 03/02/25 03:14 ALT 19 U/L (0-33) 03/02/25 03:14 Alkaline Phosphatase 98 U/L (35-105) 03/02/25 03:14 Troponin T 5th Gen ng/L 55 ng/L (0-10) H 02/28/25 15:18 Troponin T Baseline 54 ng/L (0-10) H 02/27/25 07:20 Troponin T 120 Minute 78.67 ng/L (0-10) H 02/27/25 09:25 Delta Troponin T 24.67 ABS# (0-10) H* 02/27/25 09:25 Troponin T Hi Sens 6Hr 88.95 ng/L (0-10) H 02/27/25 13:10 Troponin T Hi Sens 6Hr Delta 34.95 ng/L (0-12) H* 02/27/25 13:10 C-Reactive Protein 25.0 mg/L (0.0-4.9) H 02/27/25 07:20 NT-Pro-B Natriuret Pep 6626 pg/mL (0-450) H 02/27/25 07:20 Total Protein 5.7 g/dL (6.6-8.7) L 03/02/25 03:14 Albumin 3.4 g/dL (3.5-5.2) L 03/02/25 03:14 Globulin 2.3 g/dL (1.3-4.6) 03/02/25 03:14 Urine Color Yellow (Yellow) 02/27/25 07:52 Urine Appearance Clear (CLEAR) 02/27/25 07:52 Urine pH 5.0 (5-7) 02/27/25 07:52 Ur Specific [place] 1.023 (1.005-1.030) 02/27/25 07:52 Urine Protein 3+ (Negative) A 02/27/25 07:52 Urine Glucose (UA) Negative (Normal) 02/27/25 07:52 Urine Ketones Trace (Negative) 02/27/25 07:52 Urine Blood Negative (Negative) 02/27/25 07:52 Urine Nitrate Negative (Negative) 02/27/25 07:52 Urine Bilirubin Negative (Negative) 02/27/25 07:52 Urine Urobilinogen 1.0 mg/dL (Negative) 02/27/25 07:52 Ur Leukocyte Esterase Negative (Negative) 02/27/25 07:52 Urine RBC 0-2 /hpf (0-2) 02/27/25 07:52 Urine WBC 0-5 /hpf (0-5) 02/27/25 07:52 Ur Squamous Epith Cells 0-5 /hpf (0-5) 02/27/25 07:52 Amorphous Sediment Not Reportable 02/27/25 07:52 Urine Bacteria None seen /hpf (NONE) 02/27/25 07:52 Hyaline Casts 17.37 /lpf 02/27/25 07:52 Nasal MRSA (PCR) Not detected (Not Detecte) 02/27/25 11:48 Vitals Last Vital Signs Temp 97.7 F 03/02/25 08:00 Pulse 88 03/02/25 08:29 Resp 21 H 03/02/25 08:00 BP 131/64 03/02/25 08:00 Pulse Ox 95 03/02/25 08:29 O2 Del Method Nasal Cannula 03/02/25 08:00 O2 Flow Rate 4 03/02/25 08:00 FiO2 36 03/02/25 08:29 Discharge Plan Discharge Patient Disposition: Home Health Service Condition: Stable Prescriptions: New cefdinir 300 mg capsule 300 mg PO BID 5 Days Qty: 10 0RF prednisone 10 mg tablet 10 mg PO DIRECTED Qty: 30 0RF Rx Instructions: 40 mg daily for 3 days, then 30 mg daily for 3 days, then 20 mg daily for 3 days, then 10 mg daily for 3 days, then stop. Continued atorvastatin 80 mg tablet 80 mg PO QPM nitroglycerin 0.4 mg tablet, sublingual 0.4 mg sublingual Q5M PRN (Reason: chest pain) Qty: 25 0RF Rx Instructions: do not exceed 3 doses per episode Lasix 40 mg tablet 80 mg PO QAM Rx Instructions: Give 1 extra for >2# weight gain prednisolone acetate 1 % drops,suspension 1 drp ophthalmic (eye) QID ketorolac 0.5 % drops 1 drp ophthalmic (eye) QID PRN (Reason: allergies) levetiracetam 500 mg tablet 500 mg PO BID 90 Days Qty: 180 3RF (DME) Oxygen concentrator 2L NC See Rx Instructions .ROUTE .MEDSUPPLY Qty: 1 0RF Rx Instructions: Use 2L NC when sleeping for 99 months aspirin 81 mg Tablet,Delayed Release (Dr/Ec) 81 mg PO DAILY Qty: 90 3RF nifedipine 30 mg tablet extended release 30 mg PO DAILY lansoprazole 30 mg capsule,delayed release(DR/EC) 30 mg PO DAILY memantine 10 mg tablet 10 mg PO BID clopidogrel 75 mg tablet 75 mg PO DAILY citalopram 20 mg tablet 20 mg PO DAILY multivitamin Tablet 1 tab PO DAILY albuterol sulfate 90 mcg/actuation HFA aerosol inhaler 2 puff INHALATION Q6H PRN (Reason: Shortness Of Breath Or Wheezing) isosorbide mononitrate 30 mg tablet extended release 24 hr 30 mg PO QAM Qty: 30 0RF Discharge Order = DC NOW: Discharge Order (Routine); Ordered 03/02/25 Ordered By: Ankur Bass Referrals: Sadie Ochoa FNP-C [Primary Care Provider, Family Practice] Discharge Diet: Usual diet Discharge Activity: Resume usual activity Patient Instructions: Opioid Safety, Patient Portal & Ira Instructions Discharge Attestations Time Spent in Discharge Care*: greater than 30 min Specific Discharge Activities: educating patient, educating and/or supporting family/caregiver, discussing with pcp/other providers, discussing with embedded case manager/social workers/dc planners, documenting/other paperwork and evaluating patient/reviewing data Status at Discharge: Cognitive status at discharge: mildly impaired cognition, Behavioral status at discharge: cooperative, Quality Metrics Clinical Quality Measures [ No reported AMI, CVA or VTE this stay] Coding Level of Care Code Acute Code for [facility] Fwd Diagnoses Troponin level elevated R79.89 COPD exacerbation J44.1 Community acquired pneumonia J18.9 Acute respiratory failure J96.00 Nocturnal oxygen desaturation G47.34
--- NOTE | 2025-03-02 12:29 | PC.NURSE ---
Called dg and informed her that her mother has a discharge to home today Dgtr Ileana stated she needs a portable oxygen to get through their place. Her mother only has a oxygen machine at home but no portable. Notified Case mgt Ms Garsia.
--- NOTE | 2025-03-02 13:00 | PC.NURSE ---
Portable oxygen brought by HOME
--- NOTE | 2025-03-02 15:28 | PC.NURSE ---
Daughter Ileana is here to picker tender the pt but has question in regards to breathing treatment Ileana asked why the pt is not on any nebulization ordered on her discharge meds when she has been on scheduled neb here and helped her breathing. Nurse asked daughter if the pt has a nebulizer machine and she said, she has. Informed daughter Ileana that pt needs to see a maintenance of way supervisor outpatient and get a referral from her PCP during follow-up. Notified Hospitalist Dr Bass and informed the daughter that he will put an order PRN for nebulization in her discharge meds.
== END 2025-03-02 15:16 | disposition home or self-care (01) | DRG 193 ==
LOC: ER 06:57 → CSU 09:21
PROVIDERS: Admitting Provider Internal Medicine; Emergency Provider Family Medicine; PCP Nurse Practitioner; Visit Provider Internal Medicine
DX: J18.9 Pneumonia, unspecified organism (principal); I50.23 Acute on chronic systolic (congestive) heart failure; J96.00 Acute respiratory failure, unspecified whether with hypoxia or hypercapnia; J44.1 Chronic obstructive pulmonary disease with (acute) exacerbation; J44.0 Chronic obstructive pulmonary disease with (acute) lower respiratory infection; I13.0 Hypertensive heart and chronic kidney disease with heart failure and stage 1 through stage 4 chronic kidney disease, or unspecified chronic kidney disease; R79.89 Other specified abnormal findings of blood chemistry; G30.9 Alzheimer's disease, unspecified; F02.80 Dementia in other diseases classified elsewhere, unspecified severity, without behavioral disturbance, psychotic disturbance, mood disturbance, and anxiety; G40.909 Epilepsy, unspecified, not intractable, without status epilepticus; E78.5 Hyperlipidemia, unspecified; K21.9 Gastro-esophageal reflux disease without esophagitis; N18.2 Chronic kidney disease, stage 2 (mild); I25.10 Atherosclerotic heart disease of native coronary artery without angina pectoris; Z79.899 Other long term (current) drug therapy; Z99.81 Dependence on supplemental oxygen; Z79.02 Long term (current) use of antithrombotics/antiplatelets; Z88.5 Allergy status to narcotic agent; Z88.0 Allergy status to penicillin; Z88.8 Allergy status to other drugs, medicaments and biological substances; Z86.711 Personal history of pulmonary embolism; Z95.5 Presence of coronary angioplasty implant and graft; Z90.49 Acquired absence of other specified parts of digestive tract; Z82.49 Family history of ischemic heart disease and other diseases of the circulatory system; Z87.891 Personal history of nicotine dependence
CPT/HCPCS: 36415; 36600; 71045; 76604; 80048; 80051; 80053; 81001; 82330; 82805; 83605; 83735; 83880; 84484; 85025; 85730; 86140; 86403; 87040; 87449; 93005; 94640; 94660; 94664; 96365; 96372; 96375; 99291; J0456; J0696; J1644; J1938; J2470; J2919; J7050; J9999

== ENCOUNTER 2025-03-03 08:57 | Inpatient (IN) | payer MEDICARE, SELFPAY ==
[2025-03-03] VITALS (11 sets, daily range): BP systolic 84–116; BP diastolic 55–86; PULSE 83–96; RESP 15–23; TEMP 36.4–36.9; O2SAT 92–97; BMI 24.7; BMI 32.5
--- NOTE | 2025-03-03 09:07 | XR_ITS ---
WS: [id number] XR chest 1V portable [id number] REASON FOR EXAM: sob FINDINGS: Comparison examination 02/27/2025. Presumed improving congestive heart failure with decreased interstitial and groundglass lower lung opacities. Pleural effusions may be reduced. No other significant interval change or new finding. XR/XR chest 1V portable [id number] IMPRESSION: Presumed improving congestive heart failure as above.
--- OUTSIDE RECORDS SUMMARY | 2025-03-03 09:07 | XMS_ITS | Encounter Summary ---
Author Organization [facility] Address [address] [place] [address] Care Team Providers Care Industrial Gas Fitter Helper Name Role Phone Honorio Ren MD Primary Care Provider [phone] Reason for Visit * Reason Comments Med Refill Encounter Details Date Type Department Care Team (Late st Contact Info) Description 02/26/2025 Refill [facility] [place] [address] [address] Isabella Gaitan, [facility] [address] [address] Gastroesophageal reflux disease without esophagitis [...] often do you attend chur ch or taoist services? 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 Gender Identity Not on file Sexual Orientation Not on file documented as of this encounter Plan of Treatment Not on file documented as of this encounter Visit Diagnoses Diagnosis Gastroesophageal reflux disease without esophagitis Esophageal reflux documented in this encounter Additional Health Concerns Assessment Noted Time PHQ-9 Depression Total Score: 1 08/29/19 25 12:59 PM CDT documented as of this encounter Care Teams Industrial Gas Fitter Helper Relationship Specialty Start Date End Date Honorio Ren MD [address] [facility] [address] [place] [address] PCP - General Family Practice 02/18/16 documented as of this encounter
--- OUTSIDE RECORDS SUMMARY | 2025-03-03 09:07 | XMS_ITS | Clinical Summary ---
Author Organization [facility] Address [address] [facility] [address] [place] [address] Phone Care Team Providers Care Classifications Officer Cc/Cm Name Role Phone Honorio Ren MD Primary Care Provider [phone] [phone] Allergies Active Allergy Reactions Criticality Noted Date [...] Extended Release tabletIndication s:Benign hypertension,Ath erosclerosis of [place] coronary artery of [place] heart with angina pectoris Take 1 Tablet (30 mg) by mouth daily. 90 Tablet 3 08/29/19 25 Active atorvastatin (LIPITOR) 80 mg tabletIndication s:Mixed hyperlipidemia,A therosclerosis of [place] coronary artery of [place] heart with angina pectoris Take 1 Tablet [...] s:Chronic combined systolic and diastolic congestive heart failure,Benign hypertension,Ath erosclerosis of [place] coronary artery of [place] heart with angina pectoris Take 0.5 Tablets [...] 90 Capsule 1 09/12/19 25 025 Discontinued Active Problems Problem Noted Date Diagnosed Date Mucopurulent chronic bronchitis 09/21/2022 Thoracic aortic atherosclerosis 02/16/2022 Overview (02/16/2022): ADDED PER PVQ Vascular dementia with anxiety 02/15/2022 Dependence on other enabling machines and device s 02/15/2022 Vitamin D deficiency 02/15/2022 History of 2019 novel coronavirus disease (COVID -19) 01/19/2021 Benign hypertension 01/19/2021 Seizure 01/13/2020 Overview (10/02/2020): ADDED PER PB QUERY RESPONSE DOS 11.21.2019 Vaginal atrophy 11/21/2019 History of TIA (transient ischemic attack) 08/23 Overview (10/01/2020): CHANGED PER PVQ RESPONSE DOS 6 Age-related osteoporosis wit hout current pathological fracture 11/13/2017 Left hemiparesis 04/15/2017 Gastroesophageal reflux disease without esophagi tis 04/01/2016 Iron deficiency anemia 04/01/2016 Chronic combined systolic an d diastolic congestive heart failure 09/15/2014 History of right MCA stroke 06/09/2014 Intracranial atherosclerosis 06/09/2014 Post-Stroke Cognitive impairment 06/09/2014 Former smoker, stopped smoking many years ago Carotid artery disease - LICA mild, CLARA severe 06/07/2014 Atherosclerosis of [place] co ronary artery of [place] heart- s/p CRYSTAL RCA 06/201406/07/2014 Mixed hyperlipidemia 06/07/2014 Hypertensive heart disease w ith combined systolic and diastolic congestive heart failure 04/07/2014 Overview (10/01/2020): CHANGED PER PVQ RESPONSE DOS 6 Resolved Problems Problem Noted Date Diagnosed Date [...] Date Type Department Care Team Description 02/26/[address] [address] Isabella Gaitan FNP Gastroesophageal reflux disease without esophagitis 01/29/[address] [address] Isabella Gaitan FNP Mild vascular dementia with anxiety ([facility]) 01/07/2025 External Device Data STL ABSTRACTION Provider, [...] often do you attend chur ch or samaritan services? 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 Enter [employer] for Select DXA and the Femoral Neck [...] clinical management available online at [email or web address]/. Enter [employer] for Select DXA and the Femoral Neck BMD value. Also consider remeasuring no sooner than 2 years only as clinically needed. Honorio Ren MD DIAGNOSTIC IMAGING ORDERA BLES Final Result from Last 3 Months or Most Recently Relevant to Health Maintenance Insurance [facility] [id number] Advance Directives For more information, please contact: [phone] Documents on File Type Date Recorded Patient Warehouse And Receiving Supervisor Expl anation Advance Directive POA 07/01/2014 2:18 PM A dvance Directive POA Care Teams Classifications Officer Cc/Cm Relationship Specialty Start Date End Date Honorio Ren MD [address] [phone] PCP - General Family Practice 02/18/16
--- OUTSIDE RECORDS SUMMARY | 2025-03-03 09:07 | XMS_ITS | Clinical Summary ---
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 TAKE ONE TABLET BY MOUTH DAILY 30 Tablet 10/08/19 21 Active Dexilant 60 mg Delayed Release capsuleIndicatio ns:Gastroesophag eal reflux disease without esophagitis TAKE ONE CAPSULE BY MOUTH DAILY 30 Capsule 10/08/19 21 Active metoprolol tartrate (LOPRESSOR) 25 mg tabletIndication s: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,Chronic combined systolic and diastolic congestive heart failure,Benign hypertension TAKE 1/2 TABLET BY MOUTH TWICE DAILY 30 Tablet 10/08/19 21 Active NIFEdipine (ADALAT CC) 90 mg Extended Release tabletIndication s: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,Chronic combined systolic and diastolic congestive heart failure,Benign hypertension TAKE ONE TABLET BY MOUTH DAILY 30 Tablet 10/08/19 21 Active spironolactone (ALDACTONE) 25 mg tabletIndication s: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,Chronic combined systolic and diastolic congestive heart failure,Benign hypertension TAKE ONE TABLET BY MOUTH DAILY 30 Tablet 10/08/19 21 Active Active Problems Problem Noted Date Diagnosed Date Seizure 01/13/2020 Overview (01/13/2020): ADDED PER PB QUERY RESPONSE DOS 6 Vaginal atrophy 11/21/2019 History of TIA (transient ischemic attack) 08/23 Overview (01/08/2020): CHANGED PER PVQ RESPONSE DOS 6 Age-related [...] stopped smoking many years ago Atherosclerosis of [place] co ronary artery of [place] heart- s/p CRYSTAL RCA 06/201406/07/2014 Carotid artery [...] Never 11/21/2019 How often do you attend [facility] or moravian services? 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 Enter [employer] for Select DXA and the Femoral Neck [...] clinical management available online at [email or web address]/. Enter [employer] for Select DXA and the Femoral Neck BMD value. Also consider remeasuring no sooner than 2 years only as clinically needed. 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
--- OUTSIDE RECORDS SUMMARY | 2025-03-03 09:07 | XMS_ITS | Encounter Summary ---
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
--- NOTE | 2025-03-03 09:08 | ECG_ITS ---
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 Measurements Intervals [place] Rate: 86 P: 36 [place]: 147 QRS: -8 QRSD: 96 T: 67 QT: 352 QTc: 423 Interpretive Statements SINUS RHYTHM LOW QRS VOLTAGE IN PRECORDIAL LEADS [QRS DEFLECTION < 1.0 mV IN CHEST LEADS] POSSIBLE ANTERIOR MYOCARDIAL INFARCTION , PROBABLY OLD [30 ms Q WAVE IN V3/V4, OR R < 0.2 mV IN V4] Compared to ECG 02/27/2025 12:45:20 NO SIGNIFICANT CHANGE Electronically Signed On 03-03-2025 13:02:51 CDT by Dank Rincon M.D. [email or web address]
--- NOTE | 2025-03-03 09:18 | W.ED.SOB ---
Documented by User: OREN Jackson 03/03/25 12:41 HPI - SOB/Dyspnea General: Chief Complaint: Shortness of Breath/Dyspnea Stated Complaint: crackley in the chest and low o2 Time Seen by Provider: 03/03/25 09:07 Source: patient and family (family) Mode of arrival: wheelchair Limitations: no limitations History of Present Illness: HPI Narrative: Patient is a 84 year old woman with a history of emphysema/chronic obstructive pulmonary disease (COPD), chronic systolic congestive heart failure (CHF), hypertension, hyperlipidemia, chronic kidney disease (CKD), carotid artery disease, coronary artery disease (CAD), epilepsy, and gastroesophageal reflux disease (GERD) who presents to the emergency department after just being released from the hospital yesterday with complains of dyspnea. She is accompanied with her daughter. At baseline, uses 2?3 L oxygen via nasal cannula at home but daughter states she was released yesterday on 4L. States they got discharged on a Monday so they were unable to fill their breathing treatments, steroids, abx. Discharge paperwork states patient uses a Bipap at night and sometimes intermittently during the day but daughter states this is untrue and they do not have/use a Bipap at home. Last echo was in December showing EF of 51%. MD elicited complaint: shortness of breath Pertinent past history: COPD and congestive heart failure Onset (ago): day(s) Timing: constant Severity: severe Exacerbating factors: exertion Relieving factors: oxygen and bronchodilators Known history of: congestive heart failure Associated symptoms: Deny abdominal pain, chest pain, dizziness, fever(s), hemoptysis, lightheadedness, nausea, palpitations, syncope or vomiting Treatment prior to arrival: oxygen Related Data Home Medications ?Medication ?Instructions ?Recorded ?Confirmed atorvastatin 80 mg tablet 80 mg PO QPM 07/26/19 03/03/25 albuterol sulfate 90 mcg/actuation 2 puff inhalation Q6H PRN 10/06/22 03/03/25 aerosol inhaler Shortness Of Breath Or Wheezing multivitamin 1 tab PO DAILY 10/06/22 03/03/25 furosemide 40 mg tablet (Lasix) 80 mg PO QAM 12/24/24 03/03/25 citalopram 20 mg tablet 20 mg PO DAILY 02/27/25 03/03/25 clopidogrel 75 mg tablet 75 mg PO DAILY 02/27/25 03/03/25 lansoprazole 30 mg capsule,delayed 30 mg PO DAILY 02/27/25 03/03/25 release memantine 10 mg tablet 10 mg PO BID 02/27/25 03/03/25 nifedipine 30 mg tablet,extended 30 mg PO DAILY 02/27/25 03/03/25 release Previous Rx's ?Medication ?Instructions ?Recorded isosorbide mononitrate 30 mg 30 mg PO QAM #30 tabs 10/09/22 tablet,extended release 24 hr nitroglycerin 0.4 mg sublingual 0.4 mg sublingual Q5M PRN chest 11/23/22 tablet pain #25 tabs aspirin 81 mg tablet,delayed 81 mg PO DAILY #90 tabs 12/28/22 release levetiracetam 500 mg tablet 500 mg PO BID 90 days #180 tabs 09/11/24 Oxygen concentrator 2L NC #1 ea 01/29/25 cefdinir 300 mg capsule 300 mg PO BID 5 days #10 caps 03/02/25 ipratropium 0.5 mg-albuterol 3 mg 3 ml inhalation Q6H PRN 03/02/25 (2.5 mg base)/3 mL nebulization respiratory distress #180 mL soln prednisone 10 mg tablet 10 mg PO DIRECTED #30 tabs 03/02/25 Allergies Allergy/AdvReac Type Severity Reaction Status Date / Time meperidine (From Demerol) Allergy ADR-Vomitin Verified 12/24/24 15:19 g morphine Allergy ADR-Vomitin Verified 12/24/24 15:19 g Penicillins Allergy ALGY-Hives Verified 12/24/24 15:19 Review of Systems Const: Denies: fever(s), chills, body aches, fatigue or malaise Eyes: Denies: change in vision or blurry vision Card: Denies: chest pain, palpitations, irregular heart rhythm, lightheadedness, syncope or dyspnea on exertion Resp: Reports: dyspnea; Denies: productive cough, non-productive cough, wheezing, pain on inspiration or hemoptysis GI: Denies: abdominal pain, nausea, vomiting, heartburn or diarrhea : Denies: dysuria Musc: Denies: neck pain, back pain, extremity swelling or joint pain Skin/Breast: Denies: rash Neuro: Denies: headache(s), numbness in extremities, weakness in extremities, sensory changes or dizziness PFSH ED PFSH: Medical History Pulmonary emphysema, unspecified emphysema type Left ventricular systolic dysfunction (LVSD), NYHA class 3 Epilepsy Essential hypertension Dyslipidemia GERD (gastroesophageal reflux disease) Dementia in Alzheimer's disease Arteriosclerotic heart 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, 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 Carotid disease, bilateral Cystocele with small rectocele and uterine descent Surgical History History of coronary artery stent placement Status post carotid surgery History of cholecystectomy H/O removal of cyst Family History Mother CAD (coronary artery disease) Hypertension Social History Smoking and tobacco/nicotine status: former use of tobacco/nicotine Second hand smoke exposure: No Alcohol intake: never Substance/Drug Use: never Adopted: No Lives independently: Yes Household members: family Housing: House Marital status: / service: No Current occupational status: retired Do you think of yourself as: Straight/Heterosexual Current gender identity: Female Physical Exam Const: COMMON NORMALS: patient oriented x3, no limitations and alert GENERAL APPEARANCE: cooperative and frail appearing ORIENTATION/CONSCIOUSNESS: Yes awake, Yes oriented to person and Yes oriented to place HENMT: COMMON NORMALS: normocephalic and atraumatic HEAD & SCALP: normal to inspection, normocephalic and atraumatic Eye: GENERAL EYE: appearance normal, both eyes and all related structures Chest: COMMONS NORMALS: normal inspection of the chest and normal palpation of entire chest wall Resp: EFFORT & INSPECTION: Yes tachypneic, Yes respiratory distress, Yes labored and No retractions AUSCULTATION: crackles OTHER: she is satting anywhere from 92-94% on 3.5L O2 currently Cardio: COMMON NORMALS: regular rate and regular rhythm RATE: regular rate RHYTHM: regular rhythm GI: COMMON NORMALS: Normal to inspection, nondistended, normoactive bowel sounds present, Soft to palpation and non-tender PALPATION: Yes Soft to palpation Extremity: COMMON NORMALS: capillary refill normal, no clubbing, cyanosis or edema, no calf tenderness and no pedal edema GENERAL: Yes normal exam except as noted Neuro: COMMON NORMALS: patient oriented x3 SENSORIUM/ORIENTATION: Yes alert, Yes oriented to person and Yes oriented to place Course Consultations: Consultation #1: Dr. Gandara-graciously willing to see patient here in the emergency department and determine disposition; he and daughter have agreed to admit her to obs Vital Signs: Vital signs: Vital Signs Temperature 97.6 F 03/03/25 09:12 Pulse Rate 92 03/03/25 11:23 Respiratory Rate 20 H 03/03/25 11:23 Blood Pressure 100/64 03/03/25 10:18 Pulse Oximetry 92 03/03/25 11:23 Oxygen Delivery Me thod Nasal Cannula 03/03/25 11:23 Oxygen Flow Rate 4 03/03/25 11:23 MDM - SOB/Dyspnea Medical Decision Making Daughter continues to be concerned about patient's condition. She is satting normally on the 4 L of oxygen she was discharged home with yesterday. She clinically does appear somewhat fluid overloaded with crackles. Her BNP today is over 21,000 compared to 6,000 when she was admitted a few days ago. Daughter feels like her work of breathing has increased. The remainder of her blood work overall with no significant changes from her discharge. Elevated troponin which she had in the hospital. Delta troponin was negative. Her procalcitonin is normal. She is already being treated for pneumonia with IV antibiotics during her hospitalization and was discharged home on oral cefdinir. UA is clear. Daughter is requesting that we re-admit her. I did speak to Dr. Downs who was graciously willing to consult on patient here in the emergency department to determine disposition. He and daughter have agreed to admit her to observation. We will place moran at this request for accurate I&Os. Medical Records I reviewed the patient's medical records. Lab Data I reviewed the patient's lab results. 03/03/25 09:31 03/03/25 09:31 Labs/Radiology: Radiology Impressions Chest X-Ray 03/03/25 09:07 IMPRESSION: Presumed improving congestive heart failure as above. Laboratory Results WBC 10.20 10^3/uL (3.29-11.43) 03/03/25 09:31 RBC 3.46 10^6/uL (3.85-5.65) L 03/03/25 09:31 Hgb 10.00 g/dL (11.27-16.99) L 03/03/25 09:31 Hct 31.3 % (36-47) L 03/03/25 09:31 MCV 90.5 fl (85-98) 03/03/25 09: MCH 28.9 pg (27-33) 03/03/25 09: MCHC 31.9 g/dL (30-55) 03/03/25 09: RDW 13.7 % (12.1-15.1) 03/03/25 09: Plt Count 247 10^3/cmm (157-399) 03/03/25 09: MPV 10.6 fL (7.4-10.4) H 03/03/25 09:31 Neut % (Auto) 69.7 % 03/03/25 09:31 Lymph % (Auto) 18.5 % 03/03/25 09:31 [place] % (Auto) 10.3 % 03/03/25 09:31 Eos % (Auto) 0.8 % 03/03/25 09:31 Baso % (Auto) 0.0 % 03/03/25 09: Neut # (Auto) 7.11 10^3/uL (1.8-7.7) 03/03/25 09:31 Lymph # (Auto) 1.9 10^3/uL (0.8-4.8) 03/03/25 09:31 [place] # (Auto) 1.1 10^3/uL (0.2-0.9) H 03/03/25 09:31 Eos # (Auto) 0.1 10^3/uL (0.0-0.8) 03/03/25 09: Baso # (Auto) 0.0 10^3/uL (0.0-0.1) 03/03/25 09: Nucleated RBC % (auto) 0 % 03/03/25 09: Nucleated RBCs # 0.0 /100WBC 03/03/25 09:31 Specimen Type Arterial 03/03/25 09:46 Sample Site Brachial, left 03/03/25 09:46 ABG pH 7.49 (7.35-7.45) H 03/03/25 09:46 ABG pCO2 41.7 mmHg (35-45) 03/03/25 09:46 ABG pO2 67.0 mmHg (80.0-100.0) L 03/03/25 09:46 ABG PO2/FiO2 Ratio 197 03/03/25 09:46 ABG HCO3 31.7 mmol/L (22-26) H 03/03/25 09:46 ABG O2 Saturation 93.3 03/03/25 09:46 ABG Base Excess 7.6 mmol/L (-2.0-2.0) H 03/03/25 09:46 Tien Test Pos 03/03/25 09:46 A-a O2 Gradient 16.3 mmHg (5-10) H 03/03/25 09:46 Hematocrit 32.3 % (37-47) L 03/03/25 09:46 Hgb O2 Saturation 92.2 % (95-100) L 03/03/25 09:46 Carboxyhemoglobin 1.0 %THgb (0.4-20.1) 03/03/25 09:46 Methemoglobin 0.3 % (0.4-1.5) L 03/03/25 09:46 Total Hemoglobin 10.5 g/dL (12-16) L 03/03/25 09:46 Sodium 142.0 mmol/L (131-143) 03/03/25 09:46 Potassium 3.5 mmol/L (3.5-5.0) 03/03/25 09:46 Glucose 94.0 mg/dL (70-115) 03/03/25 09:46 Ionized Calcium 1.2 mmol/L (1.1-1.4) 03/03/25 09:46 O2 Delivery Device Nc 03/03/25 09:46 O2 Liters/Min 3.5 % 03/03/25 09:46 FiO2 34.0 % 03/03/25 09:46 Bilingual Receptionist ID Monro 03/03/25 09:46 Sodium 142 mmol/L (136-145) 03/03/25 09:31 Potassium 3.5 mmol/L (3.5-5.1) 03/03/25 09:31 Chloride 101 mmol/L (98-107) 03/03/25 09:31 Carbon Dioxide 28 mmol/L (22-29) 03/03/25 09:31 Anion Gap 16.5 (5-19) 03/03/25 09:31 BUN 29 mg/dL (8-23) H 03/03/25 09:31 Creatinine 1.0 mg/dL (0.5-0.9) H 03/03/25 09:31 GFR Calculation Not Reportable 03/03/25 09:31 Glucose 91 mg/dL (65-115) 03/03/25 09:31 Calculated Osmolality 299 mOsm/kg (285-295) H 03/03/25 09:31 Lactic Acid 2.3 mmol/L (0.5-2.2) H 03/03/25 09:31 Calcium 9.3 mg/dL (8.5-10.5) 03/03/25 09:31 Total Bilirubin 0.3 mg/dL (0.15-1.2) 03/03/25 09:31 AST 30 U/L (0-32) 03/03/25 09:31 ALT 25 U/L (0-33) 03/03/25 09:31 Alkaline Phosphatase 93 U/L (35-105) 03/03/25 09:31 Troponin T Baseline 56 ng/L (0-10) H 03/03/25 09:31 Troponin T 120 Minute 53.94 ng/L (0-10) H 03/03/25 11:46 Delta Troponin T -2.06 ABS# (0-10) L 03/03/25 11:46 NT-Pro-B Natriuret Pep 08280 pg/mL (0-450) H 03/03/25 09:31 Total Protein 5.9 g/dL (6.6-8.7) L 03/03/25 09:31 Albumin 3.6 g/dL (3.5-5.2) 03/03/25 09:31 Globulin 2.3 g/dL (1.3-4.6) 03/03/25 09:31 Procalcitonin 0.13 ng/mL (0-0.5) 03/03/25 09:31 Urine Color Yellow (Yellow) 03/03/25 11:33 Urine Appearance Clear (CLEAR) 03/03/25 11:33 Urine pH 6.0 (5-7) 03/03/25 11:33 Ur Specific [place]on 1.009 (1.005-1.030) 03/03/25 11:33 Urine Protein Trace (Negative) A 03/03/25 11:33 Urine Glucose (UA) Negative (Normal) 03/03/25 11:33 Urine Ketones Negative (Negative) 03/03/25 11:33 Urine Blood Negative (Negative) 03/03/25 11:33 Urine Nitrate Negative (Negative) 03/03/25 11:33 Urine Bilirubin Negative (Negative) 03/03/25 11:33 Urine Urobilinogen 0.2 mg/dL (Negative) 03/03/25 11:33 Ur Leukocyte Esterase Negative (Negative) 03/03/25 11:33 Urine RBC None /hpf (0-2) 03/03/25 11:33 Urine WBC None /hpf (0-5) 03/03/25 11:33 Ur Squamous Epith Cells Rare /hpf (0-5) 03/03/25 11:33 Amorphous Sediment Not Reportable 03/03/25 11:33 Urine Bacteria None /hpf (NONE) 03/03/25 11:33 All radiology interpretation(s) finalized by discharge Discharge Plan Discharge Patient Disposition: Placed in Observation Clinical Impression: Acute respiratory failure with hypoxia, COPD exacerbation Acute exacerbation of CHF (congestive heart failure) Qualifiers: Heart failure type: unspecified Qualified Code(s): I50.9 - Heart failure, unspecified Coding Level of Care Code ED Distillation Operator for Chg Fwd Documented by User: Alanis Morales MD 03/03/25 13:06 HPI - SOB/Dyspnea General: Chief Complaint: Shortness of Breath/Dyspnea Stated Complaint: crackley in the chest and low o2 Time Seen by Provider: 03/03/25 09:07 Related Data Home Medications ?Medication ?Instructions ?Recorded ?Confirmed atorvastatin 80 mg tablet 80 mg PO QPM 07/26/19 03/03/25 albuterol sulfate 90 mcg/actuation 2 puff inhalation Q6H PRN 10/06/22 03/03/25 aerosol inhaler Shortness Of Breath Or Wheezing multivitamin 1 tab PO DAILY 10/06/22 03/03/25 furosemide 40 mg tablet (Lasix) 80 mg PO QAM 12/24/24 03/03/25 citalopram 20 mg tablet 20 mg PO DAILY 02/27/25 03/03/25 clopidogrel 75 mg tablet 75 mg PO DAILY 02/27/25 03/03/25 lansoprazole 30 mg capsule,delayed 30 mg PO DAILY 02/27/25 03/03/25 release memantine 10 mg tablet 10 mg PO BID 02/27/25 03/03/25 nifedipine 30 mg tablet,extended 30 mg PO DAILY 02/27/25 03/03/25 release Previous Rx's ?Medication ?Instructions ?Recorded isosorbide mononitrate 30 mg 30 mg PO QAM #30 tabs 10/09/22 tablet,extended release 24 hr nitroglycerin 0.4 mg sublingual 0.4 mg sublingual Q5M PRN chest 11/23/22 tablet pain #25 tabs aspirin 81 mg tablet,delayed 81 mg PO DAILY #90 tabs 12/28/22 release levetiracetam 500 mg tablet 500 mg PO BID 90 days #180 tabs 09/11/24 Oxygen concentrator 2L NC #1 ea 01/29/25 cefdinir 300 mg capsule 300 mg PO BID 5 days #10 caps 03/02/25 ipratropium 0.5 mg-albuterol 3 mg 3 ml inhalation Q6H PRN 03/02/25 (2.5 mg base)/3 mL nebulization respiratory distress #180 mL soln prednisone 10 mg tablet 10 mg PO DIRECTED #30 tabs 03/02/25 Allergies Allergy/AdvReac Type Severity Reaction Status Date / Time meperidine (From Demerol) Allergy ADR-Vomitin Verified 12/24/24 15:19 g morphine Allergy ADR-Vomitin Verified 12/24/24 15:19 g Penicillins Allergy ALGY-Hives Verified 12/24/24 15:19 PFSH ED PFSH: Medical History Pulmonary emphysema, unspecified emphysema type Left ventricular systolic dysfunction (LVSD), NYHA class 3 Epilepsy Essential hypertension Dyslipidemia GERD (gastroesophageal reflux disease) Dementia in Alzheimer's disease Arteriosclerotic heart 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, 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 Carotid disease, bilateral Cystocele with small rectocele and uterine descent Surgical History History of coronary artery stent placement Status post carotid surgery History of cholecystectomy H/O removal of cyst Family History Mother CAD (coronary artery disease) Hypertension Social History Smoking and tobacco/nicotine status: former use of tobacco/nicotine Second hand smoke exposure: No Alcohol intake: never Substance/Drug Use: never Adopted: No Lives independently: Yes Household members: family Housing: House Marital status: / service: No Current occupational status: retired Do you think of yourself as: Straight/Heterosexual Current gender identity: Female Course Vital Signs: Vital signs: Vital Signs Temperature 97.6 F 03/03/25 09:12 Pulse Rate 92 03/03/25 11:23 Respiratory Rate 20 H 03/03/25 11:23 Blood Pressure 100/64 03/03/25 10:18 Pulse Oximetry 92 03/03/25 11:23 Oxygen Delivery Me thod Nasal Cannula 03/03/25 11:23 Oxygen Flow Rate 4 03/03/25 11:23 MDM - SOB/Dyspnea Medical Decision Making Daughter continues to be concerned about patient's condition. She is satting normally on the 4 L of oxygen she was discharged home with yesterday. She clinically does appear somewhat fluid overloaded with crackles. Her BNP today is over 21,000 compared to 6,000 when she was admitted a few days ago. Daughter feels like her work of breathing has increased. The remainder of her blood work overall with no significant changes from her discharge. Elevated troponin which she had in the hospital. Delta troponin was negative. Her procalcitonin is normal. She is already being treated for pneumonia with IV antibiotics during her hospitalization and was discharged home on oral cefdinir. UA is clear. Daughter is requesting that we re-admit her. I did speak to Dr. Downs who was graciously willing to consult on patient here in the emergency department to determine disposition. He and daughter have agreed to admit her to observation. We will place moran at this request for accurate I&Os. The case was discussed with: the nurse practitioner. Evaluation and management service: I agree with the evaluation and management decisions made in this patient's care. Results interpretation: I agree with the study interpretation in this patient's care, I agree with the documentation of the study interpretation. Lab Data 03/03/25 09:31 03/03/25 09:31 Labs/Radiology: Radiology Impressions Chest X-Ray 03/03/25 09:07 IMPRESSION: Presumed improving congestive heart failure as above. Laboratory Results WBC 10.20 10^3/uL (3.29-11.43) 03/03/25 09:31 RBC 3.46 10^6/uL (3.85-5.65) L 03/03/25 09:31 Hgb 10.00 g/dL (11.27-16.99) L 03/03/25 09:31 Hct 31.3 % (36-47) L 03/03/25 09:31 MCV 90.5 fl (85-98) 03/03/25 09:31 MCH 28.9 pg (27-33) 03/03/25 09:31 MCHC 31.9 g/dL (30-55) 03/03/25 09:31 RDW 13.7 % (12.1-15.1) 03/03/25 09:31 Plt Count 247 10^3/cmm (157-399) 03/03/25 09:31 MPV 10.6 fL (7.4-10.4) H 03/03/25 09:31 Neut % (Auto) 69.7 % 03/03/25 09:31 Lymph % (Auto) 18.5 % 03/03/25 09:31 [place]eker % (Auto) 10.3 % 03/03/25 09:31 Eos % (Auto) 0.8 % 03/03/25 09:31 Baso % (Auto) 0.0 % 03/03/25 09:31 Neut # (Auto) 7.11 10^3/uL (1.8-7.7) 03/03/25 09:31 Lymph # (Auto) 1.9 10^3/uL (0.8-4.8) 03/03/25 09:31 [place]eker # (Auto) 1.1 10^3/uL (0.2-0.9) H 03/03/25 09:31 Eos # (Auto) 0.1 10^3/uL (0.0-0.8) 03/03/25 09:31 Baso # (Auto) 0.0 10^3/uL (0.0-0.1) 03/03/25 09:31 Nucleated RBC % (auto) 0 % 03/03/25 09:31 Nucleated RBCs # 0.0 /100WBC 03/03/25 09:31 Specimen Type Arterial 03/03/25 09:46 Sample Site Brachial, left 03/03/25 09:46 ABG pH 7.49 (7.35-7.45) H 03/03/25 09:46 ABG pCO2 41.7 mmHg (35-45) 03/03/25 09:46 ABG pO2 67.0 mmHg (80.0-100.0) L 03/03/25 09:46 ABG PO2/FiO2 Ratio 197 03/03/25 09:46 ABG HCO3 31.7 mmol/L (22-26) H 03/03/25 09:46 ABG O2 Saturation 93.3 03/03/25 09:46 ABG Base Excess 7.6 mmol/L (-2.0-2.0) H 03/03/25 09:46 Tien Test Pos 03/03/25 09:46 A-a O2 Gradient 16.3 mmHg (5-10) H 03/03/25 09:46 Hematocrit 32.3 % (37-47) L 03/03/25 09:46 Hgb O2 Saturation 92.2 % (95-100) L 03/03/25 09:46 Carboxyhemoglobin 1.0 %THgb (0.4-20.1) 03/03/25 09:46 Methemoglobin 0.3 % (0.4-1.5) L 03/03/25 09:46 Total Hemoglobin 10.5 g/dL (12-16) L 03/03/25 09:46 Sodium 142.0 mmol/L (131-143) 03/03/25 09:46 Potassium 3.5 mmol/L (3.5-5.0) 03/03/25 09:46 Glucose 94.0 mg/dL (70-115) 03/03/25 09:46 Ionized Calcium 1.2 mmol/L (1.1-1.4) 03/03/25 09:46 O2 Delivery Device Nc 03/03/25 09:46 O2 Liters/Min 3.5 % 03/03/25 09:46 FiO2 34.0 % 03/03/25 09:46 Bilingual Receptionist ID Tod 03/03/25 09:46 Sodium 142 mmol/L (136-145) 03/03/25 09:31 Potassium 3.5 mmol/L (3.5-5.1) 03/03/25 09:31 Chloride 101 mmol/L (98-107) 03/03/25 09:31 Carbon Dioxide 28 mmol/L (22-29) 03/03/25 09:31 Anion Gap 16.5 (5-19) 03/03/25 09:31 BUN 29 mg/dL (8-23) H 03/03/25 09:31 Creatinine 1.0 mg/dL (0.5-0.9) H 03/03/25 09:31 GFR Calculation Not Reportable 03/03/25 09:31 Glucose 91 mg/dL (65-115) 03/03/25 09:31 Calculated Osmolality 299 mOsm/kg (285-295) H 03/03/25 09:31 Lactic Acid 2.3 mmol/L (0.5-2.2) H 03/03/25 09:31 Calcium 9.3 mg/dL (8.5-10.5) 03/03/25 09:31 Total Bilirubin 0.3 mg/dL (0.15-1.2) 03/03/25 09:31 AST 30 U/L (0-32) 03/03/25 09:31 ALT 25 U/L (0-33) 03/03/25 09:31 Alkaline Phosphatase 93 U/L (35-105) 03/03/25 09:31 Troponin T Baseline 56 ng/L (0-10) H 03/03/25 09:31 Troponin T 120 Minute 53.94 ng/L (0-10) H 03/03/25 11:46 Delta Troponin T -2.06 ABS# (0-10) L 03/03/25 11:46 NT-Pro-B Natriuret Pep 92016 pg/mL (0-450) H 03/03/25 09:31 Total Protein 5.9 g/dL (6.6-8.7) L 03/03/25 09:31 Albumin 3.6 g/dL (3.5-5.2) 03/03/25 09:31 Globulin 2.3 g/dL (1.3-4.6) 03/03/25 09:31 Procalcitonin 0.13 ng/mL (0-0.5) 03/03/25 09:31 Urine Color Yellow (Yellow) 03/03/25 11:33 Urine Appearance Clear (CLEAR) 03/03/25 11:33 Urine pH 6.0 (5-7) 03/03/25 11:33 Ur Specific [place] 1.009 (1.005-1.030) 03/03/25 11:33 Urine Protein Trace (Negative) A 03/03/25 11:33 Urine Glucose (UA) Negative (Normal) 03/03/25 11:33 Urine Ketones Negative (Negative) 03/03/25 11:33 Urine Blood Negative (Negative) 03/03/25 11:33 Urine Nitrate Negative (Negative) 03/03/25 11:33 Urine Bilirubin Negative (Negative) 03/03/25 11:33 Urine Urobilinogen 0.2 mg/dL (Negative) 03/03/25 11:33 Ur Leukocyte Esterase Negative (Negative) 03/03/25 11:33 Urine RBC None /hpf (0-2) 03/03/25 11:33 Urine WBC None /hpf (0-5) 03/03/25 11:33 Ur Squamous Epith Cells Rare /hpf (0-5) 03/03/25 11:33 Amorphous Sediment Not Reportable 03/03/25 11:33 Urine Bacteria None /hpf (NONE) 03/03/25 11:33 Discharge Plan Discharge Patient Disposition: Placed in Observation Clinical Impression: Acute respiratory failure with hypoxia, COPD exacerbation Acute exacerbation of CHF (congestive heart failure) Qualifiers: Heart failure type: unspecified Qualified Code(s): I50.9 - Heart failure, unspecified Coding Level of Care Code ED Distillation Operator for Lu Ridley
[2025-03-03] MEDS: methylPREDNISolone sod succ 125 mg/2 mL INJ 80 MG IVP (09:48)
[2025-03-03 09:49] LABS: Hematocrit 31.3 % (36-47); Hemoglobin 10.00 g/dL (11.27-16.99); Mean Corpuscular HGB Conc 31.9 g/dL (30-55); Mean Corpuscular Hemoglobin 28.9 pg (27-33); Mean Corpuscular Volume 90.5 fl (85-98); Nucleated Red Blood Cells % 0 %; Platelet Count 247 10^3/cmm (157-399); Red Blood Count 3.46 10^6/uL (3.85-5.65); White Blood Count 10.20 10^3/uL (3.29-11.43)
[2025-03-03 09:59] LABS: ABG PCO2 41.7 mmHg (35-45); ABG PH Result 7.49 (7.35-7.45); Alveolar-Arterial Oxygen Gradi 16.3 mmHg (5-10); Arterial Blood Gas Hematocrit 32.3 % (37-47); Blood Gas Allen Test Pos; Blood Gas LPM 3.5 %; Blood Gas Operator Identificat MONRO; Blood Gas Sample Site Brachial, left; Blood Gas Sample Type Arterial; Carboxyhemoglobin 1.0 %THgb (0.4-20.1); Glucose Level-ABG 94.0 mg/dL (70-115); HCO3 ABG 31.7 mmol/L (22-26); Ionized Calcium Level - ABG 1.2 mmol/L (1.1-1.4); Methemoglobin 0.3 % (0.4-1.5); Oxygen Saturation ABG 93.3; PO2 ABG 67.0 mmHg (80.0-100.0); PO2 FiO2 Ratio Arterial Blood 197; Potassium Level - ABG 3.5 mmol/L (3.5-5.0); Sodium Level - ABG 142.0 mmol/L (131-143)
[2025-03-03 10:08] LABS: Lactic Sepsis W/Reflex 2.3 mmol/L (0.5-2.2); Troponin(5th) Baseline 56 ng/L (0-10)
[2025-03-03 10:27] LABS: NT Pro B Type Natriuretic Pept 21454 pg/mL (0-450); Procalcitonin 0.13 ng/mL (0-0.5)
[2025-03-03 10:38] LABS: Alanine Aminotransferase 25 U/L (0-33); Albumin Level 3.6 g/dL (3.5-5.2); Alkaline Phosphatase 93 U/L (35-105); Anion Gap 16.5 (5-19); Aspartate Amino Transferase 30 U/L (0-32); Blood Urea Nitrogen 29 mg/dL (8-23); Calcium 9.3 mg/dL (8.5-10.5); Carbon Dioxide 28 mmol/L (22-29); Chloride 101 mmol/L (98-107); Creatinine Clr Calc Pharmacy 32.8167; Globulin 2.3 g/dL (1.3-4.6); Glucose 91 mg/dL (65-115); Osmolality Calculated 299 mOsm/kg (285-295); Potassium 3.5 mmol/L (3.5-5.1); Sodium 142 mmol/L (136-145); Total Protein 5.9 g/dL (6.6-8.7)
[2025-03-03 11:33] LABS: Reflex Lactate Order REFLEX LACTIC ORDERD
[2025-03-03] MEDS: FUROsemide 10 mg/mL SDV 10mL 60 MG IVP (11:34)
--- NOTE | 2025-03-03 11:35 | ECG_ITS ---
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 Measurements Intervals [place] Rate: 103 P: 34 IA: 154 QRS: -17 QRSD: 99 T: 77 QT: 324 QTc: 424 Interpretive Statements SINUS TACHYCARDIA ANTEROSEPTAL MYOCARDIAL INFARCTION , OF INDETERMINATE AGE [40+ ms Q WAVE IN V1-V4] Compared to ECG 03/03/2025 09:21:07 Sinus rhythm no longer present Myocardial infarct finding still present Electronically Signed On 03-06-2025 23:33:26 CDT by Mo Cortez M.D. [email or web address]
[2025-03-03 11:43] LABS: Glucose Urine UA Negative (Normal); Nitrate Urine Negative (Negative); Specific Gravity, Urine 1.009 (1.005-1.030)
[2025-03-03 12:08] LABS: Add Urine Microscopic? YES; UA Manual Slide Review YES; UA Slide Review UA Slide Review Perf
[2025-03-03 12:20] LABS: Troponin 5 2HR 53.94 ng/L (0-10)
[2025-03-03 12:24] LABS: Troponin 5 2HR Delta -2.06 ABS# (0-10)
--- NOTE | 2025-03-03 12:59 | PM.HP ---
Providers/Chief Complaint Primary Care Provider: MEGGAN ConcepcionC Chief Complaint: crackley in the chest and low o2 History of Present Illness Wendy Covarrubias is a 84 year old woman with a history of emphysema/chronic obstructive pulmonary disease (COPD), chronic systolic congestive heart failure (CHF), hypertension, hyperlipidemia, chronic kidney disease (CKD), carotid artery disease, coronary artery disease (CAD), epilepsy, and gastroesophageal reflux disease (GERD) presented to the emergency department (ED) with respiratory distress. At baseline patient uses up to 4 L as per the daughter. Patient was discharged from the hospital on 03/02 after getting treatment for CHF and COPD exacerbation. Patient was not able to refill medications since discharge for it being Monday. Since today morning patient has been having difficulty in breathing with increased work of breathing with saturations dropping down to low 80s for the daughter. In the ER she was given a nebulization treatment along with 60 of IV Lasix and is currently saturating 91% on 4 L. Patient states she still feels as if she is having difficulty in breathing. Denies any nausea, vomiting, headache, chest pain, difficulty in swallowing. Review of Systems General: Reports: 10 or more systems reviewed and unremarkable except in HPI and below Const: Denies: fever(s), chills, body aches, change in appetite, change in weight, malaise, night sweats, diaphoresis, change in sleep pattern, daytime sleepiness or snoring Eyes: Denies: change in vision, blurry vision, photophobia, eye discomfort or eye discharge ENMT: Denies: throat pain, enlarged tonsils, hoarseness, mouth pain, oral sores, dry mouth, tinnitus, nasal congestion or post nasal drip Card: Denies: chest pain, palpitations, irregular heart rhythm, edema, swelling of feet/ankles, lightheadedness, syncope, pre-syncope, dyspnea on exertion, orthopnea, leg pain with exertion or acrocyanosis Resp: Denies: dyspnea, productive cough, non-productive cough, wheezing, stridor, pain on inspiration, change in phlegm color, hemoptysis or chest congestion GI: Denies: abdominal pain, nausea, vomiting, hematemesis, coffee ground emesis, dysphagia, heartburn, diarrhea, constipation, bloating, GI cramping, change in bowel habits, pain on defecation, hematochezia or melena : Denies: flank pain, dysuria, urinary frequency, urinary urgency, urinary hesitancy, nocturia or hematuria Musc: Denies: neck pain, back pain, extremity pain, joint pain, joint swelling, joint redness, joint stiffness or limited range of motion Neuro: Denies: headache(s), numbness in extremities, weakness in extremities, sensory changes, lack of coordination, difficulty walking, frequent falls, dizziness, vertigo, confusion, Slurred speech present, difficulty communicating thoughts or seizure-like activity Psych: Denies: anxiety, depression, mood swings, panic attacks, hopelessness or irritability Endo: Denies: polyuria, polydipsia, tired all the time, cold intolerance, excessive sweating, flushing or heat intolerance Kash/Lymph: Denies: easy bruising or easy bleeding All/Imm: Denies: tongue swelling, facial swelling or acute wheezing Medications/Allergies Home Medications ?Medication ?Instructions ?Recorded ?Confirmed ?Last Taken ?Type atorvastatin 80 mg tablet 80 mg PO QPM 07/26/19 03/03/25 03/02/25 History albuterol sulfate 90 mcg/actuation 2 puff inhalation Q6H PRN 10/06/22 03/03/25 03/03/25 History aerosol inhaler Shortness Of Breath Or Wheezing multivitamin 1 tab PO DAILY 10/06/22 03/03/25 03/02/25 History isosorbide mononitrate 30 mg 30 mg PO QAM #30 tabs 10/09/22 03/03/25 03/03/25 Rx tablet,extended release 24 hr nitroglycerin 0.4 mg sublingual 0.4 mg sublingual Q5M PRN chest 11/23/22 03/03/25 Unknown Rx tablet pain #25 tabs aspirin 81 mg tablet,delayed 81 mg PO DAILY #90 tabs 12/28/22 03/03/25 03/02/25 Rx release levetiracetam 500 mg tablet 500 mg PO BID 90 days #180 tabs 09/11/24 03/03/25 03/03/25 Rx furosemide 40 mg tablet (Lasix) 80 mg PO QAM 12/24/24 03/03/25 03/03/25 History Oxygen concentrator 2L NC #1 ea 01/29/25 03/03/25 Unknown Rx citalopram 20 mg tablet 20 mg PO DAILY 02/27/25 03/03/25 03/03/25 History clopidogrel 75 mg tablet 75 mg PO DAILY 02/27/25 03/03/25 03/02/25 History lansoprazole 30 mg capsule,delayed 30 mg PO DAILY 02/27/25 03/03/25 03/02/25 History release memantine 10 mg tablet 10 mg PO BID 02/27/25 03/03/25 03/03/25 History nifedipine 30 mg tablet,extended 30 mg PO DAILY 02/27/25 03/03/25 03/02/25 History release cefdinir 300 mg capsule 300 mg PO BID 5 days #10 caps 03/02/25 03/03/25 Unknown Rx ipratropium 0.5 mg-albuterol 3 mg 3 ml inhalation Q6H PRN 03/02/25 03/03/25 Unknown Rx (2.5 mg base)/3 mL nebulization respiratory distress #180 mL soln prednisone 10 mg tablet 10 mg PO DIRECTED #30 tabs 03/02/25 03/03/25 Unknown Rx Allergies Allergy/AdvReac Type Severity Reaction Status Date / Time meperidine (From Demerol) Allergy ADR-Vomitin Verified 12/24/24 15:19 g morphine Allergy ADR-Vomitin Verified 12/24/24 15:19 g Penicillins Allergy ALGY-Hives Verified 12/24/24 15:19 PFSH Acute PFSH: Medical History (Updated 03/03/25 @ 13:06 by Ankur Machado MD) Pulmonary emphysema, unspecified emphysema type Left ventricular systolic dysfunction (LVSD), NYHA class 3 Epilepsy Essential hypertension Dyslipidemia GERD (gastroesophageal reflux disease) Dementia in Alzheimer's disease Arteriosclerotic heart 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, 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 Carotid disease, bilateral Cystocele with small rectocele and uterine descent Surgical History History of coronary artery stent placement Status post carotid surgery History of cholecystectomy H/O removal of cyst Family History Mother CAD (coronary artery disease) Hypertension Social History Smoking and tobacco/nicotine status: former use of tobacco/nicotine Second hand smoke exposure: No Alcohol intake: never Substance/Drug Use: never Adopted: No Lives independently: Yes Household members: family Housing: House Marital status: / service: No Current occupational status: retired Do you think of yourself as: Straight/Heterosexual Current gender identity: Female Vitals/I&O/Wt Last Vital Signs Temp 97.6 F 03/03/25 09:12 Pulse 92 03/03/25 11:23 Resp 20 H 03/03/25 11:23 BP 100/64 03/03/25 10:18 Pulse Ox 92 03/03/25 11:23 O2 Del Method Nasal Cannula 03/03/25 11:23 O2 Flow Rate 4 03/03/25 11:23 Weight last 48 hrs Weight 59.421 kg Physical Exam Narrative: General: In mild distress due to difficulty in breathing, AO x3, generally sick appearing HEENT: PERRLA, pupils bilaterally equal and reactive Chest: Bilateral bronchial breath sounds all over lung millan, crackles bilaterally in lower zone, occasional rhonchi diffuse allover, equal good air entry bilaterally CVS: S1-S2 regular, no murmurs, no tachycardia, no gallops, no rubs Abdomen: Soft, nontender, no organomegaly, bowel sounds present Neuro: No focal deficits, no facial deformity, AO x3, power 5/5 in all limbs Data 03/03/25 09:31 03/03/25 09:31 A&P Assessment and plan 1. Acute and chronic respiratory failure with hypoxia: Most likely due to combination of COPD/ emphysema exacerbation along with CHF. Oxygen supplementation keeping saturation 88%. 2. Acute exacerbation of CHF (congestive heart failure): Last echocardiogram from December 2024 showed an EF of 50% with mild MR, grade 1 diastolic dysfunction, RWMA. Will repeat limited echocardiogram Strict input of charting, daily weights. Fluid restriction of less than 1500 cc. Switch to Bumex 1 g IV twice daily for now. Rodriguez catheter. 3. Left ventricular systolic dysfunction (LVSD), NYHA class 3: 4. Pulmonary emphysema, unspecified emphysema type: With mild exacerbation. Received 80 of IV methylprednisolone in ER. For now we will switch to oral 40 mg of prednisone. DuoNeb every 6 hours Pulmicort twice daily. Patient is being worked up as an outpatient for possible BiPAP. Did have a sleep study back in January 27. Will request case management to expedite possible BiPAP arrangement as an outpatient. 5. Hypertension: Goal blood pressure less than 140/90 mmHg. Continue with home dose of nifedipine, Imdur. Uptitrate as for goal blood pressure. 6. Troponin level elevated: 2-hour troponin delta negative. Most likely stress induced type II [place]. Echocardiogram as above. Continue home dose of aspirin, statin. 7. CKD (chronic kidney disease) stage 2, GFR 60-89 ml/min: Creatinine at this time. Continue to monitor. Plan: CODE STATUS: Discussed in detail with the patient and daughter at bedside. Does not want intubation or chest compression. Okay with defibrillation if needed. Limited resuscitation Cardiac diet. Fluid restriction to less than 1500 cc Protonix OPD prophylaxis Heparin for DVT prophylaxis PDMP PDMP Reviewed: Not Reviewed Attestations Medical Necessity Statement*: Admission under observation for management of acute on chronic hypoxic respiratory failure in setting of CHF and COPD exacerbation Diagnoses Acute and chronic respiratory failure with hypoxia J96.21 Acute exacerbation of CHF (congestive heart failure) I50.9 Left ventricular systolic dysfunction (LVSD), NYHA class 3 I51.89 Pulmonary emphysema, unspecified emphysema type J43.9 Emphysema type: unspecified Hypertension I10 Troponin level elevated R79.89 CKD (chronic kidney disease) stage 2, GFR 60-89 ml/min N18.2
--- NOTE | 2025-03-03 13:13 | USCV_ITS ---
Satish Wendy Age: 85 Gender: F : 1940 Exam Date: 03/03/2025 16:07 Ordering Phys: Ankur Machado MD Technologist: RUDOLPH Exam Location: [facility] [place] Indication: CHF. ELEVATE TROP BP: 92 / 66 HR: Rhythm: Sinus Technical Quality: Adequate MEASUREMENTS (Male / Female) Normal Values 2D ECHO LV Diastolic Diameter PLAX 5.8 cm 4.2 - 5.9 / 3.9 - 5.3 cm IVS Diastolic Thickness 1.3 cm 0.6 - 1.0 / 0.6 - 0.9 cm IVS Systolic Thickness 1.3 cm LVPW Diastolic Thickness 1.5 cm 0.6 - 1.0 / 0.6 - 0.9 cm LVPW Systolic Thickness 1.9 cm LVOT Diameter 2.0 cm LV Ejection Fraction 2D Teich 56.9 % LV Ejection Fraction MOD 4C 42.4 % LV Ejection Fraction MOD 2C 50.7 % LV Ejection Fraction 2C AL 48.3 % LA Diameter 3.4 cm RA Systolic Volume 4C AL 50.7 ml RA Systolic Volume 4C MOD 50.5 ml LA Sys Volume AL 71.2 cm cubed LA Sys Volume Index AL 43.2 cm cubed/m squared Aorta at Sinotubular Diameter 2.0 cm M-MODE LA Ao Ratio MM 1.7 AV Cusp Separation MM 0.9 cm FINDINGS Left Ventricle Right Ventricle Right Atrium Left Atrium Mitral Valve Aortic Valve Tricuspid Valve Pulmonic Valve Pericardium Aorta IVC CONCLUSIONS Limited echocardiogram performed to assess LV systolic function LV sytstolic function is mildly reduced with EF of 40-45%. Mild global hypokinesis. Pawan Tse MD (Electronically Signed) Final Date: 03 March 2025 21:11 S
--- NOTE | 2025-03-03 13:13 | CT_ITS ---
WS: [id number] CT chest wo con [id number] HISTORY: Respiratory failure TECHNIQUE: Axial imaging performed through the thorax. Coronal and sagittal reformats are submitted. All CT scans at [facility] use at least one of these dose optimization techniques: automated exposure control; mA and/or kV adjustment per patient size (includes targeted exams where dose is matched to clinical indication); or iterative reconstruction. CONTRAST: Omnipaque 350; 100 mL IV. DLP: 431.08 mGy.cm COMPARISON: 03/10/2023 Lungs and central airway: Mild pulmonary hyperexpansion. Diffuse interstitial thickening throughout both lungs is new. No areas of consolidation. Mild atelectasis at the lung bases. Pleura: Small bilateral pleural effusions. Pleural effusions are new. Heart and pericardium: Moderate cardiomegaly. Advanced atherosclerosis in the [place] coronary arteries. Mediastinum and carolyn: No mediastinum or hilar adenopathy. Vessels: Severe atherosclerotic plaque within the aorta and great vessels. Advanced plaque extends into the great vessels and carotid arteries. There is very dense plaque which is causing stenoses of multiple arteries. Heavily calcified diffuse thoracic aorta extends into the suprarenal aorta. Dense heavy calcification in the mesenteric arteries. Chest wall and lower neck: No soft tissue masses. Upper abdomen: Atrophic LEFT kidney. 10 mm incompletely visualized low- attenuation mass LEFT kidney. Cysts have been previously described. Prior cholecystectomy. Osseous structures: Mild anterior wedging of T8. Fracture was also present in 2022. Remote healed fracture mid RIGHT lateral thorax. CT/CT chest wo con [id number] IMPRESSION: 1. Diffuse interstitial thickening secondary to edema. 2. New small bilateral pleural effusions. 3. Moderate cardiomegaly. 4. Extensive calcified plaque within the thoracic and abdominal aorta, great ve ssels and mesenteric arteries. 5. No adenopathy. 6. Prior cholecystectomy.
[2025-03-03 13:34] LABS: Lactic Acid level (Lactate) 1.6 mmol/L (0.5-2.2)
[2025-03-03 13:36] LABS: Procalcitonin 0.12 ng/mL (0-0.5)
--- NOTE | 2025-03-03 14:29 | PC.NURSE ---
patient arrived on the floor from ER at 1425. Report taken from Malia in ER.
[2025-03-03] MEDS: heparin 5,000 unit/mL INJ 1 mL 5000 UNIT SUBCUT (14:49)
[2025-03-03] MEDS: pantoprazole 40 mg SDV IVP (14:49)
[2025-03-03 15:00] LABS: Estmated Average Glucose 100; Hemoglobin A1C 5.1 % (4.0-6.0)
[2025-03-03 15:05] LABS: Iron 33 ug/dL (37-145); Thyroid Stimulating Hormone 3.94 uIU/mL (0.27-4.20); Total Iron Binding Capacity 270 mcg/dl; Unsaturated Iron Binding 237 ug/dL (112-347); Vitamin B12 1184 pg/mL (232-1245)
--- NOTE | 2025-03-03 15:09 | ECG_ITS ---
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 Measurements Intervals [place] Rate: 92 P: 33 [place]: 148 QRS: 3 QRSD: 112 T: 59 QT: 384 QTc: 477 Interpretive Statements SINUS RHYTHM LOW QRS VOLTAGE IN PRECORDIAL LEADS [QRS DEFLECTION < 1.0 mV IN CHEST LEADS] MODERATE INTRAVENTRICULAR CONDUCTION DELAY [105+ ms QRS DURATION, 80+ ms Q/S IN V1/V2, NO Q AND 60+ ms R IN I/aVL/V5/V6] NONSPECIFIC ST & T-WAVE ABNORMALITY Compared to ECG 03/03/2025 11:35:30 Low QRS voltage now present Intraventricular conduction delay now present T-wave abnormality now present Sinus tachycardia no longer present Myocardial infarct finding no longer present Electronically Signed On 03-06-2025 09:02:52 CDT by Pawan Tse M.D. [email or web address]
[2025-03-03 15:28] LABS: Troponin 5 6HR 45.26 ng/L (0-10)
[2025-03-03 15:30] LABS: Troponin 5 6HR Delta -10.74 ng/L (0-12)
[2025-03-03] MEDS: bumetanide 0.25 mg/mL SDV 4 mL 1 MG IVP (16:57)
[2025-03-03 17:35] LABS: MRSA PCR OZH (swab) NOT DETECTED (Not Detecte)
[2025-03-04] VITALS (11 sets, daily range): BP systolic 80–173; BP diastolic 48–128; PULSE 79–100; RESP 14–24; TEMP 35.9–36.8; O2SAT 92–98; BMI 31.5
[2025-03-04] MEDS: heparin 5,000 unit/mL INJ 1 mL 5000 UNIT SUBCUT ×2 (01:50→14:45)
[2025-03-04 03:50] LABS: Hematocrit 31.9 % (36-47); Hemoglobin 10.00 g/dL (11.27-16.99); Mean Corpuscular HGB Conc 31.3 g/dL (30-55); Mean Corpuscular Hemoglobin 28.9 pg (27-33); Mean Corpuscular Volume 92.2 fl (85-98); Nucleated Red Blood Cells % 0 %; Platelet Count 221 10^3/cmm (157-399); Red Blood Count 3.46 10^6/uL (3.85-5.65); White Blood Count 8.82 10^3/uL (3.29-11.43)
[2025-03-04 04:09] LABS: Alanine Aminotransferase 28 U/L (0-33); Albumin Level 3.5 g/dL (3.5-5.2); Alkaline Phosphatase 91 U/L (35-105); Anion Gap 15.6 (5-19); Aspartate Amino Transferase 27 U/L (0-32); Blood Urea Nitrogen 31 mg/dL (8-23); Calcium 8.7 mg/dL (8.5-10.5); Carbon Dioxide 31 mmol/L (22-29); Chloride 101 mmol/L (98-107); Creatinine Clr Calc Pharmacy 31.2791; Globulin 2.3 g/dL (1.3-4.6); Glucose 100 mg/dL (65-115); Magnesium 2.0 mg/dL (1.7-2.3); Osmolality Calculated 305 mOsm/kg (285-295); Potassium 3.6 mmol/L (3.5-5.1); Sodium 144 mmol/L (136-145); Total Protein 5.8 g/dL (6.6-8.7)
[2025-03-04 04:16] LABS: Cholesterol 142 mg/dL (0-200); HDL Cholesterol 78 mg/dL (60-100); Procalcitonin 0.21 ng/mL (0-0.5); Triglycerides 115 mg/dL (0-150)
[2025-03-04] MEDS: bumetanide 0.25 mg/mL SDV 4 mL 1 MG IVP (05:06)
--- NOTE | 2025-03-04 08:43 | ECG_ITS ---
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 Interpretive Statements Lung unchanged pre/post procedure; Intraprocedure shortess of breath; Symptoms resoled by discharge PROCEDURE: At the baseline, the EKG revealed normal sinus rhythm with a poor R wave progression. Diffuse nonspecific ST-T changes. The baseline heart was 80 bpm with a blood pressue of 103/79 mm of Hg Lexiscan was infused over a period of 20 seconds. A total of 0.4 milligrams of Lexiscan was infused. The stress phase was continued for a total of 5 minutes. Heart rate at the end of the stress phase was 93 bpm with a blood pressure 137/60 mm of Hg. The EKG at the peak infusion revealed no significant changes. Because of the heavy artifacts, peak stress EKG is uninterpretable Sestamibi was injected 20 seconds after the Lexiscan infusion. Heart rate at the end of the recovery phase was 87 bpm with a blood pressure of 141/52 mm of Hg. CONCLUSION: 1. No significant EKG changes with the LexiScan infusion 2. No LexiScan induced chest pain or cardiac arrhythmia 3. Normal blood pressure and heart rate response 4. Sestamibi/sestamibi perfusion scan pending; see separate report. Electronically Signed On 03-09-2025 21:05:43 CDT by Mo Cortez M.D. [email or web address]
[2025-03-04] MEDS: methylPREDNISolone sod succ 40 mg/mL INJ 30 MG IVP ×2 (09:04→19:41)
--- NOTE | 2025-03-04 10:21 | PC.CHAP ---
Pastoral Care Encounter/Spiritual Assessment Type of Contact [] Declined header dock visit [] Patient/Family/Request visit [] Outpatient visit [] Follow-up visit [] Physician referral [] Code/Alert [] Routine visit [] Staff referral [] Actively dying [] Patient sleeping [] Family support [] [] Out of room [] Palliative care [] [x] Receiving care in room [] Pre-surgical visit [] Trauma [] Long length of stay [] ICU visit [] Other: Relational/Emotional Strength [] Patient feels connected with others/family/visitors/staff [] Distress [] Loneliness/isolation [] Abandonment Spirituality of Patient [] Person of Carri [] Attends Advent of their Carri [] Believes in Prayer [] Reads Bible or Anabaptism materials [] There are Spiritual issues to be addressed Senior Accountant Analyst Interventions [] Prayer [] Active listening [] Non-anxious presence [] Spiritual/emotional support [] Crisis/trauma care [] Spiritual counseling [] Bereavement support [] Provided bereavement packet [] Provided Bible/devotional materials [] Provided toy/stuffed animal, coloring book to patient or family member [] Provided Communion [] Anointing/[place] [] Salvation [] Completed spiritual assessment [] Other: Impact on Illness or Injury [] Angry [] Fearful [] Anxious [] Often cries [] Exhaustion [] Unable to work [] Unable to attend congregational [] Unable to walk/stand [] Unable to read [] Unable to drive [] Unable to eat/drink [] Unable to sleep [] Unable to be with family [] Patient intubated [] Other: Summary Time spent with patient
--- NOTE | 2025-03-04 11:43 | P.PN_ITS ---
Subjective 2 Subjective: No acute events overnight. Patient states she is feeling a lot better. On review of chart it seems patient's blood pressures have been running in low 90s systolic overnight. Today morning down to 80 systolic. Manually 30 minutes later blood pressure improved to 110s systolics. Patient slightly tired today. Awake and alert. Denies any nausea, vomiting. Denies any chest pain. Vitals/I&O/Wt Last Vital Signs Temp 98.2 F 03/04/25 07:41 Pulse 81 03/04/25 08:14 Resp 16 03/04/25 08:14 BP 80/65 03/04/25 07:41 Pulse Ox 94 03/04/25 08:14 O2 Del Method Nasal Cannula 03/04/25 08:14 O2 Flow Rate 2 03/04/25 08:14 03/03/25 03/04/25 03/04/25 22:59 06:59 14:59 Intake Total 120 / 120 Output Total 1325 / 1325 75 / 1400 Balance -1325 / -825 -75 / -900 120 / 120 Weight last 48 hrs Weight 75.705 kg Weight 75.705 kg Weight 78.273 kg Weight 59.421 kg Physical Exam 2 Narrative: General: In mild distress due to difficulty in breathing, AO x3, generally sick appearing HEENT: PERRLA, pupils bilaterally equal and reactive Chest: Bilateral bronchial breath sounds all over lung millan, crackles improved today, occasional rhonchi diffuse allover, equal good air entry bilaterally CVS: S1-S2 regular, no murmurs, no tachycardia, no gallops, no rubs Abdomen: Soft, nontender, no organomegaly, bowel sounds present Neuro: No focal deficits, no facial deformity, AO x3, power 5/5 in all limbs Urinary Catheter Management: Rodriguez: Cath Placed During This Visit: yes Reason for Continuing Indwelling Catheter: Accurate Measurement of Urinary Output in Critically Ill Patients Urinary Catheter Date of Insertion: 03/03/25 Urinary Catheter Time of Insertion: 13:41 Data 03/04/25 03:33 03/04/25 03:33 Micro: Microbiology 03/03/25 11:33 Bacterial Antigens - Final Urine Kidney A&P Assessment and plan 1. Acute and chronic respiratory failure with hypoxia: Most likely due to combination of COPD/ emphysema exacerbation along with CHF. Oxygen supplementation keeping saturation 88%. Resolving 2. Acute on chronic combined systolic and diastolic congestive heart failure: Limited echocardiogram repeat shows an EF of 40 to 45% with global LV hypokinesia Strict input of charting, daily weights. Fluid restriction of less than 1500 cc. Patient had a good response to IV diuresis yesterday. Blood pressure slightly soft today with increasing sodium bicarbonate. Will hold off any further diuresis for now. Will most likely switch to Bumex as needed. Given new diagnosis of worsening heart failure with history of PCI in the past patient would need further workup. N.p.o. after midnight. Plan for Lexiscan stress test. Patient will need further changes in medication for guideline directed medical therapy for heart failure. Will hold off on nifedipine going forward. Will plan to add Entresto. Patient not on beta-rachelle given history of bradycardia with metoprolol. Can try for low-dose Coreg if blood pressure remains stable on Entresto. 3. Left ventricular systolic dysfunction (LVSD), NYHA class 3: 4. Pulmonary emphysema, unspecified emphysema type: With mild exacerbation. Continue with Solu-Medrol 30 mg IV every 8 hourly. Will plan to wean rapidly in next 24 to 48 hours. DuoNeb every 6 hours Pulmicort twice daily. Patient is being worked up as an outpatient for possible BiPAP. Did have a sleep study back in January 27. Repeat sleep study shows patient is not requiring BiPAP nightly. 5. Primary hypertension: Goal blood pressure less than 140/90 mmHg. Continue with home dose of nifedipine, Imdur. Uptitrate as for goal blood pressure. 6. Troponin level elevated: 2-hour troponin delta negative. Most likely stress induced type II [place]. Echocardiogram as above. Continue home dose of aspirin, statin. 7. CKD (chronic kidney disease) stage 2, GFR 60-89 ml/min: Creatinine at this time. Continue to monitor. Plan: CODE STATUS: Discussed in detail with the patient and daughter at bedside. Does not want intubation or chest compression. Okay with defibrillation if needed. Limited resuscitation Cardiac diet. Fluid restriction to less than 1500 cc Protonix OPD prophylaxis Heparin for DVT prophylaxis PDMP PDMP Reviewed: Not Reviewed Attestations 2 Medical Necessity Statement*: Requires further hospitalization for management of new systolic congestive heart failure as patient requires further workup, acute on chronic respiratory failure Diagnoses Acute and chronic respiratory failure with hypoxia J96.21 Acute on chronic combined systolic and diastolic congestive heart failure I50.43 Heart failure type: combined systolic and diastolic Left ventricular systolic dysfunction (LVSD), NYHA class 3 I51.89 Pulmonary emphysema, unspecified emphysema type J43.9 Emphysema type: unspecified Primary hypertension I10 Hypertension type: primary hypertension Troponin level elevated R79.89 CKD (chronic kidney disease) stage 2, GFR 60-89 ml/min N18.2
[2025-03-04] MEDS: pantoprazole 40 mg SDV IVP (14:46)
[2025-03-05] VITALS (12 sets, daily range): BP systolic 114–176; BP diastolic 47–73; PULSE 56–99; RESP 13–24; TEMP 36.4–36.9; O2SAT 80–98; BMI 33.0
[2025-03-05] MEDS: heparin 5,000 unit/mL INJ 1 mL 5000 UNIT SUBCUT ×2 (04:03→14:16)
[2025-03-05] MEDS: methylPREDNISolone sod succ 40 mg/mL INJ 30 MG IVP ×3 (04:03→19:18)
[2025-03-05 04:10] LABS: Hematocrit 32.0 % (36-47); Hemoglobin 9.90 g/dL (11.27-16.99); Mean Corpuscular HGB Conc 30.9 g/dL (30-55); Mean Corpuscular Hemoglobin 28.7 pg (27-33); Mean Corpuscular Volume 92.8 fl (85-98); Nucleated Red Blood Cells % 0 %; Platelet Count 209 10^3/cmm (157-399); Red Blood Count 3.45 10^6/uL (3.85-5.65); White Blood Count 7.10 10^3/uL (3.29-11.43)
[2025-03-05 04:43] LABS: Alanine Aminotransferase 33 U/L (0-33); Albumin Level 3.5 g/dL (3.5-5.2); Alkaline Phosphatase 103 U/L (35-105); Anion Gap 14.1 (5-19); Aspartate Amino Transferase 27 U/L (0-32); Blood Urea Nitrogen 33 mg/dL (8-23); Calcium 9.7 mg/dL (8.5-10.5); Carbon Dioxide 32 mmol/L (22-29); Chloride 102 mmol/L (98-107); Creatinine Clr Calc Pharmacy 33.5384; Globulin 2.3 g/dL (1.3-4.6); Glucose 154 mg/dL (65-115); Magnesium 1.9 mg/dL (1.7-2.3); Osmolality Calculated 308 mOsm/kg (285-295); Potassium 4.1 mmol/L (3.5-5.1); Sodium 144 mmol/L (136-145); Total Protein 5.8 g/dL (6.6-8.7)
--- NOTE | 2025-03-05 07:04 | PC.NURSE ---
Patient left for stress test at 0704.
--- NOTE | 2025-03-05 08:31 | PC.NURSE ---
Patient returned from stress test to CSU at 0831.
[2025-03-05] MEDS: ondansetron 2 mg/ML SDV 2 mL 4 MG IVP (08:39)
--- NOTE | 2025-03-05 08:43 | NMCV_ITS ---
NM susie perf SPECT r/s* [id number] Wendy Covarrubias Age: 85 Gender: F : 1940 Exam Date: 03/05/2025 06:55 Ordering Phys: Ankur Machado MD Technologist: BIRDIE Lenz Exam [facility]: [facility] Indications: cp STRESS TEST Please see separate stress test report in [facility] for full findings IMAGE PROTOCOL Rest/Stress 1 Lexiscan Day Radiopharmaceutical Dose (mCi) Administration Site Administered by Rest: Tc-99m 10.7 IV Isabelle Saavedra, WRAPPER REWINDER Sestamibi Stress:Tc-99m 32.3 IV Isabelle Fishgle, WRAPPER REWINDER Sestamibi Rest: 05-Mar-2025 60 Discovery 630 Stress: 05-Mar-2025 30 Discovery 630 0.4mg Lexiscan. Supine position only as patient was unable to lay prone. SPECT RESULTS Technical Quality: Good Raw Data Analysis: Normal Image Corrections: No attenuation or motion correction applied Summed Stress Score: 1 Summed Rest Score: 0 Summed Difference Score: 1 PERFUSION FINDINGS Small area of slightly decreased tracer uptake in the apical inferior wall region with complete reversibility FUNCTIONAL RESULTS (calculated via Gated SPECT) Stress Image LV EF (%): 35 Stress EDV (mL):136 TID: 1.07 Stress ESV (mL):89 FUNCTIONAL FINDINGS: Segmental wall motion analysis revealing diffuse hypokinesia of the left ventricular IMPRESSIONS 1. Myocardial perfusion imaging revealing a small area reversible defect in the apical inferior wall region suggesting ischemia in the distribution of the right coronary artery 2. Diminished LV ejection fraction of 35%. 3. LV wall motion analysis revealing diffuse hypokinesia of the left ventricle. 4. Mildly dilated LV cavity with an end-systolic volume of 89 mL Compared to study from 11/08/2022, the ischemic burden appears to have significantly decreased Dr Mo Cortez MD FAC (Electronically Signed) Final Date: 05 March 2025 12:57 S
--- NOTE | 2025-03-05 09:25 | PC.CHAP ---
Pastoral Care Encounter/Spiritual Assessment Type of Contact [] Declined agricultural equipment design engineer visit [] Patient/Family/Request visit [] Outpatient visit [] Follow-up visit [] Physician referral [] Code/Alert [] Routine visit [] Staff referral [] Actively dying [] Patient sleeping [] Family support [] [] Out of room [] Palliative care [] [x] Receiving care in room [] Pre-surgical visit [] Trauma [] Long length of stay [] ICU visit [] Other: Relational/Emotional Strength [] Patient feels connected with others/family/visitors/staff [] Distress [] Loneliness/isolation [] Abandonment Spirituality of Patient [] Person of Carri [] Attends Sikh of their Carri [] Believes in Prayer [] Reads Bible or Hindu materials [] There are Spiritual issues to be addressed Clinical Nurse Manager Interventions [] Prayer [] Active listening [] Non-anxious presence [] Spiritual/emotional support [] Crisis/trauma care [] Spiritual counseling [] Bereavement support [] Provided bereavement packet [] Provided Bible/devotional materials [] Provided toy/stuffed animal, coloring book to patient or family member [] Provided Communion [] Anointing/[place] [] Salvation [] Completed spiritual assessment [] Other: Impact on Illness or Injury [] Angry [] Fearful [] Anxious [] Often cries [] Exhaustion [] Unable to work [] Unable to attend evangelical [] Unable to walk/stand [] Unable to read [] Unable to drive [] Unable to eat/drink [] Unable to sleep [] Unable to be with family [] Patient intubated [] Other: Summary Time spent with patient
--- NOTE | 2025-03-05 13:38 | P.PN_ITS ---
Subjective 2 Subjective: 85-year-old female admitted wi th acute shortness of breath on chronic COPD and heart failure. She is typically on 3 L/min at home. She is companied this afternoon by her daughter and 2 granddaughters. Patient told me that they live together this morning and now this afternoon family is showing up. Family tells me that patient had a stent 2014 and then another 1 in the heart around [address] Tse. 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 She quit tobacco 7 years ago Patient had stress test this morning small reversible defect in the apical inferior wall suggesting ischemia in the RCA distribution with a EF of 35% LV wall motion diffuse hypokinesia mildly dilated LV cavity decreased ischemic burden from 2022 when she had nuclear imaging scan performed 11/08/2022. Patient had severe LAD stenosis treated with intravascular ultrasound and she had a mid LAD drug-eluting stent placed. Patient had a hypoxemic event with sats down into the 80s requiring 6 L by oxime mask for 93%. This was a change she is 95% on 4 L Vitals/I&O/Wt Last Vital Signs Temp 98.4 F 03/05/25 08:00 Pulse 77 03/05/25 12:00 Resp 20 H 03/05/25 12:00 BP 114/53 03/05/25 12:00 Pulse Ox 86 L 03/05/25 12:00 O2 Del Method Nasal Cannula 03/05/25 08:44 O2 Flow Rate 3 03/05/25 11:11 03/04/25 03/05/25 03/05/25 22:59 06:59 14:59 Intake Total 240 / 860 Output Total 400 / 675 125 / 800 Balance -160 / 185 -125 / 60 Weight last 48 hrs Weight 79.2 kg Weight 75.705 kg Weight 75.705 kg Weight 78.273 kg Physical Exam 2 Narrative: General well-developed well-nourished female in no acute cardiopulmonary stress CV regular rate and rhythm Lungs prolonged x-ray phase trace wheeze no crackles decreased breath sounds in bases Abdomen positive bowel tones soft nontender Calves no tenderness cords pretibial edema Skin warm and dry Urinary Catheter Management: Rodriguez: Cath Placed During This Visit: yes Reason for Continuing Indwelling Catheter: Accurate Measurement of Urinary Output in Critically Ill Patients Urinary Catheter Date of Insertion: 03/03/25 Urinary Catheter Time of Insertion: 13:41 Data 03/05/25 03:59 03/05/25 03:59 A&P Assessment and plan 1. Acute and chronic respiratory failure with hypoxia: Most likely due to combination of COPD/ emphysema exacerbation along with CHF. Oxygen supplementation keeping saturation 93%. Patient's ABG shows no CO2 retention Patient with episodic shortness of breath at home and [address] noncontrast showed bilateral pleural effusions and interstitial thickening secondary to edema. Will obtain a D-dimer and continue with diuresis. If dimer elevated will obtain CTA if negative or equivocal we will continue with diuresis 2. Acute on chronic combined systolic and diastolic congestive heart failure: Limited echocardiogram repeat shows an EF of 40 to 45% with global LV hypokinesia Strict input of charting, daily weights. Fluid restriction of less than 1500 cc. Patient had a good response to IV diuresis yesterday. Blood pressure slightly soft today with increasing sodium bicarbonate. Will hold off any further diuresis for now. Will most likely switch to Bumex as needed. Given new diagnosis of worsening heart failure with history of PCI in the past patient would need further workup. N.p.o. after midnight. Plan for Lexiscan stress test. Patient will need further changes in medication for guideline directed medical therapy for heart failure. Will hold off on nifedipine going forward. Will plan to add Entresto. Patient not on beta-rachelle given history of bradycardia with metoprolol. Can try for low-dose Coreg if blood pressure remains stable on Entresto. 3. Left ventricular systolic dysfunction (LVSD), NYHA class 3: Oxygen supplementation to keep her at 93% and diuresis. D-dimer to risk ratified for PE 4. COPD with emphysema: With mild exacerbation. Continue with Solu-Medrol 30 mg IV every 8 hourly. Will plan to wean rapidly in next 24 to 48 hours. DuoNeb every 6 hours Pulmicort twice daily. Patient is being worked up as an outpatient for possible BiPAP. Did have a sleep study back in January 27. Repeat sleep study shows patient is not requiring BiPAP nightly. 5. Primary hypertension: Goal blood pressure less than 140/90 mmHg. Continue with home dose of nifedipine, Imdur. Uptitrate as for goal blood pressure. 6. Troponin level elevated: 2-hour troponin delta negative. Most likely stress induced type II [place]. Echocardiogram as above. Continue home dose of aspirin, statin. 7. CKD (chronic kidney disease) stage 2, GFR 60-89 ml/min: Creatinine at this time. Continue to monitor. Plan: CODE STATUS: Discussed in detail with the patient and daughter at bedside. Does not want intubation or chest compression. Okay with defibrillation if needed. Limited resuscitation Cardiac diet. Fluid restriction to less than 1500 cc Protonix OPD prophylaxis Heparin for DVT prophylaxis PDMP PDMP Reviewed: Not Reviewed Attestations 2 Medical Necessity Statement*: Patient remains a hospital for diuresis and workup for possible PE. She will require 1-2 midnights Coding Level of Care Code Acute Code for [facility] Diagnoses Acute and chronic respiratory failure with hypoxia J96.21 Acute on chronic combined systolic and diastolic congestive heart failure I50.43 Heart failure type: combined systolic and diastolic Left ventricular systolic dysfunction (LVSD), NYHA class 3 I51.89 Pulmonary emphysema, unspecified emphysema type J43.9 Primary hypertension I10 Hypertension type: primary hypertension Troponin level elevated R79.89 CKD (chronic kidney disease) stage 2, GFR 60-89 ml/min N18.2 Time Spent (min) 35
[2025-03-05] MEDS: bumetanide 0.25 mg/mL SDV 4 mL 1 MG IVP (16:56)
[2025-03-06] VITALS (13 sets, daily range): BP systolic 122–149; BP diastolic 50–89; PULSE 71–91; RESP 14–29; TEMP 36.6–36.9; O2SAT 89–97
[2025-03-06] MEDS: methylPREDNISolone sod succ 40 mg/mL INJ 30 MG IVP ×3 (02:55→15:30)
[2025-03-06] MEDS: heparin 5,000 unit/mL INJ 1 mL 5000 UNIT SUBCUT ×2 (02:56→15:30)
[2025-03-06 03:03] LABS: Hematocrit 31.5 % (36-47); Hemoglobin 9.80 g/dL (11.27-16.99); Mean Corpuscular HGB Conc 31.1 g/dL (30-55); Mean Corpuscular Hemoglobin 28.9 pg (27-33); Mean Corpuscular Volume 92.9 fl (85-98); Nucleated Red Blood Cells % 0 %; Platelet Count 211 10^3/cmm (157-399); Red Blood Count 3.39 10^6/uL (3.85-5.65); White Blood Count 9.04 10^3/uL (3.29-11.43)
[2025-03-06 03:34] LABS: Alanine Aminotransferase 27 U/L (0-33); Albumin Level 3.3 g/dL (3.5-5.2); Alkaline Phosphatase 97 U/L (35-105); Anion Gap 12.5 (5-19); Aspartate Amino Transferase 20 U/L (0-32); Blood Urea Nitrogen 27 mg/dL (8-23); Calcium 10.1 mg/dL (8.5-10.5); Carbon Dioxide 34 mmol/L (22-29); Chloride 101 mmol/L (98-107); Creatinine Clr Calc Pharmacy 34.3336; Globulin 2.1 g/dL (1.3-4.6); Glucose 153 mg/dL (65-115); Magnesium 1.9 mg/dL (1.7-2.3); Osmolality Calculated 304 mOsm/kg (285-295); Potassium 4.5 mmol/L (3.5-5.1); Sodium 143 mmol/L (136-145); Total Protein 5.4 g/dL (6.6-8.7)
[2025-03-06] MEDS: bumetanide 0.25 mg/mL SDV 4 mL 1 MG IVP (04:27)
--- NOTE | 2025-03-06 09:03 | P.PN_ITS ---
Subjective 2 Subjective: 85-year-old female admitted wi th acute shortness of breath on chronic COPD and heart failure. She is typically on 3 L/min at home. Patient had mid LAD LAD PCI and stent 12/27/2022. 03/03/2025 echo has shown LVEF 40 to 45% mild global hypokinesis. 03/05/2025 Lexiscan nuclear Small area of reversible defect in the apical inferior wall in the distribution of the RCA LV wall motion diffuse hypokinesia mildly dilated LV cavity decreased ischemic burden from 2022 when she had nuclear imaging scan performed 11/08/2022. Patient had severe LAD stenosis treated with intravascular ultrasound and she had a mid LAD drug-eluting stent placed. 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 She quit tobacco 7 years ago 03/05/2025 patient had a hypoxemic event with sats down into the 80s requiring 6 L by oxime mask for 93%. This was a change she is 95% on 4 L and required additional diuresis 03/06/2025 the patient just had another h ypoxemic event requiring oxygen bump up from 4 L to 6 L oxy mask and she was complaining of left leg pain without obvious deformity. She states is not sure it is a cramp. She reports wanting to go home. Daughter is present at bedside Vitals/I&O/Wt Last Vital Signs Temp 98.4 F 03/06/25 05:12 Pulse 83 03/06/25 05:12 Resp 18 03/06/25 02:16 BP 131/89 03/06/25 05:12 Pulse Ox 89 L 03/06/25 05:12 O2 Del Method Nasal Cannula 03/06/25 02:16 O2 Flow Rate 4 03/06/25 02:16 03/05/25 03/06/25 03/06/25 22:59 06:59 14:59 Intake Total 120 / 240 Output Total 1225 / 1225 300 / 1525 Balance -1105 / -985 -300 / -1285 Weight last 48 hrs Weight 80.5 kg Weight 79.2 kg Physical Exam 2 Narrative: General well-developed well-nourished female in no acute cardiopulmonary stress CV regular rate and rhythm Lungs prolonged x-ray phase trace wheeze no crackles decreased breath sounds in bases Abdomen positive bowel tones soft nontender Calves no tenderness cords pretibial edema Skin warm and dry Urinary Catheter Management: Rodriguez: Cath Placed During This Visit: yes Reason for Continuing Indwelling Catheter: Accurate Measurement of Urinary Output in Critically Ill Patients Urinary Catheter Date of Insertion: 03/03/25 Urinary Catheter Time of Insertion: 13:41 Data 03/06/25 02:54 03/06/25 02:54 CXR: My impression: Bilateral pleural effusions and pulm vascular congestion mildly worsened Other Imaging: Radiologist's impression: Sestamibi cardiac test 1. Myocardial perfusion imaging revealing a small area reversible defect in the apical inferior wall region suggesting ischemia in the distribution of the right coronary artery 2. Diminished LV ejection fraction of 35%. 3. LV wall motion analysis revealing diffuse hypokinesia of the left ventricle. 4. Mildly dilated LV cavity with an end-systolic volume of 89 mL Compared to study from 11/08/2022, the ischemic burden appears to have significantly decreased A&P Assessment and plan 1. Acute and chronic respiratory failure with hypoxia: Most likely due to combination of COPD/ emphysema exacerbation along with CHF. Oxygen supplementation keeping saturation 93%. Patient's ABG shows no CO2 retention Patient with episodic shortness of breath at home and [address] noncontrast showed bilateral pleural effusions and interstitial thickening secondary to edema. Dimer weakly positive but lower than her past dimers so will not pursue PE diagnosis. Continue with diuresis. Patient has a Rodriguez and urine output has been poor bump Bumex up to 2 mg IV twice daily and add Zaroxolyn 5 mg daily starting now 2. Acute on chronic combined systolic and diastolic congestive heart failure: Limited echocardiogram repeat shows an EF of 40 to 45% with global LV hypokinesia Strict input of charting, daily weights. Fluid restriction of less than 1500 cc. Continue with IV Bumex twice a day diuresis Stress test is showing mild ischemic burden Patient did not tolerate metoprolol due to beta-rachelle induced bradycardia. She has been started on Entresto and nifedipine stopped. Current nursing documentation shows 2.5 cumulative fluid loss in 2 days of admission but 4.8 kg weight gain I am going to asked the senior commercial loan officer to see the patient given her ischemic cardiomyopathy although recent nuclear test shows decreased ischemic burden 3. Left ventricular systolic dysfunction (LVSD), NYHA class 3: Oxygen supplementation to keep her at 93% and diuresis. D-dimer is equivocally negative based on comparisons 4. COPD with emphysema: With mild exacerbation. Continue with Solu-Medrol 30 mg IV every 8 hourly. Will plan to wean rapidly in next 24 to 48 hours. DuoNeb every 6 hours Pulmicort twice daily. Patient is being worked up as an outpatient for possible BiPAP. Did have a sleep study back in January 27. Patient be trialed on BiPAP as she is not diuresing well 5. Primary hypertension: Goal blood pressure less than 140/90 mmHg. Continue with home dose of Imdur. Continue Entresto. Nifedipine stopped Add low-dose carvedilol 6. Troponin level elevated: 2-hour troponin delta negative. Most likely stress induced type II [place]. Echocardiogram as above. Continue home dose of aspirin, statin and Plavix. 7. CKD (chronic kidney disease) stage 2, GFR 60-89 ml/min: BUN and creatinine improved with diuresis Plan: CODE STATUS: Discussed in detail with the patient and daughter at bedside. Does not want intubation or chest compression. Okay with defibrillation if needed. Limited resuscitation Cardiac diet. Fluid restriction to less than 1500 cc Protonix OPD prophylaxis Heparin for DVT prophylaxis PDMP PDMP Reviewed: Not Reviewed Attestations 2 Medical Necessity Statement*: Patient remains in the hospital for diuresis and cardiology consult will require greater than 2 midnight Coding Level of Care Code 54332 Diagnoses Acute and chronic respiratory failure with hypoxia J96.21 Acute on chronic combined systolic and diastolic congestive heart failure I50.43 Heart failure type: combined systolic and diastolic Left ventricular systolic dysfunction (LVSD), NYHA class 3 I51.89 Pulmonary emphysema, unspecified emphysema type J43.9 Primary hypertension I10 Hypertension type: primary hypertension Troponin level elevated R79.89 CKD (chronic kidney disease) stage 2, GFR 60-89 ml/min N18.2 Time Spent (min) 40
--- NOTE | 2025-03-06 13:01 | PC.NURSE ---
patient complaining of severe leg pain on the left side. Pulses were checked on both feet and present. Patient given tylenol for pain. Dr Carlson notified. No new orders given.
--- NOTE | 2025-03-06 13:14 | XRR_ITS ---
PROCEDURE INFORMATION: Exam: XR Chest Exam date and time: 03/06/2025 1:40 PM Age: 85 years old Clinical indication: Shortness of breath; Additional info: Episodic hypoxemia and pleural effusions, known severe oxygen dependent copd on 3 l/min at home TECHNIQUE: Imaging protocol: Radiologic exam of the chest. Views: 1 view. COMPARISON: CT chest con [id number] 03/03/2025 1:22 PM FINDINGS: Lungs: Mild vascular and interstitial prominence. Likely small pleural effusions with bibasilar pulmonary infiltrates. Bibasilar infiltrates. Pleural spaces: See Lungs finding. Heart/Mediastinum: Mild cardiomegaly. Bones/joints: Unremarkable. XR/XR chest 1V portable [id number] IMPRESSION: Mild CHF.
--- NOTE | 2025-03-06 14:37 | P.CONIM_ITS ---
<Statement entered by Oliver Griggs MD - 03/06/25 20:57> Patient was evaluated and cared for in conjunction with an advanced practice practitioner. I personally examined the patient and reviewed the chart and all pertinent data including imaging, telemetry, and laboratory results. I discussed the patient in detail with the advanced practice practitioner. Please see their note for complete H&P testing result and agreed upon plan of care for the patient. I examined and interviewed the patient as well. When I examined the patient she was sitting in the bed eating dinner. She appeared to be not in respiratory distress. Physical examination. To be benign as lungs are clear now no significant JVD heart is regular and she is not tachycardic anymore. GENERAL: Patient is alert, awake and oriented x3. HEART: Regular S1 and S2. LUNGS: Decreased but clear to auscultate bilaterally. CENTRAL NERVOUS SYSTEM: Grossly nonfocal. Assessment and plan Severe shortness of breath/respiratory distress now improving Coronary artery disease Congestive heart failure diastolic type appears to be compensated At this point I agree with oral Bumex which she is already on patient is not on BiPAP she is on nasal cannula sitting there eating dinner Continue and optimize medication continue Entresto Treatment of COPD as per medicine colleague It appears to me patient has more COPD exacerbation than overt heart failure. Providers/Reason For Consult 2 Consulting Physician/Specialty*: Dr Teri Griggs, interventional cardiology Reason for Consult*: abnormal stress test, decreased LV function Requesting Physician: Errol Carlson MD Attending Physician: Errol Carlson MD Primary Care Provider: Sadie Ochoa, [employer] History of Present Illness History of Present Illness Wendy Covarrubias is a 85 year old female with past medical history of carotid artery stenosis, systolic CHF (previously 35-40% in 2022, improved to 51% in December of this year), CAD (PCI of the LAD in 2022), Alzheimer's disease, epilepsy, uses supplemental oxygen at home 4 L. She was recently admitted to the hospital from 02/27/2025 to 03/02/2025 for COPD exacerbation, community-acquired pneumonia, decompensated CHF with left pleural effusion. She was discharged on prednisone, antibiotic, home medications continued. She returned to the hospital 03/03/2025 with oxygen saturation in the 80s, difficulty breathing. Hemoglobin stable, 9.8. D-dimer 1.18. BUN 29, creatinine 1.0. Troponin series 56-> 53-> 45. BNP 21,000. EKG revealed sinus rhythm with nonspecific ST/T wave changes. She underwent a Lexiscan stress test yesterday revealing small reversible defect in the apical inferior wall suggesting ischemia in the RCA territory. Ischemic burden decreased from the previous study. She is not having chest pain, shortness of breath appears significant at rest, minimal signs of volume overload. Review of telemetry shows a 12 beat run of VT at 8 PM. No other arrhythmias. Review of Systems 2 Const: Denies: fever(s), chills, change in weight, fatigue or diaphoresis Eyes: Denies: change in vision ENMT: Denies: epistaxis Card: Denies: chest pain, palpitations, irregular heart rhythm, edema, syncope, pre-syncope, dyspnea on exertion, orthopnea or leg pain with exertion Resp: Reports: dyspnea; Denies: productive cough or wheezing GI: Denies: nausea, vomiting, hematemesis, hematochezia or melena : Denies: hematuria Musc: Denies: extremity swelling Kash/Lymph: Denies: easy bruising or easy bleeding Medications/Allergies Home Medications ?Medication ?Instructions ?Recorded ?Confirmed ?Last Taken ?Type atorvastatin 80 mg tablet 80 mg PO QPM 07/26/1903/02/25 History albuterol sulfate 90 mcg/actuation 2 puff inhalation Q 6H PRN 10/06/22 03/03/25 03/03/25 History aerosol inhaler Shortness Of Breath Or Wheez ing multivitamin 1 tab PO DAILY 10/06/2202/0403/02/25 History isosorbide mononitrate 30 mg 30 mg PO QAM #30 tabs 12/2503/03/25 03/03/25 Rx tablet,extended release 24 hr nitroglycerin 0.4 mg sublingual 0.4 mg sublingual Q5M PRN chest 11/23/22 03/03/25 Unknown Rx tablet pain #25 tabs aspirin 81 mg tablet,delayed 81 mg PO DAILY #90 tabs 0 12/28/22 03/03/25 03/02/25 Rx release levetiracetam 500 mg tablet 500 mg PO BID 90 days #180 tabs 04/02/2703/03/25 03/03/25 Rx furosemide 40 mg tablet (Lasix) 80 mg PO QAM 12/24/24 03/03/25 03/03/25 History Oxygen concentrator 2L NC #1 ea 01/29/25 03/03/25 Unkn own Rx citalopram 20 mg tablet 20 mg PO DAILY 02/27/2502/0403/03/25 History clopidogrel 75 mg tablet 75 mg PO DAILY 02/27/2502/0403/02/25 History lansoprazole 30 mg capsule,delayed 30 mg PO DAILY 02/0403/03/25 03/02/25 History release memantine 10 mg tablet 10 mg PO BID 02/27/2503/03/25 History nifedipine 30 mg tablet,extended 30 mg PO DAILY 03/03/25 03/02/25 History release cefdinir 300 mg capsule 300 mg PO BID 5 days #10 cap s 03/02/25 03/03/25 Unknown Rx ipratropium 0.5 mg-albuterol 3 mg 3 ml inhalation Q6H PRN 03/02/25 03/03/25 Unknown Rx (2.5 mg base)/3 mL nebulization respiratory distress # 180 mL soln prednisone 10 mg tablet 10 mg PO DIRECTED #30 tab s 03/02/25 03/03/25 Unknown Rx Allergies Allergy/AdvReac Type Severity Reaction Status Date / Time meperidine (From Demerol) Allergy ADR-Vomitin Verified 12/24/24 15:19 g morphine Allergy ADR-Vomitin Verified 12/24/24 15:19 g Penicillins Allergy ALGY-Hives Verified 12/24/24 15:19 Current Medications Generic Name Dose Route Start Last Admin Trade Name Freq PRN Reason Stop Dose Admin Acetaminophen 650 mg 03/03/25 14:17 03/06/25 12:33 Acetaminophen 325 Mg Tablet PO 650 mg Q6H PRN Administration Mild/Mod Pain Or Temp >/= 101 Albuterol/Ipratropium 3 ml 03/03/25 20:00 03/06/25 13:17 Ipratropium-Albuterol 3 Ml Neb INHALATION 3 ml Q6H.RESP ORLIN Administration Aspirin 81 mg 03/05/25 05:00 03/06/25 04:26 Aspirin 81 Mg Ec Tablet PO 81 mg DAILY ORLIN Administration Atorvastatin Calcium 80 mg 03/03/25 18:00 03/05/25 16:56 Atorvastatin 40 Mg Tablet PO 80 mg QPM ORLIN Administration Budesonide 0.5 mg 03/03/25 20:00 03/06/25 09:00 Budesonide 0.5 Mg/2 Ml Neb INHALATION 0.5 mg BID.RESPIRATORY ORLIN Administration Cefdinir 300 mg 03/05/25 05:00 03/06/25 04:26 Cefdinir 300 Mg Capsule PO 300 mg BID ORLIN Administration Protocol Citalopram Hydrobromide 20 mg 03/05/25 05:00 03/06/25 04:26 Citalopram 20 Mg Tablet PO 20 mg DAILY ORLIN Administration Clopidogrel Bisulfate 75 mg 03/05/25 05:00 03/06/25 04:26 Clopidogrel 75 Mg Tablet PO 75 mg DAILY ORLIN Administration Docusate Sodium 100 mg 03/05/25 05:00 03/06/25 04:26 Docusate Sodium 100 Mg Capsule PO 100 mg BID ORLIN Administration Heparin Sodium (Porcine) 5,000 unit 03/03/25 14:17 03/06/25 02:56 Heparin 5,000 Unit/Ml Inj 1 Ml SUBCUT 5,000 unit Q12H ORLIN Administration Levetiracetam 500 mg 03/05/25 05:00 03/06/25 04:26 Levetiracetam 500 Mg Tablet PO 500 mg BID ORLIN Administration Memantine 10 mg 03/05/25 05:00 03/06/25 04:26 Memantine 5 Mg Tablet PO 10 mg BID ORLIN Administration Methylprednisolone Sodium Succinate 30 mg 03/04/25 08:45 03/06/25 12:33 Methylprednisolone Sod Succ 40 Mg/Ml Inj IVP 30 mg Q8H ORLIN Administration Ondansetron HCl 4 mg 03/03/25 14:17 03/05/25 08:39 Ondansetron 2 Mg/Ml Sdv 2 Ml IVP 4 mg Q6H PRN Administration vomiting, or N/V if npo Pantoprazole Sodium 40 mg 03/06/25 05:00 03/06/25 04:[address] 40 Mg Tablet PO 40 mg DAILY ORLIN Administration Potassium Chloride 20 meq 03/05/25 13:55 03/06/25 04:26 Potassium Chloride Er 20 Meq Tablet PO 20 meq DAILY ORLIN Administration Sacubitril/Valsartan 1 each 03/05/25 05:00 03/06/25 04:27 Sacubitril/Valsartan 24-26 Mg Tablet PO 1 each BID ORLIN Administration PFSH Acute 2 PFSH: Medical History Pulmonary emphysema, unspecified emphysema type Left ventricular systolic dysfunction (LVSD), NYHA class 3 Epilepsy Essential hypertension Dyslipidemia GERD (gastroesophageal reflux disease) Dementia in Alzheimer's disease Arteriosclerotic heart 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, 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 Carotid disease, bilateral Cystocele with small rectocele and uterine descent Surgical History History of coronary artery stent placement Status post carotid surgery History of cholecystectomy H/O removal of cyst Family History Mother CAD (coronary artery disease) Hypertension Social History Smoking and tobacco/nicotine status: former use of tobacco/nicotine Second hand smoke exposure: No Alcohol intake: never Substance/Drug Use: never Adopted: No Lives independently: Yes Household members: family Housing: House Marital status: / service: No Current occupational status: retired Do you think of yourself as: Straight/Heterosexual Current gender identity: Female Vitals/I&O/Wt Last Vital Signs Temp 98.2 F 03/06/25 08:00 Pulse 83 03/06/25 13:17 Resp 18 03/06/25 13:17 BP 122/57 03/06/25 12:22 Pulse Ox 95 03/06/25 13:17 O2 Del Method Oxymask 03/06/25 13:17 O2 Flow Rate 6 03/06/25 13:17 03/05/25 03/06/25 03/06/25 22:59 06:59 14:59 Intake Total 120 / 240 120 / 120 Output Total 1225 / 1525 300 / 1525 550 / 550 Balance -1105 / -1285 -300 / -1285 -430 / -430 Weight last 48 hrs Weight 177 lb 7.554 oz Weight 174 lb 9.698 oz Physical Exam 2 Const: COMMON NORMALS: no acute distress and patient oriented x3 GENERAL APPEARANCE: cooperative and comfortable ORIENTATION/CONSCIOUSNESS: Yes awake, Yes oriented to person, Yes oriented to place and Yes oriented to time Chest: COMMONS NORMALS: normal inspection of the chest and normal palpation of entire chest wall CHEST: Yes Symmetrical chest wall rise Resp: COMMON NORMALS: No retractions and clear to auscultation bilaterally (upper bilaterally) EFFORT & INSPECTION: Yes symmetric chest movement, Yes tachypneic and Yes labored AUSCULTATION: clear to auscultation bilaterally (upper bilaterally) and diminished lung sounds bilateral in the lower lung millan Cardio: COMMON NORMALS: regular rate, regular rhythm, S1 normal heart sound present, S2 normal heart sound present, No gallops present (Cardio), No clicks present (Cardio), No murmurs present (Cardio) and No rub (Cardio) RATE: r egular rate RHYTHM: regular rhythm HEART SOUNDS: S1 normal heart sound present and S2 normal heart sound present PERIPHERAL PULSES: radial pulses present Extremity: COMMON NORMALS: no pedal edema Neuro: COMMON NORMALS: patient oriented x3 and moves all extremities S ENSORIUM/ORIENTATION: Yes oriented to person, Yes oriented to place and Yes oriented to time Urinary Catheter Management: Rodriguez: Cath Placed During This Visit: yes Reason for Continuing Indwelling Catheter: Accurate Measurement of Urinary Output in Critically Ill Patients Urinary Catheter Date of Insertion: 03/03/25 Urinary Catheter Time of Insertion: 13:41 Data 03/06/25 02:54 03/06/25 02:54 A&P Assessment and plan 1. Left ventricular systolic dysfunction (LVSD), NYHA class 3: 2. Arteriosclerotic heart disease: 3. Hypertension: 4. Alzheimer disease: 5. CKD (chronic kidney disease) stage 2, GFR 60-89 ml/min: 6. Community acquired pneumonia: 7. Acute respiratory failure: Plan: Her work of breathing appears out of proportion for the level of mild volume overload. Likely multifactorial including community-acquired pneumonia treated during the last admission, systolic heart failure, emphysema/COPD. Continue aspirin, Plavix, Entresto, carvedilol. Dr Griggs to evaulate further and make plan. PDMP PDMP Reviewed: Not Reviewed Coding Level of Care Code Acute Code for [facility] Diagnoses Left ventricular systolic dysfunction (LVSD), NYHA class 3 I51.89 Arteriosclerotic heart disease I25.10 Hypertension I10 Alzheimer disease G30.9; F02.80 CKD (chronic kidney disease) stage 2, GFR 60-89 ml/min N18.2 Community acquired pneumonia J18.9 Acute respiratory failure J96.00
[2025-03-06] MEDS: bumetanide 0.25 mg/mL SDV 10 mL 2 MG IVP (15:29)
--- NOTE | 2025-03-06 16:39 | PC.OT ---
OT EVALUATION ATTEMPTED; PATIENT HAD JUST RETURNED FROM [facility] USE AND IS VERY TIRED. FAMILY REQUESTS FOR EVALUATION TO BE PERFORMED TOMORROW. INFORMATION REGARDING PLOF WAS GATHERED FROM THE DAUGHTER WHO IS PRESENT.
[2025-03-07] VITALS (11 sets, daily range): BP systolic 100–149; BP diastolic 51–75; PULSE 69–81; RESP 12–71; TEMP 36.3–36.7; O2SAT 92–98
[2025-03-07] MEDS: heparin 5,000 unit/mL INJ 1 mL 5000 UNIT SUBCUT ×2 (02:34→16:45)
[2025-03-07] MEDS: bumetanide 0.25 mg/mL SDV 10 mL 2 MG IVP (02:34)
[2025-03-07] MEDS: methylPREDNISolone sod succ 40 mg/mL INJ 30 MG IVP ×3 (02:34→20:47)
[2025-03-07] MEDS: HYDROcodone-acetaminophen 5-325 mg Tablet 1 TAB PO (03:17)
--- NOTE | 2025-03-07 10:33 | PC.SOCIAL ---
IMM Update pg 2 of IMM Updated and reviewed w/ patient. Copy provided and copy dated, initialed and placed in chart.
--- NOTE | 2025-03-07 11:05 | P.PN_ITS ---
<Statement entered by Oliver Griggs MD - 03/16/25 19:59> Patient was evaluated and cared for in conjunction with an advanced practice practitioner. I personally examined the patient and reviewed the chart and all pertinent data including imaging, telemetry, and laboratory results. I discussed the patient in detail with the advanced practice practitioner. Please see their note for complete H&P testing result and agreed upon plan of care for the patient. Subjective 2 Subjective: She is laying flat, no shortness of breath at rest, on nasal cannula. Vitals/I&O/Wt Last Vital Signs Temp 97.3 F L 03/07/25 07:47 Pulse 70 03/07/25 09:10 Resp 18 03/07/25 09:10 BP 126/70 03/07/25 07:47 Pulse Ox 98 03/07/25 09:10 O2 Del Method Nasal Cannula 03/07/25 09:10 O2 Flow Rate 5 03/07/25 09:10 FiO2 40 03/06/25 20:20 03/06/25 03/07/25 03/07/25 22:59 06:59 14:59 Intake Total 120 / 340 100 / 340 Output Total 1075 / 2425 800 / 2425 650 / 650 Balance -955 / -2085 -700 / -2085 -650 / -650 Weight last 48 hrs Weight 176 lb 5.917 oz Weight 177 lb 7.554 oz Physical Exam 2 Const: COMMON NORMALS: no acute distress and patient oriented x3 GENERAL APPEARANCE: cooperative and comfortable ORIENTATION/CONSCIOUSNESS: Yes awake, Yes oriented to person, Yes oriented to place and Yes oriented to time Chest: COMMONS NORMALS: normal inspection of the chest and normal palpation of entire chest wall CHEST: Yes Symmetrical chest wall rise Resp: COMMON NORMALS: normal respiratory effort, No retractions, No use of accessory muscles and clear to auscultation bilaterally EFFORT & INSPECTION: Yes symmetric chest movement AUSCULTATION: clear to auscultation bilaterally Cardio: COMMON NORMALS: regular rate, regular rhythm, S1 normal heart sound present, S2 normal heart sound present, No gallops present (Cardio), No clicks present (Cardio), No murmurs present (Cardio) and No rub (Cardio) RATE: r egular rate RHYTHM: regular rhythm HEART SOUNDS: S1 normal heart sound present and S2 normal heart sound present PERIPHERAL PULSES: radial pulses present Extremity: COMMON NORMALS: no pedal edema Neuro: COMMON NORMALS: patient oriented x3 and moves all extremities S ENSORIUM/ORIENTATION: Yes oriented to person, Yes oriented to place and Yes oriented to time Urinary Catheter Management: Rodriguez: Cath Placed During This Visit: yes Reason for Continuing Indwelling Catheter: Other Urinary Catheter Date of Insertion: 03/03/25 Urinary Catheter Time of Insertion: 13:41 Data 03/06/25 02:54 03/06/25 02:54 A&P Assessment and plan 1. COPD exacerbation: 2. Community acquired pneumonia: 3. Alzheimer disease: 4. CKD (chronic kidney disease) stage 2, GFR 60-89 ml/min: 5. Anxiety: 6. Acute on chronic combined systolic and diastolic congestive heart failure: 7. Hypertension: 8. Arteriosclerotic heart disease: Plan: She appears quite comfortable currently, no chest pain or worsening shortness of breath. Will recommend to continue aspirin, Plavix, Entresto 24/26 mg twice daily, carvedilol 3.125 mg twice a day, statin, Imdur 30 mg daily and Bumex 1 mg daily for maintenance. From cardiac perspective she can be discharged home when okay with hospitalist service. PDMP PDMP Reviewed: Not Reviewed Attestations 2 Medical Necessity Statement*: Possible discharge Coding Level of Care Code Acute Code for [facility] Diagnoses COPD exacerbation J44.1 Community acquired pneumonia J18.9 Alzheimer disease G30.9; F02.80 CKD (chronic kidney disease) stage 2, GFR 60-89 ml/min N18.2 Anxiety F41.9 Acute on chronic combined systolic and diastolic congestive heart failure I50.43 Heart failure type: combined systolic and diastolic Hypertension I10 Arteriosclerotic heart disease I25.10
--- NOTE | 2025-03-07 12:11 | P.PN_ITS ---
Subjective 2 Subjective: No acute events overnight. Patient laying comfortably in bed getting nebulization treatment. She is currently on 2 L saturating more than 96%. Denies any nausea, vomiting, headache. States she wants to go home at the earliest. Vitals/I&O/Wt Last Vital Signs Temp 97.7 F 03/07/25 11:54 Pulse 72 03/07/25 11:54 Resp 12 03/07/25 11:54 BP 100/60 03/07/25 11:54 Pulse Ox 96 03/07/25 11:54 O2 Del Method Nasal Cannula 03/07/25 11:54 O2 Flow Rate 5 03/07/25 09:10 FiO2 40 03/06/25 20:20 03/06/25 03/07/25 03/07/25 22:59 06:59 14:59 Intake Total 120 / 240 100 / 340 Output Total 1075 / 1625 800 / 2425 650 / 650 Balance -955 / -1385 -700 / -2085 -650 / -650 Weight last 48 hrs Weight 80 kg Weight 80.5 kg Physical Exam 2 Narrative: General: In mild distress due to difficulty in breathing, AO x3, generally sick appearing HEENT: PERRLA, pupils bilaterally equal and reactive Chest: Bilateral bronchial breath sounds all over lung millan, crackles improved today, occasional rhonchi diffuse allover, equal good air entry bilaterally CVS: S1-S2 regular, no murmurs, no tachycardia, no gallops, no rubs Abdomen: Soft, nontender, no organomegaly, bowel sounds present Neuro: No focal deficits, no facial deformity, AO x3, power 5/5 in all limbs Urinary Catheter Management: Rodriguez: Cath Placed During This Visit: yes Reason for Continuing Indwelling Catheter: Other Urinary Catheter Date of Insertion: 03/03/25 Urinary Catheter Time of Insertion: 13:41 Data 03/06/25 02:54 03/06/25 02:54 A&P Assessment and plan 1. Acute and chronic respiratory failure with hypoxia: Most likely due to combination of COPD/ emphysema exacerbation along with CHF. Oxygen supplementation keeping saturation 88 %. Patient's ABG shows no CO2 retention Patient with episodic shortness of breath at home and [address] noncontrast showed bilateral pleural effusions and interstitial thickening secondary to edema. Dimer weakly positive but lower than her past dimers so will not pursue PE diagnosis. 2. Acute on chronic combined systolic and diastolic congestive heart failure: Limited echocardiogram repeat shows an EF of 40 to 45% with global LV hypokinesia Strict input of charting, daily weights. Fluid restriction of less than 1500 cc. Will switch to oral Bumex 1 mg twice daily. Stress test is showing mild ischemic burden. Appreciate cardiology recommendations. Continue uptitrating guideline directed medical therapy for heart failure. Continue with current dose of Entresto and Coreg. No concern for hypotension or bradycardia. Monitor renal functions. Continue with aspirin, statin. 3. Left ventricular systolic dysfunction (LVSD), NYHA class 3: Oxygen supplementation to keep her at 93% and diuresis. D-dimer is equivocally negative based on comparisons. 4. COPD with emphysema: With mild exacerbation. Continue with Solu-Medrol 30 mg IV every 8 hourly. DuoNeb every 6 hours Pulmicort twice daily. Most likely will need to be on continuous oxygen keeping saturation over 88%. 5. Primary hypertension: Goal blood pressure less than 140/90 mmHg. Continue with Entresto and Coreg as above. Uptitrate as for goal blood pressure. 6. Troponin level elevated: 2-hour troponin delta negative. Most likely stress induced type II TN. Echocardiogram as above. Continue home dose of aspirin, statin and Plavix. 7. CKD (chronic kidney disease) stage 2, GFR 60-89 ml/min: BUN and creatinine improved with diuresis Plan: CODE STATUS: Discussed in detail with the patient and daughter at bedside. Does not want intubation or chest compression. Okay with defibrillation if needed. Limited resuscitation Cardiac diet. Fluid restriction to less than 1500 cc Protonix OPD prophylaxis Heparin for DVT prophylaxis Discharge plan: Discussed in detail with the patient. Discussed that unfortunately physical therapy due to shortness of breath she would need to be transition to SNF. Patient verbalized understanding. States she would like to go home. Would like to discuss with her family further. As per case management patient's family requested transition to SNF. We did discuss that if her shortness of breath continue to worsen or continues to have episodes of respiratory distress which are most likely in setting of COPD exacerbation and CHF given her goals of care she can discuss with her PCP regarding set up of hospice. Patient verbalized understanding and states she is interested in hospice if needed. Tried calling patient's daughter over the phone but unfortunately not able to get through due to poor connection. PDMP PDMP Reviewed: Not Reviewed Attestations 2 Medical Necessity Statement*: Requested hospitalization for management of acute hypoxia in setting of COPD exacerbation, CHF while safe discharge planning is sought Diagnoses Acute and chronic respiratory failure with hypoxia J96.21 Acute on chronic combined systolic and diastolic congestive heart failure I50.43 Heart failure type: combined systolic and diastolic Left ventricular systolic dysfunction (LVSD), NYHA class 3 I51.89 Pulmonary emphysema, unspecified emphysema type J43.9 Primary hypertension I10 Hypertension type: primary hypertension Troponin level elevated R79.89 CKD (chronic kidney disease) stage 2, GFR 60-89 ml/min N18.2
--- NOTE | 2025-03-07 14:40 | PC.NURSE ---
patient complaining of severe leg pain. Tylenol given. Granddaughter believed it was due to low potassium. Wrapper Dipper explained to granddaughter that her potassium was within normal limits.
[2025-03-08] VITALS (14 sets, daily range): BP systolic 101–140; BP diastolic 46–70; PULSE 66–77; RESP 13–22; TEMP 35.9–37.1; O2SAT 93–98
[2025-03-08] MEDS: heparin 5,000 unit/mL INJ 1 mL 5000 UNIT SUBCUT ×2 (03:10→16:19)
[2025-03-08] MEDS: methylPREDNISolone sod succ 40 mg/mL INJ 30 MG IVP ×3 (03:10→20:58)
[2025-03-08 04:39] LABS: Hematocrit 36.7 % (36-47); Hemoglobin 11.70 g/dL (11.27-16.99); Mean Corpuscular HGB Conc 31.9 g/dL (30-55); Mean Corpuscular Hemoglobin 28.5 pg (27-33); Mean Corpuscular Volume 89.3 fl (85-98); Nucleated Red Blood Cells % 0 %; Platelet Count 270 10^3/cmm (157-399); Red Blood Count 4.11 10^6/uL (3.85-5.65); White Blood Count 10.44 10^3/uL (3.29-11.43)
[2025-03-08 05:06] LABS: Alanine Aminotransferase 30 U/L (0-33); Albumin Level 3.6 g/dL (3.5-5.2); Alkaline Phosphatase 114 U/L (35-105); Anion Gap 13.2 (5-19); Aspartate Amino Transferase 22 U/L (0-32); Blood Urea Nitrogen 45 mg/dL (8-23); Calcium 10.5 mg/dL (8.5-10.5); Carbon Dioxide 38 mmol/L (22-29); Chloride 91 mmol/L (98-107); Globulin 2.3 g/dL (1.3-4.6); Glucose 153 mg/dL (65-115); Osmolality Calculated 301 mOsm/kg (285-295); Potassium 4.2 mmol/L (3.5-5.1); Sodium 138 mmol/L (136-145); Total Protein 5.9 g/dL (6.6-8.7)
[2025-03-08 05:07] LABS: Creatinine Clr Calc Pharmacy 29.0707
--- NOTE | 2025-03-08 13:16 | P.PN_ITS ---
Subjective 2 Subjective: No acute events overnight. Laying comfortably in bed and having her food. States feeling better. Saturating percent on 2 L. Hemodynamically stable. Vitals/I&O/Wt Last Vital Signs Temp 97.3 F L 03/08/25 12:00 Pulse 73 03/08/25 12:00 Resp 22 H 03/08/25 12:00 BP 101/51 03/08/25 12:00 Pulse Ox 93 03/08/25 12:00 O2 Del Method Nasal Cannula 03/08/25 12:00 O2 Flow Rate 2 03/08/25 12:00 FiO2 40 03/06/25 20:20 03/07/25 03/08/25 03/08/25 22:59 06:59 14:59 Intake Total 460 / 580 120 / 120 Output Total 100 / 750 600 / 1350 Balance -100 / -630 -140 / -770 120 / 120 Weight last 48 hrs Weight 79.3 kg Weight 80 kg Physical Exam 2 Narrative: General: In mild distress due to difficulty in breathing, AO x3, generally sick appearing HEENT: PERRLA, pupils bilaterally equal and reactive Chest: Bilateral bronchial breath sounds all over lung millan, crackles improved today, occasional rhonchi diffuse allover, equal good air entry bilaterally CVS: S1-S2 regular, no murmurs, no tachycardia, no gallops, no rubs Abdomen: Soft, nontender, no organomegaly, bowel sounds present Neuro: No focal deficits, no facial deformity, AO x3, power 5/5 in all limbs Urinary Catheter Management: Rodriguez: Cath Placed During This Visit: yes Reason for Continuing Indwelling Catheter: Other Urinary Catheter Date of Insertion: 03/03/25 Urinary Catheter Time of Insertion: 13:41 Data 03/08/25 04:31 03/08/25 04:31 A&P Assessment and plan 1. Acute and chronic respiratory failure with hypoxia: Most likely due to combination of COPD/ emphysema exacerbation along with CHF. Oxygen supplementation keeping saturation 88 %. Patient's ABG shows no CO2 retention Patient with episodic shortness of breath at home and [address] noncontrast showed bilateral pleural effusions and interstitial thickening secondary to edema. Dimer weakly positive but lower than her past dimers so will not pursue PE diagnosis. 2. Acute on chronic combined systolic and diastolic congestive heart failure: Limited echocardiogram repeat shows an EF of 40 to 45% with global LV hypokinesia Strict input of charting, daily weights. Fluid restriction of less than 1500 cc. Will switch to oral Bumex 1 mg twice daily. Stress test is showing mild ischemic burden. Appreciate cardiology recommendations. Continue uptitrating guideline directed medical therapy for heart failure. Continue with current dose of Entresto and Coreg. No concern for hypotension or bradycardia. Monitor renal functions. Continue with aspirin, statin. 3. Left ventricular systolic dysfunction (LVSD), NYHA class 3: Oxygen supplementation to keep her at 93% and diuresis. D-dimer is equivocally negative based on comparisons. 4. COPD with emphysema: With mild exacerbation. Continue with Solu-Medrol 30 mg IV every 8 hourly. DuoNeb every 6 hours Pulmicort twice daily. Most likely will need to be on continuous oxygen keeping saturation over 88%. 5. Primary hypertension: Goal blood pressure less than 140/90 mmHg. Continue with Entresto and Coreg as above. Uptitrate as for goal blood pressure. 6. Troponin level elevated: 2-hour troponin delta negative. Most likely stress induced type II [place]. Echocardiogram as above. Continue home dose of aspirin, statin and Plavix. 7. CKD (chronic kidney disease) stage 2, GFR 60-89 ml/min: BUN and creatinine improved with diuresis Plan: CODE STATUS: Discussed in detail with the patient and daughter at bedside. Does not want intubation or chest compression. Okay with defibrillation if needed. Limited resuscitation Cardiac diet. Fluid restriction to less than 1500 cc Protonix OPD prophylaxis Heparin for DVT prophylaxis Discharge plan: Discussed in detail with the patient. Discussed that unfortunately physical therapy due to shortness of breath she would need to be transition to SNF. Patient verbalized understanding. States she would like to go home. Would like to discuss with her family further. As per case management patient's family requested transition to SNF. We did discuss that if her shortness of breath continue to worsen or continues to have episodes of respiratory distress which are most likely in setting of COPD exacerbation and CHF given her goals of care she can discuss with her PCP regarding set up of hospice. Patient verbalized understanding and states she is interested in hospice if needed. Tried calling patient's daughter over the phone but unfortunately not able to get through due to poor connection. Plan for the day: Monitor renal functions. Continue with current dose of diuretics with Bumex 1 mg oral twice daily. Oxygen supplementation keeping saturation over 88%. Continue nebulization treatment. Physical therapy. Wean Solu-Medrol 30 mg every 12 hourly. Discussed discharge in detail with patient and daughter at bedside yesterday. Plan to discharge to SNF once authorization. PDMP PDMP Reviewed: Not Reviewed Attestations 2 Medical Necessity Statement*: Requested hospitalization for management of acute hypoxia in setting of COPD exacerbation, CHF while safe discharge planning is sought Diagnoses Acute and chronic respiratory failure with hypoxia J96.21 Acute on chronic combined systolic and diastolic congestive heart failure I50.43 Heart failure type: combined systolic and diastolic Left ventricular systolic dysfunction (LVSD), NYHA class 3 I51.89 Pulmonary emphysema, unspecified emphysema type J43.9 Primary hypertension I10 Hypertension type: primary hypertension Troponin level elevated R79.89 CKD (chronic kidney disease) stage 2, GFR 60-89 ml/min N18.2
[2025-03-09] VITALS (14 sets, daily range): BP systolic 94–132; BP diastolic 49–68; PULSE 70–82; RESP 12–23; TEMP 36.4–36.8; O2SAT 91–97
[2025-03-09] MEDS: heparin 5,000 unit/mL INJ 1 mL 5000 UNIT SUBCUT ×2 (03:03→15:36)
[2025-03-09 05:07] LABS: Hematocrit 37.3 % (36-47); Hemoglobin 11.90 g/dL (11.27-16.99); Mean Corpuscular HGB Conc 31.9 g/dL (30-55); Mean Corpuscular Hemoglobin 28.3 pg (27-33); Mean Corpuscular Volume 88.8 fl (85-98); Nucleated Red Blood Cells % 0 %; Platelet Count 298 10^3/cmm (157-399); Red Blood Count 4.20 10^6/uL (3.85-5.65); White Blood Count 12.70 10^3/uL (3.29-11.43)
[2025-03-09 05:21] LABS: Alanine Aminotransferase 31 U/L (0-33); Albumin Level 3.4 g/dL (3.5-5.2); Alkaline Phosphatase 107 U/L (35-105); Anion Gap 15.3 (5-19); Aspartate Amino Transferase 22 U/L (0-32); Blood Urea Nitrogen 57 mg/dL (8-23); Calcium 9.6 mg/dL (8.5-10.5); Carbon Dioxide 35 mmol/L (22-29); Chloride 91 mmol/L (98-107); Globulin 2.1 g/dL (1.3-4.6); Glucose 133 mg/dL (65-115); Osmolality Calculated 302 mOsm/kg (285-295); Potassium 4.3 mmol/L (3.5-5.1); Sodium 137 mmol/L (136-145); Total Protein 5.5 g/dL (6.6-8.7)
[2025-03-09 05:22] LABS: Creatinine Clr Calc Pharmacy 25.0778
[2025-03-09] MEDS: methylPREDNISolone sod succ 40 mg/mL INJ 30 MG IVP ×2 (08:28→19:58)
--- NOTE | 2025-03-09 11:55 | PM.PN ---
Subjective Subjective: No acute events overnight. Patient has remained hemodynamically stable and afebrile. 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 Laying comfortably in bed. Able to lie down flat. Saturating 94% on 2 L. Vitals/I&O/Wt Last Vital Signs Temp 97.6 F 03/09/25 08:27 Pulse 71 03/09/25 08:27 Resp 16 03/09/25 07:41 BP 108/49 03/09/25 08:27 Pulse Ox 91 03/09/25 08:27 O2 Del Method Nasal Cannula 03/09/25 08:27 O2 Flow Rate 2 03/09/25 08:27 FiO2 40 03/06/25 20:20 03/08/25 03/09/25 03/09/25 22:59 06:59 14:59 Intake Total 460 / 700 240 / 940 440 / 440 Output Total 700 / 700 300 / 1000 Balance -240 / 0 -60 / -60 440 / 440 Weight last 48 hrs Weight 79.054 kg Weight 78.6 kg Weight 79.3 kg Physical Exam Narrative: General: In mild distress due to difficulty in breathing, AO x3, generally sick appearing HEENT: PERRLA, pupils bilaterally equal and reactive Chest: Bilateral bronchial breath sounds all over lung millan, crackles improved today, occasional rhonchi diffuse allover, equal good air entry bilaterally CVS: S1-S2 regular, no murmurs, no tachycardia, no gallops, no rubs Abdomen: Soft, nontender, no organomegaly, bowel sounds present Neuro: No focal deficits, no facial deformity, AO x3, power 5/5 in all limbs Urinary Catheter Management: Rodriguez: Cath Placed During This Visit: yes Reason for Continuing Indwelling Catheter: Other Urinary Catheter Date of Insertion: 03/03/25 Urinary Catheter Time of Insertion: 13:41 Data 03/09/25 04:51 03/09/25 04:51 A&P Assessment and plan 1. Acute and chronic respiratory failure with hypoxia: Most likely due to combination of COPD/ emphysema exacerbation along with CHF. Oxygen supplementation keeping saturation 88 %. Patient's ABG shows no CO2 retention Patient with episodic shortness of breath at home and [address] noncontrast showed bilateral pleural effusions and interstitial thickening secondary to edema. Dimer weakly positive but lower than her past dimers so will not pursue PE diagnosis. 2. Acute on chronic combined systolic and diastolic congestive heart failure: Limited echocardiogram repeat shows an EF of 40 to 45% with global LV hypokinesia Strict input of charting, daily weights. Fluid restriction of less than 1500 cc. Will switch to oral Bumex 1 mg twice daily. Stress test is showing mild ischemic burden. Appreciate cardiology recommendations. Continue uptitrating guideline directed medical therapy for heart failure. Continue with current dose of Entresto and Coreg. No concern for hypotension or bradycardia. Monitor renal functions. Continue with aspirin, statin. 3. Left ventricular systolic dysfunction (LVSD), NYHA class 3: Oxygen supplementation to keep her at 93% and diuresis. D-dimer is equivocally negative based on comparisons. 4. COPD with emphysema: With mild exacerbation. Continue with Solu-Medrol 30 mg IV every 8 hourly. DuoNeb every 6 hours Pulmicort twice daily. Most likely will need to be on continuous oxygen keeping saturation over 88%. 5. Primary hypertension: Goal blood pressure less than 140/90 mmHg. Continue with Entresto and Coreg as above. Uptitrate as for goal blood pressure. 6. Troponin level elevated: 2-hour troponin delta negative. Most likely stress induced type II [place]. Echocardiogram as above. Continue home dose of aspirin, statin and Plavix. 7. CKD (chronic kidney disease) stage 2, GFR 60-89 ml/min: BUN and creatinine improved with diuresis Plan: CODE STATUS: Discussed in detail with the patient and daughter at bedside. Does not want intubation or chest compression. Okay with defibrillation if needed. Limited resuscitation Cardiac diet. Fluid restriction to less than 1500 cc Protonix OPD prophylaxis Heparin for DVT prophylaxis Discharge plan: Discussed in detail with the patient. Discussed that unfortunately physical therapy due to shortness of breath she would need to be transition to SNF. Patient verbalized understanding. States she would like to go home. Would like to discuss with her family further. As per case management patient's family requested transition to SNF. We did discuss that if her shortness of breath continue to worsen or continues to have episodes of respiratory distress which are most likely in setting of COPD exacerbation and CHF given her goals of care she can discuss with her PCP regarding set up of hospice. Patient verbalized understanding and states she is interested in hospice if needed. Tried calling patient's daughter over the phone but unfortunately not able to get through due to poor connection. Plan for the day: Creatinine up to 1.5. It is possible patient's dry weight creatinine is around 1.3. Patient currently is euvolemic. Hold off on diuretics for now. Continue with fluid restriction. Repeat BMP in afternoon. If needed can give a slow bolus of 500 cc to the patient. Continue nebulization treatment Continue Solu-Medrol 30 mg every 12 hourly. Will plan to wean in next 24 hours. Finish cefadroxil for 7-day course. Discussed discharge in detail with patient and daughter at bedside yesterday. Plan to discharge to SNF once authorization. PDMP PDMP Reviewed: Not Reviewed Attestations Medical Necessity Statement*: Requires further hospitalization while safe discharge planning is sought in a patient admitted for hypoxic respiratory failure in setting of congestive heart failure, COPD exacerbation developing mild ALYX Diagnoses Acute and chronic respiratory failure with hypoxia J96.21 Acute on chronic combined systolic and diastolic congestive heart failure I50.43 Heart failure type: combined systolic and diastolic Left ventricular systolic dysfunction (LVSD), NYHA class 3 I51.89 Pulmonary emphysema, unspecified emphysema type J43.9 Primary hypertension I10 Hypertension type: primary hypertension Troponin level elevated R79.89 CKD (chronic kidney disease) stage 2, GFR 60-89 ml/min N18.2
[2025-03-09] MEDS: sucralfate 1 gm/10 mL Oral Liq UDC PO ×3 (12:32→20:00)
--- NOTE | 2025-03-09 14:24 | PC.NURSE ---
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
[2025-03-09 15:41] LABS: Blood Urea Nitrogen 61 mg/dL (8-23); Calcium 9.3 mg/dL (8.5-10.5); Carbon Dioxide 34 mmol/L (22-29); Chloride 91 mmol/L (98-107); Creatinine Clr Calc Pharmacy 25.1536; Glucose 137 mg/dL (65-115); Osmolality Calculated 301 mOsm/kg (285-295); Sodium 136 mmol/L (136-145)
[2025-03-09 15:44] LABS: Anion Gap 15.7 (5-19); Potassium 4.7 mmol/L (3.5-5.1)
[2025-03-10] MEDS: heparin 5,000 unit/mL INJ 1 mL 5000 UNIT SUBCUT (02:25)
[2025-03-10 03:28] LABS: Hematocrit 36.3 % (36-47); Hemoglobin 11.60 g/dL (11.27-16.99); Mean Corpuscular HGB Conc 32.0 g/dL (30-55); Mean Corpuscular Hemoglobin 28.5 pg (27-33); Mean Corpuscular Volume 89.2 fl (85-98); Nucleated Red Blood Cells % 0 %; Platelet Count 263 10^3/cmm (157-399); Red Blood Count 4.07 10^6/uL (3.85-5.65); White Blood Count 12.63 10^3/uL (3.29-11.43)
[2025-03-10 03:57] LABS: Alanine Aminotransferase 28 U/L (0-33); Albumin Level 3.4 g/dL (3.5-5.2); Alkaline Phosphatase 101 U/L (35-105); Anion Gap 14.1 (5-19); Aspartate Amino Transferase 20 U/L (0-32); Blood Urea Nitrogen 59 mg/dL (8-23); Calcium 8.8 mg/dL (8.5-10.5); Carbon Dioxide 35 mmol/L (22-29); Chloride 94 mmol/L (98-107); Globulin 1.9 g/dL (1.3-4.6); Glucose 128 mg/dL (65-115); Osmolality Calculated 306 mOsm/kg (285-295); Potassium 4.1 mmol/L (3.5-5.1); Sodium 139 mmol/L (136-145); Total Protein 5.3 g/dL (6.6-8.7)
[2025-03-10 03:59] LABS: Creatinine Clr Calc Pharmacy 26.9503
[2025-03-10 04:00] VITALS: BP 126/43; PULSE 73; RESP 22; TEMP 36.2; O2SAT 96
[2025-03-10] MEDS: sucralfate 1 gm/10 mL Oral Liq UDC PO (06:20)
[2025-03-10 07:33] VITALS: BP 127/44; PULSE 72; RESP 15; TEMP 35.6; O2SAT 92
[2025-03-10] MEDS: methylPREDNISolone sod succ 40 mg/mL INJ 30 MG IVP (07:58)
--- NOTE | 2025-03-10 08:05 | P.DS_ITS ---
Discharge Providers Date of Admission: 03/04/25 08:34 Date of Discharge: March 10, 2025 Attending Provider at Admission: Ankur Machado MD Attending Provider at Discharge: Ankur Machado MD Primary Care Provider: MOHAN Concepcion Diagnoses at Discharge Discharge Diagnosis 1. Acute and chronic respiratory failure with hypoxia: 2. Acute on chronic combined systolic and diastolic congestive heart failure: 3. Left ventricular systolic dysfunction (LVSD), NYHA class 3: 4. Pulmonary emphysema, unspecified emphysema type: 5. Primary hypertension: 6. Troponin level elevated: 7. CKD (chronic kidney disease) stage 2, GFR 60-89 ml/min: Reason for Visit Reason for Visit: crackley in the chest and low o2 Hospital Course Hospital Course Wendy Covarrubias is a 84 year old woman with a history of emphysema/chronic obstructive pulmonary disease (COPD), chronic systolic congestive heart failure (CHF), hypertension, hyperlipidemia, chronic kidney disease (CKD), carotid artery disease, coronary artery disease (CAD), epilepsy, and gastroesophageal reflux disease (GERD) presented to the emergency department (ED) with respiratory distress. At baseline patient uses up to 4 L as per the daughter. Patient was discharged from the hospital on 03/02 after getting treatment for CHF and COPD exacerbation. Patient was not able to refill medications since discharge for it being Monday. Since today morning patient has been having difficulty in breathing with increased work of breathing with saturations dropping down to low 80s for the daughter. In the ER she was given a nebulization treatment along with 60 of IV Lasix and is currently saturating 91% on 4 L. Patient states she still feels as if she is having difficulty in breathing. Denies any nausea, vomiting, headache, chest pain, difficulty in swallowing. Patient was treated for hypoxic respiratory failure in setting of COPD and CHF exacerbation with steroids, nebulization treatment along with diuretics. Echocardiogram was repeated which showed worsening of EF down to 40 to 45% with global LV hypokinesia. She underwent cardiac stress test which showed minimal ischemic burden. She responded well to the treatment and gradually improved. Her antihypertensives were changed as per guideline directed medical therapy for congestive heart failure. Physical therapy evaluation recommended patient to be transition to SNF for further rehabitation. She has been transferred to SNF for further management. Physical Exam Narrative: General: In mild distress due to difficulty in breathing, AO x3, generally sick appearing HEENT: PERRLA, pupils bilaterally equal and reactive Chest: Bilateral bronchial breath sounds all over lung millan, crackles improved today, occasional rhonchi diffuse allover, equal good air entry bilaterally CVS: S1-S2 regular, no murmurs, no tachycardia, no gallops, no rubs Abdomen: Soft, nontender, no organomegaly, bowel sounds present Neuro: No focal deficits, no facial deformity, AO x3, power 5/5 in all limbs Urinary Catheter Management: Rodriguez: Cath Placed During This Visit: yes Reason for Continuing Indwelling Catheter: Other Urinary Catheter Date of Insertion: 03/03/25 Urinary Catheter Time of Insertion: 13:41 Discharge Data Studies Completed and Pending Completed Studies During Hospitalization Category Date Time Status CT chest wo con [id number] Stat Cat Scan 03/03/25 13:13 Completed Sestamibi Stress Test Request Routine Exams 03/04/25 08:43 Completed XR chest 1V portable [id number] Routine Exams 03/06/25 13:14 Completed XR chest 1V portable [id number] Urgent Exams 03/03/25 09:07 Completed NM susie perf SPECT r/s* [id number] Routine Nuc Med 03/05/25 08:43 Completed CV. echo limited [id number] Stat Ultrasound 03/03/25 13:13 Completed Radiology Impressions Chest CT 03/03/25 13:13 IMPRESSION: 1. Diffuse interstitial thickening secondary to edema. 2. New small bilateral pleural effusions. 3. Moderate cardiomegaly. 4. Extensive calcified plaque within the thoracic and abdominal aorta, great vessels and mesenteric arteries. 5. No adenopathy. 6. Prior cholecystectomy. Chest X-Ray 03/06/25 13:14 IMPRESSION: Mild CHF. Lexiscan stress test: IMPRESSIONS 1. Myocardial perfusion imaging revealing a small area reversible defect in the apical inferior wall region suggesting ischemia in the distribution of the right coronary artery 2. Diminished LV ejection fraction of 35%. 3. LV wall motion analysis revealing diffuse hypokinesia of the left ventricle. 4. Mildly dilated LV cavity with an end-systolic volume of 89 mL Compared to study from 11/08/2022, the ischemic burden appears to have significantly decreased Dr Mo Cortez MD [facility] (Electronically Signed) Final Date: 05 March 2025 12:57 Echocardiogram: CONCLUSIONS Limited echocardiogram performed to assess LV systolic function LV sytstolic function is mildly reduced with EF of 40-45%. Mild global hypokinesis. Pawan Tse MD (Electronically Signed) Final Date: 03 March 2025 21:11 Laboratory Results WBC 12.63 10^3/uL (3.29-11.43) H 03/10/25 01:06 RBC 4.07 10^6/uL (3.85-5.65) 03/10/25 01:06 Hgb 11.60 g/dL (11.27-16.99) 03/10/25 01:06 Hct 36.3 % (36-47) 03/10/25 01:06 MCV 89.2 fl (85-98) 03/10/25 01:06 MCH 28.5 pg (27-33) 03/10/25 01:06 MCHC 32.0 g/dL (30-55) 03/10/25 01:06 RDW 13.8 % (12.1-15.1) 03/10/25 01:06 Plt Count 263 10^3/cmm (157-399) 03/10/25 01:06 MPV 11.2 fL (7.4-10.4) H 03/10/25 01:06 Neut % (Auto) 84.7 % 03/10/25 01:06 Lymph % (Auto) 8.2 % 03/10/25 01:06 Butts % (Auto) 5.8 % 03/10/25 01:06 Eos % (Auto) 0.1 % 03/10/25 01:06 Baso % (Auto) 0.2 % 03/10/25 01:06 Neut # (Auto) 10.70 10^3/uL (1.8-7.7) H 03/10/25 01:06 Lymph # (Auto) 1.0 10^3/uL (0.8-4.8) 03/10/25 01:06 Butts # (Auto) 0.7 10^3/uL (0.2-0.9) 03/10/25 01:06 Eos # (Auto) 0.0 10^3/uL (0.0-0.8) 03/10/25 01:06 Baso # (Auto) 0.0 10^3/uL (0.0-0.1) 03/10/25 01:06 Nucleated RBC % (auto) 0 % 03/10/25 01:06 Nucleated RBCs # 0.0 /100WBC 03/10/25 01:06 D-Dimer 1.18 ug/mLFEU (0-0.59) H 03/05/25 14:13 Specimen Type Arterial 03/03/25 09:46 Sample Site Brachial, left 03/03/25 09:46 ABG pH 7.49 (7.35-7.45) H 03/03/25 09:46 ABG pCO2 41.7 mmHg (35-45) 03/03/25 09:46 ABG pO2 67.0 mmHg (80.0-100.0) L 03/03/25 09:46 ABG PO2/FiO2 Ratio 197 03/03/25 09:46 ABG HCO3 31.7 mmol/L (22-26) H 03/03/25 09:46 ABG O2 Saturation 93.3 03/03/25 09:46 ABG Base Excess 7.6 mmol/L (-2.0-2.0) H 03/03/25 09:46 Tien Test Pos 03/03/25 09:46 A-a O2 Gradient 16.3 mmHg (5-10) H 03/03/25 09:46 Hematocrit 32.3 % (37-47) L 03/03/25 09:46 Hgb O2 Saturation 92.2 % (95-100) L 03/03/25 09:46 Carboxyhemoglobin 1.0 %THgb (0.4-20.1) 03/03/25 09:46 Methemoglobin 0.3 % (0.4-1.5) L 03/03/25 09:46 Total Hemoglobin 10.5 g/dL (12-16) L 03/03/25 09:46 Sodium 142.0 mmol/L (131-143) 03/03/25 09:46 Potassium 3.5 mmol/L (3.5-5.0) 03/03/25 09:46 Glucose 94.0 mg/dL (70-115) 03/03/25 09:46 Ionized Calcium 1.2 mmol/L (1.1-1.4) 03/03/25 09:46 O2 Delivery Device Nc 03/03/25 09:46 O2 Liters/Min 3.5 % 03/03/25 09:46 FiO2 34.0 % 03/03/25 09:46 Assembly Machine Offbearer ID Monro 03/03/25 09:46 Sodium 139 mmol/L (136-145) 03/10/25 01:06 Potassium 4.1 mmol/L (3.5-5.1) 03/10/25 01:06 Chloride 94 mmol/L (98-107) L 03/10/25 01:06 Carbon Dioxide 35 mmol/L (22-29) H 03/10/25 01:06 Anion Gap 14.1 (5-19) 03/10/25 01:06 BUN 59 mg/dL (8-23) H 03/10/25 01:06 Creatinine 1.4 mg/dL (0.5-0.9) H 03/10/25 01:06 GFR Calculation Not Reportable 03/10/25 01:06 Glucose 128 mg/dL (65-115) H 03/10/25 01:06 Estimat Average Glucose 100 03/03/25 09:31 Hemoglobin A1c 5.1 % (4.0-6.0) 03/03/25 09:31 Calculated Osmolality 306 mOsm/kg (285-295) H 03/10/25 01:06 Lactic Acid 2.3 mmol/L (0.5-2.2) H 03/03/25 09:31 Lactic Acid (Sepsis) 1.6 mmol/L (0.5-2.2) 03/03/25 12:55 Calcium 8.8 mg/dL (8.5-10.5) 03/10/25 01:06 Phosphorus 4.2 mg/dL (2.5-4.5) 03/06/25 02:54 Magnesium 1.9 mg/dL (1.7-2.3) 03/06/25 02:54 Iron 33 ug/dL (37-145) L 03/03/25 09:31 TIBC 270 mcg/dl 03/03/25 09:31 % Saturation 12.2 % (20-50) L 03/03/25 09:31 Unsat Iron Binding 237 ug/dL (112-347) 03/03/25 09:31 Total Bilirubin 0.3 mg/dL (0.15-1.2) 03/10/25 01:06 AST 20 U/L (0-32) 03/10/25 01:06 ALT 28 U/L (0-33) 03/10/25 01:06 Alkaline Phosphatase 101 U/L (35-105) 03/10/25 01:06 Troponin T Baseline 56 ng/L (0-10) H 03/03/25 09:31 Troponin T 120 Minute 53.94 ng/L (0-10) H 03/03/25 11:46 Delta Troponin T -2.06 ABS# (0-10) L 03/03/25 11:46 Troponin T Hi Sens 6Hr 45.26 ng/L (0-10) H 03/03/25 14:58 Troponin T Hi Sens 6Hr Delta -10.74 ng/L (0-12) L 03/03/25 14:58 NT-Pro-B Natriuret Pep 79044 pg/mL (0-450) H 03/03/25 09:31 Total Protein 5.3 g/dL (6.6-8.7) L 03/10/25 01:06 Albumin 3.4 g/dL (3.5-5.2) L 03/10/25 01:06 Globulin 1.9 g/dL (1.3-4.6) 03/10/25 01:06 Triglycerides 115 mg/dL (0-150) 03/04/25 03:33 Cholesterol 142 mg/dL (0-200) 03/04/25 03:33 LDL Cholesterol, Calc 41 mg/dL (50-129) L 03/04/25 03:33 HDL Cholesterol 78 mg/dL (60-100) 03/04/25 03:33 LDL/HDL Ratio 0.53 RATIO (0.00-3.22) 03/04/25 03:33 Cholesterol/HDL Ratio 1.82 mg/dL (0.0-4.40) 03/04/25 03:33 Vitamin B12 1184 pg/mL (232-1245) 03/03/25 09:31 Folate 11.9 ng/mL (4.8-37.3) 03/04/25 03:33 Procalcitonin 0.21 ng/mL (0-0.5) 03/04/25 03:33 TSH 3.94 uIU/mL (0.27-4.20) 03/03/25 09:31 Random Cortisol 6.57 ug/dL (2.47-19.5) 03/04/25 03:33 Urine Color Yellow (Yellow) 03/03/25 11:33 Urine Appearance Clear (CLEAR) 03/03/25 11:33 Urine pH 6.0 (5-7) 03/03/25 11:33 Ur Specific [place] 1.009 (1.005-1.030) 03/03/25 11:33 Urine Protein Trace (Negative) A 03/03/25 11:33 Urine Glucose (UA) Negative (Normal) 03/03/25 11:33 Urine Ketones Negative (Negative) 03/03/25 11:33 Urine Blood Negative (Negative) 03/03/25 11:33 Urine Nitrate Negative (Negative) 03/03/25 11:33 Urine Bilirubin Negative (Negative) 03/03/25 11:33 Urine Urobilinogen 0.2 mg/dL (Negative) 03/03/25 11:33 Ur Leukocyte Esterase Negative (Negative) 03/03/25 11:33 Urine RBC None /hpf (0-2) 03/03/25 11:33 Urine WBC None /hpf (0-5) 03/03/25 11:33 Ur Squamous Epith Cells Rare /hpf (0-5) 03/03/25 11:33 Amorphous Sediment Not Reportable 03/03/25 11:33 Urine Bacteria None /hpf (NONE) 03/03/25 11:33 Nasal MRSA (PCR) Not detected (Not Detecte) 03/03/25 14:54 Vitals Last Vital Signs Temp 96.0 F L 03/10/25 07:33 Pulse 72 03/10/25 07:33 Resp 15 03/10/25 07:33 BP 127/44 03/10/25 07:33 Pulse Ox 92 03/10/25 07:33 O2 Del Method Nasal Cannula 03/10/25 07:33 O2 Flow Rate 1 03/10/25 07:33 FiO2 40 03/06/25 20:20 Discharge Plan Discharge Patient Disposition: Xfer SNF Condition: Stable Prescriptions: New sucralfate 100 mg/mL Suspension 1 g PO AC&BEDTIME Qty: 1000 0RF carvedilol 3.125 mg Tablet 3.125 mg PO BID 30 Days Qty: 60 0RF sacubitril-valsartan [Entresto] 24-26 mg Tablet 1 tab PO BID Qty: 60 0RF pantoprazole 40 mg Tablet,Delayed Release (Dr/Ec) 40 mg PO DAILY Qty: 30 0RF budesonide 0.5 mg/2 mL Suspension For Nebulization 0.5 mg inhalation BID.RESPIRATORY Qty: 60 0RF prednisone 10 mg tablet See Taper PO DIRECTED Qty: 42 0RF Taper: predniSONE 60-10 60 mg Daily for 2 Days and 0 Hour 50 mg Daily for 2 Days and 0 Hour 40 mg Daily for 2 Days and 0 Hour 30 mg Daily for 2 Days and 0 Hour 20 mg Daily for 2 Days and 0 Hour 10 mg Daily for 2 Days and 0 Hour Rx Instructions: see taper instructions Continued atorvastatin 80 mg tablet 80 mg PO QPM nitroglycerin 0.4 mg tablet, sublingual 0.4 mg sublingual Q5M PRN (Reason: chest pain) Qty: 25 0RF Rx Instructions: do not exceed 3 doses per episode Lasix 40 mg tablet 80 mg PO QAM Rx Instructions: Give 1 extra for >2# weight gain levetiracetam 500 mg tablet 500 mg PO BID 90 Days Qty: 180 3RF (DME) Oxygen concentrator 2L NC See Rx Instructions .ROUTE .MEDSUPPLY Qty: 1 0RF Rx Instructions: Use 2L NC when sleeping for 99 months aspirin 81 mg Tablet,Delayed Release (Dr/Ec) 81 mg PO DAILY Qty: 90 3RF memantine 10 mg tablet 10 mg PO BID clopidogrel 75 mg tablet 75 mg PO DAILY citalopram 20 mg tablet 20 mg PO DAILY multivitamin Tablet 1 tab PO DAILY albuterol sulfate 90 mcg/actuation HFA aerosol inhaler 2 puff INHALATION Q6H PRN (Reason: Shortness Of Breath Or Wheezing) Changed ipratropium-albuterol 0.5 mg-3 mg(2.5 mg base)/3 mL solution for nebulization 3 ml inhalation Q8H Qty: 180 2RF Discontinued nifedipine 30 mg tablet extended release 30 mg PO DAILY lansoprazole 30 mg capsule,delayed release(DR/EC) 30 mg PO DAILY cefdinir 300 mg capsule 300 mg PO BID 5 Days Qty: 10 0RF prednisone 10 mg tablet 10 mg PO DIRECTED Qty: 30 0RF Rx Instructions: 40 mg daily for 3 days, then 30 mg daily for 3 days, then 20 mg daily for 3 days, then 10 mg daily for 3 days, then stop. isosorbide mononitrate 30 mg tablet extended release 24 hr 30 mg PO QAM Qty: 30 0RF Discharge Order = DC NOW: Discharge Order (Routine); Ordered 03/10/25 Ordered By: Ankur Machado Referrals: [facility] [Outside] Sadie Ochoa [employer] [Primary Care Provider, [facility]] - 03/19/25 3:00 pm Patient Instructions: Sucralfate (By mouth) (Carafate), Prednisone (By mouth) (Prednisone Intensol, Prednicot, Deltasone, Johnie), Budesonide (Into the nose) (Rhinocort, Rhinocort Aqua), Carvedilol (By mouth) (Coreg, Coreg CR, Hypertenevide-12.5), Pantoprazole (By mouth) (Protonix), Sacubitril/Valsartan (By mouth) (Entresto, Entresto Sprinkle), Pleural Effusion (DC), Chronic Respiratory Failure (DC), CHF Stoplight, COPD Stoplight, Opioid Safety, Patient Portal & Ira Instructions Discharge Attestations Time Spent in Discharge Care*: greater than 30 min Specific Discharge Activities: educating patient, educating and/or supporting family/caregiver, discussing with pcp/other providers, discussing with patient case manager/social workers/dc planners, documenting/other paperwork and evaluating patient/reviewing data Status at Discharge: Cognitive status at discharge: mildly impaired cognition , Behavioral status at discharge: cooperative , Functional status at discharge: uses cane/walker , Overall status at discharge: patient is progressing back to baseline Quality Metrics Clinical Quality Measures [ No reported AMI, CVA or VTE this stay] Coding Level of Care Code 61219 Total time (in minutes) for Discharge: 65 Diagnoses Acute and chronic respiratory failure with hypoxia J96.21 Acute on chronic combined systolic and diastolic congestive heart failure I50.43 Heart failure type: combined systolic and diastolic Left ventricular systolic dysfunction (LVSD), NYHA class 3 I51.89 Pulmonary emphysema, unspecified emphysema type J43.9 Primary hypertension I10 Hypertension type: primary hypertension Troponin level elevated R79.89 CKD (chronic kidney disease) stage 2, GFR 60-89 ml/min N18.2
[2025-03-10 08:46] VITALS: PULSE 67; RESP 16; O2SAT 96
[2025-03-10 08:49] VITALS: O2SAT 96
[2025-03-10 11:28] VITALS: BP 127/44; PULSE 17; RESP 15; TEMP 36.1; O2SAT 95
== END 2025-03-10 10:45 | disposition skilled nursing facility (03) | DRG 280 ==
LOC: ER 12:41 → CSU 14:04
PROVIDERS: Internal Medicine; Admitting Provider Student in an Organized Health Care Education/Training Program; Emergency Provider Physician Assistant; PCP Nurse Practitioner; Visit Provider Student in an Organized Health Care Education/Training Program
DX: I13.0 Hypertensive heart and chronic kidney disease with heart failure and stage 1 through stage 4 chronic kidney disease, or unspecified chronic kidney disease (principal); I50.23 Acute on chronic systolic (congestive) heart failure; I21.A1 Myocardial infarction type 2; J96.21 Acute and chronic respiratory failure with hypoxia; J44.1 Chronic obstructive pulmonary disease with (acute) exacerbation; N17.9 Acute kidney failure, unspecified; N18.2 Chronic kidney disease, stage 2 (mild); J43.9 Emphysema, unspecified; E78.5 Hyperlipidemia, unspecified; I25.10 Atherosclerotic heart disease of native coronary artery without angina pectoris; G40.409 Other generalized epilepsy and epileptic syndromes, not intractable, without status epilepticus; K21.9 Gastro-esophageal reflux disease without esophagitis; I65.29 Occlusion and stenosis of unspecified carotid artery; G30.9 Alzheimer's disease, unspecified; F02.80 Dementia in other diseases classified elsewhere, unspecified severity, without behavioral disturbance, psychotic disturbance, mood disturbance, and anxiety; Z99.81 Dependence on supplemental oxygen; Z79.82 Long term (current) use of aspirin; Z79.02 Long term (current) use of antithrombotics/antiplatelets; Z95.5 Presence of coronary angioplasty implant and graft; Z87.891 Personal history of nicotine dependence; Z87.01 Personal history of pneumonia (recurrent)
CPT/HCPCS: 36415; 36600; 51702; 71045; 71250; 78452; 80048; 80051; 80053; 80061; 81001; 82330; 82533; 82607; 82746; 82805; 83036; 83540; 83550; 83605; 83735; 83880; 84100; 84145; 84443; 84484; 85025; 85378; 86403; 93005; 93017; 93308; 94640; 94660; 94664; 94760; 96372; 96374; 96375; 97110; 97116; 97163; 97167; 97530; 99285; A9500; G0378; J1644; J1938; J2405; J2470; J2785; J2919; J3490; J7030; J7040; J7626; J9999